=== PATIENT | female | born 1970 | race Caucasian/White ===

== ENCOUNTER 2019-04-24 11:05 | Inpatient (IN) ==
[2019-04-24] MEDS ORDERED: ALBUT/IPRATROP 3MG/0.5MG NEB 3 ML VIAL NEB STA ×2 (11:30→13:03)
[2019-04-24 11:45] LABS: Basophils # (auto) 0.03 K/uL (0-0.2); Basophils % (auto) 0.2 %; Eosinophils # (auto) 0.08 K/uL (0-0.5); Eosinophils % (auto) 0.7 %; Hematocrit (blood only) 49.3 % (37-47); Hemoglobin 16.2 g/dL (12.0-16.0); Immature Granulocytes # (auto) 0.04 K/uL (0.00-0.02); Immature Granulocytes % (auto) 0.3 %; Lymphocytes % (auto) 19.5 %; Mean Corpuscular Hgb Conc 32.9 g/dL (32-36); Mean Corpuscular Volume 100.2 fL (80-100); Mean Platelet Volume 10.3 fL (7.4-10.4); Monocytes # (auto) 0.76 K/uL (0.11-0.59); Monocytes % (auto) 6.2 %; Neutrophils # (auto) 8.98 K/uL (1.4-6.5); Neutrophils % (auto) 73.1 %; Platelet Count 228 K/uL (130-400); RDW Coefficient of Variation 14.4 % (11.5-14.5); RDW Standard Deviation 52.7 fL (36.4-46.3); Red Blood Count 4.92 M/uL (4.2-5.4); White Blood Count 12.29 K/uL (4.8-10.8)
[2019-04-24 12:01] LABS: Albumin Level 3.5 gm/dl (3.4-5.0); BUN Creatinine Ratio 14.7 (10-20); Bilirubin Direct 0.2 mg/dl (0-0.2); Calcium 8.6 mg/dl (8.5-10.1); Creatinine Clr Calc Pharmacy 115.5 ml/min; Est GFR (African American) 121.9; Est GFR (Non-African American) 105.2; INR 1.1 (0.9-1.1); Magnesium 1.8 mg/dl (1.8-2.4); Partial Thromboplastin Ratio 0.9; Partial Thromboplastin Time 24.6 Seconds (21.0-31.0); Potassium 3.4 mmol/L (3.5-5.1); Prothrombin Time 10.9 Seconds (9.0-12.0)
[2019-04-24 12:06] LABS: Bilirubin,Total 0.5 mg/dl (0.2-1); Total Protein 8.2 gm/dl (6.4-8.2)
--- NOTE | 2019-04-24 12:28 | CT Scan Report ---
CT ANGIOGRAPHY OF THE CHEST, PULMONARY EMBOLUS PROTOCOL CLINICAL HISTORY: Shortness of breath. Bilateral leg swelling. COMPARISON STUDY: Chest radiograph September 16, 2018. TECHNIQUE: Following IV administration of 98 mL of Optiray-320, helical axial images of the chest wer e obtained utilizing the pulmonary embolus protocol. Maximal intensity projections and sagittal and coronal reformats were viewed on an independent 3D workstation. IV contrast was administered without complication. Automated exposure control was utilized for the study. A dose lowering technique was utilized adhering to the principles of ALARA. CT DOSE: 801.01 mGy.cm FINDINGS: No pulmonary emboli are identified. There is no evidence for thoracic aortic dissection. T he size of the heart is normal. There is no pericardial effusion. No pneumothorax or pleural effusion is noted. There are no enlarged mediastinal or hilar lymph nodes. There are mildly enlarged bilatera l axillary lymph nodes. Index left axillary lymph node measures 2.6 x 1.5 cm. These nodes are elongat ed and contain fatty gelacio. Central airways are patent. Linear bilateral opacities favor atelectasis. Groundglass opacities also likely reflect atelectasis. Bony thorax and upper abdomen are unremarkable . IMPRESSION: 1. No pulmonary emboli identified. 2. Linear and groundglass opacities within the lungs which favor atelectasis. 3. Indeterminate bilateral axillary lymph nodes. Although mildly enlarged, these nodes have normal mo rphology and are probably benign. Electronically signed by: Santana Hsu M.D. 04/24/2019 12:26 PM
--- NOTE | 2019-04-24 12:33 | XRay Report ---
XR chest 1V portable CLINICAL HISTORY: Shortness of breath. COMPARISON STUDY: Chest radiograph September 08, [address] performed earlier today. FINDINGS: Lung volumes are normal. There is no pneumothorax or pleural effusion. Cardiac size is norm al. Mediastinal contours are normal. There is no evidence for pulmonary edema. Mild left basilar opac ity favors atelectasis when correlating with recent chest CT. IMPRESSION: Left basilar opacity which favors atelectasis when correlating with recent CT. Electronically signed by: Santana Hsu M.D. 04/24/2019 12:32 PM
[2019-04-24] MEDS ORDERED: methylPREDNISolone 125 MG/2 ML VIAL IV STA (13:03)
[2019-04-24 13:05] LABS: Base Excess VBG 6.8 mEq/L; Oxygen Saturation VBG 87.5 %; pH VBG 7.39 (7.36-7.41)
[2019-04-24] MEDS ORDERED: ACETAMINOPHEN 325 MG TAB PO PRN (14:38)
[2019-04-24] MEDS ORDERED: ONDANSETRON INJ 2 MG/ML 2 ML VIAL IV PRN (14:38)
--- NOTE | 2019-04-24 14:38 | History & Physical Report ---
Date of Service April 24, 2019 Assessment & Plan (1) SOB (shortness of breath): 48 yo with PMHx of significant tobacco and alcohol abuse presents with increased SOB and b/l LE edema x 2 weeks. No known hx of COPD or asthma Smokes 1 PPD for "many years" Hypoxic upon presentation to the ED at 85% RA, now at 95% on 2L NC Feels improved SOB after duoneb and solumedrol Chest CT and Xray: no acute abnormalities, no signs of PNA or PE Labs: WBC 12.29, VBG pCO2 57 mmHg, Potassium 3.4 mmol/L, Alk Phos 130 U/L, Troponin 0.029, BNP 472 - Likely COPD onset/exacerbation - Continue with Duonebs - Medrol 40 mg BID - Continue O2 supplementation PRN - Check echo, EKG r/o CHF - CBC/BMP AM labs - Smoking cessation encouraged (2) Tobacco abuse: Smokes 1 PPD for "many years" Discussed importance of cessation, pt agreeable Declines nicotine patch at this time Continue to monitor (3) Alcohol abuse: Admits to alcohol use 4-5 times weekly up to 6+ beers and hard liquor each day Family hx of alcoholism No current signs/symptoms of alcohol withdrawal, notes she has quit in the past up to 2 weeks with no signs of withdrawal -Alcohol withdrawal protocol - Thiamine - Check Folic Acid - Continue to monitor for withdrawal (4) Hypertension: Hx of HTN, used to be on lisinopril but has not been for many years Range today from 200/121 to 174/96 Continue to monitor VTE Prophylaxis: Lovenox 40mg once daily Pt follows with Dr. Segura for routine care. Patient seen in coordination with Dr. Adorno. Will transfer to Dr. Dawkins as attending tomorrow. See addendum for further details. History of Present Illness Chief Complaint: SOB Primary Care Provider: Femi Segura MD 48 yo female with PMHx of tobacco abuse, alcohol abuse, hypertension who presents to the hospital today with SOB and b/l LE edema over the last 2 weeks. She reports "when the weather started to get humid my breathing got really bad". She notes that what made her come in today was she was being told by family and coworkers that she "did not look good and should be seen by a doctor". She notes that she has had to prop herself up with pillows at night in order to sleep because she feels she cannot breath well when she is lying flat. Does note some dyspnea on exertion which is not new but denies chest pain on exertion. Notes swelling of both lower legs and ankles over the last two weeks, denies pain, redness, or unilateral swelling. Pt also notes some blurring of vision that is not new in the last 2 weeks but feels it has been worsening. She does have prescription glasses but does not wear them as they are outdated and she needs to make a new appointment with the opthalmologist. She has been smoking 1 PPD for "years" but has decided she needs to quit and does not want a nicotine patch. She also admits to drinking 4-5 times weekly up to 6 beers and "some liquor" at a time, as well. She identifies that she has a problem with drinking and has family hx of alcoholism and considers herself a "functioning alcoholic". She reports she has quit drinking for up to 2 weeks in the past and has never experienced withdrawal symptoms. Pt does not take any regular medications aside from a Depo injection every 3 months for control. She has never been diagnosed with COPD, asthma, or any other lung disease. She took lisinopril years ago for HTN but has "not had an issue with her BP in many years". She denies chest pain, headaches, dizziness, abdominal pain, recent travel, cough, nasal congestion, fevers, chills. Allergies Allergy/AdvReac Type Severity Reaction Status Date / Time Penicillins Allergy Hives Unverified 04/24/19 11:41 Home Medications Home Medications Medication Instructions Recorded Confirmed Type No Known Home Medications 04/24/19 04/24/19 History Past Med/Surg History Medical History No chronic problems Surgical History Hx of colonoscopy Family History Other COPD (chronic obstructive pulmonary disease) Diabetes Kidney disease Social History Preferred Language: [place] Communication Ability: Effective Beliefs That Will Affect Care: None Current Living Situation: Other Other Information That Helps Us Care for You: No Feels Safe at Home: No Smoking Status: Current every day smoker Tobacco Type: cigarettes ; Cigarettes Per Day: pack a day ; Second Hand Exposure: Yes ; Tobacco Cessation Education Requested by Patient: No Hx Alcohol Use: Yes Alcohol type: beer and hard liquor Alcohol Intake Frequency Comment: 5 times weekly Hx Substance Use: No Review of Systems Review of Systems: A total of 10 systems were reviewed and otherwise negative unless noted in the HPI or below: Physical Exam Physical Exam: GENERAL: alert, obese, no distress, well nourished and well developed, speaking in full sentences without difficulty sitting up in bed HEAD: Normocephalic, atraumatic EYES: PERRL, EOMI, Conjunctiva are pink and non-injected, sclera clear EARS: External ears normal, Canals clear, TM's clear with good cone of light NOSE: no purulent discharge, no sinus tenderness, no mucosal erythema or edema OROPHARYNX: no exudate, no erythema, lips, buccal mucosa, and tongue normal and mucous membranes are moist NECK: supple, no adenopathy HEART: regular rate & rhythm, no murmurs and no gallops, trace edema b/l LE, no erythema, warmth, or tenderness LUNGS: clear to auscultation bilaterally, no wheezing, rales or rhonchi ABDOMEN: abdomen soft, non-tender, normal bowel sounds, no masses or organomegaly, no rebound or guarding, no CVA tenderness, no bladder distention identified and no bruits SKIN: skin color, texture, turgor are normal, no rashes or significant lesions NEURO: alert & oriented x 3 with fluent speech, no focal motor/sensory deficits Results & Data Vital Signs (Past 12 Hours) Vital Signs Temp Pulse Pulse Resp BP Pulse Ox 04/24/19 13:12 97 H 18 04/24/19 13:00 105 H 23 04/24/19 12:30 100 H 26 H 04/24/19 12:16 109 H 28 H 04/24/19 11:48 95 H 20 04/24/19 11:41 85 L 04/24/19 11:30 113 H 12 04/24/19 11:26 117 H 25 H 04/24/19 11:24 113 H 16 200/121 H 89 L 04/24/19 11:07 36.8 C 111 H 20 191/122 H 90 Laboratory Results Short CBC 04/24/19 Range/Units 11:35 WBC 12.29 H (4.8-10.8) K/uL Hgb 16.2 H (12.0-16.0) g/dL Hct 49.3 H (37-47) % Plt Count 228 (130-400) K/uL BMP 04/24/19 11:35 Sodium 139 Potassium 3.4 L Chloride 99 Carbon Dioxide 35 H BUN 10 Creatinine 0.66 Glucose 83 Calcium 8.6 Cardiac Enzymes 04/24/19 Range/Units 11:35 Troponin I 0.029 (0-0.045) ng/ml Liver Function 04/24/19 Range/Units 11:35 Total Bilirubin 0.5 (0.2-1) mg/dl Direct Bilirubin 0.2 (0-0.2) mg/dl AST 23 (15-37) U/L ALT 37 (12-78) U/L Alkaline Phosphatase 130 H (45-117) U/L Albumin 3.5 (3.4-5.0) gm/dl Diagnostic Findings Chest CT: IMPRESSION: 1. No pulmonary emboli identified. 2. Linear and groundglass opacities within the lungs which favor atelectasis. 3. Indeterminate bilateral axillary lymph nodes. Although mildly enlarged, these nodes have normal morphology and are probably benign. Chest XRay: IMPRESSION: Left basilar opacity which favors atelectasis when correlating with recent CT. Code Status & VTE Plan Code Status FULL CODE Supervising Physician Co-Signing Physician Notes Patient is a 48-year-old female with history of hypertension, GERD, alcohol and tobacco use disorder presents with history of worsening shortness of breath, bilateral lower extremity edema, orthopnea since 2 weeks duration. Patient currently is not on any hypertension medications. She was found to be hypoxic at 85% on room air while in ED. Presents with hypertension urgency with elevated systolic and diastolic blood pressures. She admits to drinking alcohol about 4 to 5 times per week. Please review HPI for complete details of presentation. On exam patient is obese, no apparent distress, normocephalic atraumatic, lungs are clear to auscultation, S1-S2, no murmur, abdomen soft nontender, grossly no focal neurological deficits, bilateral 1+ lower extremity edema. Hypertensive urgency Hypoxia Hypokalemia Bilateral lower extremity edema Hypoxia, Orthopnea, dyspnea: R/O Acute CHF Prolonged QTC Could have Acute COPD exacerbation Agree with duo nebs, Solu-Medrol, oxygen supplementation for now Check ECHO, A1C, TSH We will start on low-dose Lasix and consider increasing it if echo consistent with CHF Counseled to quit smoking, alcohol use Started on thiamine, folic acid, ativan PRN for alcohol withdrawal Start on lisinopril 20 mg daily for blood pressure control Labetalol as needed Replace potassium supplement Consider cardiology evaluation Refused nicotine patch Avoid QTC prolonging meds as able Repeat EKG in AM I personally reviewed the record. Patient is interviewed and examined at bedside. Patient's care is coordinated with Carson Jimenez PA-C. Please refer to the documentation above for details of patient's presentation and for discussion of other issues.
[2019-04-24] MEDS: ALBUT/IPRATROP 3MG/0.5MG NEB 3 ML VIAL NEB SCH ×3 (14:51→23:09)
[2019-04-24] MEDS ORDERED: POTASSIUM CHLORIDE 20 MEQ TABCR PO SCH (15:00)
[2019-04-24] MEDS ORDERED: POTASSIUM CHLORIDE 20 MEQ TABCR PO ONE (15:21)
[2019-04-24] MEDS ORDERED: PERFLUTREN LIPID MICROSPHERE (DEFINITY) IV ONE (15:35)
[2019-04-24] MEDS ORDERED: LISINOPRIL 20 MG TAB PO SCH (15:46)
[2019-04-24] MEDS ORDERED: ENOXAPARIN INJ 40 MG/0.4 ML SYR SQ SCH (15:46)
--- NOTE | 2019-04-24 17:13 | Emergency Department Note ---
Entered by Molly Allen acting as a scribe for History of Present Illness General Chief complaint: Shortness of Breath/Dyspnea Stated complaint: FEET SWELLING Time Seen by Provider: 04/24/19 11:18 Source: patient History of Present Illness Onset (ago): week(s) (last few weeks ) Location: chest Radiation: other Quality: + other (shortness of breath) Relieved By: + none Exacerbated By: + none Associated symptoms: + denies other symptoms (denies diarrhea) and + chest pain (radiates to left shoulder); no cough and no nausea/vomiting The patient is a 48 year old female with a history of smoking who presents to the Emergency Room with complaints of shortness of breath that has been persistent over the past few weeks. She also reports mild chest pain that radiates to the left shoulder that started this morning. She states that nothing makes the pain better or worse. and has no allergies She reports getting Depo shots and states there is no chance of . The patient denies any nausea, vomiting, diarrhea, or cough. She also denies high blood pressure, high cholesterol, and diabetes. Home Medications Home Medications Medication Instructions Recorded Confirmed Type No Known Home Medications 04/24/19 04/24/19 History Allergies Allergy/AdvReac Type Severity Reaction Status Date / Time Penicillins Allergy Hives Unverified 04/24/19 11:41 Past Med/Surg History Medical History No chronic problems Surgical History Hx of colonoscopy Family History Other COPD (chronic obstructive pulmonary disease) Diabetes Kidney disease Social History Preferred Language: B[place] Communication Ability: Effective Beliefs That Will Affect Care: None Current Living Situation: Other Other Information That Helps Us Care for You: No Feels Safe at Home: No Smoking Status: Current every day smoker Tobacco Type: cigarettes ; Cigarettes Per Day: pack a day ; Second Hand Exposure: Yes ; Tobacco Cessation Education Requested by Patient: No Hx Alcohol Use: Yes Alcohol type: beer and hard liquor Alcohol Intake Frequency Comment: 5 times weekly Hx Substance Use: No Review of Systems See HPI for pertinent positives & negatives. and A total of 10 systems reviewed and were otherwise negative Physical Exam Vital Signs Vital Signs - 24 hr 04/24/19 11:07 04/24/19 11:24 04/24/19 11:26 Temperature 36.8 C Temperature Source Oral Sepsis Recent Fever Within 48 Hours No Sepsis New/Unexplained Change in Mental Status No Sepsis Action Taken by Nursing No Action Required Oxygen Flow Rate - Titration Pulse Oximetry Post Tiitration Pulse Rate 111 H 113 H 117 H Pulse Rate [Apical] Pulse Rate from SpO2 Sensor 114 H Pulse Rhythm Regular Pulse Strength Normal Respiratory Rate 20 16 25 H Respiratory Effort / Characteristics Non-Labored Spontaneous Respiratory Depth Normal Respiratory Pattern Regular Blood Pressure 191/122 H 200/121 H Blood Pressure Mean 145 147 Blood Pressure Position Sitting Pulse Oximetry 90 89 L Oxygen Delivery Method Room Air Oxygen Flow Rate 04/24/19 11:30 04/24/19 11:41 04/24/19 11:48 Temperature Temperature Source Sepsis Recent Fever Within 48 Hours Sepsis New/Unexplained Change in Mental Status Sepsis Action Taken by Nursing Oxygen Flow Rate - Titration 2 Pulse Oximetry Post Tiitration 93 Pulse Rate 113 H Pulse Rate [Apical] 95 H Pulse Rate from SpO2 Sensor 113 H Pulse Rhythm Pulse Strength Respiratory Rate 12 20 Respiratory Effort / Characteristics Spontaneous Respiratory Depth Respiratory Pattern Blood Pressure Blood Pressure Mean Blood Pressure Position Pulse Oximetry 95 85 L 95 Oxygen Delivery Method Room Air Nasal Cannula Oxygen Flow Rate 2 04/24/19 12:16 04/24/19 12:30 04/24/19 13:00 Temperature Temperature Source Sepsis Recent Fever Within 48 Hours Sepsis New/Unexplained Change in Mental Status Sepsis Action Taken by Nursing Oxygen Flow Rate - Titration Pulse Oximetry Post Tiitration Pulse Rate 109 H 100 H 105 H Pulse Rate [Apical] Pulse Rate from SpO2 Sensor Pulse Rhythm Pulse Strength Respiratory Rate 28 H 26 H 23 Respiratory Effort / Characteristics Respiratory Depth Respiratory Pattern Blood Pressure Blood Pressure Mean Blood Pressure Position Pulse Oximetry Oxygen Delivery Method Oxygen Flow Rate 04/24/19 13:12 04/24/19 13:30 04/24/19 13:34 Temperature Temperature Source Sepsis Recent Fever Within 48 Hours Sepsis New/Unexplained Change in Mental Status Sepsis Action Taken by Nursing Oxygen Flow Rate - Titration Pulse Oximetry Post Tiitration Pulse Rate 113 H 111 H Pulse Rate [Apical] 97 H Pulse Rate from SpO2 Sensor 110 H 111 H Pulse Rhythm Pulse Strength Respiratory Rate 18 21 26 H Respiratory Effort / Characteristics Respiratory Depth Respiratory Pattern Blood Pressure 174/96 H Blood Pressure Mean 122 Blood Pressure Position Pulse Oximetry 95 94 91 Oxygen Delivery Method Nasal Cannula Oxygen Flow Rate 2 GENERAL: The patient appears distressed. She is oriented to person, place, and time. She appears well-developed and well-nourished. HENT: Exam performed. Head: Normocephalic and atraumatic. Right Ear: External ear normal. No mastoid tenderness. Left Ear: External ear normal. No mastoid tenderness. Mouth/Throat: The oropharynx is clear and moist. No trismus in the jaw. No dental abscesses or uvula swelling. No oropharyngeal exudate or tonsillar abscesses. EYES: Conjunctivae and EOM are normal. Pupils are equal, round, and reactive to light. Right eye exhibits no discharge. Left eye exhibits no discharge. No scle ral icterus. NECK: Normal range of motion. Neck supple. No JVD present. No spinous process tenderness present. No carotid bruit present. No rigidity. No tracheal deviation and normal range of motion present. No Brudzinski's sign and no Kernig's sign noted. CV: Tachycardic, regular rhythm, normal heart sounds and intact distal pulses. There is no peripheral edema. Palpable radial pulses bue. PULM/CHEST: Scant expiratory wheezes. Respiratory distress. No stridor. She has no rales. Chest Wall: She exhibits no tenderness. ABD: Obese. The abdomen is soft. Bowel sounds are normal. She has no distension. No mass is present. There is no tenderness. There is no rebound, no guarding, no Simmons's sign and no tenderness at McBurney's point. Rovsig negative MUSC/SKEL: Normal range of motion. There is no peripheral edema, tenderness or deformity. LYMPH: No cervical adenopathy. NEURO: She is alert and oriented to person, place, and time. She has normal strength. No cranial nerve deficit or sensory deficit. Coordination and gait normal. GCS eye subscore is 4. GCS verbal subscore is 5. GCS motor subscore is 6. cerbellar tests wnl. SKIN: Skin is warm and dry. She is not diaphoretic. PSYCH: She has a normal mood and affect. Her behavior is normal. Judgment and thought content normal. Course 1127: Past medical records reviewed. The patient was evaluated in room C09. A complete history and physical exam was performed. The patient's hypoxic on room air, and was immediately placed on nasal cannula on 2 L which improved her pulse oximetry. The patient was placed on a employment specialist/program manager, and large bore IV access was obtained. 1305: Patient continues to need the supplemental oxygen via nasal cannula, vital signs are stable with the supplemental oxygen. Labs and imaging are within normal limits. The patient states that she feels better after the Duoneb treatment. She will be given Solumedrol and further Duoneb treatments. Hypoxia is likely due to COPD given the patient's history of smoking. The patient will be further evaluated for hypoxia and repeated Du[facility]. Administered Medications Albuterol (Duoneb) 3 ml NEB Q4R FELICIA Stop: 05/24/19 15:59 Last Admin: 04/24/19 14:51 Dose: 3 ml Documented by: [id number] Discontinued Medications Albuterol (Duoneb) 3 ml NEB NOW STA Stop: 04/24/19 11:31 Last Admin: 04/24/19 11:45 Dose: 3 ml Documented by: [id number] Albuterol (Duoneb) 3 ml NEB NOW STA Stop: 04/24/19 13:04 Last Admin: 04/24/19 13:11 Dose: 3 ml Documented by: [id number] Methylprednisolone (Solumedrol) 125 mg IV NOW STA Stop: 04/24/19 13:04 Last Admin: 04/24/19 13:15 Dose: 125 mg Documented by: [id number] Perflutren Lipid Microsphere (Definity) 2 ml IV ONCE ONE Stop: 04/24/19 15:36 Last Admin: 04/24/19 15:36 Dose: 2 ml Documented by: [id number] Medical Decision Making Medical Records Attestation: I reviewed the patient's medical records. Home Medications Current Medication List: was personally reviewed by me Laboratory Data Attestation: I reviewed the patient's lab results. Result diagrams: 04/24/19 11:35 04/24/19 11:35 Lab Results 04/24/19 04/24/19 04/24/19 Range/Units 11:35 11:35 11:35 WBC 12.29 H (4.8-10.8) K/uL RBC 4.92 (4.2-5.4) M/uL Hgb 16.2 H (12.0-16.0) g/dL Hct 49.3 H (37-47) % MCV 100.2 H (80-100) fL MCH 32.9 (25-34) pg MCHC 32.9 (32-36) g/dL RDW Std Deviation 52.7 H (36.4-46.3) fL RDW Coeff of Homer 14.4 (11.5-14.5) % Plt Count 228 (130-400) K/uL MPV 10.3 (7.4-10.4) fL Immature Gran % (Auto) 0.3 % Neut % (Auto) 73.1 % Lymph % (Auto) 19.5 % [place] % (Auto) 6.2 % Eos % (Auto) 0.7 % Baso % (Auto) 0.2 % Immature Gran # (Auto) 0.04 H (0.00-0.02) K/uL Neut # (Auto) 8.98 H (1.4-6.5) K/uL Lymph # (Auto) 2.40 (1.2-3.4) K/uL [place] # (Auto) 0.76 H (0.11-0.59) K/uL Eos # (Auto) 0.08 (0-0.5) K/uL Baso # (Auto) 0.03 (0-0.2) K/uL PT 10.9 (9.0-12.0) Seconds INR 1.1 (0.9-1.1) APTT 24.6 (21.0-31.0) Seconds PTT Ratio 0.9 VBG pH (7.36-7.41) VBG pCO2 (38-50) mmHg VBG pO2 mmHg VBG HCO3 mmol/L VBG O2 Saturation % VBG Base Excess mEq/L Barometric Pressure mm/Hg Sodium 139 (136-145) mmol/L Potassium 3.4 L (3.5-5.1) mmol/L Chloride 99 (98-107) mmol/L Carbon Dioxide 35 H (21-32) mmol/L Anion Gap 5.0 (3-11) BUN 10 (7-18) mg/dl Creatinine 0.66 (0.6-1.2) mg/dl Est Cr Clr Drug Dosing 115.5 ml/min Est GFR ( Amer) 121.9 Est GFR (Non-Af Amer) 105.2 BUN/Creatinine Ratio 14.7 (10-20) Glucose 83 (70-99) mg/dl Calcium 8.6 (8.5-10.1) mg/dl Magnesium 1.8 (1.8-2.4) mg/dl Total Bilirubin 0.5 (0.2-1) mg/dl Direct Bilirubin 0.2 (0-0.2) mg/dl AST 23 (15-37) U/L ALT 37 (12-78) U/L Alkaline Phosphatase 130 H (45-117) U/L Troponin I (0-0.045) ng/ml NT-Pro-B Natriuret Pep 472 H (0-450) pg/ml Total Protein 8.2 (6.4-8.2) gm/dl Albumin 3.5 (3.4-5.0) gm/dl Lipase 102 (73-393) U/L 04/24/19 04/24/19 Range/Units 11:35 12:49 WBC (4.8-10.8) K/uL RBC (4.2-5.4) M/uL Hgb (12.0-16.0) g/dL Hct (37-47) % MCV (80-100) fL MCH (25-34) pg MCHC (32-36) g/dL RDW Std Deviation (36.4-46.3) fL RDW Coeff of Hoemr (11.5-14.5) % Plt Count (130-400) K/uL MPV (7.4-10.4) fL Immature Gran % (Auto) % Neut % (Auto) % Lymph % (Auto) % [place] % (Auto) % Eos % (Auto) % Baso % (Auto) % Immature Gran # (Auto) (0.00-0.02) K/uL Neut # (Auto) (1.4-6.5) K/uL Lymph # (Auto) (1.2-3.4) K/uL [place] # (Auto) (0.11-0.59) K/uL Eos # (Auto) (0-0.5) K/uL Baso # (Auto) (0-0.2) K/uL PT (9.0-12.0) Seconds INR (0.9-1.1) APTT (21.0-31.0) Seconds PTT Ratio VBG pH 7.39 (7.36-7.41) VBG pCO2 57 H (38-50) mmHg VBG pO2 72 mmHg VBG HCO3 34 mmol/L VBG O2 Saturation 87.5 % VBG Base Excess 6.8 mEq/L Barometric Pressure 732.2 mm/Hg Sodium (136-145) mmol/L Potassium (3.5-5.1) mmol/L Chloride (98-107) mmol/L Carbon Dioxide (21-32) mmol/L Anion Gap (3-11) BUN (7-18) mg/dl Creatinine (0.6-1.2) mg/dl Est Cr Clr Drug Dosing ml/min Est GFR ( Amer) Est GFR (Non-Af Amer) BUN/Creatinine Ratio (10-20) Glucose (70-99) mg/dl Calcium (8.5-10.1) mg/dl Magnesium (1.8-2.4) mg/dl Total Bilirubin (0.2-1) mg/dl Direct Bilirubin (0-0.2) mg/dl AST (15-37) U/L ALT (12-78) U/L Alkaline Phosphatase (45-117) U/L Troponin I 0.029 (0-0.045) ng/ml NT-Pro-B Natriuret Pep (0-450) pg/ml Total Protein (6.4-8.2) gm/dl Albumin (3.4-5.0) gm/dl Lipase (73-393) U/L Imaging Data Radiologist's Impression: Radiology results as stated below per my review and the radiologist's interpretation: XR chest 1V portable CLINICAL HISTORY: Shortness of breath. COMPARISON STUDY: Chest radiograph September 08, [address] performed earlier today. FINDINGS: Lung volumes are normal. There is no pneumothorax or pleural effusion. Cardiac size is normal. Mediastinal contours are normal. There is no evidence for pulmonary edema. Mild left basilar opacity favors atelectasis when correlating with recent chest CT. IMPRESSION: Left basilar opacity which favors atelectasis when correlating with recent CT. Electronically signed by: Santana Hsu M.D. 04/24/2019 12:[address] ANGIOGRAPHY OF THE CHEST, PULMONARY EMBOLUS PROTOCOL CLINICAL HISTORY: Shortness of breath. Bilateral leg swelling. COMPARISON STUDY: Chest radiograph September 16, 2018. TECHNIQUE: Following IV administration of 98 mL of Optiray-320, helical axial images of the chest were obtained utilizing the pulmonary embolus protocol. Maximal intensity projections and sagittal and coronal reformats were viewed on an independent 3D workstation. IV contrast was administered without complication. Automated exposure control was utilized for the study. A dose lowering technique was utilized adhering to the principles of ALARA. CT DOSE: 801.01 mGy.cm FINDINGS: No pulmonary emboli are identified. There is no evidence for thoracic aortic dissection. The size of the heart is normal. There is no pericardial effusion. No pneumothorax or pleural effusion is noted. There are no enlarged mediastinal or hilar lymph nodes. There are mildly enlarged bilateral axillary lymph nodes. Index left axillary lymph node measures 2.6 x 1.5 cm. These nodes are elongated and contain fatty gelacio. Central airways are patent. Linear bilateral opacities favor atelectasis. Groundglass opacities also likely reflect atelectasis. Bony thorax and upper abdomen are unremarkable. IMPRESSION: 1. No pulmonary emboli identified. 2. Linear and groundglass opacities within the lungs which favor atelectasis. 3. Indeterminate bilateral axillary lymph nodes. Although mildly enlarged, these nodes have normal morphology and are probably benign. Electronically signed by: Santana Hsu M.D. 04/24/2019 12:26 PM ECG Data Attestation: I personally reviewed and interpreted this ECG as follows: Indication: SOB/dyspnea Rate (beats per minute): 101 Rhythm: sinus tachycardia Findings: + other (NC, QRS, and QTC intervals are within normal limits.); no ST depression and no ST elevation Blood Pressure Blood Pressure Findings: Elevated blood pressure Blood Pressure Disposition: further management by hospitalist ARNOLD Narrative 1127: Past medical records reviewed. The patient was evaluated in room C09. A complete history and physical exam was performed. The patient's hypoxic on room air, and was immediately placed on nasal cannula on 2 L which improved her pulse oximetry. The patient was placed on a employment specialist/program manager, and large bore IV access was obtained. 1305: Patient continues to need the supplemental oxygen via nasal cannula, vital signs are stable with the supplemental oxygen. Labs and imaging are within normal limits. The patient states that she feels better after the Duoneb treatment. She will be given Solumedrol and further Duoneb treatments. Hypoxia is likely due to COPD given the patient's history of smoking. The patient will be further evaluated for hypoxia and repeated Duoneb treatment by Dr. Tila Gibbs hospitalist. Impression & Plan Hypoxia Critical Care Time Critical Care Time: Yes Total Critical Care Time: 40 I have personally spent 40 minutes of critical care time in the direct management of this patient. This includes bedside care, interpretation of diagnostic studies, and testing, discussion with consultants, patient, and family members, and other required patient management activities. This 40 minutes is in excess of all separately billable procedures. Discharge Plan Visit Data *Final* Discharge Date/Time: 04/24/19 14:00 Chief Complaint: Shortness of Breath/Dyspnea Stated Complaint: FEET SWELLING ED Provider: Woodrow Razo Discharge Problem: Hypoxia Patient Disposition: Still a Patient Discharge Instructions Interventions: ED Discharge Assessment Last Done: 04/24/19 14:00 The scribe's documentation has been prepared under my direction and personally reviewed by me in its entirety. I confirm that the note above accurately reflects all work, treatment, procedures, and medical decision making performed by me.
[2019-04-24] MEDS: ENOXAPARIN INJ 40 MG/0.4 ML SYR SQ SCH (17:16)
[2019-04-24] MEDS: LISINOPRIL 20 MG TAB PO SCH (17:17)
[2019-04-24] MEDS: THIAMINE HCL 100 MG TAB PO SCH (17:18)
[2019-04-24] MEDS ORDERED: methylPREDNISolone acetate 40 MG/ML VIAL IM SCH (21:00)
[2019-04-24] MEDS: methylPREDNISolone 40 MG in SYRINGE 0 ML IV SCH (21:12)
[2019-04-24] MEDS: FUROSEMIDE 20 MG TAB PO SCH (21:20)
[2019-04-24] MEDS ORDERED: LORazepam 0.5 MG TAB PO STA (22:05)
[2019-04-24] MEDS ORDERED: MAGNESIUM SULFATE / D5W 1 GM/100 ML BAG IV ONE (22:30)
[2019-04-25] MEDS: ALBUT/IPRATROP 3MG/0.5MG NEB 3 ML VIAL NEB SCH ×4 (04:09→15:04)
[2019-04-25 06:45] LABS: Hematocrit (blood only) 49.4 % (37-47); Hemoglobin 15.8 g/dL (12.0-16.0); Mean Corpuscular Volume 98.8 fL (80-100); Mean Platelet Volume 11.2 fL (7.4-10.4); Platelet Count 226 K/uL (130-400); RDW Coefficient of Variation 14.3 % (11.5-14.5); RDW Standard Deviation 51.1 fL (36.4-46.3); White Blood Count 14.06 K/uL (4.8-10.8)
[2019-04-25 07:12] LABS: BUN Creatinine Ratio 9.7 (10-20); Calcium 8.9 mg/dl (8.5-10.1); Creatinine Clr Calc Pharmacy 106.3 ml/min; Est GFR (African American) 117.6; Est GFR (Non-African American) 101.4; Magnesium 2.2 mg/dl (1.8-2.4); Potassium 3.8 mmol/L (3.5-5.1)
[2019-04-25] MEDS: methylPREDNISolone 40 MG in SYRINGE 0 ML IV SCH ×2 (07:44→21:09)
[2019-04-25] MEDS: THIAMINE HCL 100 MG TAB PO SCH (07:45)
[2019-04-25] MEDS: LISINOPRIL 20 MG TAB PO SCH (07:45)
[2019-04-25] MEDS: FUROSEMIDE 20 MG TAB PO SCH (07:46)
[2019-04-25] MEDS: FOLIC ACID 1 MG TAB PO SCH (07:46)
[2019-04-25 08:33] LABS: Estimated Average Glucose 134 mg/dl; Hemoglobin A1C 6.3 % (4.5-5.6)
[2019-04-25] MEDS: ENOXAPARIN INJ 40 MG/0.4 ML SYR SQ SCH (15:31)
--- NOTE | 2019-04-25 16:39 | Hospitalist Progress Note ---
Date of Service April 25, 2019 Assessment & Plan (1) SOB (shortness of breath): Likely secondary to COPD exacerbation, newly diagnosed diastolic dysfunction, diastolic CHF 48 yo with PMHx of significant tobacco and alcohol abuse presents with increased SOB and b/l LE edema x 2 weeks. No known hx of COPD or asthma Smokes 1 PPD for "many years" Hypoxic upon presentation to the ED at 85% RA, now at 95% on 2L NC Feels improved SOB after duoneb and solumedrol Chest CT and Xray: no acute abnormalities, no signs of PNA or PE Labs: WBC 12.29, VBG pCO2 57 mmHg, Potassium 3.4 mmol/L, Alk Phos 130 U/L, Troponin 0.029, BNP 472 --Being weaned off of oxygen by nasal cannula today Clinically improving Continue Solu-Medrol 40 mg every 12, nebs every 6 hours, add doxycycline 100 mg twice daily for possible sinusitis/acute bronchitis Continue Lasix 20 mg p.o. daily, monitor I's and O's Monitor in telemetry Will need to follow-up as an outpatient with cardiology (2) Hypertension: Hx of HTN, used to be on lisinopril but has not been for many years Diastolic dysfunction likely secondary to uncontrolled hypertension Lisinopril 20 mg p.o. be started Blood pressure improving Continue to monitor Smoking She reports stopping smoking one day prior to admission Counseling performed Alcohol abuse Per H&P No signs of alcohol withdrawal Continue to monitor VTE Prophylaxis: Lovenox 40mg once daily Disposition Pending Anticipate discharge home medically stable Also Dr. Segura for PCP Case discussed in detail at length with patient All questions answered She is understanding, comfortable, agreeable with plan of care (3) Tobacco abuse: Smokes 1 PPD for "many years" Discussed importance of cessation, pt agreeable Declines nicotine patch at this time Continue to monitor (4) Alcohol abuse: Admits to alcohol use 4-5 times weekly up to 6+ beers and hard liquor each day Family hx of alcoholism No current signs/symptoms of alcohol withdrawal, notes she has quit in the past up to 2 weeks with no signs of withdrawal -Alcohol withdrawal protocol - Thiamine - Check Folic Acid - Continue to monitor for withdrawal Subjective Follow-up for hypoxia, COPD exacerbation, newly diagnosed diastolic CHF next Seen sitting up in bed, comfortable, not in distress States that she feels 60% better compared to yesterday Able to expectorate thick brownish sputum, coughing less Dyspnea improving, weaned off to 1 L O2 via nasal cannula Denies fevers or chills, chest pain, palpitations, dizziness Reports leg swelling also improved Review of Systems Review of Systems: All systems reviewed & are unremarkable except as noted in HPI & below Physical Exam Physical Exam: General- oriented x 3, not in distress, speaks in sentences with no effort or accessory muscle use Head- atraumatic Eyes- PERRL, EOMI, anicteric ENT- oropharynx clear Neck- supple, no JVD, no adenopathy, no thyromegaly; carotids +2/2, no bruits appreciated Lungs-positive mild rales bilateral bases, no wheezing, good air entry bilaterally Heart- normal rate, regular rhythm; no murmur, no gallop, no rub appreciated Abdomen- normal bowel sounds, nondistended, soft, nontender, no masses or hepatosplenomegaly Extremities-mild lower leg edema, no calf tenderness; peripheral pulses intact Neuro- alert, oriented x 3; CN 2-12 grossly intact; motor 5/5 bilaterally;sensation 100% on all extremities; no other gross focal neurologic deficits Skin- warm & dry Results & Data Vital Signs (Past 12 Hours) Vital Signs Temp Pulse Pulse Pulse Resp BP Pulse Ox 04/25/19 15:09 36.6 C 102 H 19 141/88 H 97 04/25/19 15:05 96 H 16 98 04/25/19 14:49 117 H 04/25/19 11:42 36.8 C 113 H 18 151/87 H 96 04/25/19 11:13 108 H 16 93 04/25/19 09:50 94 04/25/19 09:45 85 L 04/25/19 07:11 117 H 04/25/19 07:08 112 H 20 88 L 04/25/19 07:00 36.7 C 111 H 18 118/74 98 Laboratory Results Laboratory Results - last 24 hr 04/25/19 04/25/19 04/25/19 06:13 06:13 06:13 WBC 14.06 H RBC 5.00 Hgb 15.8 Hct 49.4 H MCV 98.8 MCH 31.6 MCHC 32.0 RDW Std Deviation 51.1 H RDW Coeff of Homer 14.3 Plt Count 226 MPV 11.2 H Sodium 138 Potassium 3.8 Chloride 99 Carbon Dioxide 35 H Anion Gap 4.0 BUN 7 Creatinine 0.71 Est Cr Clr Drug Dosing 106.3 Est GFR ( Amer) 117.6 Est GFR (Non-Af Amer) 101.4 BUN/Creatinine Ratio 9.7 L Glucose 211 H Estimat Average Glucose 134 Hemoglobin A1c 6.3 H Calcium 8.9 Magnesium 2.2 TSH 0.703
[2019-04-25] MEDS: DOXYCYCLINE HYCLATE 100 MG CAP PO SCH (17:17)
[2019-04-25] MEDS: IPRATROPIUM BROMIDE NEB SOLN 0.02% 2.5 ML VIAL INH SCH (19:37)
[2019-04-25] MEDS: LEVALBUTEROL 1.25MG/0.5ML NEB INH SCH (19:37)
[2019-04-25] MEDS ORDERED: XOPENEX/ATROVENT 1.25mg/0.5MG NEB COMBO NEB SCH (20:00)
[2019-04-25] MEDS: LORazepam 1 MG/2 ML VIAL IV PRN (21:09)
[2019-04-26] MEDS: LEVALBUTEROL 1.25MG/0.5ML NEB INH SCH ×4 (01:50→19:04)
[2019-04-26] MEDS: IPRATROPIUM BROMIDE NEB SOLN 0.02% 2.5 ML VIAL INH SCH ×4 (01:50→19:04)
[2019-04-26] MEDS: DOXYCYCLINE HYCLATE 100 MG CAP PO SCH ×2 (05:02→18:26)
[2019-04-26] MEDS: methylPREDNISolone 40 MG in SYRINGE 0 ML IV SCH (08:24)
[2019-04-26] MEDS: LISINOPRIL 20 MG TAB PO SCH (08:24)
[2019-04-26] MEDS: THIAMINE HCL 100 MG TAB PO SCH (08:24)
[2019-04-26] MEDS: FUROSEMIDE 20 MG TAB PO SCH (08:25)
[2019-04-26] MEDS: FOLIC ACID 1 MG TAB PO SCH (08:25)
--- NOTE | 2019-04-26 18:45 | Hospitalist Progress Note ---
Date of Service April 26, 2019 Assessment & Plan (1) SOB (shortness of breath): Acute hypoxemic resp failure multifactoral COPD exacerbation, CHF exacerbation ( new diagnosed diastolic dysfunction, diastolic CHF 48 yo with PMHx of significant tobacco and alcohol abuse presents with increased SOB and b/l LE edema x 2 weeks. No known hx of COPD or asthma Smokes 1 PPD for "many years" Hypoxic upon presentation to the ED at 85% RA, now at 95% on 2L NC Feels improved SOB after duoneb and solumedrol respiratory status gradually improving no aduible wheeze today changed to PO prednisine 40 mg daily will tx for [address] and Xray: no acute abnormalities, no signs of PNA or PE ACUTE DECOMPENSATED CHF WITH DIASTOLIC DYSFUNCTION : vol status improved after diuresis Continue Lasix 20 mg p.o. daily, monitor I's and O's Will need to follow-up as an outpatient with cardiology (2) Hypertension: Hx of HTN, used to be on lisinopril but has not been for many years Diastolic dysfunction likely secondary to uncontrolled hypertension Lisinopril 20 mg p.o. be started added Lasix 20 mg dailly Blood pressure improving Continue to monitor Smoking She reports stopping smoking one day prior to admission Counseling performed Alcohol abuse Per H&P No signs of alcohol withdrawal Continue to monitor VTE Prophylaxis: Lovenox 40mg once daily Disposition Pending Anticipate discharge home medically stable Also Dr. Segura for PCP Case discussed in detail at length with patient All questions answered She is understanding, comfortable, agreeable with plan of care (3) Tobacco abuse: Smokes 1 PPD for "many years" Discussed importance of cessation, pt agreeable Declines nicotine patch at this time (4) Alcohol abuse: Admits to alcohol use 4-5 times weekly up to 6+ beers and hard liquor each day Family hx of alcoholism No current signs/symptoms of alcohol withdrawal, notes she has quit in the past up to 2 weeks with no signs of withdrawal CODE STATUS : FULL CODE DISPOSITION : expected to be discharged home when medically stable pt will need formal spirometry /PFT 4-6 weeks after discharge for formal Dx of COPD Subjective pt reports of feeling better still fells chest tightness /BACH started to have cough today with whitish sputum afebrile no audible wheeze requiring 2 L 02 ( spo2 noted to 88% in RA ) -was not on home 02 Review of Systems Review of Systems: All systems reviewed & are unremarkable except as noted in HPI & below Physical Exam Constitutional: WD/WN, vitals as above no acute distress Eyes: PERRL, conjunctivae normal, anicteric sclerae ENMT: external ear and nose normal, oropharynx normal Neck: trachea midline, no thyromegaly Respiratory: no respiratory distress and no cough Auscultation: + diminished lung sounds; no crackles, no rales, no rhonchi and no wheezes Cardiovascular: RRR, no murmur, no edema Gastrointestinal (Abdomen): normal bowel sounds, soft, nontender, no hepatosplenomegaly Musculoskeletal: no cyanosis or clubbing, extremities motor strength 5/5 Skin: no rashes, warm and dry Neurologic: PERRL, EOMI, accommodation nl, no face palsy, no dysarthria Psychiatric: A+Ox3, euthymic affect Results & Data Vital Signs (Past 12 Hours) Vital Signs Temp Pulse Pulse Pulse Resp BP BP 04/26/19 16:37 113 H 04/26/19 15:13 37.0 C 94 H 18 147/79 H 04/26/19 13:51 87 18 04/26/19 12:18 36.7 C 111 H 20 137/88 04/26/19 07:11 104 H 04/26/19 07:10 112 H 20 04/26/19 06:54 37 C 110 H 20 122/77 Pulse Ox 04/26/19 16:37 04/26/19 15:13 92 04/26/19 13:51 90 04/26/19 12:18 92 04/26/19 07:11 04/26/19 07:10 95 04/26/19 06:54 95
[2019-04-26] MEDS: LABETALOL HCL IV 5 MG/ML 20ML IV PRN (19:12)
[2019-04-26] MEDS: ENOXAPARIN INJ 40 MG/0.4 ML SYR SQ SCH (23:19)
[2019-04-27] MEDS: IPRATROPIUM BROMIDE NEB SOLN 0.02% 2.5 ML VIAL INH SCH ×2 (01:58→07:13)
[2019-04-27] MEDS: LEVALBUTEROL 1.25MG/0.5ML NEB INH SCH ×2 (01:58→07:13)
[2019-04-27] MEDS: LABETALOL HCL IV 5 MG/ML 20ML IV PRN (02:39)
[2019-04-27] MEDS: LORazepam 1 MG/2 ML VIAL IV PRN (03:09)
[2019-04-27] MEDS: DOXYCYCLINE HYCLATE 100 MG CAP PO SCH ×2 (05:57→17:49)
[2019-04-27] MEDS: FOLIC ACID 1 MG TAB PO SCH (08:13)
[2019-04-27] MEDS: FUROSEMIDE 20 MG TAB PO SCH (08:13)
[2019-04-27] MEDS: LISINOPRIL 20 MG TAB PO SCH (08:13)
[2019-04-27] MEDS: predniSONE 20 MG TAB PO SCH (08:13)
[2019-04-27] MEDS: METOPROLOL TARTRATE 25 MG TAB PO SCH ×2 (08:13→21:18)
[2019-04-27] MEDS: THIAMINE HCL 100 MG TAB PO SCH (08:13)
[2019-04-27] MEDS ORDERED: METOPROLOL TARTRATE 25 MG TAB PO SCH (09:00)
[2019-04-27] MEDS ORDERED: IPRATROPIUM BROMIDE NEB SOLN 0.02% 2.5 ML VIAL INH PRN (12:29)
[2019-04-27] MEDS ORDERED: LEVALBUTEROL 1.25MG/0.5ML NEB INH PRN (12:29)
[2019-04-27] MEDS ORDERED: LORazepam 0.5 MG TAB PO PRN ×2 (12:30)
[2019-04-27] MEDS ORDERED: MEDROXYPROGESTERONE ACETATE 150 MG/ML VIAL IM ONE (13:00)
--- NOTE | 2019-04-27 16:52 | Hospitalist Progress Note ---
Date of Service April 27, 2019 Assessment & Plan (1) SOB (shortness of breath): Resolved, respiratory status improved/normalized, in room air, no shortness of breath no dyspnea on exertion no cough Presented with acute hypoxemic resp failure -was found to be hypoxic 85% in room air, required supplemental oxygen On presentation with hypoxia is multifactorial : COPD exacerbation(history of long-term tobacco abuse, (approximate 30 -pack-year)-has been smoking since she was a teenager), CHF exacerbation ( new diagnosed diastolic dysfunction, diastolic CHF) Patient never had formal diagnosis of COPD or asthma Smokes 1 PPD for "many years" Hypoxic upon presentation to the ED at 85% RA, now at 95% on 2L NC Feels improved SOB after duoneb and solumedrol respiratory status gradually improved No wheeze auscultated Wednesday, patient is in room air, speaking in sentences, no dyspnea on exertion changed to PO prednisine 40 mg daily will tx for [address] and Xray: no acute abnormalities, no signs of PNA or PE ACUTE DECOMPENSATED CHF WITH DIASTOLIC DYSFUNCTION : 48 yo with PMHx of significant tobacco and alcohol abuse presents with increased SOB and b/l LE edema x 2 weeks. vol status improved after diuresis Continue Lasix 20 mg p.o. daily, Given instruction for low-salt diet, will be given CHF discharge instruction- with signs and symptoms of decompensated heart failure, monitoring weight and fluid intake at home Will need to follow-up as an outpatient with cardiology- (2) Hypertension: Presented with hypertensive urgency Hx of HTN, used to be on lisinopril but has not been for many years Diastolic dysfunction likely secondary to uncontrolled hypertension Lisinopril 20 mg p.o. be started added Lasix 20 mg dailly Blood pressure remains stable Will need close follow-up with family physician, hospital follow-up scheduled for next week Patient is counseled for low-salt diet (3) Tobacco abuse: Smokes 1 PPD for "many years" Discussed importance of cessation, pt agreeable Declines nicotine patch at this time She reports stopping smoking one day prior to admission-because of the shortness of breath She is determined to quit smoking now She is counseled to seek help, utilizing nicotine patch, with or without Chantix, close follow-up with family physician (4) Alcohol abuse: Admits to alcohol use 4-5 times weekly up to 6+ beers and hard liquor each day Family hx of alcoholism No current signs/symptoms of alcohol withdrawal, notes she has quit in the past up to 2 weeks with no signs of withdrawal CODE STATUS : FULL CODE DISPOSITION : expected to be discharged home tomorrow pt will need formal spirometry /PFT 4-6 weeks after discharge for formal Dx of COPD Subjective Feels much better today, no wheeze, cough is improved, no hypoxia, patient remains in room air Complains of feeling very anxious, had an episode of hypertensive urgency last night,-upset that she was not given Ativan, As IV Ativan was ordered for alcohol withdrawal protocol,-patient does not have any sign of symptom of withdrawal IV Ativan discontinued, order to p.o. Ativan as needed for anxiety, and at bedtime as needed for sleep Patient is worried about missing her 3 months dose of IV [id number] she takes for severe cramps/bleeding associated with a fibroid uterus Patient was scheduled for [employer] clinic follow-up today, which is canceled because of her hospital admission Patient is ordered dose of scheduled Depo-Provera Will watch overnight to assess for better blood pressure control Plan to discharge home tomorrow She is counseled over and over again to getting tobacco cessation, and risk associated with alcohol abuse Review of Systems Review of Systems: All systems reviewed & are unremarkable except as noted in HPI & below Physical Exam Constitutional: WD/WN, vitals as above no acute distress Eyes: PERRL, conjunctivae normal, anicteric sclerae ENMT: external ear and nose normal, oropharynx normal Neck: trachea midline, no thyromegaly Respiratory: normal respiratory effort, lungs clear to auscultation no respiratory distress and no cough Cardiovascular: RRR, no murmur, no edema Gastrointestinal (Abdomen): normal bowel sounds, soft, nontender, no hepatosplenomegaly Musculoskeletal: no cyanosis or clubbing, extremities motor strength 5/5 Skin: no rashes, warm and dry Neurologic: PERRL, EOMI, accommodation nl, no face palsy, no dysarthria Psychiatric: A+Ox3, euthymic affect Results & Data Vital Signs (Past 12 Hours) Vital Signs Temp Pulse Resp BP Pulse Ox 04/27/19 15:43 37.0 C 100 H 20 149/86 H 93 04/27/19 07:14 104 H 18 92 04/27/19 07:02 36.9 C 92 H 18 124/82 94
[2019-04-28] MEDS: DOXYCYCLINE HYCLATE 100 MG CAP PO SCH (05:30)
[2019-04-28] MEDS: LISINOPRIL 20 MG TAB PO SCH (07:55)
[2019-04-28] MEDS: FOLIC ACID 1 MG TAB PO SCH (07:56)
[2019-04-28] MEDS: METOPROLOL TARTRATE 25 MG TAB PO SCH (07:56)
[2019-04-28] MEDS: predniSONE 20 MG TAB PO SCH (07:56)
[2019-04-28] MEDS: THIAMINE HCL 100 MG TAB PO SCH (07:56)
[2019-04-28] MEDS: FUROSEMIDE 20 MG TAB PO SCH (07:56)
--- NOTE | 2019-04-28 19:26 | Discharge Summary ---
Date of Service April 28, 2019 Admission HPI Per Admitting Provider 48 yo female with PMHx of tobacco abuse, alcohol abuse, hypertension who presents to the hospital today with SOB and b/l LE edema over the last 2 weeks. She reports "when the weather started to get humid my breathing got really bad". She notes that what made her come in today was she was being told by family and coworkers that she "did not look good and should be seen by a doctor". She notes that she has had to prop herself up with pillows at night in order to sleep because she feels she cannot breath well when she is lying flat. Does note some dyspnea on exertion which is not new but denies chest pain on exertion. Notes swelling of both lower legs and ankles over the last two weeks, denies pain, redness, or unilateral swelling. Pt also notes some blurring of vision that is not new in the last 2 weeks but feels it has been worsening. She does have prescription glasses but does not wear them as they are outdated and she needs to make a new appointment with the opthalmologist. She has been smoking 1 PPD for "years" but has decided she needs to quit and does not want a nicotine patch. She also admits to drinking 4-5 times weekly up to 6 beers and "some liquor" at a time, as well. She identifies that she has a problem with drinking and has family hx of alcoholism and considers herself a "functioning alcoholic". She reports she has quit drinking for up to 2 weeks in the past and has never experienced withdrawal symptoms. Pt does not take any regular medications aside from a Depo injection every 3 months for control. She has never been diagnosed with COPD, asthma, or any other lung disease. She took lisinopril years ago for HTN but has "not had an issue with her BP in many years". She denies chest pain, headaches, dizziness, abdominal pain, recent travel, cough, nasal congestion, fevers, chills. Principal Diagnosis COPD EXACERBATION/ACUTE HEART FAILURE WITH DIASTOLIC DYSFUNCTION/CHRONIC TOBACCO ABUSE/ALCOHOL ABUSE Discharge Exam GENERAL: No sign of distress, HEENT: Sclera nonicteric, pink-purple bilateral equal reactive to light extraocular muscle intact Normal oral mucosa, neck: No JVD, no thyromegaly, trachea midline Lungs: Improved auscultation more irrigation done prior, no wheeze or rales, Cardiovascular: Regular S1 and S2, no murmur or gallop, no JVD, no lower extrem ity edema Abdomen: Soft, nontender, bowel sounds active, no hepatosplenomegaly Extremities: No rash or deformity, normal joint, Neuro: No focal neurological deficit, no dysarthria, no facial droop Psych: Alert awake oriented x3: Euthymic Skin: No rash LYMPH NODES: No cervical lymphadenopathy Discharge Data Allergies Allergy/AdvReac Type Severity Reaction Status Date / Time Penicillins Allergy Hives Unverified 04/24/19 11:41 Consultations 04/24/19 13:10 ED Decision to Admit Stat Ordered Studies 04/24/19 11:30 CT angio chest PE protocol Stat Hospital Course (1) SOB (shortness of breath): Resolved, respiratory status improved/normalized, in room air, no shortness of breath no dyspnea on exertion no cough Presented with acute hypoxemic resp failure -was found to be hypoxic 85% in room air, required supplemental oxygen On presentation with hypoxia is multifactorial : COPD exacerbation(history of long-term tobacco abuse, (approximate 30 -pack-year)-has been smoking since she was a teenager), CHF exacerbation ( new diagnosed diastolic dysfunction, diastolic CHF) Patient never had formal diagnosis of COPD or asthma Smokes 1 PPD for "many years" Hypoxic upon presentation to the ED at 85% RA, now at 95% on 2L NC Feels improved SOB after duoneb and solumedrol respiratory status improved to baseline, no shortness of breath no dyspnea on exertion no wheeze No wheeze auscultated Wednesday, patient is in room air, speaking in sentences, no dyspnea on exertion changed to PO prednisine 40 mg daily Patient will be discharged on Medrol Dosepak Prescription given for as needed rescue albuterol inhaler Strongly suggested smoking cessation Will need pulmonary function test/spirometry in 4 to [address] and Xray: no acute abnormalities, no signs of PNA or PE ACUTE DECOMPENSATED CHF WITH DIASTOLIC DYSFUNCTION : 48 yo with PMHx of significant tobacco and alcohol abuse presents with increased SOB and b/l LE edema x 2 weeks. vol status improved after diuresis Patient will be discharged with Lasix 20 mg p.o. daily, Given instruction for low-salt diet, will be given CHF discharge instruction- with signs and symptoms of decompensated heart failure, monitoring weight and fluid intake at home Will need to follow-up as an outpatient with cardiology- (2) Hypertension: Presented with hypertensive urgency Hx of HTN, used to be on lisinopril but has not been for many years Diastolic dysfunction likely secondary to uncontrolled hypertension New antihypertensive medications: Added beta-ledy metoprolol 12.5 mg twice daily added Lasix 20 mg dailly Patient is asked to continue lisinopril 20 mg p.o. -counseling provided for medication compliance Blood pressure remains stable Will need close follow-up with family physician, hospital follow-up scheduled for next week Patient is counseled for low-salt diet (3) Tobacco abuse: Smokes 1 PPD for "many years" Discussed importance of cessation, pt agreeable Declines nicotine patch at this time She reports stopping smoking one day prior to admission-because of the shortness of breath She is determined to quit smoking now She is counseled to seek help, utilizing nicotine patch, with or without Chantix, close follow-up with family physician (4) Alcohol abuse: Admits to alcohol use 4-5 times weekly up to 6+ beers and hard liquor each day Family hx of alcoholism No current signs/symptoms of alcohol withdrawal, notes she has quit in the past up to 2 weeks with no signs of withdrawal CODE STATUS : FULL CODE DISPOSITION : Stable to be discharged home today pt will need formal spirometry /PFT 4-6 weeks after discharge for formal Dx of COPD Total Time Total Time Spent Total Time Spent (In Minutes): Approximately 45 minutes Total Time Includes: Examination of the Patient, Discharge Planning and Medication Reconciliation Discharge Plan Discharge Items Patient Disposition: Home - Self-Care Reason For Visit: SOB Discharge Diagnosis: COPD EXACERBATION/ACUTE HEART FAILURE WITH DIASTOLIC DYSFUNCTION/CHRONIC TOBACCO ABUSE/ALCOHOL ABUSE Discharge Goals: Decrease discomfort, Diagnostic testing and Therapeutic interv ention Activity: Resume your previous activity Non-emergency contact: Primary Care Provider Call non-emergency contact if: you have any medication questions Follow-up/Referrals: Femi Segura MD [Primary Care Provider] - 05/03/19 9:45 am Diet: Heart Healthy Addtl Provider Instructions: IT IS VERY IMPORTANT FOR YOU TO QUIT SMOKING TOBACCO, WILL BEGIN TO FROM DEVELOPING WORSENING OF LUNG DISEASE/HEART DISEASE/HEART ATTACK/STROKE/KIDNEY DAMAGE YOU WILL NEED FORMAL LUNG FUNCTION TEST/SPIROMETRY IN 4 TO 6 WEEKS NEED REFERRAL FOR CARDIOLOGY FOLLOW UP FOR NEW DIAGNOSED DIASTOLIC HEART FAILURE NEED TO QUIT/CUT DOWN DRINKING ALCOHOL: HIGH RISK FOR PERMANENT LIVER DAMAGE/LIVER FAILURE, HEART DISEASE/STROKE/KIDNEY FAILURE You are diagnosed with heart failure: Which is stable now after Lasix/water pill Please continue to take medications as directed Please notify your family physician, with any evidence of increased leg swelling, shortness of breath, unable to lie flat due to shortness of breath- sign of volume overload, fluid accumulation Avoid adding salt-which will help better control of your blood pressure, also help not to progression to volume overload causing heart failure Will benefit with referral/follow-up with cardiology for further management of diastolic heart failure NEW MEDICATIONS: 1. Furosemide/Lasix 20 mg 1 tab daily-(water pill)-FOR HEART FAILURE -It is common for you to urinate more than usual when taking Lasix tablet You can take it early part of the day-to prevent you from waking up multiple times at night to urinate 2. Lisinopril 20 mg 1 tablet daily-FOR HIGH BLOOD PRESSURE 3. Metoprolol tartrate 12.5 mg 1 tablet twice daily-FOR HIGH BLOOD PRESSURE 4. Folic acid 1 mg by mouth daily-multivitamin supplement 5. Thiamine/vitamin B1 100 mg 1 tablet dailymultivitamin supplement 6. Medrol Dosepak-take as directed-steroid taper for COPD exacerbation 7. Albuterol inhaler-take 2 puffs every 4 hours as needed for shortness of breath/wheeze-for COPD Call your Primary Care doctor if any of the following symptoms or problems start or get worse: * Shortness of breath or difficulty breathing * Wake up at night short of breath * Chest pain * Cough * Swelling of your hands, feet, or legs * More fatigued or tired with your normal activity * Palpitations - sudden fast heart beats WEIGHT * Weigh yourself every morning after using the bathroom. * Use the same scale. * Wear the same amount of clothing. * Write your weight down on a chart. * Call your Primary Care doctor if you gain more than 2-3 pounds in 1-2 days. MEDICATIONS * Use this discharge instruction sheet for medication instructions. * Take your medications at the time your doctor ordered. * Do not skip a dose of your medicines. * If you miss a dose of medicine, take it as soon as possible, but DO NOT DOUBLE A DOSE. * Read your medicine information when you get home. * Know all of the side effects of your medicine. If in doubt, ask your pharmacist * Call your Primary Care doctor's office if you have any side effects. * Be sure all of your doctors know what medicine and herbs you take (including cold, flu, and herbal medicine). Take the following with you to your follow-up doctor appointments: * Weight Chart * Medication List * List of questions Do not drink excessive alcohol, beer or wine. Prescriptions: New lisinopril 20 mg Tablet 20 mg PO QAM 30 Days Qty: 30 RF: 0 thiamine HCl (vitamin B1) [Vitamin B-1] 100 mg Tablet 100 mg PO QAM 30 Days Qty: 30 RF: 0 folic acid 1 mg Tablet 1 mg PO QAM 30 Days Qty: 30 RF: 0 furosemide 20 mg Tablet 20 mg PO QAM 30 Days Qty: 30 RF: 0 metoprolol tartrate 25 mg Tablet 12.5 mg PO BID 30 Days Qty: 30 RF: 0 methylprednisolone [Medrol (Bijan)] 4 mg tablets,dose pack 4 mg PO UD Qty: 21 RF: 0 albuterol sulfate 90 mcg/actuation HFA aerosol inhaler 2 puffs INH Q6H PRN (Reason: shortness of breath or wheezing) Qty: 8 RF: 3 Stand-Alone Forms: My [facility], Work/School Release (Inpt) Yobany/Other Patient Handouts: Prediabetes, Tips Using Less Salt, Choices Low Salt, Diet Low Salt Dc, Diabetes Meal Planning Discharge Orders: Discharge Order (Routine); Ordered 04/28/19 Ordered By: Cris Weldon Admission Data Admit Date/Time: 04/24/19 13:43 Attending Provider: Cris Weldon Admit Provider: Jp Adorno Primary Care Provider: Femi Segura Other Providers: Paul Zuniga ; Jp Adorno Service: Telemetry Medical Other Interventions: Discharge Summary Assessment (RN) Last Done: 04/28/19 14:03 DC Date/Time DO NOT enter until pt leaves facility: 04/28/19 14:50
== END 2019-04-28 14:50 | disposition home or self-care (01) | DRG 190 ==
LOC: ED 11:05 → SUATTDRO 13:43 → 4W 13:43 → 2N 21:05

== ENCOUNTER 2021-07-02 10:35 | Inpatient (IN) ==
[2021-07-02 11:13] LABS: Basophils # (auto) 0.02 K/uL (0-0.2); Basophils % (auto) 0.2 %; Eosinophils # (auto) 0.08 K/uL (0-0.5); Eosinophils % (auto) 0.7 %; Hematocrit (blood only) 47.8 % (37-47); Hemoglobin 14.6 g/dL (12.0-16.0); Immature Granulocytes # (auto) 0.04 K/uL (0.00-0.02); Immature Granulocytes % (auto) 0.3 %; Lymphocytes # (auto) 1.72 K/uL (1.2-3.4); Mean Corpuscular Hemoglobin 29.7 pg (25-34); Mean Corpuscular Hgb Conc 30.5 g/dL (32-36); Mean Corpuscular Volume 97.4 fL (80-100); Mean Platelet Volume 10.6 fL (7.4-10.4); Monocytes # (auto) 0.64 K/uL (0.11-0.59); Monocytes % (auto) 5.2 %; Neutrophils # (auto) 9.79 K/uL (1.4-6.5); Neutrophils % (auto) 79.6 %; Nucleated RBC # (auto) 0.04 K/uL (0-0); Nucleated RBC % (auto) 0.4 %; Platelet Count 305 K/uL (130-400); RDW Coefficient of Variation 16.6 % (11.5-14.5); RDW Standard Deviation 58.4 fL (36.4-46.3); Red Blood Count 4.91 M/uL (4.2-5.4); White Blood Count 12.29 K/uL (4.8-10.8)
[2021-07-02 11:22] LABS: INR 1.1 (0.9-1.1); Partial Thromboplastin Ratio 0.9; Partial Thromboplastin Time 24.7 Seconds (21.0-31.0); Prothrombin Time 10.8 Seconds (9.0-12.0)
--- NOTE | 2021-07-02 11:22 | Emergency Department Note ---
Impression & Plan Hypoxia, Bilateral leg edema, SOB (shortness of breath), CHF (congestive heart failure) ED Provider Note NAME: CAMILA VÁSQUEZ AGE: 50 SEX: F : 1970 ARRIVES VIA: Walk-In INFORMANT: Patient ED PROVIDER(S): Kings Padilla DO CHIEF COMPLAINT: Shortness of breath and leg swelling HPI: Patient is a 50-year-old female who presents to the ER for shortness of keisha ath and leg swelling. Symptoms started around June 08. The pain progressively getting worse. She has increased her dose of Lasix. Does have a history of heart failure ad notes that this feels similar. Denies any headache or change in vision. No chest pain but does admit to shortness of breath. She admits to belly fullness. Pitting edema is worse in the left leg than the right and this is typical as well. Denies any dysuria urgency or frequency. No other exacerbating or remitting factors. ROS: See above HPI for pertinent positives & negatives. A total of 10 systems reviewed and were otherwise negative. PAST MEDICAL HISTORY:See Below PAST SURGICAL HISTORY:See Below FAMILY HISTORY:See Below SOCIAL HISTORY:See Below HOME MEDICATIONS:See Below ALLERGIES:See Below VITALS:See Below PHYSICAL EXAMINATION: GENERAL: Sitting up in bed, alert, well appearing, well nourished, no distress, non-toxic EYE EXAM: normal conjunctiva. OROPHARYNX: no exudate, no erythema, lips, buccal mucosa, and tongue normal and mucous membranes are moist NECK: supple, no nuchal rigidity, no adenopathy, non-tender LUNGS: Clear to auscultation. Normal chest wall mechanics HEART: no murmurs, S1 normal and S2 normal ABDOMEN: abdomen soft, non-tender, normo-active bowel sounds, no masses, no rebound or guarding. BACK: Back is symmetrical on inspection and there is no deformity, no midline tenderness, no CVA tenderness. SKIN: no rashes and no bruising UPPER EXTREMITIES: upper extremities are grossly normal. LOWER EXTREMITIES: Pitting edema in the left lower extremity tracking up to the upper thigh abdomen. Left calf slightly larger than right NEURO EXAM: Normal sensorium, cranial nerves II-XII grossly intact, normal speech, no gross weakness of arms, no gross weakness of legs. MEDICAL DECISION MAKING: Patient is a 50-year-old female who presents ER for shortness of breath. IV was established blood work was obtained. Labs show leukocytosis of 12,000. No significant anemia. INR was unremarkable. BMP along with LFTs bilirubin was unremarkable. Covid was negative. Chest x-ray with cephalization suggestive of CHF. Exam is also clinically suggestive of CHF. Venous Doppler of the left lower extremity which was larger than the right was negative for any DVT. Patient was updated at bedside. She given IV Lasix. She remained on nasal cannula. She was admitted to the hospitalist for further work-up. Triage Nursing notes reviewed. Limited review of prior medical records performed Vital Signs: reviewed and remarkable for HTN Differential diagnosis: Differential diagnoses includes but is not limited to gastritis, peptic ulcer disease, GERD, gallbladder disease, pancreatitis, small bowel obstruction, acute coronary syndrome, pericarditis, ischemic bowel, irritable bowel disease, irritable bowel syndrome, appendicitis, diverticulitis, malignancy, hernia, urinary tract infection, torsion, /ectopic (if female), perforation, trauma, infectious. ER treatment provided: See below Diagnostics interpreted by me: ECG: Sinus rhythm rate of 110 Right axis No PVCs QTC 433 Cardiac Monitoring: An order was placed for continuous cardiac monitoring. The monitor shows a rate of 95 with sinus rhythm. Laboratory studies: As stated above and show below. Imaging studies: Portable AP upright 1 view of the chest shows cephalization bilaterally Consultation(s): Discussed the hospitalist for further evaluation Procedures: none Critical Care: I have personally spent 31 minutes of critical care time in the direct management of this patient. This includes bedside care, interpretation of diagnostic studies, and testing, discussion with consultants, patient, and family members, and other required patient management activities. This 31 minutes is in excess of all separately billable procedures. Past Med/Surg History Medical History Alcohol use Chronic diastolic heart failure COPD (chronic obstructive pulmonary disease) GERD (gastroesophageal reflux disease) Hypertension Prediabetes Tobacco use Surgical History Hx of colonoscopy Family History (Updated 04/24/19 @ 14:08 by Carson Tamayo PA-C) Other COPD (chronic obstructive pulmonary disease) Diabetes Kidney disease Social History (Updated 07/02/21 @ 13:16 by Hillary Farmer PA-C) Smoking Status: Current every day smoker Tobacco Type: Cigarettes Cigarettes Per Day: pack a day, now down to 1/2 ppd; Second Hand Exposure: Yes; Hx Alcohol Use: Yes Alcohol type: beer Alcohol Intake Frequency Comment: cutting back to 2-3 beers, 2 times a week Hx Substance Use: No Preferred Language: Telugu Communication Ability: Effective Beliefs That Will Affect Care: None Current Living Situation: Other Feels Safe at Home: Yes Assistive Devices: None Allergies Allergies Allergy/AdvReac Type Severity Reaction Status Date / Time Penicillins Allergy Hives Unverified 07/02/21 12:18 Home Meds Home Medications Medication Instructions Recorded Confirmed fluticasone propionate 220 2 puff INHALATION BID 07/02/21 07/02/21 mcg/actuation HFA aerosol inhaler (Flovent HFA) folic acid 1 mg tablet 1 mg PO QAM 07/02/21 07/02/21 furosemide 20 mg tablet 20 mg PO QAM 07/02/21 07/02/21 lisinopril 10 mg tablet 10 mg PO QAM 07/02/21 07/02/21 loratadine 10 mg tablet 10 mg PO DAILY 07/02/21 07/02/21 medroxyprogesterone 150 mg/mL 150 mg IM Q90D 07/02/21 07/02/21 intramuscular suspension metoprolol succinate 25 mg 25 mg PO BID 07/02/21 07/02/21 tablet,extended release 24 hr multivitamin 1 tab PO DAILY 07/02/21 07/02/21 omeprazole 20 mg capsule,delayed 20 mg PO QAM 07/02/21 07/02/21 release sertraline 50 mg tablet 50 mg PO QAM 07/02/21 07/02/21 thiamine HCl (vitamin B1) 50 mg 50 mg PO DAILY 07/02/21 07/02/21 tablet Previous Rx's Medication Instructions Recorded albuterol sulfate 90 mcg/actuation 2 puffs INH Q6H PRN #8 gm 04/27/19 aerosol inhaler Results & Data (ED) Vital Signs Vital Signs - 24 hr 07/02/21 10:40 07/02/21 10:56 07/02/21 10:57 Temperature 37.3 C Temperature Source Oral Pulse Rate 108 H Pulse Rate [Apical] Pulse Rhythm [Apical] Pulse Strength [Apical] Respiratory Rate 20 Respiratory Effort / Characteristics Respiratory Pattern Blood Pressure 134/89 Blood Pressure [Left Arm] Blood Pressure Mean 104 Blood Pressure Mean [Left Arm] Blood Pressure Position [Left Arm] Pulse Oximetry 87 L 81 L 89 L Oxygen Delivery Method Room Air Nasal Cannula Oxygen Flow Rate 2 Sepsis Recent Fever Within 48 Hours No Sepsis New/Unexplained Change in Mental Status No Sepsis Action Taken by Nursing No Action Required Oxygen Flow Rate - Titration 2 4 Pulse Oximetry Post Tiitration 89 L 93 07/02/21 11:01 07/02/21 11:02 07/02/21 12:01 Temperature Temperature Source Pulse Rate Pulse Rate [Apical] 83 102 H Pulse Rhythm [Apical] Pulse Strength [Apical] Respiratory Rate 18 20 Respiratory Effort / Characteristics Respiratory Pattern Blood Pressure Blood Pressure [Left Arm] 143/81 H 177/92 H Blood Pressure Mean Blood Pressure Mean [Left Arm] 101 120 Blood Pressure Position [Left Arm] Pulse Oximetry 93 96 Oxygen Delivery Method Nasal Cannula Nasal Cannula Room Air Oxygen Flow Rate 4 Sepsis Recent Fever Within 48 Hours Sepsis New/Unexplained Change in Mental Status Sepsis Action Taken by Nursing Oxygen Flow Rate - Titration Pulse Oximetry Post Tiitration 07/02/21 12:49 Temperature Temperature Source Pulse Rate Pulse Rate [Apical] 93 H Pulse Rhythm [Apical] Regular Pulse Strength [Apical] Normal Respiratory Rate 22 Respiratory Effort / Characteristics Spontaneous Respiratory Pattern Regular Blood Pressure Blood Pressure [Left Arm] 117/68 Blood Pressure Mean Blood Pressure Mean [Left Arm] 84 Blood Pressure Position [Left Arm] Sitting Pulse Oximetry 95 Oxygen Delivery Method Nasal Cannula Oxygen Flow Rate 3.5 Sepsis Recent Fever Within 48 Hours Sepsis New/Unexplained Change in Mental Status Sepsis Action Taken by Nursing Oxygen Flow Rate - Titration Pulse Oximetry Post Tiitration Laboratory Data Result diagrams: 07/02/21 Unknown 07/02/21 Unknown Lab Results 07/02/21 07/02/21 07/02/21 Range/Units 10:56 10:56 Unknown WBC 12.29 H (4.8-10.8) K/uL RBC 4.91 (4.2-5.4) M/uL Hgb 14.6 (12.0-16.0) g/dL Hct 47.8 H (37-47) % MCV 97.4 (80-100) fL MCH 29.7 (25-34) pg MCHC 30.5 L (32-36) g/dL RDW Std Deviation 58.4 H (36.4-46.3) fL RDW Coeff of Homer 16.6 H (11.5-14.5) % Plt Count 305 (130-400) K/uL MPV 10.6 H (7.4-10.4) fL Immature Gran % (Auto) 0.3 % Neut % (Auto) 79.6 % Lymph % (Auto) 14.0 % Chaves % (Auto) 5.2 % Eos % (Auto) 0.7 % Baso % (Auto) 0.2 % Neut # (Auto) 9.79 H (1.4-6.5) K/uL Lymph # (Auto) 1.72 (1.2-3.4) K/uL Chaves # (Auto) 0.64 H (0.11-0.59) K/uL Eos # (Auto) 0.08 (0-0.5) K/uL Baso # (Auto) 0.02 (0-0.2) K/uL Immature Gran # (Auto) 0.04 H (0.00-0.02) K/uL Absolute Nucleated RBC 0.04 H (0-0) K/uL Nucleated RBC % (auto) 0.4 % PT (9.0-12.0) Seconds INR (0.9-1.1) APTT (21.0-31.0) Seconds PTT Ratio Sodium (136-145) mmol/L Potassium (3.5-5.1) mmol/L Chloride (98-107) mmol/L Carbon Dioxide (21-32) mmol/L Anion Gap (3-11) BUN (7-18) mg/dl Creatinine (0.6-1.2) mg/dl Est Cr Clr Drug Dosing ml/min Est GFR ( Amer) ml/min Est GFR (Non-Af Amer) ml/min BUN/Creatinine Ratio (10-20) Glucose (70-99) mg/dl Calcium (8.5-10.1) mg/dl Magnesium (1.8-2.4) mg/dl Total Bilirubin (0.2-1) mg/dl AST (15-37) U/L ALT (12-78) U/L Alkaline Phosphatase (45-117) U/L Troponin I (0-0.045) ng/ml NT-Pro-B Natriuret Pep (0-450) pg/ml Total Protein (6.4-8.2) gm/dl Albumin (3.4-5.0) gm/dl Globulin (2.5-4.0) gm/dl Albumin/Globulin Ratio (0.9-2) COVID-19 Eval Order Covid19 at [facility] SARS-CoV-2 (PCR) NEGATIVE (Negative) 07/02/21 07/02/21 Range/Units Unknown Unknown WBC (4.8-10.8) K/uL RBC (4.2-5.4) M/uL Hgb (12.0-16.0) g/dL Hct (37-47) % MCV (80-100) fL MCH (25-34) pg MCHC (32-36) g/dL RDW Std Deviation (36.4-46.3) fL RDW Coeff of Homer (11.5-14.5) % Plt Count (130-400) K/uL MPV (7.4-10.4) fL Immature Gran % (Auto) % Neut % (Auto) % Lymph % (Auto) % Chaves % (Auto) % Eos % (Auto) % Baso % (Auto) % Neut # (Auto) (1.4-6.5) K/uL Lymph # (Auto) (1.2-3.4) K/uL Chaves # (Auto) (0.11-0.59) K/uL Eos # (Auto) (0-0.5) K/uL Baso # (Auto) (0-0.2) K/uL Immature Gran # (Auto) (0.00-0.02) K/uL Absolute Nucleated RBC (0-0) K/uL Nucleated RBC % (auto) % PT 10.8 (9.0-12.0) Seconds INR 1.1 (0.9-1.1) APTT 24.7 (21.0-31.0) Seconds PTT Ratio 0.9 Sodium 138 (136-145) mmol/L Potassium 4.2 (3.5-5.1) mmol/L Chloride 101 (98-107) mmol/L Carbon Dioxide 33 H (21-32) mmol/L Anion Gap 4.0 (3-11) BUN 17 (7-18) mg/dl Creatinine 1.04 (0.6-1.2) mg/dl Est Cr Clr Drug Dosing 76.8 ml/min Est GFR ( Amer) 73.1 ml/min Est GFR (Non-Af Amer) 63.0 ml/min BUN/Creatinine Ratio 16.7 (10-20) Glucose 141 H (70-99) mg/dl Calcium 8.8 (8.5-10.1) mg/dl Magnesium 1.9 (1.8-2.4) mg/dl Total Bilirubin 0.5 (0.2-1) mg/dl AST 25 (15-37) U/L ALT 33 (12-78) U/L Alkaline Phosphatase 111 (45-117) U/L Troponin I < 0.015 (0-0.045) ng/ml NT-Pro-B Natriuret Pep 1964 H (0-450) pg/ml Total Protein 7.7 (6.4-8.2) gm/dl Albumin 3.2 L (3.4-5.0) gm/dl Globulin 4.5 H (2.5-4.0) gm/dl Albumin/Globulin Ratio 0.7 L (0.9-2) COVID-19 Eval Order SARS-CoV-2 (PCR) (Negative) Administered Medications Discontinued Medications Furosemide (Furosemide 40 Mg/4 Ml Vial) 40 mg IV NOW STA Stop: 07/02/21 11:45 Last Admin: 07/02/21 12:05 Dose: 40 mg Documented by: [id number] Imaging Data Radiologist's Impression: Chest X-Ray 07/02/21 10:48 XR chest 1V portable HISTORY: 50 years-old Female SOB acute shortness of breath COMPARISON: Chest radiograph and CTA chest 04/24/2019 TECHNIQUE: Portable AP view of the chest FINDINGS: Moderate enlargement of the cardiac silhouette. Pulmonary vascular congestion with interstitial coarsening. No pneumothorax, pleural effusion or lobar airspace consolidation. Mild linear left lung base and lateral left midlung atelectasis/scarring redemonstrated. Degenerative changes of the shoulders and spine. IMPRESSION: 1. Cardiomegaly with coarsening of the interstitium suspicious for pulmonary edema versus interstitial pneumonitis. 2. Chronic linear scarring/atelectasis of the left midlung and left lung base. ACT 112: Negative or not required by law. The above report was generated using voice recognition software. It may contain grammatical, syntax or spelling errors. Electronically signed by: Cheikh Galloway M.D. 07/02/2021 11:26 AM Venous Doppler Study 07/02/21 11:43 LEFT LOWER EXTREMITY VENOUS DOPPLER CLINICAL HISTORY: Left leg pain and swelling. COMPARISON STUDY: No previous studies for comparison. TECHNIQUE: Sonography of the deep venous system of the left lower extremity was performed. Compression and augmentation were evaluated. FINDINGS: The left common femoral, superficial femoral and popliteal veins were compressible. Augmentation was normal. Flow was shown within the deep calf vessels. Note is made of a 3.7 x 1.6 x 1.1 cm complex fluid collection within the left popliteal fossa. This contains no color flow. There is left lower extremity edema. IMPRESSION: 1. No evidence of deep venous thrombus within the left lower extremity. 2. 3.7 x 1.6 x 1.1 cm complex fluid collection within the left popliteal fossa. This favors a complex popliteal cyst. A follow-up ultrasound in 3 months is recommended to exclude the much less likely possibility of a cystic mass. ACT 112: Negative or not required by law. Electronically signed by: Santana Hsu M.D. 07/02/2021 12:29 PM Discharge Plan Visit Data Chief Complaint: Leg Weakness, Bilateral Stated Complaint: SWELLING IN BOTH LEGS (MOSTLY IN LEFT)-SENT BY DOC ED Provider: Kings Padilla Discharge Problem: Hypoxia, Bilateral leg edema, SOB (shortness of breath), CHF (congestive heart failure) Forms Stand Alone Forms: [facility] Prescriptions Prescriptions: No Action albuterol sulfate 90 mcg/actuation HFA aerosol inhaler 2 puffs INH Q6H PRN (Reason: shortness of breath or wheezing) Qty: 8 RF: 3 lisinopril 10 mg tablet 10 mg PO QAM RF: 0 omeprazole 20 mg capsule,delayed release(DR/EC) 20 mg PO QAM RF: 0 folic acid 1 mg tablet 1 mg PO QAM RF: 0 Flovent HFA 220 mcg/actuation HFA aerosol inhaler 2 puff INHALATION BID RF: 0 furosemide 20 mg tablet 20 mg PO QAM RF: 0 metoprolol succinate 25 mg tablet extended release 24 hr 25 mg PO BID RF: 0 sertraline 50 mg tablet 50 mg PO QAM RF: 0 medroxyprogesterone 150 mg/mL suspension 150 mg IM Q90D RF: 0 multivitamin Tablet 1 tab PO DAILY RF: 0 loratadine 10 mg Tablet 10 mg PO DAILY RF: 0 thiamine HCl (vitamin B1) 50 mg Tablet 50 mg PO DAILY RF: 0 Referrals Referrals: Walter Cabrera MD [Primary Care Provider] - Discharge Problem: CHF (congestive heart failure) Qualifiers: Heart failure type: unspecified Heart failure chronicity: unspecified Qualified Code(s): I50.9 - Heart failure, unspecified
--- NOTE | 2021-07-02 11:27 | XRay Report ---
XR chest 1V portable HISTORY: 50 years-old Female SOB acute shortness of breath COMPARISON: Chest radiograph and CTA chest 04/24/2019 TECHNIQUE: Portable AP view of the chest FINDINGS: Moderate enlargement of the cardiac silhouette. Pulmonary vascular congestion with interstitial coars ening. No pneumothorax, pleural effusion or lobar airspace consolidation. Mild linear left lung base and lateral left midlung atelectasis/scarring redemonstrated. Degenerative changes of the shoulders a nd spine. IMPRESSION: 1. Cardiomegaly with coarsening of the interstitium suspicious for pulmonary edema versus interstitia l pneumonitis. 2. Chronic linear scarring/atelectasis of the left midlung and left lung base. ACT 112: Negative or not required by law. The above report was generated using voice recognition software. It may contain grammatical, syntax o r spelling errors. Electronically signed by: Cheikh Galloway M.D. 07/02/2021 11:26 AM
[2021-07-02 11:28] LABS: Alanine Aminotransferase 33 U/L (12-78); Albumin Level 3.2 gm/dl (3.4-5.0); Aspartate Aminotransferase 25 U/L (15-37); BUN Creatinine Ratio 16.7 (10-20); Blood Urea Nitrogen 17 mg/dl (7-18); Calcium 8.8 mg/dl (8.5-10.1); Carbon Dioxide 33 mmol/L (21-32); Chloride 101 mmol/L (98-107); Creatinine Clr Calc Pharmacy 76.8 ml/min; Est GFR (African American) 73.1 ml/min; Glucose 141 mg/dl (70-99); Magnesium 1.9 mg/dl (1.8-2.4); Potassium 4.2 mmol/L (3.5-5.1); Sodium 138 mmol/L (136-145)
[2021-07-02 11:34] LABS: Albumin Globulin Ratio 0.7 (0.9-2); Alkaline Phosphatase 111 U/L (45-117); Bilirubin,Total 0.5 mg/dl (0.2-1); Globulin 4.5 gm/dl (2.5-4.0); NT Pro B Type Natriuretic Pept 1964 pg/ml (0-450); Total Protein 7.7 gm/dl (6.4-8.2); Troponin I < 0.015 ng/ml (0-0.045)
[2021-07-02] MEDS ORDERED: FUROSEMIDE 40 MG/4 ML VIAL IV STA (11:44)
--- NOTE | 2021-07-02 12:22 | History & Physical Report ---
Date of Service July 02, 2021 Assessment & Plan (1) Acute on chronic heart failure with preserved ejection fraction: Plan: Patient is a 50-year-old female with PMH chronic diastolic heart failure, HTN, prediabetes, GERD, tobacco use, obesity presented to ER for worsening bilateral lower extremity edema x 3 weeks and shortness of breath. On Lasix 20 mg p.o. daily in past 3 days is taking twice daily. In ER pt afebrile, P: 108, R: 20, BP 134/89, 87% on room air up to 95% on 3.5L. Negative troponin, BNP: 1963, negative COVID-19 PCR CXR: Cardiomegaly with coarsening of the interstitium suspicious for pulmonary edema versus interstitial pneumonitis. Chronic linear scarring/atelectasis of the left midlung and left lung base. In ER given Lasix 40mg IV. She has urinated 700ml so far and continues to urinate Monitor I's and O's, daily weight, low-sodium diet Lasix 40 mg IV daily Resting echo; previous echo from 2019 with EF: 60%, grade 2 diastolic dysfunction, no significant valvular pathology Trend troponin Cardiology consult CBC, BMP, magnesium labs in a.m. (2) Bilateral leg edema: Plan: Bilateral leg edema, left greater than right. Secondary to volume overload Venous Doppler LLE: 1. No evidence of deep venous thrombus within the left lower extremity. 2. 3.7 x 1.6 x 1.1 cm complex fluid collection within the left popliteal fossa. This favors a complex popliteal cyst. A follow-up ultrasound in 3 months is recommended to exclude the much less likely possibility of a cystic mass. Patient will need outpatient follow-up and ultrasound in 3 months to reassess left popliteal fluid collection (3) Sinus tachycardia: Plan: History sinus tachycardia noted outpatient cardiology. Patient had 3 day Zio that showed primarily sinus rhythm/sinus tachycardia with an average heart rate of 111 beats per minute and no concerning arrhythmias. Her metoprolol metoprolol succinate was increased from 25 mg daily to 25 mg twice daily. Patient was encouraged to cut back on caffeine and tobacco Initially tachycardic upon ER presentation at 108, current HR in 90s Monitor on telemetry Continue metoprolol succinate 25 mg twice daily (4) Prediabetes: Plan: A1c: 6.1 on 07/2020 Diabetic diet A1c in a.m. (5) Hypertension: Plan: Stable Continue lisinopril, metoprolol succinate (6) COPD (chronic obstructive pulmonary disease): Plan: Likely underlying COPD Chronic nonproductive cough, denies increased cough or sputum production. Does not appear to have COPD exacerbation at this time Continue albuterol as needed, Flovent daily (7) Tobacco use: Plan: Patient was smoking 1 pack/day now reports to smoking less than half pack per day Denies nicotine patch at this time Smoking cessation encouraged (8) GERD (gastroesophageal reflux disease): Plan: Continue PPI (9) Alcohol use: Plan: Patient states has cut back her alcohol use and now drinks 2-3 beers twice a week. She reports she has not had anything to drink for the past 2 weeks. Monitor Continue multivitamin, thiamine, folic acid DVT Prophylaxis -Lovenox SQ Full Code as per discussion with pt Follows with Dr Cabrera for routine care Pt was seen and care coordinated with Dr Carson. See addendum History of Present Illness Chief Complaint: Edema, SOB Primary Care Provider: Walter Cabrera MD Patient is a 50-year-old female with PMH chronic diastolic heart failure, HTN, prediabetes, GERD, tobacco use, obesity presented to ER for bilateral lower extremity edema and shortness of breath. Patient states noticed BLE edema for the past 3 weeks and has had progressive worsening with edema up to thighs and lower abdomen. States left leg is slightly larger than the right leg. She has had 14 pound weight gain. Recently has become shortness of breath with exertion. Patient also reports past month of daytime sleepiness. She has been sitting up on couch to sleep. Patient usually uses 20 mg of Lasix daily however past 3 days been taking twice daily. She does not feel she has been urinating much more. She did not weigh herself the last several day. Patient was recently seen in cardiology clinic for palpitations and left-sided chest soreness and had 3 day Zio that showed primarily sinus rhythm/sinus tachycardia with an average heart rate of 111 beats per minute and no concerning arrhythmias. Her metoprolol metoprolol was increased to 25 mg twice daily and she was instructed to reduce caffeine and tobacco use. Patient denies any further chest soreness or chest pain. She reports chronic nonproductive cough and denies any increased cough. Denies fever/chills, diaphoresis, N/V/D/C, HODGES, dizziness, syncope, vision changes, neck pain, sore throat, choking, otalgia, rhinorrhea, abdominal pain, paresthesias, weakness, extremity weakness, extremity erythema, rashes, urinary symptoms. In ER pt afebrile, P: 108, R: 20, BP 134/89, 87% on room air up to 95% on 3.5L. Negative troponin, BNP: 1963, negative COVID-19 PCR, CXR: Cardiomegaly with coarsening of the interstitium suspicious for pulmonary edema versus interstitial pneumonitis. Chronic linear scarring/atelectasis of the left midlung and left lung base. In ER given Lasix 40mg IV. She has urinated 700ml so far. Allergies Allergy/AdvReac Type Severity Reaction Status Date / Time Penicillins Allergy Hives Unverified 07/02/21 12:18 Home Medications Medication Instructions Recorded Confirmed Type albuterol sulfate 90 mcg/actuation 2 puffs INH Q6H PRN #8 gm 04/27/19 07/02/21 Rx aerosol inhaler fluticasone propionate 220 2 puff INHALATION BID 07/02/21 07/02/21 History mcg/actuation HFA aerosol inhaler (Flovent HFA) folic acid 1 mg tablet 1 mg PO QAM 07/02/21 07/02/21 History furosemide 20 mg tablet 20 mg PO QAM 07/02/21 07/02/21 History lisinopril 10 mg tablet 10 mg PO QAM 07/02/21 07/02/21 History loratadine 10 mg tablet 10 mg PO DAILY 07/02/21 07/02/21 History medroxyprogesterone 150 mg/mL 150 mg IM Q90D 07/02/21 07/02/21 History intramuscular suspension metoprolol succinate 25 mg 25 mg PO BID 07/02/21 07/02/21 History tablet,extended release 24 hr multivitamin 1 tab PO DAILY 07/02/21 07/02/21 History omeprazole 20 mg capsule,delayed 20 mg PO QAM 07/02/21 07/02/21 History release sertraline 50 mg tablet 50 mg PO QAM 07/02/21 07/02/21 History thiamine HCl (vitamin B1) 50 mg 50 mg PO DAILY 07/02/21 07/02/21 History tablet Past Med/Surg History Medical History Alcohol use Chronic diastolic heart failure COPD (chronic obstructive pulmonary disease) GERD (gastroesophageal reflux disease) Hypertension Prediabetes Tobacco use Surgical History Hx of colonoscopy Family History (Updated 04/24/19 @ 14:08 by Carson Tamayo PA-C) Other COPD (chronic obstructive pulmonary disease) Diabetes Kidney disease Social History (Updated 07/02/21 @ 13:16 by Hillary Farmer PA-C) Smoking Status: Current every day smoker Tobacco Type: Cigarettes Cigarettes Per Day: pack a day, now down to 1/2 ppd; Second Hand Exposure: Yes; Hx Alcohol Use: Yes Alcohol type: beer Alcohol Intake Frequency Comment: cutting back to 2-3 beers, 2 times a week Hx Substance Use: No Preferred Language: Icelandic Communication Ability: Effective Beliefs That Will Affect Care: None Current Living Situation: Other Feels Safe at Home: Yes Assistive Devices: None Review of Systems Review of Systems: All systems reviewed & are unremarkable except as noted in HPI & below Physical Exam Physical Exam: General: no distress, obese Head: normocephalic, atraumatic Eyes: PERRL, EOM's intact, conjunctiva non-injected, anicteric ENT: normal inspection external ears, nose, mucous membranes moist Neck: supple, trachea midline Lungs: On 3.5L oxygen via NC with sat 95%, able to speak in sentences, +rales at bilateral bases CV: RRR, rate 96, no murmur, 2+ pretibial edema extending to lower abdomen Abd: normal BS, soft, non-tender Ext: no cyanosis, no erythema, no calf tenderness, ROM intact Neuro: A&O x 3, no focal deficits noted, normal affect Skin: warm, dry Results & Data Results & Data ([facility]) Vital Signs (Past 12 Hours) Vital Signs Temp Pulse Pulse Resp BP BP Pulse Ox 07/02/21 12:01 102 H 20 177/92 H 96 07/02/21 11:02 83 18 143/81 H 93 07/02/21 10:57 89 L 07/02/21 10:56 81 L 07/02/21 10:40 37.3 C 108 H 20 134/89 87 L Laboratory Results Short CBC 07/02/21 Range/Units Unknown WBC 12.29 H (4.8-10.8) K/uL Hgb 14.6 (12.0-16.0) g/dL Hct 47.8 H (37-47) % Plt Count 305 (130-400) K/uL BMP 07/02/21 Unknown Sodium 138 Potassium 4.2 Chloride 101 Carbon Dioxide 33 H BUN 17 Creatinine 1.04 Glucose 141 H Calcium 8.8 Cardiac Enzymes 07/02/21 Range/Units Unknown Troponin I < 0.015 (0-0.045) ng/ml Liver Function 07/02/21 Range/Units Unknown Total Bilirubin 0.5 (0.2-1) mg/dl AST 25 (15-37) U/L ALT 33 (12-78) U/L Alkaline Phosphatase 111 (45-117) U/L Albumin 3.2 L (3.4-5.0) gm/dl Diagnostic Findings Chest X-Ray 07/02/21 10:48 XR chest 1V portable HISTORY: 50 years-old Female SOB acute shortness of breath COMPARISON: Chest radiograph and CTA chest 04/24/2019 TECHNIQUE: Portable AP view of the chest FINDINGS: Moderate enlargement of the cardiac silhouette. Pulmonary vascular congestion with interstitial coarsening. No pneumothorax, pleural effusion or lobar airspace consolidation. Mild linear left lung base and lateral left midlung atelectasis/scarring redemonstrated. Degenerative changes of the shoulders and spine. IMPRESSION: 1. Cardiomegaly with coarsening of the interstitium suspicious for pulmonary edema versus interstitial pneumonitis. 2. Chronic linear scarring/atelectasis of the left midlung and left lung base. ACT 112: Negative or not required by law. The above report was generated using voice recognition software. It may contain grammatical, syntax or spelling errors. Electronically signed by: Cheikh Galloway M.D. 07/02/2021 11:26 AM Venous Doppler Study 07/02/21 11:43 LEFT LOWER EXTREMITY VENOUS DOPPLER CLINICAL HISTORY: Left leg pain and swelling. COMPARISON STUDY: No previous studies for comparison. TECHNIQUE: Sonography of the deep venous system of the left lower extremity was performed. Compression and augmentation were evaluated. FINDINGS: The left common femoral, superficial femoral and popliteal veins were compressible. Augmentation was normal. Flow was shown within the deep calf vessels. Note is made of a 3.7 x 1.6 x 1.1 cm complex fluid collection within the left popliteal fossa. This contains no color flow. There is left lower extremity edema. IMPRESSION: 1. No evidence of deep venous thrombus within the left lower extremity. 2. 3.7 x 1.6 x 1.1 cm complex fluid collection within the left popliteal fossa. This favors a complex popliteal cyst. A follow-up ultrasound in 3 months is recommended to exclude the much less likely possibility of a cystic mass. ACT 112: Negative or not required by law. Electronically signed by: Santana Hsu M.D. 07/02/2021 12:29 PM ECG Rate (beats per minute): 110 Rhythm: sinus tachycardia Supervising Physician Co-Signing Physician Notes I have seen and examined the patient and have discussed the case with the provider above. I agree with the assessment and plan as stated above. The patient is a 50-year-old female with a history of chronic diastolic heart failure. She recently went on vacation and during that vacation was when she noted fluid swelling. Likely with some dietary indiscretions. She also continues to consume alcohol and smoke despite counseling against this. She reports compliance with her oral diuretic. Reports some fluctuation in fluid status. She is not aware of her current dry weight, also reporting excessive daytime fatigue and poor sleep quality overnight. She fell asleep at least twic e during this interview. We discussed consideration for an outpatient sleep study. She will discuss this with her PCP. She is already responded well over a liter and output in response to the 40 mg of Lasix IV given in the ER. Physical exam reveals an obese lady who is well-appearing and in no acute distress. She is oxygenating 93% on 4 L/min nasal cannula and typically is not on home oxygen supplementation. She is not working to breathe but her lungs have diffuse crackles throughout all lung childress. Cardiac exam reveals S1/S2 with no murmurs gallops or rubs. Abdomen is soft nontender nondistended but protuberant. She has 2-3+ pitting edema bilaterally to the knees in her lower extremities. Otherwise has no gross neurologic deficit and is ambulating independently. Agree with plan to continue with daily weights, daily diuretic therapy, strict I's and O's, and salt restriction. Clinical picture is not consistent with ACS, however, trending troponin in the short-term. EKG is nonischemic. Cardiology consultation. DO Alli
--- NOTE | 2021-07-02 12:30 | Ultrasound Report ---
LEFT LOWER EXTREMITY VENOUS DOPPLER CLINICAL HISTORY: Left leg pain and swelling. COMPARISON STUDY: No previous studies for comparison. TECHNIQUE: Sonography of the deep venous system of the left lower extremity was performed. Compressi on and augmentation were evaluated. FINDINGS: The left common femoral, superficial femoral and popliteal veins were compressible. Augmen tation was normal. Flow was shown within the deep calf vessels. Note is made of a 3.7 x 1.6 x 1.1 cm complex fluid collection within the left popliteal fossa. This contains no color flow. There is left lower extremity edema. IMPRESSION: 1. No evidence of deep venous thrombus within the left lower extremity. 2. 3.7 x 1.6 x 1.1 cm complex fluid collection within the left popliteal fossa. This favors a complex popliteal cyst. A follow-up ultrasound in 3 months is recommended to exclude the much less likely po ssibility of a cystic mass. ACT 112: Negative or not required by law. Electronically signed by: Santana Hsu M.D. 07/02/2021 12:29 PM
--- NOTE | 2021-07-02 12:42 | Electrocardiogram Report ---
Test Reason : Blood Pressure : / mmHG Vent. Rate : 110 BPM Atrial Rate : 110 BPM P-R Int : 150 ms QRS Dur : 078 ms QT Int : 320 ms P-R-T Axes : 069 102 017 degrees QTc Int : 433 ms Sinus tachycardia Rightward axis Borderline ECG When compared with ECG of 25-APR-2019 06:48, No significant change was found Confirmed by Kamron Davidson ([id number]) on 07/02/2021 12:42:35 PM Referred By: Confirmed By:Kamron Davidson
--- NOTE | 2021-07-02 16:27 | Cardiology Consultation ---
Date of Consultation July 02, 2021 Assessment & Plan (1) Acute on chronic heart failure with preserved ejection fraction: (2) Bilateral leg edema: (3) COPD (chronic obstructive pulmonary disease): Patient is a 50-year-old female with a history of morbid obesity, chronic diastolic heart failure right greater than left chronic sinus tachycardia presents with recent increase in weight and lower extremity edema symptoms of dyspnea orthopnea and tachycardia. Examination reveals bilateral lower extremity edema increased abdominal girth and bloating. Echocardiogram demonstrates preserved systolic function hypokinetic right ventricle Recommendations: Findings suggest pickwickian/sleep apnea contribution to patient's current complaints. Patient already responding to IV diuretics would continue. Patient needs formal evaluation obstructive sleep apnea possible nocturnal oximetry while in hospital. Would have low threshold for CTA of the chest if not prompt response to current therapies Patient needs Covid vaccination History of Present Illness Reason for Consultation: Edema, diastolic/right heart failure Requesting Physician: Dr. Carson Attending Physician: Dr. Carson History of Present Illness Patient is a 50-year-old female ongoing issues include per outpatient record 1. Hypertensive heart disease with chronic diastolic CHF, NYHA class 3 2. Sinus tachycardia 3. COPD 4. Ongoing Tobacco use Patient presented to the outpatient clinic today 14 pound weight gain with increasing lower extremity edema abdominal bloating and tightness.She has not responded to outpatient oral diuretic titration Patient notes recent travel on vacation driving. Has had difficulty of lower extremity edema left greater than right since that time. No overt fevers chills or productive cough. No bleeding difficulties. No tachypalpitations syncope near syncope. Heart rates always trending high. She does note multiple difficulties with sleep and daytime somnolence Has not had Covid vaccination Allergies Allergy/AdvReac Type Severity Reaction Status Date / Time Penicillins Allergy Hives Unverified 07/02/21 12:18 Home Medications Medication Instructions Recorded Confirmed Type albuterol sulfate 90 mcg/actuation 2 puffs INH Q6H PRN #8 gm 04/27/19 07/02/21 Rx aerosol inhaler fluticasone propionate 220 2 puff INHALATION BID 07/02/21 07/02/21 History mcg/actuation HFA aerosol inhaler (Flovent HFA) folic acid 1 mg tablet 1 mg PO QAM 07/02/21 07/02/21 History furosemide 20 mg tablet 20 mg PO QAM 07/02/21 07/02/21 History lisinopril 10 mg tablet 10 mg PO QAM 07/02/21 07/02/21 History loratadine 10 mg tablet 10 mg PO DAILY 07/02/21 07/02/21 History medroxyprogesterone 150 mg/mL 150 mg IM Q90D 07/02/21 07/02/21 History intramuscular suspension metoprolol succinate 25 mg 25 mg PO BID 07/02/21 07/02/21 History tablet,extended release 24 hr multivitamin 1 tab PO DAILY 07/02/21 07/02/21 History omeprazole 20 mg capsule,delayed 20 mg PO QAM 07/02/21 07/02/21 History release sertraline 50 mg tablet 50 mg PO QAM 07/02/21 07/02/21 History thiamine HCl (vitamin B1) 50 mg 50 mg PO DAILY 07/02/21 07/02/21 History tablet Patient History Medical History Alcohol use Chronic diastolic heart failure COPD (chronic obstructive pulmonary disease) GERD (gastroesophageal reflux disease) Hypertension Prediabetes Tobacco use Surgical History Hx of colonoscopy Family History (Updated 04/24/19 @ 14:08 by Carson Tamayo PA-C) Other COPD (chronic obstructive pulmonary disease) Diabetes Kidney disease Social History (Updated 07/02/21 @ 13:16 by Hillary Farmer PA-C) Smoking Status: Current every day smoker Tobacco Type: Cigarettes Cigarettes Per Day: pack a day, now down to 1/2 ppd; Second Hand Exposure: Yes; Do You Dip or Chew Tobacco: No; Tobacco Cessation Education Requested by Patient: No Hx Alcohol Use: Yes Alcohol type: beer, wine and hard liquor Alcohol Intake Frequency Comment: cutting back to 2-3 beers, 2 times a week Hx Substance Use: No Preferred Language: Arabic Communication Ability: Effective Apple Turner Required: No Beliefs That Will Affect Care: None Current Living Situation: Family Current Living Situation Comment: Lives with sister Other Information That Helps Us Care for You: No Feels Safe at Home: Yes Assistive Devices: Oxygen - Continuous Review of Systems Review of Systems: All systems reviewed & are unremarkable except as noted in HPI & below Physical Exam Constitutional: + morbidly obese; no acute distress Eyes: PERRL, conjunctivae normal, anicteric sclerae ENMT: external ear and nose normal, oropharynx normal Neck: trachea midline, no thyromegaly Respiratory: normal respiratory effort, lungs clear to auscultation Cardiovascular: Rate/Rhythm: regular rate and regular rhythm Heart Sounds: normal S1 and normal S2; no murmur Extremities: + edema (Bilateral lower extremity edema left substantially greater than right) Gastrointestinal (Abdomen): normal bowel sounds, soft, nontender, no hepatosplenomegaly Inspection/Auscultation: + abdomen distended Musculoskeletal: no cyanosis or clubbing, extremities motor strength 5/5 Results & Data ([facility]) Vital Signs (Past 12 Hours) Vital Signs Temp Pulse Pulse Resp BP BP Pulse Ox 07/02/21 14:41 104 H 20 136/77 94 07/02/21 12:49 93 H 22 117/68 95 07/02/21 12:01 102 H 20 177/92 H 96 07/02/21 11:02 83 18 143/81 H 93 07/02/21 10:57 89 L 07/02/21 10:56 81 L 07/02/21 10:40 37.3 C 108 H 20 134/89 87 L Diagnostic Findings Zio patch event monitor 05/21/2021 CONCLUSIONS: Final Interpretation : Patient had a min HR of 59 bpm, max HR of 200 bpm, and avg HR of 111 bpm. Predominant underlying rhythm was Sinus Rhythm. 1 run of Supraventricular Tachycardia occurred lasting 4 beats with a max rate of 200 bpm (avg 195 bpm). Isolated SVEs were rare (<1.0%), SVE Couplets were rare (<1.0%), and no SVE Triplets were present. Isolated VEs were rare (<1.0%), VE Couplets were rare (<1.0%), and no VE Triplets were present. ECG Additional Comments: EKG 07/02/2021: Sinus tachycardia [address] segment abnormalities
[2021-07-02] MEDS ORDERED: ALBUTEROL 0.083% NEBU SOLN 3 ML VIAL NEB PRN (17:04)
[2021-07-02] MEDS ORDERED: POLYETHYLENE (MIRALAX) 17 GM PACK PO PRN (17:04)
[2021-07-02] MEDS ORDERED: ONDANSETRON INJ 2 MG/ML 2 ML VIAL IV PRN (17:04)
[2021-07-02] MEDS ORDERED: FLUARIX QUADRIVALENT 0.5 ML SYR IM ONE (17:28)
[2021-07-02] MEDS: ENOXAPARIN INJ 40 MG/0.4 ML SYR SQ SCH (19:32)
[2021-07-02] MEDS: METOPROLOL SUCC 25MG EXT REL TAB PO SCH (21:35)
[2021-07-02] MEDS: FLUTICASONE FUROATE 200MCG 14 PUFFS/INHALER INH SCH (21:36)
[2021-07-03 06:41] LABS: Hematocrit (blood only) 47.3 % (37-47); Hemoglobin 13.9 g/dL (12.0-16.0); Mean Corpuscular Hgb Conc 29.4 g/dL (32-36); Mean Corpuscular Volume 98.7 fL (80-100); Mean Platelet Volume 11.1 fL (7.4-10.4); Platelet Count 313 K/uL (130-400); RDW Standard Deviation 61.2 fL (36.4-46.3); Red Blood Count 4.79 M/uL (4.2-5.4); White Blood Count 12.51 K/uL (4.8-10.8)
[2021-07-03 07:30] LABS: Estimated Average Glucose 143 mg/dl; Hemoglobin A1C 6.6 % (4.5-5.6)
[2021-07-03] MEDS: METOPROLOL SUCC 25MG EXT REL TAB PO SCH ×2 (08:35→20:40)
[2021-07-03] MEDS: THIAMINE HCL 50 MG TABLET PO SCH (08:35)
[2021-07-03] MEDS: FUROSEMIDE 40 MG in SYRINGE 0 ML IV SCH (08:35)
[2021-07-03] MEDS: PANTOprazole 40 MG TAB PO SCH (08:35)
[2021-07-03] MEDS: LORATADINE 10 MG TAB PO SCH (08:35)
[2021-07-03] MEDS: SERTRALINE HCL 50 MG TABLET PO SCH (08:35)
[2021-07-03] MEDS: lisinopril 10 MG TAB PO SCH (08:35)
[2021-07-03] MEDS: FOLIC ACID 1 MG TAB PO SCH (08:35)
[2021-07-03] MEDS: MULTIVITAMIN TAB PO SCH (08:35)
[2021-07-03] MEDS ORDERED: POTASSIUM CHLORIDE CRTAB 20 MEQ TABCR PO SCH (09:00)
[2021-07-03] MEDS ORDERED: FUROSEMIDE 40 MG/4 ML VIAL IV SCH (09:00)
--- NOTE | 2021-07-03 09:56 | Cardiology Progress Note ---
Date of Service July 03, 2021 Assessment & Plan (1) Acute on chronic heart failure with preserved ejection fraction: (2) Sinus tachycardia: (3) Hypertension: (4) Tobacco use: Plan: Acute decompensated right heart failure, pickwickian physiology. Improving. Stil l hypervolemic/decompensated. Continue IV furosemide. Add spironolactone. Discontinue supplemental potassium. Metabolic panel requested. Suspected underlying sleep apnea/hypoxemia. Recommend evaluation. Chronic obstructive pulmonary disease, with continued tobacco abuse. Tobacco cessation advised. Tachycardia, sinus tachycardia, chronic. No concerning findings on telemetry. Continue metoprolol. Consider further titration of metoprolol if heart rates remain elevated after achieving euvolemia. Consider CT of the chest (PE protocol). Hypertension. See above. Admission and Anticipated Discharge Date Admission Date: July 02, 2021 Supervising Physician Co-Signing Physician Notes Patient was seen and examined with full assessment as well outlined above. Patient manifesting diuresis with predominant issues being right heart rate in t he left heart failure. Fluid balance -1400 cc. Given persistent hypoxia and leg size discrepancy patient referred today for CTA of the chest. No evidence of pulmonary embolus with pulmonary artery dilatation consistent with chronic right heart/pulmonary pressure elevation Subjective Patient seen and examined. Chart, medications, and telemetry reviewed. Feels some better. Breathing has improved. Left greater than right lower extremity swelling has improved. Left leg pain has improved. + Orthopnea. + Abdominal bloating. No chest pain. No palpitations. No PND. No near syncope or syncope. No fevers or chills. I/O's: -1480 mL's overall Telemetry: sinus/sinus tachycardia. Heart rate is currently 100 bpm, ranging from 90 to 120 bpm. July 02, 2021 TTE Interpretation Summary ([facility], Dr. Crockett): Normal size LV. Moderate concentric LVH. Normal LV wall motion. Ejection fraction 60 to 65%. Mild to moderately dilated RV. Mildly reduced RV systolic function. Trace tricuspid regurgitation. Elevated right ventricular systolic pressure (30 to 40 mmHg). Review of Systems Review of Systems: Complete review of systems is otherwise as stated above, negative, or noncontributory. Physical Exam Physical Exam: General: A&Ox3. NAD. HENT: Normocephalic. Atraumatic. Eyes: PER. Conjunctiva pink, sclera clear. Neck: No overt JVD. Heart: Distant heart sounds. RRR, 90 bpm. No murmur. Lungs: Clear to auscultation. Abdomen: +BS. Extremities: 1-2+ edema. No clubbing. No cyanosis Limited neurological examination is without focal deficits. Pulses: posterior tibial=1/4. Results & Data ([facility]) Vital Signs (Past 12 Hours) Vital Signs Temp Pulse Pulse Resp BP Pulse Ox 07/03/21 07:48 37.2 C 107 H 20 153/84 H 91 07/03/21 07:11 107 H 07/03/21 02:52 36.7 C 88 20 113/76 93 07/02/21 23:00 105 H 07/02/21 22:48 89 07/02/21 22:34 36.8 C 97 H 20 116/77 91 Laboratory Results Laboratory Results - last 24 hr 07/02/21 07/02/21 07/02/21 10:56 10:56 17:45 WBC RBC Hgb Hct MCV MCH MCHC RDW Std Deviation RDW Coeff of Homer Plt Count MPV Immature Gran % (Auto) Neut % (Auto) Lymph % (Auto) [place] % (Auto) Eos % (Auto) Baso % (Auto) Neut # (Auto) Lymph # (Auto) [place] # (Auto) Eos # (Auto) Baso # (Auto) Immature Gran # (Auto) Absolute Nucleated RBC Nucleated RBC % (auto) PT INR APTT PTT Ratio Sodium Potassium Chloride Carbon Dioxide Anion Gap BUN Creatinine Est Cr Clr Drug Dosing Est GFR ( Amer) Est GFR (Non-Af Amer) BUN/Creatinine Ratio Glucose Estimat Average Glucose Hemoglobin A1c Calcium Magnesium Total Bilirubin AST ALT Alkaline Phosphatase Troponin I < 0.015 NT-Pro-B Natriuret Pep Total Protein Albumin Globulin Albumin/Globulin Ratio COVID-19 Eval Order Covid19 at [facility] SARS-CoV-2 (PCR) NEGATIVE 07/02/21 07/02/21 07/02/21 Unknown Unknown Unknown WBC 12.29 H RBC 4.91 Hgb 14.6 Hct 47.8 H MCV 97.4 MCH 29.7 MCHC 30.5 L RDW Std Deviation 58.4 H RDW Coeff of Homer 16.6 H Plt Count 305 MPV 10.6 H Immature Gran % (Auto) 0.3 Neut % (Auto) 79.6 Lymph % (Auto) 14.0 [place] % (Auto) 5.2 Eos % (Auto) 0.7 Baso % (Auto) 0.2 Neut # (Auto) 9.79 H Lymph # (Auto) 1.72 [place] # (Auto) 0.64 H Eos # (Auto) 0.08 Baso # (Auto) 0.02 Immature Gran # (Auto) 0.04 H Absolute Nucleated RBC 0.04 H Nucleated RBC % (auto) 0.4 PT 10.8 INR 1.1 APTT 24.7 PTT Ratio 0.9 Sodium 138 Potassium 4.2 Chloride 101 Carbon Dioxide 33 H Anion Gap 4.0 BUN 17 Creatinine 1.04 Est Cr Clr Drug Dosing 76.8 Est GFR ( Amer) 73.1 Est GFR (Non-Af Amer) 63.0 BUN/Creatinine Ratio 16.7 Glucose 141 H Estimat Average Glucose Hemoglobin A1c Calcium 8.8 Magnesium 1.9 Total Bilirubin 0.5 AST 25 ALT 33 Alkaline Phosphatase 111 Troponin I < 0.015 NT-Pro-B Natriuret Pep 1964 H Total Protein 7.7 Albumin 3.2 L Globulin 4.5 H Albumin/Globulin Ratio 0.7 L COVID-19 Eval Order SARS-CoV-2 (PCR) 07/03/21 07/03/21 07/03/21 00:24 06:14 06:14 WBC 12.51 H RBC 4.79 Hgb 13.9 Hct 47.3 H MCV 98.7 MCH 29.0 MCHC 29.4 L RDW Std Deviation 61.2 H RDW Coeff of Homer 17.0 H Plt Count 313 MPV 11.1 H Immature Gran % (Auto) Neut % (Auto) Lymph % (Auto) [place] % (Auto) Eos % (Auto) Baso % (Auto) Neut # (Auto) Lymph # (Auto) [place] # (Auto) Eos # (Auto) Baso # (Auto) Immature Gran # (Auto) Absolute Nucleated RBC Nucleated RBC % (auto) PT INR APTT PTT Ratio Sodium Potassium Chloride Carbon Dioxide Anion Gap BUN Creatinine Est Cr Clr Drug Dosing Est GFR ( Amer) Est GFR (Non-Af Amer) BUN/Creatinine Ratio Glucose Estimat Average Glucose 143 Hemoglobin A1c 6.6 H Calcium Magnesium Total Bilirubin AST ALT Alkaline Phosphatase Troponin I < 0.015 NT-Pro-B Natriuret Pep Total Protein Albumin Globulin Albumin/Globulin Ratio COVID-19 Eval Order SARS-CoV-2 (PCR) 07/03/21 06:14 WBC RBC Hgb Hct MCV MCH MCHC RDW Std Deviation RDW Coeff of Homer Plt Count MPV Immature Gran % (Auto) Neut % (Auto) Lymph % (Auto) [place] % (Auto) Eos % (Auto) Baso % (Auto) Neut # (Auto) Lymph # (Auto) [place] # (Auto) Eos # (Auto) Baso # (Auto) Immature Gran # (Auto) Absolute Nucleated RBC Nucleated RBC % (auto) PT INR APTT PTT Ratio Sodium Potassium Chloride Carbon Dioxide Anion Gap BUN Creatinine Est Cr Clr Drug Dosing Est GFR ( Amer) Est GFR (Non-Af Amer) BUN/Creatinine Ratio Glucose Estimat Average Glucose Hemoglobin A1c Calcium Magnesium 2.1 Total Bilirubin AST ALT Alkaline Phosphatase Troponin I NT-Pro-B Natriuret Pep Total Protein Albumin Globulin Albumin/Globulin Ratio COVID-19 Eval Order SARS-CoV-2 (PCR)
[2021-07-03 10:47] LABS: BUN Creatinine Ratio 17.1 (10-20); Calcium 8.8 mg/dl (8.5-10.1); Creatinine Clr Calc Pharmacy 68.3 ml/min; Est GFR (African American) 67.5 ml/min; Est GFR (Non-African American) 58.3 ml/min; Potassium 4.1 mmol/L (3.5-5.1)
[2021-07-03] MEDS: SPIRONOLACTONE 25 MG TAB PO SCH (10:54)
[2021-07-03] MEDS ORDERED: OPTIRAY 320 125ml IV ONE (11:08)
--- NOTE | 2021-07-03 11:49 | CT Scan Report ---
CT ANGIOGRAM OF THE CHEST CLINICAL HISTORY: Dyspnea. Lower extremity edema. COMPARISON STUDY: Chest x-ray dated 07/02/2021. Chest CT dated 04/24/2019. TECHNIQUE: Following the IV administration of 120 cc of Optiray 320, CT angiogram of the chest was pe rformed from the upper abdomen to the thoracic inlet utilizing the pulmonary embolus protocol. Images are reviewed in the axial, sagittal, and coronal planes. 3-D MIPS images are created and assessed. I V contrast was administered without complication. A dose lowering technique was utilized adhering to the principles of ALARA. The examination is compromised by motion artifact. CT DOSE: 549.76 mGycm FINDINGS: Thyroid: Imaged portions of the thyroid gland are normal in size and attenuation. Thoracic aorta: The thoracic aorta is normal in caliber and demonstrates standard 3-vessel arch anato my. No dissection is seen. Pulmonary vasculature: The pulmonary trunk is dilated measuring 3.3 cm in diameter. This suggests pul monary artery hypertension. There are no filling defects identified in main, lobar, or segmental pulm onary branches to suggest pulmonary embolus. Evaluation of the peripheral branches is degraded by mot ion artifact. Heart: The heart is enlarged noting trace pericardial effusion. Lungs and pleural spaces: Evaluation of the lung parenchyma is degraded by motion artifact. There is no airspace consolidation typical for pneumonia or pleural effusion. Foci of scarring/atelectasis are seen throughout both lungs. The trachea and central airways are clear. Mediastinum: There is no mediastinal lymphadenopathy. Jane: Clear. Axillae: Shotty axillary lymph nodes are similar to previous. Upper abdomen: There is a small hiatal hernia. Partially visualized upper abdominal viscera is otherw ise within normal limits. Skeletal structures: No lytic or blastic bony lesions are seen. IMPRESSION: 1. There is no evidence of pulmonary embolus in the main, lobar, or segmental pulmonary arteries. Era luation of the peripheral branches is degraded by motion artifact. 2. Cardiomegaly with evidence of pulmonary artery hypertension. 3. No airspace consolidation typical for pneumonia or pleural effusion is identified. ACT 112: Negative or not required by law. Electronically signed by: Ubaldo Enriquez M.D. 07/03/2021 11:47 AM
[2021-07-03] MEDS: ENOXAPARIN INJ 40 MG/0.4 ML SYR SQ SCH (17:18)
--- NOTE | 2021-07-03 18:12 | Hospitalist Progress Note ---
Date of Service July 03, 2021 Assessment & Plan (1) Acute on chronic heart failure with preserved ejection fraction: Plan: Diuresing well on Lasix with net 1.4L out overnight. Cont daily standing weights each morning and strict I/Os. Cont salt restricted diet. Support with supplemental oxygen while still overloaded. Improved. Cont Lasix daily. Spironolactone started and potassium stopped per cardiology. Otherwise cont current medical therapy. (2) Bilateral leg edema: Plan: Bilateral leg edema, left greater than right. Secondary to volume overload and improving with diuretic therapy. TEDs if she can tolerate this. Venous Doppler on left revealed no DVT wtih complext popliteal cyst. Followup ultrasound in 3 months is recommended to exclude the much less likely possibility of a cystic mass. (3) Sinus tachycardia: Plan: resolved, Continue metoprolol succinate 25 mg twice daily (4) Prediabetes: Plan: A1c: 6.6 this admission. Cont diabetic diet. Need to followup with PCP to discuss treatment options including lifestyle modifications such as weight loss. (5) Hypertension: Plan: chronic, at goal. Continue lisinopril, metoprolol succinate (6) COPD (chronic obstructive pulmonary disease): Plan: chronic, not in exacerbation. Continue albuterol as needed, Flovent daily per home regimen. (7) Tobacco use: Plan: Smoking cessation encouraged-Contemplative phase (8) Depression: Plan: const sertraline per home regimen. (9) DVT prophylaxis: Plan: Lovenox Full Dispo-pending cardiology clearance after medical treatment of heart failure. Antonella Carson [facility] and Anticipated Discharge Date Admission Date: July 02, 2021 Subjective 50 yo F admitted with acute CHF exacerbation she reports feeling well today she is having a good response to diuretic CT scan today to rule out PE which was negative Patient feels the swelling is going down Denies chest pain Denies SOB-per nurse she was 60% on room air Patient has a tendency to walk to the bathroom and take off her oxygen Continuous pulse ox ordered. Review of Systems Review of Systems: At least ten systems were reviewed and negative except as indicated in HPI above. Physical Exam Physical Exam: CONSTITUTIONAL: obese, vitals as above, generally well- appearing EYES: normal conjunctivae, no scleral icterus ENT: external ear and nose normal, MMM NECK: trachea midline RESPIRATORY: crackles present in bilateral lung bases, normal respiratory effort CARDIOVASCULAR: regular rate and rhythm, S1 and 2 heard without murmurs, gallops or rubs, no JVD, no peripheral edema GASTROINTESTINAL: soft, nontender, ND, no guarding MUSCULOSKELETAL: strength 5/5 throughout, head is normocephalic and atraumatic, ambulates independently SKIN: warm and dry NEUROLOGIC: CN 2-12 grossly intact, normal cognition, normal speech, no tremor. No gross focal deficits. PSYCHIATRIC: alert cooperative and oriented to person, place and time. Results & Data Results & Data ([facility]) Vital Signs (Past 12 Hours) Vital Signs Temp Pulse Pulse Resp BP Pulse Ox Pulse Ox 07/03/21 17:34 92 07/03/21 15:03 36.7 C 90 18 120/78 92 07/03/21 14:59 85 07/03/21 14:22 91 07/03/21 11:40 36.8 C 100 H 18 121/79 91 07/03/21 07:48 37.2 C 107 H 20 153/84 H 91 07/03/21 07:11 107 H Laboratory Results Short CBC 07/03/21 Range/Units 06:14 WBC 12.51 H (4.8-10.8) K/uL Hgb 13.9 (12.0-16.0) g/dL Hct 47.3 H (37-47) % Plt Count 313 (130-400) K/uL BMP 07/03/21 10:07 Sodium 137 Potassium 4.1 Chloride 98 Carbon Dioxide 40 H BUN 19 H Creatinine 1.11 Glucose 85 Calcium 8.8 Cardiac Enzymes 07/02/21 07/03/21 Range/Units 17:45 00:24 Troponin I < 0.015 < 0.015 (0-0.045) ng/ml Diagnostic Findings Chest CTA 07/03/21 10:33 CT ANGIOGRAM OF THE CHEST CLINICAL HISTORY: Dyspnea. Lower extremity edema. COMPARISON STUDY: Chest x-ray dated 07/02/2021. Chest CT dated 04/24/2019. TECHNIQUE: Following the IV administration of 120 cc of Optiray 320, CT angiogram of the chest was performed from the upper abdomen to the thoracic inlet utilizing the pulmonary embolus protocol. Images are reviewed in the axial, sagittal, and coronal planes. 3-D MIPS images are created and assessed. IV contrast was administered without complication. A dose lowering technique was utilized adhering to the principles of ALARA. The examination is compromised by motion artifact. CT DOSE: 549.76 mGycm FINDINGS: Thyroid: Imaged portions of the thyroid gland are normal in size and attenuation. Thoracic aorta: The thoracic aorta is normal in caliber and demonstrates standard 3-vessel arch anatomy. No dissection is seen. Pulmonary vasculature: The pulmonary trunk is dilated measuring 3.3 cm in diameter. This suggests pulmonary artery hypertension. There are no filling defects identified in main, lobar, or segmental pulmonary branches to suggest pulmonary embolus. Evaluation of the peripheral branches is degraded by motion artifact. Heart: The heart is enlarged noting trace pericardial effusion. Lungs and pleural spaces: Evaluation of the lung parenchyma is degraded by motion artifact. There is no airspace consolidation typical for pneumonia or pl eural effusion. Foci of scarring/atelectasis are seen throughout both lungs. The trachea and central airways are clear. Mediastinum: There is no mediastinal lymphadenopathy. Jane: Clear. Axillae: Shotty axillary lymph nodes are similar to previous. Upper abdomen: There is a small hiatal hernia. Partially visualized upper abdominal viscera is otherwise within normal limits. Skeletal structures: No lytic or blastic bony lesions are seen. IMPRESSION: 1. There is no evidence of pulmonary embolus in the main, lobar, or segmental pulmonary arteries. Evaluation of the peripheral branches is degraded by motion artifact. 2. Cardiomegaly with evidence of pulmonary artery hypertension. 3. No airspace consolidation typical for pneumonia or pleural effusion is identified. ACT 112: Negative or not required by law. Electronically signed by: Ubaldo Enriquez M.D. 07/03/2021 11:47 AM Medications Administered Current Inpatient Medications Acetaminophen (Acetaminophen 325 Mg Tab) 650 mg PO Q4H PRN PRN Reason: Pain or Fever Stop: 08/01/21 17:03 Albuterol (Albuterol 0.083% Nebu Soln 3 Ml Vial) 2.5 mg NEB Q6R PRN PRN Reason: Shortness Of Breath Or Wheezing Stop: 08/01/21 17:03 Enoxaparin Sodium (Enoxaparin Inj 40 Mg/0.4 Ml Syr) 40 mg SQ Q24H FELICIA Stop: 08/01/21 17:59 Last Admin: 07/03/21 17:18 Dose: 40 mg Documented by: Fluticasone Furoate (Fluticasone Furoate 200mcg 14 Puffs/Inhaler) 1 puffs INH DAILY@2100 [facility] Stop: 08/01/21 20:59 Last Admin: 07/02/21 21:36 Dose: 1 puffs Documented by: Folic Acid (Folic Acid 1 Mg Tab) 1 mg PO QAM [facility] Stop: 08/02/21 08:59 Last Admin: 07/03/21 08:35 Dose: 1 mg Documented by: Furosemide 40 mg/ Syringe 4 mls @ 4 mls/min IV DAILY FELICIA Stop: 08/02/21 08:59 Last Admin: 07/03/21 08:35 Dose: 4 mls/min Documented by: Lisinopril (Lisinopril 10 Mg Tab) 10 mg PO QAM [facility] Stop: 08/02/21 08:59 Last Admin: 07/03/21 08:35 Dose: 10 mg Documented by: Loratadine (Loratadine 10 Mg Tab) 10 mg PO DAILY [facility] Stop: 08/02/21 08:59 Last Admin: 07/03/21 08:35 Dose: 10 mg Documented by: Metoprolol Succinate (Metoprolol Succ 25mg Ext Rel Tab) 25 mg PO BID [facility] Stop: 08/01/21 20:59 Last Admin: 07/03/21 08:35 Dose: 25 mg Documented by: Multivitamins (Multivitamin Tab) 1 tab PO DAILY [facility] Stop: 08/02/21 08:59 Last Admin: 07/03/21 08:35 Dose: 1 tab Documented by: Ondansetron HCl (Ondansetron Inj 2 Mg/Ml 2 Ml Vial) 4 mg IV Q6H PRN PRN Reason: Nausea Stop: 08/01/21 17:03 Pantoprazole Sodium (Pantoprazole 40 Mg Tab) 40 mg PO QAM [facility] Stop: 08/02/21 08:59 Last Admin: 07/03/21 08:35 Dose: 40 mg Documented by: Polyethylene Glycol (Polyethylene (Miralax) 17 Gm Pack) 17 gm PO DAILY PRN PRN Reason: Constipation Stop: 08/01/21 17:03 Sertraline HCl (Sertraline Hcl 50 Mg Tablet) 50 mg PO QAM [facility] Stop: 08/02/21 08:59 Last Admin: 07/03/21 08:35 Dose: 50 mg Documented by: Spironolactone (Spironolactone 25 Mg Tab) 25 mg PO QAM [facility] Stop: 08/02/21 10:14 Last Admin: 07/03/21 10:54 Dose: 25 mg Documented by: Thiamine HCl (Thiamine Hcl 50 Mg Tablet) 50 mg PO DAILY [facility] Stop: 08/02/21 08:59 Last Admin: 07/03/21 08:35 Dose: 50 mg Documented by:
[2021-07-03] MEDS: FLUTICASONE FUROATE 200MCG 14 PUFFS/INHALER INH SCH (22:41)
[2021-07-04 07:05] LABS: BUN Creatinine Ratio 21.9 (10-20); Calcium 8.7 mg/dl (8.5-10.1); Creatinine Clr Calc Pharmacy 76.7 ml/min; Est GFR (African American) 73.9 ml/min; Est GFR (Non-African American) 63.8 ml/min; Potassium 4.4 mmol/L (3.5-5.1)
[2021-07-04] MEDS: ACETAMINOPHEN 325 MG TAB PO PRN (07:47)
[2021-07-04] MEDS: METOPROLOL SUCC 25MG EXT REL TAB PO SCH ×2 (07:49→20:01)
[2021-07-04] MEDS: SERTRALINE HCL 50 MG TABLET PO SCH (07:49)
[2021-07-04] MEDS: MULTIVITAMIN TAB PO SCH (07:49)
[2021-07-04] MEDS: LORATADINE 10 MG TAB PO SCH (07:49)
[2021-07-04] MEDS: SPIRONOLACTONE 25 MG TAB PO SCH (07:49)
[2021-07-04] MEDS: FUROSEMIDE 40 MG in SYRINGE 0 ML IV SCH ×2 (07:49→17:35)
[2021-07-04] MEDS: FOLIC ACID 1 MG TAB PO SCH (07:50)
[2021-07-04] MEDS: THIAMINE HCL 50 MG TABLET PO SCH (07:50)
[2021-07-04] MEDS: PANTOprazole 40 MG TAB PO SCH (07:50)
[2021-07-04] MEDS: lisinopril 10 MG TAB PO SCH (07:50)
--- NOTE | 2021-07-04 08:45 | Cardiology Progress Note ---
Date of Service July 04, 2021 Assessment & Plan (1) Acute on chronic right heart failure: (2) Pulmonary hypertension: Plan: Acute decompensated right heart failure with Pickwickian physiology. Improving but still hypervolemic/decompensated. Kidney function stable. 1. Increase IV furosemide to 40 mg twice daily. 2. Continue spironolactone. 3. Continue to follow and trend BMP-replace electrolytes as appropriate. 4. Suspected underlying obstructive sleep apnea/hypoxemia-nocturnal pulse ox study ordered. (3) Sinus tachycardia: Plan: Sinus tachycardia, chronic. Average heart rate on telemetry ranging between 80s to 90s overnight into this morning. For now continue current dose of metoprolol. Heart rates remain tachycardic after patient achieving euvolemia can consider up titration of metoprolol at that time. (4) Hypertension: Plan: Well-controlled. No changes at this time. Continue all medications as ordered. (5) Tobacco use: Plan: COPD with continued tobacco abuse. Currently on 2 L nasal cannula, SPO2 94%. Encouraged tobacco cessation. Admission and Anticipated Discharge Date Admission Date: July 02, 2021 Supervising Physician Co-Signing Physician Notes Patient was seen and examined, assessment and plan as outlined above. Patient with predominantly right heart failure with preserved LV systolic function. Evidence of pulmonary hypertension on echocardiogram consistent with history of pickwickian disease and probable underlying sleep apnea. Nocturnal oximetry ordered, continue IV diuretics, We will reduce lisinopril to 5 mg/day to allow further diuresis. Continue oral metoprolol Subjective 50 year old female with acute decomensated right sided heart failure, Pickickian physiology. Upon presentation to the room patient was alert and oriented sitting up in bed having a new IV placed. Notes that she is feeling somewhat better however her legs and abdomen remain swollen. Left leg more swollen than right. Continues to complain of orthopnea and abdominal bloating. Denies any exertional chest pain. Shortness of breath at baseline. No palpitations, dizziness, syncopal episodes. No PND. No fever or chills. CTA of the chest showed no evidence of PE, cardiomegaly with evidence of pulmonary artery hypertension, no pneumonia or pleural effusions noted. Telemetry overnight showed sinus rhythm in the 80s to 90s, last evening heart rate as elevated as 120. Intake/output: -1.6 L with 1 unmeasured void, weight today by standing scale was 108.6 kg Recent labs reviewed this morning- Scr 1.03 this am, Potassium 4.4 Review of Systems Review of Systems: All systems reviewed & are unremarkable except as noted in HPI & below Physical Exam Physical Exam: General: No acute distress. A+Ox3. HEENT: Normocephalic. Atraumatic. Conjunctiva and sclera clear. NECK: No carotid bruits. No JVD. Carotid upstrokes are brisk. Heart: Regular rhythm, tachycardic rate S1 and S2 noted without murmur, rubs, gallops. Lungs: Diminished lung sounds bilaterally, fine crackles in bilateral bases Abdomen: Bloated abdomen/taut, orange peel appearance of lower abdominal skin Extremities: +2 bilateral lower extremity pitting edema up to the knee, left leg slightly worse than right. Pulses: radial=2/4, posterior tibial=2/4, dorsalis pedis = 2/4. NEURO: No focal deficits. PSYCH: Normal. Results & Data ([facility]) Vital Signs (Past 12 Hours) Vital Signs Temp Pulse Pulse Resp BP Pulse Ox 07/04/21 03:48 36.9 C 89 20 110/71 94 07/03/21 23:02 88 18 94 07/03/21 22:39 37.2 C 91 H 20 104/71 92 07/03/21 22:18 94 H Laboratory Results 07/04/21 07/03/21 Range/Units 06:03 10:07 Sodium 136 137 (136-145) mmol/L Potassium 4.4 4.1 (3.5-5.1) mmol/L Chloride 96 L 98 (98-107) mmol/L Carbon Dioxide 39 H 40 H (21-32) mmol/L Anion Gap 1.0 L -1.0 L (3-11) BUN 23 H 19 H (7-18) mg/dl Creatinine 1.03 1.11 (0.6-1.2) mg/dl Est Cr Clr Drug Dosing 76.7 68.3 ml/min Est GFR ( Amer) 73.9 67.5 ml/min Est GFR (Non-Af Amer) 63.8 58.3 ml/min BUN/Creatinine Ratio 21.9 H 17.1 (10-20) Glucose 95 85 (70-99) mg/dl Calcium 8.7 8.8 (8.5-10.1) mg/dl Magnesium 2.0 (1.8-2.4) mg/dl Diagnostic Findings Echo 07/02/2021 Left ventricle normal in size with moderate LVH LVEF 60 to 65% Right ventricle is mild to moderately dilated with mildly reduced right ventricular systolic function Trace tricuspid regurgitation Right ventricular systolic pressure elevated at 30-40 mmhg
[2021-07-04] MEDS: ENOXAPARIN INJ 40 MG/0.4 ML SYR SQ SCH (17:35)
--- NOTE | 2021-07-04 19:05 | Hospitalist Progress Note ---
Date of Service July 04, 2021 Assessment & Plan (1) Acute on chronic heart failure with preserved ejection fraction: Plan: Net fluid out overnight was 130cc. Increase lasix to BID dosing. Cont daily standing weights each morning and strict I/Os. Cont salt restricted diet. Support with supplemental oxygen while still overloaded. Improved. Cont Lasix daily. Spironolactone started and potassium stopped per cardiology. Otherwise cont current medical therapy. (2) Bilateral leg edema: Plan: Bilateral leg edema, left greater than right. Secondary to volume overload and improving with diuretic therapy. TEDs if she can tolerate this. Venous Doppler on left revealed no DVT wtih complext popliteal cyst. Followup ultrasound in 3 months is recommended to exclude the much less likely po ssibility of a cystic mass. (3) Sinus tachycardia: Plan: resolved, Continue metoprolol succinate 25 mg twice daily (4) Prediabetes: Plan: A1c: 6.6 this admission. Cont diabetic diet. Need to followup with PCP to discuss treatment options including lifestyle modifications such as weight loss. (5) Hypertension: Plan: chronic, at goal. Continue lisinopril, metoprolol succinate (6) COPD (chronic obstructive pulmonary disease): Plan: chronic, not in exacerbation. Continue albuterol as needed, Flovent daily per home regimen. (7) Tobacco use: Plan: Smoking cessation encouraged-Contemplative phase (8) Depression: Plan: const sertraline per home regimen. (9) DVT prophylaxis: Plan: Lovenox Full Dispo-pending cardiology clearance after medical treatment of heart failure. Antonella Carson DO [facility] Hospitalist Admission and Anticipated Discharge Date Admission Date: July 02, 2021 Subjective 50 yo F admitted with acute CHF exacerbation she reports feeling well today she continues to have a good response to diuretic CT scan today to rule out PE which was negative Denies chest pain Denies SOB Review of Systems Review of Systems: At least ten systems were reviewed and negative except as indicated in HPI above. Physical Exam Physical Exam: CONSTITUTIONAL: obese, vitals as above, generally well- appearing EYES: normal conjunctivae, no scleral icterus ENT: external ear and nose normal, MMM NECK: trachea midline RESPIRATORY: crackles present in right lung bases, normal respiratory effort CARDIOVASCULAR: regular rate and rhythm, S1 and 2 heard without murmurs, gallops or rubs, no JVD, no peripheral edema GASTROINTESTINAL: soft, nontender, ND, no guarding MUSCULOSKELETAL: strength 5/5 throughout, head is normocephalic and atraumatic, ambulates independently SKIN: warm and dry NEUROLOGIC: CN 2-12 grossly intact, normal cognition, normal speech, no tremor. No gross focal deficits. PSYCHIATRIC: alert cooperative and oriented to person, place and time. Results & Data Results & Data ([facility]) Vital Signs (Past 12 Hours) Vital Signs Temp Pulse Pulse Pulse Resp BP BP 07/04/21 16:09 87 07/04/21 15:21 36.9 C 83 20 100/66 07/04/21 11:14 36.8 C 82 20 90/60 L 07/04/21 08:00 37.0 C 94 H 20 112/70 Pulse Ox 07/04/21 16:09 07/04/21 15:21 92 07/04/21 11:14 93 07/04/21 08:00 94 Laboratory Results BMP 07/04/21 06:03 Sodium 136 Potassium 4.4 Chloride 96 L Carbon Dioxide 39 H BUN 23 H Creatinine 1.03 Glucose 95 Calcium 8.7 Medications Administered Current Inpatient Medications Acetaminophen (Acetaminophen 325 Mg Tab) 650 mg PO Q4H PRN PRN Reason: Pain or Fever Stop: 08/01/21 17:03 Last Admin: 07/04/21 07:47 Dose: 650 mg Documented by: Albuterol (Albuterol 0.083% Nebu Soln 3 Ml Vial) 2.5 mg NEB Q6R PRN PRN Reason: Shortness Of Breath Or Wheezing Stop: 08/01/21 17:03 Last Admin: 07/03/21 23:00 Dose: 2.5 mg Documented by: Enoxaparin Sodium (Enoxaparin Inj 40 Mg/0.4 Ml Syr) 40 mg SQ Q24H [facility] Stop: 08/01/21 17:59 Last Admin: 07/04/21 17:35 Dose: Not Given Documented by: Fluticasone Furoate (Fluticasone Furoate 200mcg 14 Puffs/Inhaler) 1 puffs INH DAILY@2100 [facility] Stop: 08/01/21 20:59 Last Admin: 07/03/21 22:41 Dose: 1 puffs Documented by: Folic Acid (Folic Acid 1 Mg Tab) 1 mg PO QAM [facility] Stop: 08/02/21 08:59 Last Admin: 07/04/21 07:50 Dose: 1 mg Documented by: Furosemide 40 mg/ Syringe 4 mls @ 4 mls/min IV BID17 [facility] Stop: 08/03/21 16:59 Last Admin: 07/04/21 17:35 Dose: 4 mls/min Documented by: Lisinopril (Lisinopril 5 Mg Tab) 5 mg PO QAM [facility] Stop: 08/04/21 08:59 Loratadine (Loratadine 10 Mg Tab) 10 mg PO DAILY [facility] Stop: 08/02/21 08:59 Last Admin: 07/04/21 07:49 Dose: 10 mg Documented by: Metoprolol Succinate (Metoprolol Succ 25mg Ext Rel Tab) 25 mg PO BID [facility] Stop: 08/01/21 20:59 Last Admin: 07/04/21 07:49 Dose: 25 mg Documented by: Multivitamins (Multivitamin Tab) 1 tab PO DAILY [facility] Stop: 08/02/21 08:59 Last Admin: 07/04/21 07:49 Dose: 1 tab Documented by: Ondansetron HCl (Ondansetron Inj 2 Mg/Ml 2 Ml Vial) 4 mg IV Q6H PRN PRN Reason: Nausea Stop: 08/01/21 17:03 Pantoprazole Sodium (Pantoprazole 40 Mg Tab) 40 mg PO QAM [facility] Stop: 08/02/21 08:59 Last Admin: 07/04/21 07:50 Dose: 40 mg Documented by: Polyethylene Glycol (Polyethylene (Miralax) 17 Gm Pack) 17 gm PO DAILY PRN PRN Reason: Constipation Stop: 08/01/21 17:03 Sertraline HCl (Sertraline Hcl 50 Mg Tablet) 50 mg PO QAM [facility] Stop: 08/02/21 08:59 Last Admin: 07/04/21 07:49 Dose: 50 mg Documented by: Spironolactone (Spironolactone 25 Mg Tab) 25 mg PO QAM [facility] Stop: 08/02/21 10:14 Last Admin: 07/04/21 07:49 Dose: 25 mg Documented by: Thiamine HCl (Thiamine Hcl 50 Mg Tablet) 50 mg PO DAILY [facility] Stop: 08/02/21 08:59 Last Admin: 07/04/21 07:50 Dose: 50 mg Documented by:
[2021-07-04] MEDS: FLUTICASONE FUROATE 200MCG 14 PUFFS/INHALER INH SCH (20:01)
[2021-07-05 06:58] LABS: Hematocrit (blood only) 46.7 % (37-47); Hemoglobin 13.7 g/dL (12.0-16.0); Mean Corpuscular Hemoglobin 28.7 pg (25-34); Mean Corpuscular Hgb Conc 29.3 g/dL (32-36); Mean Corpuscular Volume 97.9 fL (80-100); Mean Platelet Volume 10.7 fL (7.4-10.4); Platelet Count 284 K/uL (130-400); RDW Coefficient of Variation 16.9 % (11.5-14.5); RDW Standard Deviation 60.3 fL (36.4-46.3); Red Blood Count 4.77 M/uL (4.2-5.4)
[2021-07-05 07:35] LABS: Calcium 8.9 mg/dl (8.5-10.1); Creatinine Clr Calc Pharmacy 75.5 ml/min; Est GFR (African American) 73.9 ml/min; Est GFR (Non-African American) 63.8 ml/min; Potassium 4.4 mmol/L (3.5-5.1)
[2021-07-05] MEDS: FUROSEMIDE 40 MG in SYRINGE 0 ML IV SCH ×2 (08:52→16:56)
[2021-07-05] MEDS: SPIRONOLACTONE 25 MG TAB PO SCH (08:52)
[2021-07-05] MEDS: SERTRALINE HCL 50 MG TABLET PO SCH (08:52)
[2021-07-05] MEDS: MULTIVITAMIN TAB PO SCH (08:53)
[2021-07-05] MEDS: LORATADINE 10 MG TAB PO SCH (08:53)
[2021-07-05] MEDS: PANTOprazole 40 MG TAB PO SCH (08:53)
[2021-07-05] MEDS: THIAMINE HCL 50 MG TABLET PO SCH (08:53)
[2021-07-05] MEDS: lisinopril 5 MG TAB PO SCH (08:53)
[2021-07-05] MEDS: FOLIC ACID 1 MG TAB PO SCH (08:53)
[2021-07-05] MEDS: METOPROLOL SUCC 25MG EXT REL TAB PO SCH ×2 (08:53→20:06)
[2021-07-05] MEDS: ACETAMINOPHEN 325 MG TAB PO PRN (09:00)
--- NOTE | 2021-07-05 09:33 | Hospitalist Progress Note ---
Date of Service July 05, 2021 Assessment & Plan (1) Acute on chronic right heart failure: Plan: She is responding to increased BID diuretics somewhat but is drinking too much. Fluid restriction put into place. Consider metolazone but defer this to cardiology. Cont strict I/Os, low salt diet. Continues to require oxygen supplementation. (2) Pulmonary hypertension: (3) Sinus tachycardia: Plan: resolved, Continue metoprolol succinate 25 mg twice daily (4) Hypertension: Plan: chronic, at goal. Continue lisinopril, metoprolol succinate (5) Tobacco use: Plan: Smoking cessation encouraged-Contemplative phase (6) Obstructive sleep apnea: (7) Depression: Plan: cont sertraline per home regimen. (8) COPD (chronic obstructive pulmonary disease): Plan: chronic, not in exacerbation. Continue albuterol as needed, Flovent daily per home regimen. (9) DVT prophylaxis: Plan: Lovenox Full Dispo-pending cardiology clearance after medical treatment of heart failure. Antonella Carson DO [facility] Hospitalist Admission and Anticipated Discharge Date Admission Date: July 02, 2021 Subjective 50 yo F admitted with acute CHF exacerbation she reports feeling well today she continues to have a good response to diuretic except her fluid intake is high-->placed her on a fluid restriction this am. Denies chest pain Denies SOB Review of Systems Review of Systems: At least ten systems were reviewed and negative except as indicated in HPI above. Physical Exam Physical Exam: CONSTITUTIONAL: obese, vitals as above, generally well-appearing EYES: normal conjunctivae, no scleral icterus ENT: external ear and nose normal, MMM NECK: trachea midline RESPIRATORY: crackles present in right lung bases, normal respiratory effort CARDIOVASCULAR: regular rate and rhythm, S1 and 2 heard without murmurs, gallops or rubs, no JVD, no peripheral edema GASTROINTESTINAL: soft, nontender, ND, no guarding MUSCULOSKELETAL: strength 5/5 throughout, head is normocephalic and atraumatic, ambulates independently SKIN: warm and dry NEUROLOGIC: CN 2-12 grossly intact, normal cognition, normal speech, no tremor. No gross focal deficits. PSYCHIATRIC: alert cooperative and oriented to person, place and time. Results & Data Results & Data ([facility]) Vital Signs (Past 12 Hours) Vital Signs Temp Pulse Pulse Pulse Pulse Pulse Pulse 07/05/21 08:59 37.1 C 96 H 07/05/21 05:15 07/05/21 04:16 36.8 C 100 H 07/05/21 03:47 07/05/21 01:08 07/04/21 23:55 36.9 C 99 H 07/04/21 22:20 111 H 07/04/21 21:35 92 H 89 85 Pulse Resp BP BP Pulse Ox Pulse Ox Pulse Ox 07/05/21 08:59 18 113/74 95 07/05/21 05:15 94 H 07/05/21 04:16 20 110/73 95 07/05/21 03:47 102 H 07/05/21 01:08 89 07/04/21 23:55 20 122/75 92 07/04/21 22:20 07/04/21 21:35 91 H 86 L 86 L Pulse Ox Pulse Ox 07/05/21 08:59 07/05/21 05:15 95 07/05/21 04:16 07/05/21 03:47 91 07/05/21 01:08 91 07/04/21 23:55 07/04/21 22:20 07/04/21 21:35 92 83 L Laboratory Results Short CBC 07/05/21 Range/Units 06:22 WBC 11.80 H (4.8-10.8) K/uL Hgb 13.7 (12.0-16.0) g/dL Hct 46.7 (37-47) % Plt Count 284 (130-400) K/uL BMP 07/05/21 06:22 Sodium 137 Potassium 4.4 Chloride 93 L Carbon Dioxide 39 H BUN 22 H Creatinine 1.03 Glucose 122 H Calcium 8.9 Medications Administered Current Inpatient Medications Acetaminophen (Acetaminophen 325 Mg Tab) 650 mg PO Q4H PRN PRN Reason: Pain or Fever Stop: 08/01/21 17:03 Last Admin: 07/05/21 09:00 Dose: 650 mg Documented by: Albuterol (Albuterol 0.083% Nebu Soln 3 Ml Vial) 2.5 mg NEB Q6R PRN PRN Reason: Shortness Of Breath Or Wheezing Stop: 08/01/21 17:03 Last Admin: 07/03/21 23:00 Dose: 2.5 mg Documented by: Enoxaparin Sodium (Enoxaparin Inj 40 Mg/0.4 Ml Syr) 40 mg SQ Q24H [facility] Stop: 08/01/21 17:59 Last Admin: 07/04/21 17:35 Dose: Not Given Documented by: Fluticasone Furoate (Fluticasone Furoate 200mcg 14 Puffs/Inhaler) 1 puffs INH DAILY@2100 [facility] Stop: 08/01/21 20:59 Last Admin: 07/04/21 20:01 Dose: 1 puffs Documented by: Folic Acid (Folic Acid 1 Mg Tab) 1 mg PO QAM [facility] Stop: 08/02/21 08:59 Last Admin: 07/05/21 08:53 Dose: 1 mg Documented by: Furosemide 40 mg/ Syringe 4 mls @ 4 mls/min IV BID17 [facility] Stop: 08/03/21 16:59 Last Admin: 07/05/21 08:52 Dose: 4 mls/min Documented by: Lisinopril (Lisinopril 5 Mg Tab) 5 mg PO QAM [facility] Stop: 08/04/21 08:59 Last Admin: 07/05/21 08:53 Dose: 5 mg Documented by: Loratadine (Loratadine 10 Mg Tab) 10 mg PO DAILY [facility] Stop: 08/02/21 08:59 Last Admin: 07/05/21 08:53 Dose: 10 mg Documented by: Metoprolol Succinate (Metoprolol Succ 25mg Ext Rel Tab) 25 mg PO BID [facility] Stop: 08/01/21 20:59 Last Admin: 07/05/21 08:53 Dose: 25 mg Documented by: Multivitamins (Multivitamin Tab) 1 tab PO DAILY [facility] Stop: 08/02/21 08:59 Last Admin: 07/05/21 08:53 Dose: 1 tab Documented by: Ondansetron HCl (Ondansetron Inj 2 Mg/Ml 2 Ml Vial) 4 mg IV Q6H PRN PRN Reason: Nausea Stop: 08/01/21 17:03 Pantoprazole Sodium (Pantoprazole 40 Mg Tab) 40 mg PO QAM [facility] Stop: 08/02/21 08:59 Last Admin: 07/05/21 08:53 Dose: 40 mg Documented by: Polyethylene Glycol (Polyethylene (Miralax) 17 Gm Pack) 17 gm PO DAILY PRN PRN Reason: Constipation Stop: 08/01/21 17:03 Sertraline HCl (Sertraline Hcl 50 Mg Tablet) [facility] [place]: 08/02/21 08:59 Last Admin: 07/05/21 08:52 Dose: 50 mg Documented by: Spironolactone (Spironolactone 25 Mg Tab) 25 mg PO QAM [facility] Stop: 08/02/21 10:14 Last Admin: 07/05/21 08:52 Dose: 25 mg Documented by: Thiamine HCl (Thiamine Hcl 50 Mg Tablet) 50 mg PO DAILY [facility] Stop: 08/02/21 08:59 Last Admin: 07/05/21 08:53 Dose: 50 mg Documented by:
--- NOTE | 2021-07-05 11:08 | Cardiology Progress Note ---
Date of Service July 05, 2021 Assessment & Plan (1) Acute on chronic right heart failure: (2) Pulmonary hypertension: Plan: Acute decompensated right heart failure with Pickwickian physiology. Improving but still hypervolemic/decompensated. Kidney function stable. 1. Increase IV furosemide to 40 mg twice daily. 2. Continue spironolactone. 3. Continue to follow and trend BMP-replace electrolytes as appropriate. 4. Suspected underlying obstructive sleep apnea/hypoxemia-nocturnal pulse ox study ordered. (3) Sinus tachycardia: Plan: Sinus tachycardia, chronic. Average heart rate on telemetry ranging between 80s to 90s overnight into this morning. For now continue current dose of metoprolol. Heart rates remain tachycardic after patient achieving euvolemia can consider up titration of metoprolol at that time. (4) Hypertension: Plan: Well-controlled. No changes at this time. Continue all medications as ordered. (5) Tobacco use: Plan: COPD with continued tobacco abuse. Currently on 2 L nasal cannula, SPO2 94%. Encouraged tobacco cessation. Plan: The patient has some rales throughout her lung childress and I think she needs additional diuresis through today. She had a pulse oximeter through the night for evaluation of sleep apnea and that is still pending. Otherwise she is doing well and improving Admission and Anticipated Discharge Date Admission Date: July 02, 2021 Subjective Patient with no new complaints today. She is feeling better. She had a pulse oximeter through the night with report pending. Review of Systems Review of Systems: Review of Systems: See HPI for pertinent positives. All other 10 point review of systems are negative. Physical Exam Physical Exam: General: no acute distress and stated age Head: normocephalic, no masses, lesions, tenderness or abnormalities Eyes: conjunctiva are pink and non-injected, sclera clear Neck: supple, no adenopathy, no bruits, normal jugular venous pulse, no hepatojugular reflux Chest: normal shape and normal respiratory effort Lungs: clear to auscultation and percussion Cardiac Exam: - regular rate & rhythm, no murmurs gallops or rubs - normal S1, normal S2 Pulses: 2(+) throughout Abdomen: abdomen soft, non-tender, no abnormal masses and no hepatosplenomegaly Musculoskeletal: no gait disturbance, no joint inflammation, no deforming arthritis Extremities: no edema and no cyanosis Neuro: grossly normal exam Results & Data ([facility]) Vital Signs (Past 12 Hours) Vital Signs Temp Pulse Pulse Pulse Pulse Resp BP 07/05/21 08:59 37.1 C 96 H 18 07/05/21 08:00 96 H 07/05/21 05:15 94 H 07/05/21 04:16 36.8 C 100 H 20 07/05/21 03:47 102 H 07/05/21 01:08 89 07/04/21 23:55 36.9 C 99 H 20 122/75 BP Pulse Ox Pulse Ox 07/05/21 08:59 113/74 95 07/05/21 08:00 07/05/21 05:15 95 07/05/21 04:16 110/73 95 07/05/21 03:47 91 07/05/21 01:08 91 07/04/21 23:55 92 Laboratory Results Laboratory Results - last 24 hr 07/05/21 07/05/21 06:22 06:22 WBC 11.80 H RBC 4.77 Hgb 13.7 Hct 46.7 MCV 97.9 MCH 28.7 MCHC 29.3 L RDW Std Deviation 60.3 H RDW Coeff of [place] 16.9 H Plt Count 284 MPV 10.7 H Sodium 137 Potassium 4.4 Chloride 93 L Carbon Dioxide 39 H Anion Gap 5.0 BUN 22 H Creatinine 1.03 Est Cr Clr Drug Dosing 75.5 Est GFR ( Amer) 73.9 Est GFR (Non-Af Amer) 63.8 BUN/Creatinine Ratio 21.0 H Glucose 122 H Calcium 8.9 Magnesium 2.0 Medications Administered Current Inpatient Medications Acetaminophen (Acetaminophen 325 Mg Tab) 650 mg PO Q4H PRN PRN Reason: Pain or Fever Stop: 08/01/21 17:03 Last Admin: 07/05/21 09:00 Dose: 650 mg Documented by: Albuterol (Albuterol 0.083% Nebu Soln 3 Ml Vial) 2.5 mg NEB Q6R PRN PRN Reason: Shortness Of Breath Or Wheezing Stop: 08/01/21 17:03 Last Admin: 07/03/21 23:00 Dose: 2.5 mg Documented by: Enoxaparin Sodium (Enoxaparin Inj 40 Mg/0.4 Ml Syr) 40 mg SQ Q24H [facility] Stop: 08/01/21 17:59 Last Admin: 07/04/21 17:35 Dose: Not Given Documented by: Fluticasone Furoate (Fluticasone Furoate 200mcg 14 Puffs/Inhaler) 1 puffs INH DAILY@2100 [facility] Stop: 08/01/21 20:59 Last Admin: 07/04/21 20:01 Dose: 1 puffs Documented by: Folic Acid (Folic Acid 1 Mg Tab) 1 mg PO QAM [facility] Stop: 08/02/21 08:59 Last Admin: 07/05/21 08:53 Dose: 1 mg Documented by: Furosemide 40 mg/ Syringe 4 mls @ 4 mls/min IV BID17 [facility] Stop: 08/03/21 16:59 Last Admin: 07/05/21 08:52 Dose: 4 mls/min Documented by: Lisinopril (Lisinopril 5 Mg Tab) 5 mg PO QAM [facility] Stop: 08/04/21 08:59 Last Admin: 07/05/21 08:53 Dose: 5 mg Documented by: Loratadine (Loratadine 10 Mg Tab) 10 mg PO DAILY [facility] Stop: 08/02/21 08:59 Last Admin: 07/05/21 08:53 Dose: 10 mg Documented by: Metoprolol Succinate (Metoprolol Succ 25mg Ext Rel Tab) 25 mg PO BID [facility] Stop: 08/01/21 20:59 Last Admin: 07/05/21 08:53 Dose: 25 mg Documented by: Multivitamins (Multivitamin Tab) 1 tab PO DAILY [facility] Stop: 08/02/21 08:59 Last Admin: 07/05/21 08:53 Dose: 1 tab Documented by: Ondansetron HCl (Ondansetron Inj 2 Mg/Ml 2 Ml Vial) 4 mg IV Q6H PRN PRN Reason: Nausea Stop: 08/01/21 17:03 Pantoprazole Sodium (Pantoprazole 40 Mg Tab) 40 mg PO QAM [facility] Stop: 08/02/21 08:59 Last Admin: 07/05/21 08:53 Dose: 40 mg Documented by: Polyethylene Glycol (Polyethylene (Miralax) 17 Gm Pack) 17 gm PO DAILY PRN PRN Reason: Constipation Stop: 08/01/21 17:03 Sertraline HCl (Sertraline Hcl 50 Mg Tablet) 50 mg PO QAM [facility] Stop: 08/02/21 08:59 Last Admin: 07/05/21 08:52 Dose: 50 mg Documented by: Spironolactone (Spironolactone 25 Mg Tab) [facility] [place] Stop: 08/02/21 10:14 Last Admin: 07/05/21 08:52 Dose: 25 mg Documented by: Thiamine HCl (Thiamine Hcl 50 Mg Tablet) 50 mg PO DAILY [facility] Stop: 08/02/21 08:59 Last Admin: 07/05/21 08:53 Dose: 50 mg Documented by:
[2021-07-05] MEDS: ENOXAPARIN INJ 40 MG/0.4 ML SYR SQ SCH (16:56)
[2021-07-05] MEDS: FLUTICASONE FUROATE 200MCG 14 PUFFS/INHALER INH SCH (20:06)
[2021-07-06] MEDS: FUROSEMIDE 40 MG in SYRINGE 0 ML IV SCH (07:47)
[2021-07-06] MEDS: LORATADINE 10 MG TAB PO SCH (07:48)
[2021-07-06] MEDS: MULTIVITAMIN TAB PO SCH (07:48)
[2021-07-06] MEDS: SPIRONOLACTONE 25 MG TAB PO SCH (07:48)
[2021-07-06] MEDS: THIAMINE HCL 50 MG TABLET PO SCH (07:48)
[2021-07-06] MEDS: SERTRALINE HCL 50 MG TABLET PO SCH (07:48)
[2021-07-06] MEDS: METOPROLOL SUCC 25MG EXT REL TAB PO SCH ×2 (07:48→21:08)
[2021-07-06] MEDS: PANTOprazole 40 MG TAB PO SCH (07:49)
[2021-07-06] MEDS: lisinopril 5 MG TAB PO SCH (07:49)
[2021-07-06] MEDS: FOLIC ACID 1 MG TAB PO SCH (07:49)
[2021-07-06] MEDS: ACETAMINOPHEN 325 MG TAB PO PRN (07:59)
[2021-07-06 08:09] LABS: BUN Creatinine Ratio 23.7 (10-20); Calcium 9.6 mg/dl (8.5-10.1); Est GFR (African American) 72.2 ml/min; Est GFR (Non-African American) 62.3 ml/min; Potassium 4.6 mmol/L (3.5-5.1)
--- NOTE | 2021-07-06 09:24 | Hospitalist Progress Note ---
Date of Service July 06, 2021 Assessment & Plan (1) Acute on chronic right heart failure: Plan: Fluid restriction put into place. Continues on Lasix BID with 1.5L out overnight. Lungs more clear today but still requiring approximately 4LPM of oxygen supplementation. Cont strict I/Os, low salt diet. Continues to require oxygen supplementation. ?contraction alkalosis present from diuretic use combined with underlying likely obesity hypoventilation (no sleep study performed in the past). May need to back down of diuretics. BMP in am. Sleep study recommended as outpatient. (2) Pulmonary hypertension: (3) Sinus tachycardia: Plan: resolved, Continue metoprolol succinate 25 mg twice daily (4) Hypertension: Plan: chronic, at goal. Continue lisinopril, metoprolol succinate (5) Tobacco use: Plan: Smoking cessation encouraged-Contemplative phase (6) Depression: Plan: cont sertraline per home regimen. (7) COPD (chronic obstructive pulmonary disease): Plan: chronic, not in exacerbation. Continue albuterol as needed, Flovent daily per home regimen. (8) DVT prophylaxis: Plan: Lovenox Full Dispo-pending cardiology clearance after medical treatment of heart failure. Antonella Carson DO [facility] Hospitalist Admission and Anticipated Discharge Date Admission Date: July 02, 2021 Subjective 50 yo F admitted with acute CHF exacerbation she reports feeling well today still requiring oxygen, doesn't feel significantly better, however, her oxygen was off her face because she took it off to eat nurse the other day reports that she also takes it off when walking to and from the bathroom, not sure if this continues. Denies chest pain Denies SOB Review of Systems Review of Systems: At least ten systems were reviewed and negative except as indicated in HPI above. Physical Exam Physical Exam: CONSTITUTIONAL: obese, vitals as above, generally well- appearing EYES: normal conjunctivae, no scleral icterus ENT: external ear and nose normal, MMM NECK: trachea midline RESPIRATORY: lungs are now more clear throughout with resolved crackles from yesterday, normal respiratory effort CARDIOVASCULAR: regular rate and rhythm, S1 and 2 heard without murmurs, gallops or rubs, no JVD, no peripheral edema GASTROINTESTINAL: soft, nontender, ND, no guarding MUSCULOSKELETAL: strength 5/5 throughout, head is normocephalic and atraumatic, ambulates independently SKIN: warm and dry NEUROLOGIC: CN 2-12 grossly intact, normal cognition, normal speech, no tremor. No gross focal deficits. PSYCHIATRIC: alert cooperative and oriented to person, place and time. Results & Data Results & Data ([facility]) Vital Signs (Past 12 Hours) Vital Signs Temp Pulse Pulse Pulse Resp BP BP 07/06/21 07:33 36.8 C 98 H 20 108/70 07/06/21 02:59 36.7 C 89 20 106/70 07/06/21 00:06 36.9 C 102 H 20 124/77 07/05/21 22:20 104 H Pulse Ox 07/06/21 07:33 91 07/06/21 02:59 92 07/06/21 00:06 90 07/05/21 22:20 Laboratory Results BMP 07/06/21 06:38 Sodium 136 Potassium 4.6 Chloride 92 L Carbon Dioxide 43 H* BUN 25 H Creatinine 1.05 Glucose 106 H Calcium 9.6 Medications Administered Current Inpatient Medications Acetaminophen (Acetaminophen 325 Mg Tab) 650 mg PO Q4H PRN PRN Reason: Pain or Fever Stop: 08/01/21 17:03 Last Admin: 07/06/21 07:59 Dose: 650 mg Documented by: Albuterol (Albuterol 0.083% Nebu Soln 3 Ml Vial) 2.5 mg NEB Q6R PRN PRN Reason: Shortness Of Breath Or Wheezing Stop: 08/01/21 17:03 Last Admin: 07/03/21 23:00 Dose: 2.5 mg Documented by: Enoxaparin Sodium (Enoxaparin Inj 40 Mg/0.4 Ml Syr) 40 mg SQ Q24H [facility] Stop: 08/01/21 17:59 Last Admin: 07/05/21 16:56 Dose: Not Given Documented by: Fluticasone Furoate (Fluticasone Furoate 200mcg 14 Puffs/Inhaler) 1 puffs INH DAILY@2100 [facility] Stop: 08/01/21 20:59 Last Admin: 07/05/21 20:06 Dose: 1 puffs Documented by: Folic Acid (Folic Acid 1 Mg Tab) 1 mg PO QAM [facility] Stop: 08/02/21 08:59 Last Admin: 07/06/21 07:49 Dose: 1 mg Documented by: Furosemide 40 mg/ Syringe 4 mls @ 4 mls/min IV BID17 [facility] Stop: 08/03/21 16:59 Last Admin: 07/06/21 07:47 Dose: 4 mls/min Documented by: Lisinopril (Lisinopril 5 Mg Tab) 5 mg PO QAM [facility] Stop: 08/04/21 08:59 Last Admin: 07/06/21 07:49 Dose: 5 mg Documented by: Loratadine (Loratadine 10 Mg Tab) 10 mg PO DAILY [facility] Stop: 08/02/21 08:59 Last Admin: 07/06/21 07:48 Dose: 10 mg Documented by: Metoprolol Succinate (Metoprolol Succ 25mg Ext Rel Tab) 25 mg PO BID [facility] Stop: 08/01/21 20:59 Last Admin: 07/06/21 07:48 Dose: 25 mg Documented by: Multivitamins (Multivitamin Tab) 1 tab PO DAILY [facility] Stop: 08/02/21 08:59 Last Admin: 07/06/21 07:48 Dose: 1 tab Documented by: Ondansetron HCl (Ondansetron Inj 2 Mg/Ml 2 Ml Vial) 4 mg IV Q6H PRN PRN Reason: Nausea Stop: 08/01/21 17:03 Pantoprazole Sodium (Pantoprazole 40 Mg Tab) 40 mg PO QAM [facility] Stop: 08/02/21 08:59 Last Admin: 07/06/21 07:49 Dose: 40 mg Documented by: Polyethylene Glycol (Polyethylene (Miralax) 17 Gm Pack) 17 gm PO DAILY PRN PRN Reason: Constipation Stop: 08/01/21 17:03 Sertraline HCl (Sertraline Hcl 50 Mg Tablet) 50 mg PO QAM [facility] Stop: 08/02/21 08:59 Last Admin: 07/06/21 07:48 Dose: 50 mg Documented by: Spironolactone (Spironolactone 25 Mg Tab) 25 mg PO QAM [facility] Stop: 08/02/21 10:14 Last Admin: 07/06/21 07:48 Dose: 25 mg Documented by: Thiamine HCl (Thiamine Hcl 50 Mg Tablet) 50 mg PO DAILY [facility] Stop: 08/02/21 08:59 Last Admin: 07/06/21 07:48 Dose: 50 mg Documented by:
--- NOTE | 2021-07-06 11:35 | Cardiology Progress Note ---
Date of Service July 06, 2021 Assessment & Plan (1) Acute on chronic right heart failure: (2) Pulmonary hypertension: (3) Sinus tachycardia: (4) Hypertension: Plan: Well-controlled. No changes at this time. Continue all medications as ordered. (5) Tobacco use: Plan: COPD with continued tobacco abuse. Currently on 2 L nasal cannula, SPO2 94%. Encouraged tobacco cessation. Plan: Patient still has some fine crackles in her lungs but I think she is euvolemic and has had a good diuresis since being in the hospital. I am going to switch her over to oral Lasix. Otherwise she is clinically stable. Admission and Anticipated Discharge Date Admission Date: July 02, 2021 Subjective The patient had an uneventful night. Resting comfortably this morning. Review of Systems Review of Systems: Review of Systems: See HPI for pertinent positives. All other 10 point review of systems are negative. Physical Exam Physical Exam: General: no acute distress and stated age Head: normocephalic, no masses, lesions, tenderness or abnormalities Eyes: conjunctiva are pink and non-injected, sclera clear Neck: supple, no adenopathy, no bruits, normal jugular venous pulse, no hepatojugular reflux Chest: normal shape and normal respiratory effort Lungs: Minimal coarse rales bilaterally. Cardiac Exam: - regular rate & rhythm, no murmurs gallops or rubs - normal S1, normal S2 Pulses: 2(+) throughout Abdomen: abdomen soft, non-tender, no abnormal masses and no hepatosplenomegaly Musculoskeletal: no gait disturbance, no joint inflammation, no deforming arthritis Extremities: no edema and no cyanosis Neuro: grossly normal exam Results & Data ([facility]) Vital Signs (Past 12 Hours) Vital Signs Temp Pulse Pulse Pulse Resp BP BP 07/06/21 08:00 106 H 07/06/21 07:33 36.8 C 98 H 20 108/70 07/06/21 02:59 36.7 C 89 20 106/70 07/06/21 00:06 36.9 C 102 H 20 124/77 Pulse Ox 07/06/21 08:00 07/06/21 07:33 91 07/06/21 02:59 92 07/06/21 00:06 90 Laboratory Results Laboratory Results - last 24 hr 07/06/21 06:38 Sodium 136 Potassium 4.6 Chloride 92 L Carbon Dioxide 43 H* Anion Gap 1.0 L BUN 25 H Creatinine 1.05 Est Cr Clr Drug Dosing 73.0 Est GFR ( Amer) 72.2 Est GFR (Non-Af Amer) 62.3 BUN/Creatinine Ratio 23.7 H Glucose 106 H Calcium 9.6 Medications Administered Current Inpatient Medications Acetaminophen (Acetaminophen 325 Mg Tab) 650 mg PO Q4H PRN PRN Reason: Pain or Fever Stop: 08/01/21 17:03 Last Admin: 07/06/21 07:59 Dose: 650 mg Documented by: Albuterol (Albuterol 0.083% Nebu Soln 3 Ml Vial) 2.5 mg NEB Q6R PRN PRN Reason: Shortness Of Breath Or Wheezing Stop: 08/01/21 17:03 Last Admin: 07/03/21 23:00 Dose: 2.5 mg Documented by: Enoxaparin Sodium (Enoxaparin Inj 40 Mg/0.4 Ml Syr) 40 mg SQ Q24H [facility] Stop: 08/01/21 17:59 Last Admin: 07/05/21 16:56 Dose: Not Given Documented by: Fluticasone Furoate (Fluticasone Furoate 200mcg 14 Puffs/Inhaler) 1 puffs INH DAILY@2100 [facility] Stop: 08/01/21 20:59 Last Admin: 07/05/21 20:06 Dose: 1 puffs Documented by: Folic Acid (Folic Acid 1 Mg Tab) 1 mg PO QAM [facility] Stop: 08/02/21 08:59 Last Admin: 07/06/21 07:49 Dose: 1 mg Documented by: Furosemide 40 mg/ Syringe 4 mls @ 4 mls/min IV [id number] [facility] Stop: 08/03/21 16:59 Last Admin: 07/06/21 07:47 Dose: 4 mls/min Documented by: Lisinopril (Lisinopril 5 Mg Tab) 5 mg PO QAM [facility] Stop: 08/04/21 08:59 Last Admin: 07/06/21 07:49 Dose: 5 mg Documented by: Loratadine (Loratadine 10 Mg Tab) 10 mg PO DAILY [facility] Stop: 08/02/21 08:59 Last Admin: 07/06/21 07:48 Dose: 10 mg Documented by: Metoprolol Succinate (Metoprolol Succ 25mg Ext Rel Tab) 25 mg PO BID [facility] Stop: 08/01/21 20:59 Last Admin: 07/06/21 07:48 Dose: 25 mg Documented by: Multivitamins (Multivitamin Tab) 1 tab PO DAILY [facility] Stop: 08/02/21 08:59 Last Admin: 07/06/21 07:48 Dose: 1 tab Documented by: Ondansetron HCl (Ondansetron Inj 2 Mg/Ml 2 Ml Vial) 4 mg IV Q6H PRN PRN Reason: Nausea Stop: 08/01/21 17:03 Pantoprazole Sodium (Pantoprazole 40 Mg Tab) 40 mg PO QAM [facility] Stop: 08/02/21 08:59 Last Admin: 07/06/21 07:49 Dose: 40 mg Documented by: Polyethylene Glycol (Polyethylene (Miralax) 17 Gm Pack) 17 gm PO DAILY PRN PRN Reason: Constipation Stop: 08/01/21 17:03 Sertraline HCl (Sertraline Hcl 50 Mg Tablet) 50 mg PO QAM [facility] Stop: 08/02/21 08:59 Last Admin: 07/06/21 07:48 Dose: 50 mg Documented by: Spironolactone (Spironolactone 25 Mg Tab) 25 mg PO QAM [facility] Stop: 08/02/21 10:14 Last Admin: 07/06/21 07:48 Dose: 25 mg Documented by: Thiamine HCl (Thiamine Hcl 50 Mg Tablet) 50 mg PO DAILY [facility] Stop: 08/02/21 08:59 Last Admin: 07/06/21 07:48 Dose: 50 mg Documented by:
[2021-07-06] MEDS: FUROSEMIDE 40 MG TAB PO SCH (16:12)
[2021-07-06] MEDS: ENOXAPARIN INJ 40 MG/0.4 ML SYR SQ SCH (16:12)
[2021-07-06] MEDS: FLUTICASONE FUROATE 200MCG 14 PUFFS/INHALER INH SCH (21:08)
[2021-07-07] MEDS: lisinopril 5 MG TAB PO SCH (08:18)
[2021-07-07] MEDS: SERTRALINE HCL 50 MG TABLET PO SCH (08:18)
[2021-07-07] MEDS: THIAMINE HCL 50 MG TABLET PO SCH (08:18)
[2021-07-07] MEDS: SPIRONOLACTONE 25 MG TAB PO SCH (08:18)
[2021-07-07] MEDS: MULTIVITAMIN TAB PO SCH (08:18)
[2021-07-07] MEDS: PANTOprazole 40 MG TAB PO SCH (08:19)
[2021-07-07] MEDS: METOPROLOL SUCC 25MG EXT REL TAB PO SCH ×2 (08:19→21:13)
[2021-07-07] MEDS: FOLIC ACID 1 MG TAB PO SCH (08:19)
[2021-07-07] MEDS: LORATADINE 10 MG TAB PO SCH (08:19)
[2021-07-07] MEDS: FUROSEMIDE 40 MG TAB PO SCH (08:22)
[2021-07-07 09:14] LABS: Hematocrit (blood only) 51.8 % (37-47); Hemoglobin 15.3 g/dL (12.0-16.0); Mean Corpuscular Hemoglobin 28.7 pg (25-34); Mean Corpuscular Hgb Conc 29.5 g/dL (32-36); Mean Platelet Volume 10.6 fL (7.4-10.4); Platelet Count 304 K/uL (130-400); RDW Coefficient of Variation 16.9 % (11.5-14.5); RDW Standard Deviation 59.7 fL (36.4-46.3); Red Blood Count 5.34 M/uL (4.2-5.4); White Blood Count 11.55 K/uL (4.8-10.8)
[2021-07-07 09:51] LABS: Calcium 9.6 mg/dl (8.5-10.1); Creatinine Clr Calc Pharmacy 61.2 ml/min; Est GFR (African American) 58.5 ml/min; Est GFR (Non-African American) 50.5 ml/min; Potassium 4.3 mmol/L (3.5-5.1)
--- NOTE | 2021-07-07 13:08 | Cardiology Progress Note ---
Date of Service July 07, 2021 Assessment & Plan (1) Acute on chronic right heart failure: (2) Pulmonary hypertension: (3) Sinus tachycardia: (4) Hypertension: Plan: Well-controlled. No changes at this time. Continue all medications as ordered. (5) Tobacco use: Plan: COPD with continued tobacco abuse. Currently on 2 L nasal cannula, SPO2 94%. Encouraged tobacco cessation. Plan: Agree the patient is euvolemic today. She will still need a daily diuretic so I restarted Lasix 40 mg daily. Unfortunately she remains hypoxic, ultimately she may have to be discharged home with oxygen. Admission and Anticipated Discharge Date Admission Date: July 02, 2021 Subjective The patient had an uneventful night. Resting comfortably this morning. Review of Systems Review of Systems: Review of Systems: See HPI for pertinent positives. All other 10 point review of systems are negative. Physical Exam Physical Exam: General: no acute distress and stated age Head: normocephalic, no masses, lesions, tenderness or abnormalities Eyes: conjunctiva are pink and non-injected, sclera clear Neck: supple, no adenopathy, no bruits, normal jugular venous pulse, no hepatojugular reflux Chest: normal shape and normal respiratory effort Lungs: Minimal coarse rales bilaterally. Cardiac Exam: - regular rate & rhythm, no murmurs gallops or rubs - normal S1, normal S2 Pulses: 2(+) throughout Abdomen: abdomen soft, non-tender, no abnormal masses and no hepatosplenomegaly Musculoskeletal: no gait disturbance, no joint inflammation, no deforming arthritis Extremities: no edema and no cyanosis Neuro: grossly normal exam Results & Data ([facility]) Vital Signs (Past 12 Hours) Vital Signs Temp Pulse Pulse Resp BP BP Pulse Ox 07/07/21 11:04 36.9 C 108 H 18 132/75 90 07/07/21 07:36 37.0 C 96 H 18 115/74 90 07/07/21 07:00 103 H 07/07/21 03:37 36.9 C 98 H 16 108/70 90 Laboratory Results Laboratory Results - last 24 hr 07/07/21 07/07/21 08:59 08:59 WBC 11.55 H RBC 5.34 Hgb 15.3 Hct 51.8 H MCV 97.0 MCH 28.7 MCHC 29.5 L RDW Std Deviation 59.7 H RDW Coeff of [place] 16.9 H Plt Count 304 MPV 10.6 H Sodium 136 Potassium 4.3 Chloride 92 L Carbon Dioxide 42 H* Anion Gap 2.0 L BUN 30 H Creatinine 1.25 H Est Cr Clr Drug Dosing 61.2 Est GFR ( Amer) 58.5 Est GFR (Non-Af Amer) 50.5 BUN/Creatinine Ratio 24.0 H Glucose 184 H Calcium 9.6 Magnesium 2.0 NT-Pro-B Natriuret Pep 237 Medications Administered Current Inpatient Medications Acetaminophen (Acetaminophen 325 Mg Tab) 650 mg PO Q4H PRN PRN Reason: Pain or Fever Stop: 08/01/21 17:03 Last Admin: 07/06/21 07:59 Dose: 650 mg Documented by: Albuterol (Albuterol 0.083% Nebu Soln 3 Ml Vial) 2.5 mg NEB Q6R PRN PRN Reason: Shortness Of Breath Or Wheezing Stop: 08/01/21 17:03 Last Admin: 07/03/21 23:00 Dose: 2.5 mg Documented by: Enoxaparin Sodium (Enoxaparin Inj 40 Mg/0.4 Ml Syr) 40 mg SQ Q24H [facility] Stop: 08/01/21 17:59 Last Admin: 07/06/21 16:12 Dose: Not Given Documented by: Fluticasone Furoate (Fluticasone Furoate 200mcg 14 Puffs/Inhaler) 1 puffs INH DAILY@2100 [facility] Stop: 08/01/21 20:59 Last Admin: 07/06/21 21:08 Dose: 1 puffs Documented by: Folic Acid (Folic Acid 1 Mg Tab) 1 mg PO QAM [facility] Stop: 08/02/21 08:59 Last Admin: 07/07/21 08:19 Dose: 1 mg Documented by: Furosemide (Furosemide 40 Mg Tab) 40 mg PO DAILY [facility] Stop: 08/07/21 08:59 Lisinopril (Lisinopril 5 Mg Tab) 5 mg PO QAM [facility] Stop: 08/04/21 08:59 Last Admin: 07/07/21 08:18 Dose: 5 mg Documented by: Loratadine (Loratadine 10 Mg Tab) 10 mg PO DAILY [facility] Stop: 08/02/21 08:59 Last Admin: 07/07/21 08:19 Dose: 10 mg Documented by: Metoprolol Succinate (Metoprolol Succ 25mg Ext Rel Tab) 25 mg PO BID [facility] Stop: 08/01/21 20:59 Last Admin: 07/07/21 08:19 Dose: 25 mg Documented by: Multivitamins (Multivitamin Tab) 1 tab PO DAILY [facility] Stop: 08/02/21 08:59 Last Admin: 07/07/21 08:18 Dose: 1 tab Documented by: Ondansetron HCl (Ondansetron Inj 2 Mg/Ml 2 Ml Vial) 4 mg IV Q6H PRN PRN Reason: Nausea Stop: 08/01/21 17:03 Pantoprazole Sodium (Pantoprazole 40 Mg Tab) 40 mg PO QAM [facility] Stop: 08/02/21 08:59 Last Admin: 07/07/21 08:19 Dose: 40 mg Documented by: Polyethylene Glycol (Polyethylene (Miralax) 17 Gm Pack) 17 gm PO DAILY PRN PRN Reason: Constipation Stop: 08/01/21 17:03 Sertraline HCl (Sertraline Hcl 50 Mg Tablet) 50 mg PO QAM [facility] Stop: 08/02/21 08:59 Last Admin: 07/07/21 08:18 Dose: 50 mg Documented by: Spironolactone (Spironolactone 25 Mg Tab) 25 mg PO QAM [facility] Stop: 08/02/21 10:14 Last Admin: 07/07/21 08:18 Dose: 25 mg Documented by: Thiamine HCl (Thiamine Hcl 50 Mg Tablet) 50 mg PO DAILY [facility] Stop: 08/02/21 08:59 Last Admin: 07/07/21 08:18 Dose: 50 mg Documented by:
--- NOTE | 2021-07-07 13:36 | Hospitalist Progress Note ---
Date of Service July 07, 2021 Assessment & Plan (1) Acute on chronic right heart failure: Plan: Fluid restriction put into place. Continues on Lasix BID with 1.5L out overnight. Still requiring oxygen supplementation. Likely a component of pulmonary hypertension here frmo undiagnosed LARS, for example. Either way, she will likely require oxygen on discharge with a close pulmonary follow-up as outpatient to continue the workup. We are also limited on diuretics at this time with her alkalosis and worsening creatinine. Cont strict I/Os, low salt diet. Plan for BMP and two step in am with likely dc to home at that time. Discussed this plan with seed corn production manager. (2) Pulmonary hypertension: Plan: possible secondary to untreated LARS. Patient has risk factors including obesity and symptoms including daytime fatigue. Outpatient sleep study is recommended. (3) Sinus tachycardia: Plan: resolved, Continue metoprolol succinate 25 mg twice daily (4) Hypertension: Plan: chronic, at goal. Continue lisinopril, metoprolol succinate (5) Tobacco use: Plan: Smoking cessation encouraged-Contemplative phase (6) Depression: Plan: cont sertraline per home regimen. (7) COPD (chronic obstructive pulmonary disease): Plan: chronic, not in exacerbation. Continue albuterol as needed, Flovent daily per home regimen. (8) DVT prophylaxis: Plan: Lovenox Full Dispo-will plan to send her home in am after two step and oxygen set up to her home. Antonella Carson DO [facility] Hospitalist Admission and Anticipated Discharge Date Admission Date: July 02, 2021 Subjective 50 yo F admitted with acute CHF exacerbation she reports feeling well today still requiring oxygen, Denies chest pain Denies SOB Tearful as she is worried about her job and would like to take a shower. Discussed with seed corn production manager her exit plan from the hospital. Returned later to explain this to her. Review of Systems Review of Systems: At least ten systems were reviewed and negative except as indicated in HPI above. Physical Exam Physical Exam: CONSTITUTIONAL: obese, vitals as above, generally well- appearing EYES: normal conjunctivae, no scleral icterus ENT: external ear and nose normal, MMM NECK: trachea midline RESPIRATORY: mild crackles at the bases bilaterally, normal respiratory effort CARDIOVASCULAR: regular rate and rhythm, S1 and 2 heard without murmurs, gallops or rubs, no JVD, no peripheral edema GASTROINTESTINAL: soft, nontender, ND, no guarding MUSCULOSKELETAL: strength 5/5 throughout, head is normocephalic and atraumatic, ambulates independently SKIN: warm and dry NEUROLOGIC: CN 2-12 grossly intact, normal cognition, normal speech, no tremor. No gross focal deficits. PSYCHIATRIC: alert cooperative and oriented to person, place and time. Results & Data Results & Data ([facility]) Vital Signs (Past 12 Hours) Vital Signs Temp Pulse Pulse Resp BP BP Pulse Ox 07/07/21 11:04 36.9 C 108 H 18 132/75 90 07/07/21 07:36 37.0 C 96 H 18 115/74 90 07/07/21 07:00 103 H 07/07/21 03:37 36.9 C 98 H 16 108/70 90 Laboratory Results Short CBC 07/07/21 Range/Units 08:59 WBC 11.55 H (4.8-10.8) K/uL Hgb 15.3 (12.0-16.0) g/dL Hct 51.8 H (37-47) % Plt Count 304 (130-400) K/uL [facility] 07/07/21 08:59 Sodium 136 Potassium 4.3 Chloride 92 L Carbon Dioxide 42 H* BUN 30 H Creatinine 1.25 H Glucose 184 H Calcium 9.6 Medications Administered Current Inpatient Medications Acetaminophen (Acetaminophen 325 Mg Tab) 650 mg PO Q4H PRN PRN Reason: Pain or Fever Stop: 08/01/21 17:03 Last Admin: 07/06/21 07:59 Dose: 650 mg Documented by: Albuterol (Albuterol 0.083% Nebu Soln 3 Ml Vial) 2.5 mg NEB Q6R PRN PRN Reason: Shortness Of Breath Or Wheezing Stop: 08/01/21 17:03 Last Admin: 07/03/21 23:00 Dose: 2.5 mg Documented by: Enoxaparin Sodium (Enoxaparin Inj 40 Mg/0.4 Ml Syr) 40 mg SQ Q24H [facility] Stop: 08/01/21 17:59 Last Admin: 07/06/21 16:12 Dose: Not Given Documented by: Fluticasone Furoate (Fluticasone Furoate 200mcg 14 Puffs/Inhaler) 1 puffs INH DAILY@2100 [facility] Stop: 08/01/21 20:59 Last Admin: 07/06/21 21:08 Dose: 1 puffs Documented by: Folic Acid (Folic Acid 1 Mg Tab) 1 mg PO QAM [facility] Stop: 08/02/21 08:59 Last Admin: 07/07/21 08:19 Dose: 1 mg Documented by: Furosemide (Furosemide 40 Mg Tab) 40 mg PO DAILY [facility] Stop: 08/07/21 08:59 Lisinopril (Lisinopril 5 Mg Tab) 5 mg PO QAM [facility] Stop: 08/04/21 08:59 Last Admin: 07/07/21 08:18 Dose: 5 mg Documented by: Loratadine (Loratadine 10 Mg Tab) 10 mg PO DAILY [facility] Stop: 08/02/21 08:59 Last Admin: 07/07/21 08:19 Dose: 10 mg Documented by: Metoprolol Succinate (Metoprolol Succ 25mg Ext Rel Tab) 25 mg PO BID [facility] Stop: 08/01/21 20:59 Last Admin: 07/07/21 08:19 Dose: 25 mg Documented by: Multivitamins (Multivitamin Tab) 1 tab PO DAILY [facility] Stop: 08/02/21 08:59 Last Admin: 07/07/21 08:18 Dose: 1 tab Documented by: Ondansetron HCl (Ondansetron Inj 2 Mg/Ml 2 Ml Vial) 4 mg IV Q6H PRN PRN Reason: Nausea Stop: 08/01/21 17:03 Pantoprazole Sodium (Pantoprazole 40 Mg Tab) 40 mg PO QAM [facility] Stop: 08/02/21 08:59 Last Admin: 07/07/21 08:19 Dose: 40 mg Documented by: Polyethylene Glycol (Polyethylene (Miralax) 17 Gm Pack) 17 gm PO DAILY PRN PRN Reason: Constipation Stop: 08/01/21 17:03 Sertraline HCl (Sertraline Hcl 50 Mg Tablet) 50 mg PO QAM [facility] Stop: 08/02/21 08:59 Last Admin: 07/07/21 08:18 Dose: 50 mg Documented by: Spironolactone (Spironolactone 25 Mg Tab) 25 mg PO QAM [facility] Stop: 08/02/21 10:14 Last Admin: 07/07/21 08:18 Dose: 25 mg Documented by: Thiamine HCl (Thiamine Hcl 50 Mg Tablet) 50 mg PO DAILY [facility] Stop: 08/02/21 08:59 Last Admin: 07/07/21 08:18 Dose: 50 mg Documented by:
[2021-07-07] MEDS: ENOXAPARIN INJ 40 MG/0.4 ML SYR SQ SCH ×2 (18:25→18:28)
[2021-07-07] MEDS: FLUTICASONE FUROATE 200MCG 14 PUFFS/INHALER INH SCH (21:13)
[2021-07-08 07:47] LABS: BUN Creatinine Ratio 28.9 (10-20); Calcium 9.6 mg/dl (8.5-10.1); Creatinine Clr Calc Pharmacy 65.1 ml/min; Est GFR (African American) 62.7 ml/min; Est GFR (Non-African American) 54.1 ml/min; Potassium 4.8 mmol/L (3.5-5.1)
[2021-07-08] MEDS ORDERED: FUROSEMIDE 40 MG TAB PO SCH (09:00)
[2021-07-08] MEDS: SERTRALINE HCL 50 MG TABLET PO SCH (09:23)
[2021-07-08] MEDS: lisinopril 5 MG TAB PO SCH (09:23)
[2021-07-08] MEDS: THIAMINE HCL 50 MG TABLET PO SCH (09:23)
[2021-07-08] MEDS: PANTOprazole 40 MG TAB PO SCH (09:23)
[2021-07-08] MEDS: METOPROLOL SUCC 25MG EXT REL TAB PO SCH (09:23)
[2021-07-08] MEDS: FOLIC ACID 1 MG TAB PO SCH (09:23)
[2021-07-08] MEDS: MULTIVITAMIN TAB PO SCH (09:23)
[2021-07-08] MEDS: SPIRONOLACTONE 25 MG TAB PO SCH (09:23)
[2021-07-08] MEDS: LORATADINE 10 MG TAB PO SCH (09:23)
--- NOTE | 2021-07-08 10:53 | Cardiology Progress Note ---
Date of Service July 08, 2021 Assessment & Plan (1) Acute on chronic right heart failure: (2) Pulmonary hypertension: (3) Sinus tachycardia: (4) Hypertension: (5) Tobacco use: Plan: Improved volume status with aggressive diuresis. Discharge on higher dose furosemide 40 mg daily, spironolactone 25 mg. We had a long discussion regarding fluid restriction of about 50-60 ounces on discharge. We discussed CHF tools such as daily weight and monitoring sodium intake as well. She will need supplemental O2 for now. Hopefully this is temporary. She was encouraged to remain tobacco abuse. Given her mildly elevated resting HR's and episode of non sustained atrial tach during sleep, will titrate metoprolol succinate to 50 mg in AM and 25 mg in PM. Continue all other cardiac meds. She will need sleep med evaluation and screen/treat for probable LARS on discharge as well. Stable for discharge today from cardiac perspective. Case discussed with Dr. Browning. Admission and Anticipated Discharge Date Admission Date: July 02, 2021 Supervising Physician Co-Signing Physician Notes Patient seen and examined with Ana Hilton PA-C. Agree with findings and assessment as above. Diuresed well. Outpatient diuretics as above. Home O2 now needed. Need for dietary restrictions reviewed. Subjective Patient resting in bed comfortably. Anxious for discharge. Frustrated she will need oxygen upon discharge. No chest pain. SOB improved. No orthopnea, PND or edema. Review of Systems Review of Systems: Review of Systems: See HPI for pertinent positives. All other 10 point review of systems are negative. Physical Exam Constitutional: + morbidly obese; no acute distress Eyes: PERRL, conjunctivae normal, anicteric sclerae ENMT: external ear and nose normal, oropharynx normal Neck: trachea midline, no thyromegaly + thick neck Respiratory: normal respiratory effort, lungs clear to auscultation Cardiovascular: Rate/Rhythm: regular rate and regular rhythm Heart Sounds: normal S1 and normal S2; no murmur Extremities: no edema (Bilateral lower extremity edema left substantially greater than right) Gastrointestinal (Abdomen): normal bowel sounds, soft, nontender, no hepatosplenomegaly Inspection/Auscultation: abdomen not distended Musculoskeletal: no cyanosis or clubbing, extremities motor strength 5/5 Neurologic: PERRL, EOMI, accommodation nl, no face palsy, no dysarthria Psychiatric: A+Ox3, euthymic affect Results & Data ([facility]) Vital Signs (Past 12 Hours) Vital Signs Temp Pulse Resp BP Pulse Ox 07/08/21 07:36 36.3 C L 107 H 20 115/69 90 07/08/21 02:43 36.7 C 91 H 20 116/62 91 07/07/21 23:13 36.8 C 93 H 20 112/65 91 Laboratory Results 07/08/21 07/07/21 Range/Units 06:47 08:59 Sodium 137 (136-145) mmol/L Potassium 4.8 (3.5-5.1) mmol/L Chloride 94 L (98-107) mmol/L Carbon Dioxide 39 H (21-32) mmol/L Anion Gap 2.0 L (3-11) BUN 34 H (7-18) mg/dl Creatinine 1.18 (0.6-1.2) mg/dl Est Cr Clr Drug Dosing 65.1 ml/min Est GFR ( Amer) 62.7 ml/min Est GFR (Non-Af Amer) 54.1 ml/min BUN/Creatinine Ratio 28.9 H 24.0 H (10-20) Glucose 113 H (70-99) mg/dl Calcium 9.6 (8.5-10.1) mg/dl Diagnostic Findings Telemetry reviewed - Sinus, sinus tachycardia around 100-110 bpm, 10 beat run of probable SVT around 2:00 AM Medications Administered Current Inpatient Medications Acetaminophen (Acetaminophen 325 Mg Tab) 650 mg PO Q4H PRN PRN Reason: Pain or Fever Stop: 08/01/21 17:03 Last Admin: 07/06/21 07:59 Dose: 650 mg Documented by: Albuterol (Albuterol 0.083% Nebu Soln 3 Ml Vial) 2.5 mg NEB Q6R PRN PRN Reason: Shortness Of Breath Or Wheezing Stop: 08/01/21 17:03 Last Admin: 07/03/21 23:00 Dose: 2.5 mg Documented by: Enoxaparin Sodium (Enoxaparin Inj 40 Mg/0.4 Ml Syr) 40 mg SQ Q24H [facility] Stop: 08/01/21 17:59 Last Admin: 07/07/21 18:28 Dose: Not Given Documented by: Fluticasone Furoate (Fluticasone Furoate 200mcg 14 Puffs/Inhaler) 1 puffs INH DAILY@2100 [facility] Stop: 08/01/21 20:59 Last Admin: 07/07/21 21:13 Dose: 1 puffs Documented by: Folic Acid (Folic Acid 1 Mg Tab) 1 mg PO QAM [facility] Stop: 08/02/21 08:59 Last Admin: 07/08/21 09:23 Dose: 1 mg Documented by: Furosemide (Furosemide 40 Mg Tab) 40 mg PO DAILY [facility] Stop: 08/07/21 08:59 Last Admin: 07/08/21 09:23 Dose: 40 mg Documented by: Lisinopril (Lisinopril 5 Mg Tab) 5 mg PO QAM [facility] Stop: 08/04/21 08:59 Last Admin: 07/08/21 09:23 Dose: 5 mg Documented by: Loratadine (Loratadine 10 Mg Tab) 10 mg PO DAILY [facility] Stop: 08/02/21 08:59 Last Admin: 07/08/21 09:23 Dose: 10 mg Documented by: Metoprolol Succinate (Metoprolol Succ 25mg Ext Rel Tab) 25 mg PO BID [facility] Stop: 08/01/21 20:59 Last Admin: 07/08/21 09:23 Dose: 25 mg Documented by: Multivitamins (Multivitamin Tab) 1 tab PO DAILY [facility] Stop: 08/02/21 08:59 Last Admin: 07/08/21 09:23 Dose: 1 tab Documented by: Ondansetron HCl (Ondansetron Inj 2 Mg/Ml 2 Ml Vial) 4 mg IV Q6H PRN PRN Reason: Nausea Stop: 08/01/21 17:03 Pantoprazole Sodium (Pantoprazole 40 Mg Tab) 40 mg PO QAM [facility] Stop: 08/02/21 08:59 Last Admin: 07/08/21 09:23 Dose: 40 mg Documented by: Polyethylene Glycol (Polyethylene (Miralax) 17 Gm Pack) 17 gm PO DAILY PRN PRN Reason: Constipation Stop: 08/01/21 17:03 Sertraline HCl (Sertraline Hcl 50 Mg Tablet) 50 mg PO QAM [facility] Stop: 08/02/21 08:59 Last Admin: 07/08/21 09:23 Dose: 50 mg Documented by: Spironolactone (Spironolactone 25 Mg Tab) 25 mg PO QAM [facility] Stop: 08/02/21 10:14 Last Admin: 07/08/21 09:23 Dose: 25 mg Documented by: Thiamine HCl (Thiamine Hcl 50 Mg Tablet) 50 mg PO DAILY [facility] Stop: 08/02/21 08:59 Last Admin: 07/08/21 09:23 Dose: 50 mg Documented by:
--- NOTE | 2021-07-08 11:01 | Communication Note ---
Date of Service: July 08, 2021 Per nurse report from overnight, patient was found off oxygen while sleeping to be 70% overnight. She was placed back on 2LPM with a retunr of her oxygen saturation to goal levels. For this reason, will prescribe her 2LPM oxygen supplementation continuously, which is slightly different from what the two step revealed she needed. DO Alli
[2021-07-08] MEDS ORDERED: METOPROLOL SUCC 25MG EXT REL TAB PO ONE (11:15)
--- NOTE | 2021-07-08 13:54 | Discharge Summary ---
Date of Service July 08, 2021 Admission HPI Per Admitting Provider Patient is a 50-year-old female with PMH chronic diastolic heart failure, HTN, prediabetes, GERD, tobacco use, obesity presented to ER for bilateral lower extremity edema and shortness of breath. Patient states noticed BLE edema for the past 3 weeks and has had progressive worsening with edema up to thighs and lower abdomen. States left leg is slightly larger than the right leg. She has had 14 pound weight gain. Recently has become shortness of breath with exertion. Patient also reports past month of daytime sleepiness. She has been sitting up on couch to sleep. Patient usually uses 20 mg of Lasix daily however past 3 days been taking twice daily. She does not feel she has been urinating much more. She did not weigh herself the last several day. Patient was recently seen in cardiology clinic for palpitations and left-sided chest soreness and had 3 day Zio that showed primarily sinus rhythm/sinus tachycardia with an average heart rate of 111 beats per minute and no concerning arrhythmias. Her metoprolol metoprolol was increased to 25 mg twice daily and she was instructed to reduce caffeine and tobacco use. Patient denies any further chest soreness or chest pain. She reports chronic nonproductive cough and denies any increased cough. Denies fever/chills, diaphoresis, N/V/D/C, HODGES, dizziness, syncope, vision changes, neck pain, sore throat, choking, otalgia, rhinorrhea, abdominal pain, paresthesias, weakness, extremity weakness, extremity erythema, rashes, urinary symptoms. In ER pt afebrile, P: 108, R: 20, BP 134/89, 87% on room air up to 95% on 3.5L. Negative troponin, BNP: 1964, negative COVID-19 PCR, CXR: Cardiomegaly with coarsening of the interstitium suspicious for pulmonary edema versus interstitial pneumonitis. Chronic linear scarring/atelectasis of the left midlung and left lung base. In ER given Lasix 40mg IV. She has urinated 700ml so far. Admission Exam Per Admitting Provider General: no distress, obese Head: normocephalic, atraumatic Eyes: PERRL, EOM's intact, conjunctiva non-injected, anicteric ENT: normal inspection external ears, nose, mucous membranes moist Neck: supple, trachea midline Lungs: On 3.5L oxygen via NC with sat 95%, able to speak in sentences, +rales at bilateral bases CV: RRR, rate 96, no murmur, 2+ pretibial edema extending to lower abdomen Abd: normal BS, soft, non-tender Ext: no cyanosis, no erythema, no calf tenderness, ROM intact Neuro: A&O x 3, no focal deficits noted, normal affect Skin: warm, dry Principal Diagnosis Acute on chronic heart failure pulmonary hypertension hypoxia tobacco use Discharge Exam CONSTITUTIONAL: obese, vitals as above, generally well-appearing EYES: normal conjunctivae, no scleral icterus ENT: external ear and nose normal, MMM NECK: trachea midline RESPIRATORY: lungs are now more clear throughout with resolved crackles from yesterday, normal respiratory effort CARDIOVASCULAR: regular rate and rhythm, S1 and 2 heard without murmurs, gallops or rubs, no JVD, no peripheral edema GASTROINTESTINAL: soft, nontender, ND, no guarding MUSCULOSKELETAL: strength 5/5 throughout, head is normocephalic and atraumatic, ambulates independently SKIN: warm and dry NEUROLOGIC: CN 2-12 grossly intact, normal cognition, normal speech, no tremor. No gross focal deficits. PSYCHIATRIC: alert cooperative and oriented to person, place and time. Discharge Data Allergies Allergy/AdvReac Type Severity Reaction Status Date / Time Penicillins Allergy Hives Unverified 07/02/21 12:18 Consultations 07/02/21 11:44 ED Decision to Admit Stat 07/02/21 17:04 Consult Cardiology Routine Ordered Studies Laboratory Results WBC 11.55 K/uL (4.8-10.8) H 07/07/21 08:59 RBC 5.34 M/uL (4.2-5.4) 07/07/21 08:59 Hgb 15.3 g/dL (12.0-16.0) 07/07/21 08:59 Hct 51.8 % (37-47) H 07/07/21 08:59 MCV 97.0 fL (80-100) 07/07/21 08:59 MCH 28.7 pg (25-34) 07/07/21 08:59 MCHC 29.5 g/dL (32-36) L 07/07/21 08:59 RDW Std Deviation 59.7 fL (36.4-46.3) H 07/07/21 08:59 RDW Coeff of Homer 16.9 % (11.5-14.5) H 07/07/21 08:59 Plt Count 304 K/uL (130-400) 07/07/21 08:59 MPV 10.6 fL (7.4-10.4) H 07/07/21 08:59 Immature Gran % (Auto) 0.3 % 07/02/21 Unknown Neut % (Auto) 79.6 % 07/02/21 Unknown Lymph % (Auto) 14.0 % 07/02/21 Unknown Evans % (Auto) 5.2 % 07/02/21 Unknown Eos % (Auto) 0.7 % 07/02/21 Unknown Baso % (Auto) 0.2 % 07/02/21 Unknown Neut # (Auto) 9.79 K/uL (1.4-6.5) H 07/02/21 Unknown Lymph # (Auto) 1.72 K/uL (1.2-3.4) 07/02/21 Unknown Evans # (Auto) 0.64 K/uL (0.11-0.59) H 07/02/21 Unknown Eos # (Auto) 0.08 K/uL (0-0.5) 07/02/21 Unknown Baso # (Auto) 0.02 K/uL (0-0.2) 07/02/21 Unknown Immature Gran # (Auto) 0.04 K/uL (0.00-0.02) H 07/02/21 Unknown Absolute Nucleated RBC 0.04 K/uL (0-0) H 07/02/21 Unknown Nucleated RBC % (auto) 0.4 % 07/02/21 Unknown PT 10.8 Seconds (9.0-12.0) 07/02/21 Unknown INR 1.1 (0.9-1.1) 07/02/21 Unknown APTT 24.7 Seconds (21.0-31.0) 07/02/21 Unknown PTT Ratio 0.9 07/02/21 Unknown Sodium 137 mmol/L (136-145) 07/08/21 06:47 Potassium 4.8 mmol/L (3.5-5.1) 07/08/21 06:47 Chloride 94 mmol/L (98-107) L 07/08/21 06:47 Carbon Dioxide 39 mmol/L (21-32) H 07/08/21 06:47 Anion Gap 2.0 (3-11) L 07/08/21 06:47 BUN 34 mg/dl (7-18) H 07/08/21 06:47 Creatinine 1.18 mg/dl (0.6-1.2) 07/08/21 06:47 Est Cr Clr Drug Dosing 65.1 ml/min 07/08/21 06:47 Est GFR ( Amer) 62.7 ml/min 07/08/21 06:47 Est GFR (Non-Af Amer) 54.1 ml/min 07/08/21 06:47 BUN/Creatinine Ratio 28.9 (10-20) H 07/08/21 06:47 Glucose 113 mg/dl (70-99) H 07/08/21 06:47 Estimat Average Glucose 143 mg/dl 07/03/21 06:14 Hemoglobin A1c 6.6 % (4.5-5.6) H 07/03/21 06:14 Calcium 9.6 mg/dl (8.5-10.1) 07/08/21 06:47 Magnesium 2.0 mg/dl (1.8-2.4) 07/07/21 08:59 Total Bilirubin 0.5 mg/dl (0.2-1) 07/02/21 Unknown AST 25 U/L (15-37) 07/02/21 Unknown ALT 33 U/L (12-78) 07/02/21 Unknown Alkaline Phosphatase 111 U/L (45-117) 07/02/21 Unknown Troponin I < 0.015 ng/ml (0-0.045) 07/03/21 00:24 NT-Pro-B Natriuret Pep 237 pg/ml (0-450) 07/07/21 08:59 Total Protein 7.7 gm/dl (6.4-8.2) 07/02/21 Unknown Albumin 3.2 gm/dl (3.4-5.0) L 07/02/21 Unknown Globulin 4.5 gm/dl (2.5-4.0) H 07/02/21 Unknown Albumin/Globulin Ratio 0.7 (0.9-2) L 07/02/21 Unknown COVID-19 Eval Order Covid19 at [facility] 07/02/21 10:56 SARS-CoV-2 (PCR) NEGATIVE (Negative) 07/02/21 10:56 Impressions Chest X-Ray 07/02/21 10:48 XR chest 1V portable HISTORY: 50 years-old Female SOB acute shortness of breath COMPARISON: Chest radiograph and CTA chest 04/24/2019 TECHNIQUE: Portable AP view of the chest FINDINGS: Moderate enlargement of the cardiac silhouette. Pulmonary vascular congestion with interstitial coarsening. No pneumothorax, pleural effusion or lobar airspace consolidation. Mild linear left lung base and lateral left midlung atelectasis/scarring redemonstrated. Degenerative changes of the shoulders and spine. IMPRESSION: 1. Cardiomegaly with coarsening of the interstitium suspicious for pulmonary edema versus interstitial pneumonitis. 2. Chronic linear scarring/atelectasis of the left midlung and left lung base. ACT 112: Negative or not required by law. The above report was generated using voice recognition software. It may contain grammatical, syntax or spelling errors. Electronically signed by: Cheikh Galloway M.D. 07/02/2021 11:26 AM Venous Doppler Study 07/02/21 11:43 LEFT LOWER EXTREMITY VENOUS DOPPLER CLINICAL HISTORY: Left leg pain and swelling. COMPARISON STUDY: No previous studies for comparison. TECHNIQUE: Sonography of the deep venous system of the left lower extremity was performed. Compression and augmentation were evaluated. FINDINGS: The left common femoral, superficial femoral and popliteal veins were compressible. Augmentation was normal. Flow was shown within the deep calf ve ssels. Note is made of a 3.7 x 1.6 x 1.1 cm complex fluid collection within the left popliteal fossa. This contains no color flow. There is left lower extremity edema. IMPRESSION: 1. No evidence of deep venous thrombus within the left lower extremity. 2. 3.7 x 1.6 x 1.1 cm complex fluid collection within the left popliteal fossa. This favors a complex popliteal cyst. A follow-up ultrasound in 3 months is recommended to exclude the much less likely possibility of a cystic mass. ACT 112: Negative or not required by law. Electronically signed by: Santana Hsu M.D. 07/02/2021 12:29 PM Chest CTA 07/03/21 10:33 CT ANGIOGRAM OF THE CHEST CLINICAL HISTORY: Dyspnea. Lower extremity edema. COMPARISON STUDY: Chest x-ray dated 07/02/2021. Chest CT dated 04/24/2019. TECHNIQUE: Following the IV administration of 120 cc of Optiray 320, CT angiogram of the chest was performed from the upper abdomen to the thoracic inlet utilizing the pulmonary embolus protocol. Images are reviewed in the axial, sagittal, and coronal planes. 3-D MIPS images are created and assessed. IV contrast was administered without complication. A dose lowering technique was utilized adhering to the principles of ALARA. The examination is compromised by motion artifact. CT DOSE: 549.76 mGycm FINDINGS: Thyroid: Imaged portions of the thyroid gland are normal in size and attenuation. Thoracic aorta: The thoracic aorta is normal in caliber and demonstrates standard 3-vessel arch anatomy. No dissection is seen. Pulmonary vasculature: The pulmonary trunk is dilated measuring 3.3 cm in diameter. This suggests pulmonary artery hypertension. There are no filling defects identified in main, lobar, or segmental pulmonary branches to suggest pulmonary embolus. Evaluation of the peripheral branches is degraded by motion artifact. Heart: The heart is enlarged noting trace pericardial effusion. Lungs and pleural spaces: Evaluation of the lung parenchyma is degraded by motion artifact. There is no airspace consolidation typical for pneumonia or pleural effusion. Foci of scarring/atelectasis are seen throughout both lungs. The trachea and central airways are clear. Mediastinum: There is no mediastinal lymphadenopathy. Jane: Clear. Axillae: Shotty axillary lymph nodes are similar to previous. Upper abdomen: There is a small hiatal hernia. Partially visualized upper abdominal viscera is otherwise within normal limits. Skeletal structures: No lytic or blastic bony lesions are seen. IMPRESSION: 1. There is no evidence of pulmonary embolus in the main, lobar, or segmental pulmonary arteries. Evaluation of the peripheral branches is degraded by motion artifact. 2. Cardiomegaly with evidence of pulmonary artery hypertension. 3. No airspace consolidation typical for pneumonia or pleural effusion is identified. ACT 112: Negative or not required by law. Electronically signed by: Ubaldo Enriquez M.D. 07/03/2021 11:47 AM Hospital Course (1) Acute on chronic right heart failure: Fluid restriction put into place. Continued on intravenous diuresis with significant output. Cardiology consulted this admission and managing. Still requiring oxygen supplementation. Likely a component of pulmonary hypertension here from undiagnosed LARS, for example. Either way, she will likely require oxygen on discharge with a close pulmonary follow-up as outpatient to continue the workup. She developed a slight alkalosis with worsening creatinine, which caused intravenous lasix to be held. This was improved prior to discharge. She was discharged to home in stable condition with a small amount of supplemental oxygen needed. Continued workup with a sleep study strongly recommended. Referral to pulmonology also recommended. Medications adjusted to comply with guideline-directed mefical therapy. Follow-up with cardiology as outpatient recommended. (2) Pulmonary hypertension: possible secondary to untreated LARS. Patient has risk factors including obesity and symptoms including daytime fatigue. Outpatient sleep study is recommended. (3) Sinus tachycardia: resolved, Continue metoprolol succinate 25 mg twice daily (4) Hypertension: chronic, at goal. Continue lisinopril, metoprolol succinate (5) Tobacco use: Smoking cessation encouraged-Contemplative phase (6) Depression: cont sertraline per home regimen. (7) COPD (chronic obstructive pulmonary disease): chronic, not in exacerbation. Continue albuterol as needed, Flovent daily per home regimen. Total Time Total Time Spent Total Time Spent (In Minutes): 60 Discharge Plan Discharge Items Patient Disposition: Home - Self-Care Reason For Visit: CHF Discharge Diagnosis: Acute on chronic heart failure pulmonary hypertension hypoxia tobacco use Condition on Discharge: Good Activity: Resume your previous activity Non-emergency contact: Primary Care Provider Call non-emergency contact if: you have any medication questions and your symptoms worsen Follow-up/Referrals: Walter Ramos MD [Primary Care Provider] - (Date & Time 07/15/2021 11:00 AM Provider Walter Ramos MD [facility] PLEASE NOTE THAT THE 07/[address] RAMOS WAS RESCHEDULED TO 07/15. THANK YOU ) Diet: Low Sodium (2gm) Addtl Attending Provider Instructions: Please take all medications as instructed on discharge list below. Please follow-up with your primary care physician at the date and time listed above. This appointment will be important to ensure you are feeling better after being discharged from the hospital, recheck your oxygen saturation, set you up for a sleep study and place a referral to pulmonology. You will also need some blood work to monitor your kidney function and electrolytes after multiple medication changes. You are being sent home on oxygen which will need to be continued until you can follow-up with a lung specialist (pulmonology). Please work with your primary care physician to set up a sleep study-please schedule this as soon as possible. Please follow-up with cardiology in the next couple of weeks as recommended. It was a pleasure taking care of you! Please call if you have any questions or problems. You can reach a [facility] hospitalist on duty at [facility] 24 hours a day by calling [phone]. Take care of yourself. Antonella Carson, [facility] Hospitalist Pending Studies at Discharge: No Stand-Alone Forms: My [facility], Work/School Release Medications and DC Order Prescriptions: New lisinopril [Zestril] 5 mg Tablet 5 mg PO QAM Qty: 30 RF: 0 spironolactone 25 mg Tablet 25 mg PO QAM Qty: 30 RF: 0 metoprolol succinate 50 mg Tablet Extended Release 24 Hr 50 mg PO QAM Qty: 30 RF: 0 furosemide 40 mg Tablet 40 mg PO DAILY Qty: 30 RF: 0 (DME) Oxygen Home Liters Per Minute See Rx Instructions .Route Qty: 1 RF: 0 Continued albuterol sulfate 90 mcg/actuation HFA aerosol inhaler 2 puffs INH Q6H PRN (Reason: shortness of breath or wheezing) Qty: 8 RF: 3 omeprazole 20 mg capsule,delayed release(DR/EC) 20 mg PO QAM RF: 0 folic acid 1 mg tablet 1 mg PO QAM RF: 0 Flovent HFA 220 mcg/actuation HFA aerosol inhaler 2 puff INHALATION BID RF: 0 sertraline 50 mg tablet 50 mg PO QAM RF: 0 medroxyprogesterone 150 mg/mL suspension 150 mg IM Q90D RF: 0 multivitamin Tablet 1 tab PO DAILY RF: 0 loratadine 10 mg Tablet 10 mg PO DAILY RF: 0 thiamine HCl (vitamin B1) 50 mg Tablet 50 mg PO DAILY RF: 0 Changed metoprolol succinate 25 mg tablet extended release 24 hr 25 mg PO HS Qty: 30 RF: 0 Discontinued lisinopril 10 mg tablet 10 mg PO QAM RF: 0 furosemide 20 mg tablet 20 mg PO QAM RF: 0 Discharge Orders: Discharge Order (Routine); Ordered 10/19/21 Ordered By: Antonella Haywood/Other Patient Handouts: High Blood Sugar (Hyperglycemia), Hypoglycemia (Low Blood Sugar), Exercise: Why Fitness Matters, Diabetes: Meal Planning, Type 2 Diabetes Admission Data Admit Date/Time: 07/02/21 12:32 Attending Provider: Antonella Carson Admit Provider: Antonella Carson Primary Care Provider: Walter Ramos Other Providers: Arley Crockett Other Interventions: Discharge Summary Assessment (RN) Last Done: 07/08/21 14:03
[2021-07-08] MEDS ORDERED: METOPROLOL SUCC 25MG EXT REL TAB PO SCH (21:00)
[2021-07-09] MEDS ORDERED: METOPROLOL SUCC 50MG EXT REL TAB PO SCH (09:00)
== END 2021-07-08 14:57 | disposition home or self-care (01) | DRG 291 ==
LOC: ED 10:35 → 2N 12:32
DX: F17.210 Nicotine dependence, cigarettes, uncomplicated; I50.33 Acute on chronic diastolic (congestive) heart failure; Z68.41 Body mass index [BMI] 40.0-44.9, adult; Z88.0 Allergy status to penicillin; J44.9 Chronic obstructive pulmonary disease, unspecified; E66.2 Morbid (severe) obesity with alveolar hypoventilation; R73.03 Prediabetes; R60.0 Localized edema; K21.9 Gastro-esophageal reflux disease without esophagitis; Z99.81 Dependence on supplemental oxygen; R00.0 Tachycardia, unspecified; F32.A Depression, unspecified; I11.0 Hypertensive heart disease with heart failure

== ENCOUNTER 2023-12-06 14:05 | Inpatient (IN) ==
--- NOTE | 2023-12-06 14:43 | Emergency Department Note ---
Impression & Plan Shortness of breath, Hypoxia, Tobacco dependence ED Provider Note NAME: CAMILA VÁSQUEZ AGE: 53 SEX: Female INFORMANT: Patient ED PROVIDER(S): Rubén Du MD CHIEF COMPLAINT: Shortness of breath PLAN: Disposition: Admitted Outpatient prescription management: none Referral: None MEDICAL DECISION MAKING: Patient presented from the primary office with complaints of cough and hypoxia noted. She underwent a workup. Her O2 saturations were improved into the low 90s with nasal cannula oxygen. DuoNeb and Solu-Medrol was ordered. Laboratory testing, ECG, and chest x-ray also ordered. Chest x-ray was unremarkable for acute pathology. Bio fire testing was negative. Patient did receive a second DuoNeb and was requiring supplemental oxygen. BNP and troponins were unremarkable. Patient underwent CT imaging of the chest and no evidence of pulmonary embolus was present. Discussed the findings with the patient. I suspect there is a component of COPD given her significant smoking history and current use. Given the fact that she is requiring supplemental oxygen further management in the hospital will be necessary. Consultation was made with the [facility] Hospitalist service. Patient was evaluated in the ER and admitted for further management. Care/management discussed with: grocery manager Level of care consideration(s): After review of the information above and other included data, I feel the patient requires escalation of care to admission Triage Nursing notes: reviewed and agree them. Vital Signs: reviewed and remarkable for hypoxia Additional History obtained from: none Chronic Medical/Social Conditions affecting care: COPD CHF Prior/ Outside/ External records reviewed: None Differential Diagnosis: Reactive airway disease, pneumonia, pneumothorax, COPD, CHF, infections, cardiac ischemia, pulmonary embolism, musculoskeletal, gastrointestinal, as well as other pathologies. Diagnostics, independently interpreted by me: ECG: Twelve-lead ECG rhythm normal sinus rhythm at [address] elevation or depression. No PACs or PVCs. Cardiac Monitoring: Cardiac monitoring ordered by me: The patient was placed on continuous cardiac monitoring and observed. It revealed a normal sinus rhythm at 80 beats per minute without ectopy or evidence of dysrhythmia. Medical decision rules: none Imaging studies: Chest x-ray. Findings: A chest x-ray was performed and revealed no pneumothorax, effusion, infiltrate, pulmonary edema, free air under the diaphragm, or wide mediastinum. Impression: No acute disease. HPI: 53 year old Female arrives for evaluation of shortness of breath and hypoxia. Patient was at her primary doctor appointment today. She noted a mild cough. Her O2 saturations were in the high 70s. She does have a history of CHF as well as COPD. She is a current smoker. Patient states she does not feel ill. She denies any recent weight gain or leg swelling. No travel. Her housemate does have a cough. Patient was directed to the ER for further evaluation. Pt denies LOC, headache, fevers, chills, diaphoresis, visual changes, neck pain, chest pain, nausea, vomiting, abdominal pain, back pain, melena, hematochezia, urinary symptoms, numbness, weakness, lymphadenopathy, rash, or other complaints. PAST MEDICAL HISTORY: See Below, COPD, CHF PAST SURGICAL HISTORY: See Below, SOCIAL HISTORY: See Below, smoker HOME MEDICATIONS: See Below ALLERGIES: See Below VITALS: See Below PHYSICAL EXAMINATION: GENERAL: Awake, alert, well-appearing, in no distress HENT: Normocephalic, atraumatic. Oropharynx unremarkable. EYES: Normal conjunctiva. Sclera non-icteric. NECK: Inspection normal. Non-tender. Supple. No nuchal rigidity. FROM. No masses. RESPIRATORY: Clear to auscultation. No wheezes. No rales. Normal respiratory effort. CARDIAC: Normal rate. Normal rhythm. No murmurs. No rubs. Extremities warm and well perfused. Pulses equal. No JVD. GI: Soft, non-distended. No tenderness to palpation. No rebound or guarding. No masses. RECTAL: Deferred. MUSCULOSKELETAL: Atraumatic. Chest examination reveals no tenderness. The back is symmetrical on inspection without obvious abnormality. There is no CVA tenderness to palpation. No joint edema. LOWER EXTREMITIES: Calves are equal size bilaterally and non-tender. No edema. No discoloration. NEURO: Normal sensorium. No sensory or motor deficits noted. SKIN: No rash or jaundice noted. PROCEDURES: none CRITICAL CARE: none OBSERVATION NOTE: none Past Med/Surg History Medical History Acute on chronic heart failure with preserved ejection fraction Acute on chronic right heart failure Alcohol use Bilateral leg edema CHF (congestive heart failure) Chronic diastolic heart failure COPD (chronic obstructive pulmonary disease) Depression DVT prophylaxis GERD (gastroesophageal reflux disease) Hypertension Hypoxia Obstructive sleep apnea Prediabetes Pulmonary hypertension Sinus tachycardia SOB (shortness of breath) Tobacco use Surgical History Hx of colonoscopy Family History Other COPD (chronic obstructive pulmonary disease) Diabetes Kidney disease Social History Smoking Status: Current every day smoker Tobacco Type: Cigarettes Cigarettes Per Day: 10; Second Hand Exposure: Yes; Do You Dip or Chew Tobacco: No; Tobacco Cessation Education Requested by Patient: No Hx Alcohol Use: Yes Alcohol type: beer and hard liquor Alcohol Intake Frequency Comment: cutting back to 2-3 beers, 2 times a week Hx Substance Use: No Preferred Language: Faroese Communication Ability: Effective 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 Beliefs That Will Affect Care: None Current Living Situation: Other Current Living Situation Comment: House mate Other Information That Helps Us Care for You: No Feels Safe at Home: Yes Safety Concerns: Feels Safe At This Time Assistive Devices: None Allergies Allergies Allergy/AdvReac Type Severity Reaction Status Date / Time Penicillins Allergy Hives Unverified 12/06/23 16:33 Home Meds Home Medications Medication Instructions Recorded Confirmed albuterol sulfate 90 mcg/actuation 2 puff inhalation Q4 PRN Shortness 12/06/23 12/06/23 aerosol inhaler (ProAir HFA) Of Breath Or Wheezing allopurinol 100 mg tablet 300 mg PO DAILY 12/06/23 12/06/23 fluticasone propionate 220 2 puff inhalation BID 12/06/23 12/06/23 mcg/actuation HFA aerosol inhaler folic acid 1 mg tablet 1 mg PO QAM 12/06/23 12/06/23 furosemide 40 mg tablet 40 mg PO DAILY 12/06/23 12/06/23 lisinopril 5 mg tablet 5 mg PO DAILY 12/06/23 12/06/23 metoprolol succinate 25 mg 25 mg PO QPM 12/06/23 12/06/23 tablet,extended release 24 hr metoprolol succinate 50 mg 50 mg PO QAM 12/06/23 12/06/23 tablet,extended release 24 hr omeprazole 20 mg capsule,delayed 20 mg PO QAM 12/06/23 12/06/23 release rosuvastatin 5 mg tablet 5 mg PO DAILY 12/06/23 12/06/23 sertraline 50 mg tablet 50 mg PO DAILY 12/06/23 12/06/23 spironolactone 25 mg tablet 12.5 mg PO DAILY 12/06/23 12/06/23 Results & Data (ED) Vital Signs Vital Signs - 24 hr 12/06/23 14:07 12/06/23 14:46 12/06/23 14:56 Temperature 36.2 C L 36.8 C Temperature Source Temporal Artery Scan Oral Pulse Rate 105 H 85 Pulse Rate [Right Finger] 83 Pulse Rate from SpO2 Sensor 88 Pulse Rhythm Pulse Rhythm [Right Finger] Regular Pulse Strength [Right Finger] Normal Respiratory Rate 22 19 22 Respiratory Effort / Characteristics Non-Labored Spontaneous Spontaneous Short of Breath SOB on Exertion Respiratory Depth Normal Normal Respiratory Pattern Regular Regular Blood Pressure 137/75 Blood Pressure [Right Arm] 110/73 Blood Pressure Mean 95 Blood Pressure Mean [Right Arm] 85 Blood Pressure Position [Right Arm] Semi-fowlers Pulse Oximetry 87 L 94 93 Oxygen Delivery Method Room Air Nasal Cannula Oxygen Flow Rate 3 Sepsis Recent Fever Within 48 Hours No Sepsis New/Unexplained Change in Mental Status N/A Sepsis Action Taken by Nursing No Action Required Oxygen Flow Rate - Titration Pulse Oximetry Post Tiitration 12/06/23 14:56 12/06/23 15:00 12/06/23 15:00 Temperature Temperature Source Pulse Rate 83 73 Pulse Rate [Right Finger] Pulse Rate from SpO2 Sensor 77 Pulse Rhythm Regular Pulse Rhythm [Right Finger] Pulse Strength [Right Finger] Respiratory Rate 22 16 Respiratory Effort / Characteristics Respiratory Depth Respiratory Pattern Blood Pressure 97/54 L Blood Pressure [Right Arm] Blood Pressure Mean 65 Blood Pressure Mean [Right Arm] Blood Pressure Position [Right Arm] Pulse Oximetry 93 93 Oxygen Delivery Method Nasal Cannula Nasal Cannula Oxygen Flow Rate 3 4 Sepsis Recent Fever Within 48 Hours Sepsis New/Unexplained Change in Mental Status Sepsis Action Taken by Nursing Oxygen Flow Rate - Titration Pulse Oximetry Post Tiitration 12/06/23 15:24 12/06/23 15:30 12/06/23 15:47 Temperature Temperature Source Pulse Rate 84 Pulse Rate [Right Finger] Pulse Rate from SpO2 Sensor 85 Pulse Rhythm Pulse Rhythm [Right Finger] Pulse Strength [Right Finger] Respiratory Rate 26 H Respiratory Effort / Characteristics Respiratory Depth Respiratory Pattern Blood Pressure 102/60 Blood Pressure [Right Arm] Blood Pressure Mean 78 Blood Pressure Mean [Right Arm] Blood Pressure Position [Right Arm] Pulse Oximetry 88 L 91 Oxygen Delivery Method Room Air Oxygen Flow Rate 3 Sepsis Recent Fever Within 48 Hours Sepsis New/Unexplained Change in Mental Status Sepsis Action Taken by Nursing Oxygen Flow Rate - Titration 4 Pulse Oximetry Post Tiitration 93 12/06/23 15:47 12/06/23 16:00 12/06/23 16:01 Temperature Temperature Source Pulse Rate 74 69 75 Pulse Rate [Right Finger] Pulse Rate from SpO2 Sensor 75 70 78 Pulse Rhythm Pulse Rhythm [Right Finger] Pulse Strength [Right Finger] Respiratory Rate 17 17 16 Respiratory Effort / Characteristics Respiratory Depth Respiratory Pattern Blood Pressure Blood Pressure [Right Arm] Blood Pressure Mean Blood Pressure Mean [Right Arm] Blood Pressure Position [Right Arm] Pulse Oximetry 93 97 98 Oxygen Delivery Method Oxygen Flow Rate Sepsis Recent Fever Within 48 Hours Sepsis New/Unexplained Change in Mental Status Sepsis Action Taken by Nursing Oxygen Flow Rate - Titration Pulse Oximetry Post Tiitration 12/06/23 16:04 12/06/23 16:04 12/06/23 16:30 Temperature Temperature Source Pulse Rate 69 Pulse Rate [Right Finger] Pulse Rate from SpO2 Sensor 69 Pulse Rhythm Pulse Rhythm [Right Finger] Pulse Strength [Right Finger] Respiratory Rate 17 Respiratory Effort / Characteristics Respiratory Depth Respiratory Pattern Blood Pressure 118/61 109/63 Blood Pressure [Right Arm] Blood Pressure Mean 78 72 Blood Pressure Mean [Right Arm] Blood Pressure Position [Right Arm] Pulse Oximetry 99 Oxygen Delivery Method Oxygen Flow Rate Sepsis Recent Fever Within 48 Hours Sepsis New/Unexplained Change in Mental Status Sepsis Action Taken by Nursing Oxygen Flow Rate - Titration Pulse Oximetry Post Tiitration 12/06/23 16:30 12/06/23 16:55 12/06/23 17:30 Temperature Temperature Source Pulse Rate 77 93 H Pulse Rate [Right Finger] Pulse Rate from SpO2 Sensor 78 Pulse Rhythm Pulse Rhythm [Right Finger] Pulse Strength [Right Finger] Respiratory Rate 20 Respiratory Effort / Characteristics Respiratory Depth Respiratory Pattern Blood Pressure 119/67 Blood Pressure [Right Arm] Blood Pressure Mean 79 Blood Pressure Mean [Right Arm] Blood Pressure Position [Right Arm] Pulse Oximetry 96 Oxygen Delivery Method Oxymask Oxygen Flow Rate 5 Sepsis Recent Fever Within 48 Hours Sepsis New/Unexplained Change in Mental Status Sepsis Action Taken by Nursing Oxygen Flow Rate - Titration Pulse Oximetry Post Tiitration 12/06/23 17:30 12/06/23 18:00 12/06/23 18:00 Temperature Temperature Source Pulse Rate 90 99 H Pulse Rate [Right Finger] Pulse Rate from SpO2 Sensor 92 H 99 H Pulse Rhythm Pulse Rhythm [Right Finger] Pulse Strength [Right Finger] Respiratory Rate 18 28 H Respiratory Effort / Characteristics Respiratory Depth Respiratory Pattern Blood Pressure 114/65 Blood Pressure [Right Arm] Blood Pressure Mean 84 Blood Pressure Mean [Right Arm] Blood Pressure Position [Right Arm] Pulse Oximetry 95 85 L Oxygen Delivery Method Oxygen Flow Rate Sepsis Recent Fever Within 48 Hours Sepsis New/Unexplained Change in Mental Status Sepsis Action Taken by Nursing Oxygen Flow Rate - Titration Pulse Oximetry Post Tiitration 12/06/23 18:19 12/06/23 18:30 12/06/23 18:30 Temperature Temperature Source Pulse Rate 81 73 Pulse Rate [Right Finger] Pulse Rate from SpO2 Sensor 72 Pulse Rhythm Pulse Rhythm [Right Finger] Pulse Strength [Right Finger] Respiratory Rate 24 Respiratory Effort / Characteristics Respiratory Depth Respiratory Pattern Blood Pressure 95/53 L Blood Pressure [Right Arm] Blood Pressure Mean 62 Blood Pressure Mean [Right Arm] Blood Pressure Position [Right Arm] Pulse Oximetry 96 Oxygen Delivery Method Oxygen Flow Rate Sepsis Recent Fever Within 48 Hours Sepsis New/Unexplained Change in Mental Status Sepsis Action Taken by Nursing Oxygen Flow Rate - Titration Pulse Oximetry Post Tiitration Laboratory Data 12/06/23 14:28 12/06/23 14:28 Lab Results 12/06/23 12/06/23 Range/Units 14:28 17:12 WBC 13.03 H (4.8-10.8) K/ul RBC 6.03 H (4.20-5.40) M/uL Hgb 13.0 (12.0-16.0) g/dl Hct 46.9 (37.0-47.0) % MCV 77.8 L (80.0-100.0) fL MCH 21.6 L (25.0-34.0) pg MCHC 27.7 L (32.0-36.0) g/dL RDW Std Deviation 55.5 H (36.4-46.3) fL RDW Coeff of [place] 21.2 H (11.5-14.5) % Plt Count 267 (130-400) K/uL MPV 10.1 (9.4-12.4) fL Immature Gran % (Auto) 0.4 % Neut % (Auto) 81.2 % Lymph % (Auto) 12.0 % Saunders % (Auto) 5.4 % Eos % (Auto) 0.5 % Baso % (Auto) 0.5 % Neut # (Auto) 10.58 H (1.40-6.50) K/uL Lymph # (Auto) 1.57 (1.20-3.40) K/uL Saunders # (Auto) 0.71 H (0.11-0.59) K/uL Eos # (Auto) 0.06 (0.00-0.50) K/uL Baso # (Auto) 0.06 (0.00-0.20) K/uL Immature Gran # (Auto) 0.05 (0.01-0.20) K/uL Polychromasia 1+ Hypochromasia Present Anisocytosis Present Stomatocytes 2+ Sodium 137 (136-145) mmol/L Potassium 4.0 (3.5-5.1) mmol/L Chloride 96 L (98-107) mmol/L Carbon Dioxide 33 H (21-32) mmol/L Anion Gap 8 (3-11) BUN 21 (6-23) mg/dl Creatinine 0.92 (0.6-1.2) mg/dl Est Cr Clr Drug Dosing 81.6 ml/min Est GFR ( Amer) 83.0 ml/min Est GFR (Non-Af Amer) 71.6 ml/min BUN/Creatinine Ratio 22.8 H (10-20) Glucose 145 H (70-99(Fasting)) mg/dl Calcium 9.4 (8.6-10.3) mg/dl Total Bilirubin 0.5 (0.2-1.0) mg/dl AST 14 (13-39) U/L ALT 10 (7-52) U/L Alkaline Phosphatase 126 H (34-104) U/L Troponin I High Sens 11.1 (0-14) pg/ml B-Natriuretic Peptide 40 (0-100) pg/ml Total Protein 7.5 (6.0-8.3) gm/dl Albumin 3.9 (3.4-5.0) gm/dl Globulin 3.6 (2.5-4.0) gm/dl Albumin/Globulin Ratio 1.1 (0.9-2) Urine Color Yellow Urine Appearance Clear (Clear) Urine pH 5.0 (4.5-7.5) Ur Specific [place] 1.007 (1.000-1.030) Urine Protein Negative (Negative) Urine Glucose (UA) Negative (Negative) Urine Ketones Negative (Negative) Urine Blood Negative (Negative) Urine Nitrite Negative (Negative) Urine Bilirubin Negative (Negative) Urine Urobilinogen Negative (Negative) Ur Leukocyte Esterase Negative (Negative) Administered Medications Azithromycin (Azithromycin 250 Mg Tab) 500 mg PO QAM FELICIA Stop: 12/08/23 09:01 Last Admin: 12/06/23 21:43 Dose: 500 mg Documented By: JAIME Enoxaparin Sodium (Enoxaparin Inj 40 Mg/0.4 Ml Syr) 40 mg SQ Q12H FELICIA Stop: 01/05/24 20:59 Last Admin: 12/06/23 21:43 Dose: 40 mg Documented By: JAIME Ceftriaxone Sodium 2,000 mg/ (Dextrose) 50 mls @ 100 mls/hr IV Q24H FELICIA Stop: 12/13/23 20:59 Last Infusion: 12/06/23 22:13 Dose: Infused Documented By: Admin: 12/06/23 21:43 Dose: 100 mls/hr Documented By: JAIME Ipratropium [place] (Ipratropium [place] Neb Soln 0.02% 0.5mg/2.5ml Vial) 0.5 mg INH DAILY FELICIA Stop: 01/05/24 20:29 Last Admin: 12/06/23 22:14 Dose: Not Given Documented By: JAMES Levalbuterol HCl (Levalbuterol Hcl 0.63 Mg/3 Ml Neb) 0.63 mg NEB DAILY FELICIA Stop: 01/05/24 20:29 Last Admin: 12/06/23 22:14 Dose: Not Given Documented By: JAMES Metoprolol Succinate (Metoprolol Succ 25mg Ext Rel Tab) 25 mg PO QPM FELICIA Stop: 01/05/24 20:59 Last Admin: 12/06/23 22:01 Dose: Not Given Documented By: JAIME Discontinued Medications Albuterol (Albut/Ipratrop 3mg/0.5mg Neb 3 Ml Vial) 3 ml NEB NOW STA; Protocol Stop: 12/06/23 14:38 Last Admin: 12/06/23 14:49 Dose: 3 ml Documented By: VALERIE Albuterol (Albut/Ipratrop 3mg/0.5mg Neb 3 Ml Vial) 3 ml NEB NOW STA; Protocol Stop: 12/06/23 15:28 Last Admin: 12/06/23 15:46 Dose: 3 ml Documented By: JAIME Furosemide (Furosemide Inj 20 Mg/2 Ml Vial) 20 mg IV ONE ONE Stop: 12/06/23 15:28 Last Admin: 12/06/23 15:46 Dose: 20 mg Documented By: JAIME Ioversol (Optiray 320 125ml) 116 ml IV ONCE ONE Stop: 12/06/23 17:00 Last Admin: 12/06/23 16:59 Dose: 116 ml Documented By: CHINO Methylprednisolone (Methylprednisolone 125 Mg/2 Ml Vial) 125 mg IV NOW STA Stop: 12/06/23 14:38 Last Admin: 12/06/23 14:46 Dose: 125 mg Documented By: VALERIE Imaging Data Radiologist's Impression: Chest X-Ray 12/06/23 14:19 XR chest 1V portable CLINICAL HISTORY: Dyspnea TECHNIQUE: Single frontal radiograph of the chest was obtained. Comparison: Comparison is made to chest radiograph 07/02/2021 FINDINGS: No lines and tubes are seen. Cardiomegaly is noted. Prominence and cephalization of the vasculature is seen. No evidence of pleural effusion or pneumothorax. IMPRESSION: Cardiomegaly and mild pulmonary edema. ACT 112: Negative or not required by law. Electronically signed by: Jose Alberto Garcia M.D. 12/06/2023 2:56 PM Chest CTA 12/06/23 16:34 CT angio chest PE protocol CLINICAL HISTORY: ?PE. hypoxia TECHNIQUE: Multidetector row helical CT of the chest was performed with angiographic protocol. Coronal and sagittal reformations were obtained. Coronal and sagittal MIPS were obtained from the axial data set and were submitted for review. Automated dose lowering techniques and/or adjustment according to patient size were utilized for this exam. CT DOSE: 911.67 mGy.cm Comparison: Comparison is made to CTA chest 07/03/2021 FINDINGS: Lungs and pleura: Atelectasis versus scarring is seen in the dependent portions of the lungs. Heart and pericardium: Heart size is normal. No pericardial effusion. Vessels: No evidence of pulmonary embolism. Pulmonary trunk measures 36 mm. Mediastinum and gelacio: Unremarkable. Chest wall and lower neck: Enlarged right axillary node measures 14 mm in short axis. 15 mm left axillary node is seen. Abdomen: Unremarkable. Bones: Degenerative changes in the thoracic spine. IMPRESSION: 1. No acute abnormality and in particular no evidence of pulmonary embolus. 2. Pulmonary hypertension. 3. Bilateral atelectatic changes. ACT 112: Negative or not required by law. Electronically signed by: Jose Alberto Garcia M.D. 12/06/2023 5:53 PM Discharge Plan Visit Data Chief Complaint: Referred by Doctor Stated Complaint: LOW OXYGEN, HISTORY OF HEART FAILURE, SOB ED Provider: Rubén Du Discharge Problem: Shortness of breath, Hypoxia, Tobacco dependence Discharge Instructions Interventions: ED Discharge Assessment Last Done: 12/06/23 19:45
[2023-12-06] MEDS: methylPREDNISolone 125 MG/2 ML VIAL IV STA (14:46)
[2023-12-06] MEDS: ALBUT/IPRATROP 3MG/0.5MG NEB 3 ML VIAL NEB STA ×2 (14:49→15:46)
--- NOTE | 2023-12-06 14:58 | XRay Report ---
XR chest 1V portable CLINICAL HISTORY: Dyspnea TECHNIQUE: Single frontal radiograph of the chest was obtained. Comparison: Comparison is made to chest radiograph 07/02/2021 FINDINGS: No lines and tubes are seen. Cardiomegaly is noted. Prominence and cephalization of the vasculature i s seen. No evidence of pleural effusion or pneumothorax. IMPRESSION: Cardiomegaly and mild pulmonary edema. ACT 112: Negative or not required by law. Electronically signed by: Jose Alberto Garcia M.D. 12/06/2023 2:56 PM
[2023-12-06 15:09] LABS: Albumin Level 3.9 gm/dl (3.4-5.0); Bilirubin,Total 0.5 mg/dl (0.2-1.0); Calcium 9.4 mg/dl (8.6-10.3)
[2023-12-06 15:15] LABS: Albumin Globulin Ratio 1.1 (0.9-2); BUN Creatinine Ratio 22.8 (10-20); Creatinine Clr Calc Pharmacy 81.6 ml/min; Est GFR (Non-African American) 71.6 ml/min; Globulin 3.6 gm/dl (2.5-4.0); Total Protein 7.5 gm/dl (6.0-8.3); Troponin I High Sensitivity 11.1 pg/ml (0-14)
[2023-12-06 15:18] LABS: Anisocytosis Present; Basophils # (auto) 0.06 K/uL (0.00-0.20); Basophils % (auto) 0.5 %; Eosinophils # (auto) 0.06 K/uL (0.00-0.50); Eosinophils % (auto) 0.5 %; Hematocrit (blood only) 46.9 % (37.0-47.0); Hypochromasia Present; Immature Granulocytes # (auto) 0.05 K/uL (0.01-0.20); Immature Granulocytes % (auto) 0.4 %; Lymphocytes # (auto) 1.57 K/uL (1.20-3.40); Mean Corpuscular Hemoglobin 21.6 pg (25.0-34.0); Mean Corpuscular Hgb Conc 27.7 g/dL (32.0-36.0); Mean Corpuscular Volume 77.8 fL (80.0-100.0); Mean Platelet Volume 10.1 fL (9.4-12.4); Monocytes # (auto) 0.71 K/uL (0.11-0.59); Monocytes % (auto) 5.4 %; Neutrophils # (auto) 10.58 K/uL (1.40-6.50); Neutrophils % (auto) 81.2 %; Platelet Count 267 K/uL (130-400); Polychromasia 1+; RDW Coefficient of Variation 21.2 % (11.5-14.5); RDW Standard Deviation 55.5 fL (36.4-46.3); Red Blood Count 6.03 M/uL (4.20-5.40); Stomatocytes 2+; White Blood Count 13.03 K/ul (4.8-10.8)
[2023-12-06] MEDS: FUROSEMIDE INJ 20 MG/2 ML VIAL IV ONE (15:46)
[2023-12-06] MEDS: OPTIRAY 320 125ml IV ONE (16:59)
--- NOTE | 2023-12-06 17:25 | Electrocardiogram Report ---
Test Reason : Blood Pressure : / mmHG Vent. Rate : 098 BPM Atrial Rate : 098 BPM P-R Int : 158 ms QRS Dur : 082 ms QT Int : 352 ms P-R-T Axes : 060 084 039 degrees QTc Int : 449 ms Normal sinus rhythm Low voltage QRS Abnormal ECG When compared with ECG of 02-JUL-2021 10:56, No significant change was found Confirmed by Reji Matthews ([id number]) on 12/06/2023 5:25:14 PM Referred By: Confirmed By:Bruce Matthews
[2023-12-06 17:28] LABS: Appearance Urine Clear (Clear); Bilirubin Urine Negative (Negative); Blood Urine Negative (Negative); Color Urine Yellow; Glucose Urine UA Negative (Negative); Ketones Urine Negative (Negative); Leukocyte Esterase Urine Negative (Negative); Nitrite Urine Negative (Negative); Protein Urine Negative (Negative); Specific Gravity Urine 1.007 (1.000-1.030); Urobilinogen Urine Negative (Negative)
[2023-12-06 17:32] LABS: Adenovirus PCR Not Detected (NotDetected); Bordetella parapertussis PCR Not Detected (NotDetected); Bordetella pertussis PCR Not Detected (NotDetected); Chlamydia pneumoniae PCR Not Detected (NotDetected); Coronavirus 229E PCR Not Detected (NotDetected); Coronavirus CoV-2 (COVID19)PCR Not Detected (NotDetected); Coronavirus HKU1 PCR Not Detected (NotDetected); Coronavirus NL63 PCR Not Detected (NotDetected); Coronavirus OC43PCR Not Detected (NotDetected); Human Metapneumovirus PCR Not Detected (NotDetected); Influenza A PCR Not Detected (NotDetected); Influenza B PCR Not Detected (NotDetected); Mycoplasma pneumoniae PCR Not Detected (NotDetected); Parainfluenza Virus 1 PCR Not Detected (NotDetected); Parainfluenza Virus 2 PCR Not Detected (NotDetected); Parainfluenza Virus 3 PCR Not Detected (NotDetected); Parainfluenza Virus 4 PCR Not Detected (NotDetected); Respiratory Syncytial VirusPCR Not Detected (NotDetected); Rhinovirus/Enterovirus PCR Not Detected (NotDetected)
--- NOTE | 2023-12-06 17:56 | CT Scan Report ---
CT angio chest PE protocol CLINICAL HISTORY: ?PE. hypoxia TECHNIQUE: Multidetector row helical CT of the chest was performed with angiographic protocol. Martinez l and sagittal reformations were obtained. Coronal and sagittal MIPS were obtained from the axial stoney a set and were submitted for review. Automated dose lowering techniques and/or adjustment according to patient size were utilized for this exam. CT DOSE: 911.67 mGy.cm Comparison: Comparison is made to CTA chest 07/03/2021 FINDINGS: Lungs and pleura: Atelectasis versus scarring is seen in the dependent portions of the lungs. Heart and pericardium: Heart size is normal. No pericardial effusion. Vessels: No evidence of pulmonary embolism. Pulmonary trunk measures 36 mm. Mediastinum and gelacio: Unremarkable. Chest wall and lower neck: Enlarged right axillary node measures 14 mm in short axis. 15 mm left axil daniel node is seen. Abdomen: Unremarkable. Bones: Degenerative changes in the thoracic spine. IMPRESSION: 1. No acute abnormality and in particular no evidence of pulmonary embolus. 2. Pulmonary hypertension. 3. Bilateral atelectatic changes. ACT 112: Negative or not required by law. Electronically signed by: Jose Alberto Garcia M.D. 12/06/2023 5:53 PM
[2023-12-06 18:54] LABS: HCO3 VBG 40 mmol/L; Oxygen Saturation VBG 88.2 %; PCO2 VBG 68 mmHg (38-50); PO2 VBG 55 mmHg; pH VBG 7.38 (7.36-7.41)
--- NOTE | 2023-12-06 20:05 | History & Physical Report ---
Date of Service December 06, 2023 Assessment & Plan (1) Acute respiratory failure with hypoxia and hypercapnia: (2) Acute on chronic diastolic (congestive) heart failure: (3) Pulmonary hypertension: Plan Patient is a 53-year-old female with PMHx significant for chronic diastolic heart failure, HTN, DMII, GERD, tobacco use, obesity, alcohol abuse presenting to the ED with hypoxia. Acute Hypoxic and hypercapnic resp failure Reportedly pt was at [facility] with noted oxygen saturations in the 70s Also noted in the ED VBG noting hypercarbia Respiratory panel negative Also in setting of CHF exacerbation IV Lasix 40mg daily cpap/bipap qhs Oxygen supplementation, wean as tolerated CHF Exacerbation BNP wnl Chest XRAY noting cardiomegaly, mild pulmonary edema Echo from 2020 noting EF 60-65%, mod LVH, dilation of RV and decreased RV systolic function, elevated R ventricular pressure Repeat echo pending Holding home po lasix 40mg, continue with IV Lasix 40mg daily Continue home spironolactone 12.5mg daily Milligan for accurate ins and outs Daily weights Cardiology consulted, appreciate recs Possible COPD Exacerbation Pt with chronic tobacco use Received IV Solumedrol 125mg in the ED, continue with IV Solumedrol 60mg daily Empiric IV Rocephin and azithromycin 500mg x3 doses Incruse + Arnuity for LABA/LAMA/ICS treatment Duonebs/levalbuterol w/ipratropium scheduled around the clock Pt no longer has insurance, follows with Dr Mayberry at [facility] Consider PFTs if able to obtain Pulmonology consulted, appreciate further recs Pulmonary HTN Noted on echo in 2020, repeat echo pending Chest CTA also noting pulmonary HTN Pulmonology consulted-appreciate further recs for this Enlarged Axillary lymph nodes Noted on chest CTA PCP follow up DMII Pt with noted hyperglycemia Hgba1c in 2020 of 6.6 Not on medications at home AM hgba1c pending- consider ISS based on level Gout Continue home allopurinol Hx of alcohol abuse AWSS Continue home folic acid HTN Continue home lisinopril Continue home metoprolol GERD Continue ppi HLD Continue home statin Mood Continue home zoloft Chronic Tobacco use Currently smoking, down to 10 cigs Declines nicotine patch at this time Ordered prn for future use or need Encourage cessation CODE STATUS: Full code Diet: HH/DMII, low sodium DVT prophylaxis: Lovenox SQ Dispo: PCU/tele History of Present Illness Chief Complaint: hypoxia Primary Care Provider: [facility] Patient is a 53-year-old female with PMHx significant for chronic diastolic heart failure, HTN, DMII, GERD, tobacco use, obesity, alcohol abuse presenting to the ED with hypoxia. States that she was at her doctor's office and was noted to be hypoxic to the 70s and was sent to the ED. States that she recently lost her job and does not have insurance anymore. Has been following with Dr Mayberry at [facility]. States that she was there to discuss her lung cancer screening chest CT when her hypoxia was noted. 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 Does not feel SOB. Denies a Hx of LARS. Does not use CPAP at home. States that after her last discharge about 3 years ago, she used oxygen at home for about a year. has been taking her medications at home. Denies recent acute cough, fevers, chills. Does state that roommate had pneumonia about a week ago. Still smokes, states that she has stopped in the past but never for more than 6 months. Currently down to 10 cigs at this time. Declining nicotine patch at this time stating that she is fine. Hx of alcohol use. Allergies Allergy/AdvReac Type Severity Reaction Status Date / Time Penicillins Allergy Hives Unverified 12/06/23 16:33 Home Medications Medication Instructions Recorded Confirmed Type albuterol sulfate 90 mcg/actuation 2 puff inhalation Q4 PRN Shortness 12/06/23 12/06/23 History aerosol inhaler (ProAir HFA) Of Breath Or Wheezing allopurinol 100 mg tablet 300 mg PO DAILY 12/06/23 12/06/23 History fluticasone propionate 220 2 puff inhalation BID 12/06/23 12/06/23 History mcg/actuation HFA aerosol inhaler folic acid 1 mg tablet 1 mg PO QAM 12/06/23 12/06/23 History furosemide 40 mg tablet 40 mg PO DAILY 12/06/23 12/06/23 History lisinopril 5 mg tablet 5 mg PO DAILY 12/06/23 12/06/23 History metoprolol succinate 25 mg 25 mg PO QPM 12/06/23 12/06/23 History tablet,extended release 24 hr metoprolol succinate 50 mg 50 mg PO QAM 12/06/23 12/06/23 History tablet,extended release 24 hr omeprazole 20 mg capsule,delayed 20 mg PO QAM 12/06/23 12/06/23 History release rosuvastatin 5 mg tablet 5 mg PO DAILY 12/06/23 12/06/23 History sertraline 50 mg tablet 50 mg PO DAILY 12/06/23 12/06/23 History spironolactone 25 mg tablet 12.5 mg PO DAILY 12/06/23 12/06/23 History Past Med/Surg History Medical History (Updated 12/06/23 @ 23:55 by Jen Rebolledo MD) Pulmonary hypertension Obstructive sleep apnea Acute on chronic right heart failure Depression DVT prophylaxis CHF (congestive heart failure) COPD (chronic obstructive pulmonary disease) Alcohol use Acute on chronic heart failure with preserved ejection fraction Chronic diastolic heart failure Sinus tachycardia GERD (gastroesophageal reflux disease) Prediabetes Bilateral leg edema Tobacco use Hypertension SOB (shortness of breath) Hypoxia Surgical History Hx of colonoscopy Family History Other COPD (chronic obstructive pulmonary disease) Diabetes Kidney disease Social History Smoking Status: Current every day smoker Tobacco Type: Cigarettes Cigarettes Per Day: 10; Second Hand Exposure: Yes; Do You Dip or Chew Tobacco: No; Tobacco Cessation Education Requested by Patient: No Hx Alcohol Use: Yes Alcohol type: beer and hard liquor Alcohol Intake Frequency Comment: cutting back to 2-3 beers, 2 times a week Hx Substance Use: No Preferred Language: Congolese Communication Ability: Effective Gamma Operator Required: No Beliefs That Will Affect Care: None Current Living Situation: Other Current Living Situation Comment: House mate Other Information That Helps Us Care for You: No Feels Safe at Home: Yes Safety Concerns: Feels Safe At This Time Assistive Devices: None Review of Systems Review of Systems: All systems reviewed & are unremarkable except as noted in HPI & below Physical Exam Physical Exam: General: Alert, oriented. No acute distress but oxymask on face Skin: No noted rashes or bruises Psych: Appropriate mood and affect Neuro: No gross deficits HEENT: NC/AT Chest: Nontender to palpation. CV: RRR Resp: Breath sounds decreased bilaterally Abdomen: Soft, nontender, nondistended. Extremities: No edema in lower extremities bilaterally. Results & Data Results & Data Vital Signs (Past 12 Hours) Vital Signs Temp Pulse Pulse Resp BP BP Pulse Ox 12/06/23 18:19 81 12/06/23 16:55 93 H 12/06/23 16:30 77 20 96 12/06/23 16:30 109/63 12/06/23 16:04 118/61 12/06/23 16:04 69 17 99 12/06/23 16:01 75 16 98 12/06/23 16:00 69 17 97 12/06/23 15:47 74 17 93 12/06/23 15:47 102/60 12/06/23 15:30 84 26 H 91 12/06/23 15:24 88 L 12/06/23 15:00 73 16 93 12/06/23 15:00 97/54 L 12/06/23 14:56 83 22 93 12/06/23 14:56 36.8 C 83 22 110/73 93 12/06/23 14:46 85 19 94 12/06/23 14:07 36.2 C L 105 H 22 137/75 87 L O2 Del Method O2 Flow Rate 12/06/23 18:19 12/06/23 16:55 12/06/23 16:30 Oxymask 5 12/06/23 16:30 12/06/23 16:04 12/06/23 16:04 12/06/23 16:01 12/06/23 16:00 12/06/23 15:47 12/06/23 15:47 12/06/23 15:30 12/06/23 15:24 Room Air 3 12/06/23 15:00 Nasal Cannula 4 12/06/23 15:00 12/06/23 14:56 Nasal Cannula 3 12/06/23 14:56 Nasal Cannula 3 12/06/23 14:46 12/06/23 14:07 Room Air Diagnostic Findings Chest X-Ray 12/06/23 14:19 XR chest 1V portable CLINICAL HISTORY: Dyspnea TECHNIQUE: Single frontal radiograph of the chest was obtained. Comparison: Comparison is made to chest radiograph 07/02/2021 FINDINGS: No lines and tubes are seen. Cardiomegaly is noted. Prominence and cephalization of the vasculature is seen. No evidence of pleural effusion or pneumothorax. IMPRESSION: Cardiomegaly and mild pulmonary edema. ACT 112: Negative or not required by law. Electronically signed by: Jose Alberto Garcia M.D. 12/06/2023 2:56 PM Chest CTA 12/06/23 16:34 CT angio chest PE protocol CLINICAL HISTORY: ?PE. hypoxia TECHNIQUE: Multidetector row helical CT of the chest was performed with angiographic protocol. Coronal and sagittal reformations were obtained. Coronal and sagittal MIPS were obtained from the axial data set and were submitted for review. Automated dose lowering techniques and/or adjustment according to patient size were utilized for this exam. CT DOSE: 911.67 mGy.cm Comparison: Comparison is made to CTA chest 07/03/2021 FINDINGS: Lungs and pleura: Atelectasis versus scarring is seen in the dependent portions of the lungs. Heart and pericardium: Heart size is normal. No pericardial effusion. Vessels: No evidence of pulmonary embolism. Pulmonary trunk measures 36 mm. Mediastinum and gelacio: Unremarkable. Chest wall and lower neck: Enlarged right axillary node measures 14 mm in short axis. 15 mm left axillary node is seen. Abdomen: Unremarkable. Bones: Degenerative changes in the thoracic spine. IMPRESSION: 1. No acute abnormality and in particular no evidence of pulmonary embolus. 2. Pulmonary hypertension. 3. Bilateral atelectatic changes. ACT 112: Negative or not required by law. Electronically signed by: Jose Alberto Garcia M.D. 12/06/2023 5:53 PM
[2023-12-06] MEDS ORDERED: ALBUTEROL HFA 8 GM INHALER INH PRN (20:22)
[2023-12-06] MEDS ORDERED: cefTRIAXone SODIUM 1,000 MG in DEXTROSE 5 % MINI-B 50 ML IV SCH (20:22)
[2023-12-06] MEDS ORDERED: ONDANSETRON INJ 2 MG/ML 2 ML VIAL IV PRN (20:26)
[2023-12-06] MEDS ORDERED: ALUMINUM/MAGNESIUM SUSP 30 ML UDC PO PRN (20:26)
[2023-12-06] MEDS ORDERED: POLYETHYLENE (MIRALAX) 17 GM PACK PO PRN (20:26)
[2023-12-06] MEDS ORDERED: ACETAMINOPHEN 500 MG TAB PO PRN (20:26)
[2023-12-06] MEDS ORDERED: NICOTINE 14 MG/24 HR PATCH TD PRN (20:39)
[2023-12-06] MEDS ORDERED: LORazepam 1 MG in SYRINGE 0.5 ML IV PRN (20:47)
[2023-12-06] MEDS ORDERED: Ativan IV Alcohol Withdrawal--Active Protocol IV PRN (20:47)
[2023-12-06] MEDS ORDERED: LORazepam 3 MG in SYRINGE 1.5 ML IV PRN (20:47)
[2023-12-06] MEDS ORDERED: LORazepam 2 MG in SYRINGE 1 ML IV PRN (20:47)
[2023-12-06] MEDS: cefTRIAXone SODIUM 2,000 MG in DEXTROSE 5 % MINI-B 50 ML IV SCH (21:43)
[2023-12-06] MEDS: AZITHROMYCIN 250 MG TAB PO SCH (21:43)
[2023-12-06] MEDS: ENOXAPARIN INJ 40 MG/0.4 ML SYR SQ SCH (21:43)
[2023-12-06] MEDS: METOPROLOL SUCC 25MG EXT REL TAB PO SCH (22:01)
--- OUTSIDE RECORDS SUMMARY | 2023-12-06 22:07 | External Medical Summary | Summary of Care ---
Author Name Unknown Organization [facility] Address [address] [place] [address] Phone [phone] Care Team Providers Care Pelletising Extruder Operator Name Role Phone Mel Ramos MD Primary Care Provider [phone] Reason for Visit * Reason Comments eRx-Medication Refill Encounter Details Date Type Department Care Team (Late st Contact Info) Description 08/22/2023 Refill Family Practice [facility] [address] [facility] [place] [address] Mel Ramos MD [address] [facility] [place] [id number] Allergies Active Allergy Reactions Criticality Noted Date Comments Penicillins Nausea/vomiting 06/29/2016 documented as of this encounter (statuses as of 08/23/2023) Medications Medication Sig Dispensed Refills Start Date End Date Status Multiple Vitamins-Minerals (WOMENS MULTIVITAMIN) TABS Take by mouth. 0 Active Thiamine HCl (VITAMIN B1) 50 MG TABS Take by mouth. 0 Active Loratadine 10 MG Oral Tablet Take 1 Tablet by mouth in the morning. 0 Active Albuterol Sulfate HFA 108 (90 Base) MCG/ACT Inhalation Aerosol Solution TAKE 2 PUFFS BY MOUTH EVERY 4 HOURS NEEDED FOR WHEEZE 18 g 3 08/20/2021 Active Metoprolol Succinate ER 25 MG Oral Tablet Extended Release 24 Hour (toPROL XL) Take 1 Tablet by mouth every evening. This is in addition to the 50 mg tablet in the morning 90 Tablet 5 08/20/2021 Active Flovent HFA 220 MCG/ACT Inhalation Aerosol (fluticasone) INHALE 2 PUFFS BY MOUTH TWICE A DAY 36 g 1 09/26/2021 Active Metoprolol Succinate ER 50 MG Oral Tablet Extended Release 24 Hour (toPROL XL)Indications:He art failure, diastolic, due to HTN (HCC) TAKE 1 TABLET BY MOUTH EVERY MORNING. THIS IS IN ADDITION TO THE 25 MG TABLET IN THE EVENING. 90 Tablet 3 08/10/2022 Active Nicotine 14 MG/24HR Transdermal Patch 24 Hour (Nicoderm CQ) Place 1 Patch over 24 hours topically on the skin in the morning. On upper body/outer arm, change once a day for two weeks.. 14 Patch 0 04/21/2023 Active predniSONE 10 MG Oral Tablet (Deltasone)Indica tions:Acute left ankle pain Take 5 tabs for 2 days, 4 tabs for 2 days, 3 tabs for 2 days, 2 tabs for 2 days 1 tab for 2 days 30 Tablet 0 04/26/2023 Active Folic Acid 1 MG Oral TabletIndications :Heart failure, diastolic, due to HTN (HCC) TAKE 1 TABLET BY MOUTH EVERY DAY IN THE MORNING 90 Tablet 3 05/17/2023 Active Lisinopril 5 MG Oral Tablet (Prinivil)Indicat ions:Heart failure, diastolic, due to HTN (HCC),HTN, goal below 130/80 TAKE 1 TABLET BY MOUTH EVERY DAY 90 Tablet 1 05/18/2023 Active Furosemide 40 MG Oral Tablet (Lasix) TAKE 1 TABLET BY MOUTH EVERY DAY 90 Tablet 1 05/18/2023 Active Spironolactone 25 MG Oral Tablet (Aldactone) TAKE 1 TABLET BY MOUTH EVERY DAY 90 Tablet 1 05/18/2023 Active predniSONE 20 MG Oral Tablet (Deltasone) Take 4 tabs daily for 2 days, 3 tabs daily for 2 days, 2 tabs daily for 2 days, 1 tab daily for 2 days 20 Tablet 0 06/16/2023 Active Omeprazole 20 MG Oral Capsule Delayed Release (PriLOSEC) TAKE 1 CAPSULE BY MOUTH EVERY DAY 1 HOUR BEFORE FIRST MEAL OF THE DAY 90 Capsule 3 08/05/2023 Active Rosuvastatin Calcium 10 MG Oral Tablet (Crestor)Indicati ons:Dyslipidemia, goal to be determined Take 1 Tablet by mouth in the morning. 30 Tablet 11 08/06/2023 Active Sertraline HCl 50 MG Oral Tablet (Zoloft) TAKE 1 TABLET BY MOUTH EVERY DAY 90 Tablet 1 08/23/2023 Active Sertraline HCl 50 MG Oral Tablet (Zoloft) TAKE 1 TABLET BY MOUTH EVERY DAY 90 Tablet 1 02/09/2023 3 Discontinued Hospital, Clinic, or Other Facility Administered Medication Ordered Dose Route Frequency Start Date End Date Status medroxyPROGESTERone (contracep) (DEPO-PROVERA) inj 150 mgIndications:Surveilla nce for Depo-Provera contraception 150 mg IM [id number] 07/06/2018 Active albuterol sulfate (PROVENTIL) (2.5 MG/3ML) 0.083% inhalation solution 2.5 mgIndications:COPD, severity to be determined (HCC) 2.5 mg NEBULIZER Q4H PRN 05/03/2019 Active albuterol sulfate (PROVENTIL) (2.5 MG/3ML) 0.083% inhalation solution 2.5 mgIndications:COPD, severity to be determined (HCC) 2.5 mg NEBULIZER Q4H PRN 05/09/2019 Active medroxyPROGESTERone (contracep) (DEPO-PROVERA) inj 150 mgIndications:Surveilla nce for Depo-Provera contraception 150 mg IM [id number] 07/13/2019 Active medroxyPROGESTERone acetate (DEPO-PROVERA) inj TANMAY 150 mgIndications:Surveilla nce for Depo-Provera contraception 150 mg IM [id number] 07/23/2020 Active Albuterol Sulfate (Proventil) (2.5 MG/3ML) 0.083% inhalation solution 2.5 mgIndications:Chronic obstructive pulmonary disease (COPD) (HCC) 2.5 mg NEBULIZER PRN 07/30/2023 07/29/2024 Acti ve Albuterol Sulfate (Proventil) (5 MG/ML) 0.5% *conc* inhalation solution 2.5 mgIndications:Chronic obstructive pulmonary disease (COPD) (HCC) 2.5 mg NEBULIZER PRN 07/30/2023 07/29/2024 Acti ve documented as of this encounter (statuses as of 08/23/2023) Active Problems Problem Noted Date Diagnosed Date Right foot pain 02/03/2023 Food insecurity 06/01/2022 Overview: Per [facility] Protocol Chronic right-sided heart failure 08/27/2021 Pulmonary hypertension 07/15/2021 Morbid obesity due to excess calories 07/15/2021 COPD, moderate 06/16/2021 Restrictive lung disease 06/16/2021 Overview: Seen on PFTs from 2018 Heart failure, diastolic, due to HTN 05/03/2019 Gastroesophageal reflux disease with esophagitis 08/06/2016 HTN, goal below 130/80 03/13/2011 documented as of this encounter (statuses as of 08/23/2023) Resolved Problems Problem Noted Date Diagnosed Date Resolved Date Sinus tachycardia 08/27/2021 01/12/2022 Supplemental oxygen dependent 07/15/2021 01/12/2022 Severe obesity with body mas s index (BMI) of 35.0 to 39.9 with serious comorbidity 06/16/2021 Prediabetes 09/02/2020 09/04/2021 Overview: Per Prediabetes protocol Body mass index (BMI) of 40. 0 to 44.9 in adult 07/29/2020 06/16/2021 Overview: Per Obesity protocol Acute non-recurrent pansinusitis 08/21/2018 08/21/2018 Tobacco use disorder 08/06/2016 022 Major depressive disorder 02/21/2009 Overview: ICD-10 update of inactive term Hidradenitis 12/14/2005 08/06/2016 CERVICAL DISC DEGEN 11/15/2004 08/06/20 16 MILD CERVICAL SPINAL STENOSIS 11/15/2004 08/06/2016 documented as of this encounter (statuses as of 08/23/2023) Immunizations Name Administration Dates Next Due Pneumococcal Conjugate Vacc, 13 Valent (Prevnar) 08/03/2019 Pneumococcal Polysaccharide PPV23 (Pneumovax) SEASONAL INFLUENZA, PF, 6 M & Above, IM , (FLULAVAL or FLUZONE) 06/03/2020,07/15/2019 TDAP (age 10 and older)(Boostrix) 05/03/2019 TDAP (age 11 and older)(Adacel) 02/21/2009 documented as of this encounter Social History Tobacco Use Types Packs/Day Years Used Date Smoking Tobacco: Some Days Cigarettes 0.8 30 Last attempted to quit: 07/02/2021 Smokeless Tobacco: Never Alcohol Use Standard Drinks/Week Comments Yes 0 (1 standard drink = 0.6 oz pur e alcohol) one a week PHQ-2 Answer Date Recorded PHQ-2 Score 1 07/10/2020 Hunger Vital Sign Answer Date Recorded Within the past 12 months, y ou worried that your food would run out before you got the money to buy more. Sometimes true Within the past 12 months, t he food you bought just didn't last and you didn't have money to get more. Sometimes true Sex and Gender Information Value Date Recorded Sex Assigned at Female 05/03/2019 9:58 AM EDT Gender Identity Female 05/03/2019 9:58 AM EDT Sexual Orientation Straight 05/19/2022 1: 28 PM EDT Job Start Date Occupation Industry Not on file Not on file Not on file documented as of this encounter Miscellaneous Notes * Telephone Encounter - Princess Roberts RPh - 08/23/2023 9:30 AM EST Signed Prescriptions: Disp Refills Sertraline HCl 50 MG Oral Tablet (Zoloft) 90 Tab*1 Sig: TAKE 1 TABLET BY MOUTH EVERY DAYAuthorizing Provider: MEL RAMOS User: PRINCESS ROBERTS TT documented in this encounter Plan of Treatment Upcoming Encounters Date Type Department Care Team (Late st Contact Info) Description 09/03/2023 11:00 AM EST PulmDiagnostic Pulmonary Function Lab, [facility] [address] [address] [place] [address] 09/03/2023 2:00 PM EST Office Visit Cardiology, [facility] [address] [address] Miranda Booth, REMEDIATION TECHNICIAN [address] [phone] 11/16/2023 9:45 AM EST Imaging Radiology [address] [address] Health Maintenance Due Date Last Done Comments Hepatitis B (1 of 3 - 3-dose series) 1970 COVID-19 Vaccine (#1) 05/22/1972 Albumin/Creatinine Ratio 11/19/1989 HPV/Co-Test 11/19/2001 Cologuard 11/19/2016 Colonoscopy 11/19/2016 Colorectal Cancer Screening 11/19/2016 Fecal Occult Blood Test 11/19/2016 Sigmoidoscopy 11/19/2016 Depression Screening 07/10/2021 07/10/2020 Zoster Vaccines (1 of 2) 11/19/2021 DISCUSS TOBACCO CESSATION (REFER TO SMARTSET #3291) 08/06/2022 08/06/2021 Influenza Vaccine (FLU shot) (#1) 2023 06/03/2020, 07/15/2019 Mammogram 11/10/2023 11/10/2022, 10/21, 07/23/2020, Additional history exists O2 ASSESSMENT COMPLETED IN PAST YEAR FOR COPD 04/26/2024 04/26/2023 GFR 08/02/2024 08/02/2023, 09/21, 08/06/2021, Additional history exists Cervical Cancer Screening 01/12/2025 Pap Smear 01/12/2025 01/12/2022, 06/20, 06/18/2015, Additional history exists Diabetes Screening 08/02/2026 08/02/2023, 1 10/02/2022, 10/14/2022, Additional history exists Lipid Panel 08/02/2028 08/02/2023, 09/21, 05/15/2021, Additional history exists DTaP,Tdap,and Td Vaccines (3 - Td or Tdap) 05/03/2029 05/03/2019, 02/21/2009 Pneumococcal Vaccine: Pediatrics (0 to 5 Years) and At-Risk Patients (6 to 64 Years) (3 - PPSV23 or PCV20) 11/19/2036 12/28/2019, 08/03/2019 LUNG CANCER SCREENING - USE SMARTSET [id number] Completed 07/03/2021 Alpha-1 Antitrypsin Completed 08/06/2021 GARDASIL-HPV IMMUNIZATION SERIES Aged Out No longer eligible based on patient's age to complete this topic MENINGOCOCCAL (MENACTRA/MENVEO) Aged Out No longer eligible based on patient's age to complete this topic documented as of this encounter Medical Devices Not on filedocumented as of this encounter Care Teams Pelletising Extruder Operator Relationship Specialty Start Date End Date Mel Ramos MD [address] [facility] [place] [address] PCP - General Family Medicine 04/25/21 documented as of this encounter
--- OUTSIDE RECORDS SUMMARY | 2023-12-06 22:07 | External Medical Summary | Summary of Care ---
Author Name Unknown Organization [facility] Address [address] [place] [address] Phone [phone] Care Team Providers Care Band Manager Name Role Phone Walter Cabrera MD Primary Care Provider [phone] Reason for Visit * Reason Onset Date Comments Medication Refill 08/09/2023 Encounter Details Date Type Department Care Team (Late st Contact Info) Description 08/06/2023 Refill Cardiology, [facility] [address] [facility] [place] [id number] Ana Hilton PA-C [address] [facility] [place] [address] Dyslipidemia, goal to be determined* Allergies Active Allergy Reactions Criticality Noted Date Comments Penicillins Nausea/vomiting 06/29/2016 documented as of this encounter (statuses as of 08/09/2023) Medications Medication Sig Dispensed Refills Start Date End Date Status Multiple Vitamins-Minerals (WOMENS MULTIVITAMIN) TABS Take by mouth. 0 Ac tive Thiamine HCl (VITAMIN B1) 50 MG TABS [...] Oral Tablet Extended Release 24 Hour (toPROL XL)Indications:Heart failure, diastolic, due to HTN (HCC) TAKE 1 TABLET BY MOUTH EVERY MORNING. THIS IS IN ADDITION TO THE 25 MG TABLET IN THE EVENING. 90 Tablet 3 08/10/2022 Active Sertraline HCl 50 MG Oral Tablet (Zoloft) TAKE 1 TABLET BY MOUTH EVERY DAY 90 Tablet 1 02/09/2023 Active Nicotine 14 MG/24HR Transdermal Patch 24 Hour (Nicoderm CQ) Place 1 Patch over 24 hours topically on the skin in the morning. On upper body/outer arm, change once a day for two weeks.. 14 Patch 0 04/21/2023 Active predniSONE 10 MG Oral Tablet (Deltasone)Indicatio ns:Acute left ankle pain Take 5 tabs for 2 days, 4 tabs for 2 days, 3 tabs for 2 days, 2 tabs for 2 days 1 tab for 2 days 30 Tablet 0 04/26/2023 Active Folic Acid 1 MG Oral TabletIndications:He art failure, diastolic, due to HTN (HCC) TAKE 1 TABLET BY MOUTH EVERY DAY IN THE MORNING 90 Tablet 3 05/17/2023 Active Lisinopril 5 MG Oral Tablet (Prinivil)Indication s:Heart failure, diastolic, due to HTN (HCC),HTN, goal [...] Active Rosuvastatin Calcium 10 MG Oral Tablet (Crestor)Indications :Dyslipidemia, goal to be determined Take 1 Tablet by mouth in the morning. 30 Tablet 11 08/06/2023 Active Hospital, Clinic, or Other Facility Administered Medication Ordered Dose Route Frequency Start Date End Date Status medroxyPROGESTERone (contracep) (DEPO-PROVERA) inj 150 mgIndications:Surveilla nce for Depo-Provera contraception 150 mg IM [id number] 07/06/2018 Active albuterol sulfate (PROVENTIL) (2.5 MG/3ML) 0.083% inhalation solution 2.5 mgIndications:COPD, severity to be determined (HCC) 2.5 mg NEBULIZER Q4H PRN 05/03/2019 Active albuterol sulfate (PROVENTIL) (2.5 MG/3ML) 0.083% inhalation solution 2.5 mgIndications:COPD, severity to be determined (HCC) 2.5 mg NEBULIZER Q4H PRN 05/09/2019 Active medroxyPROGESTERone (contracep) (DEPO-PROVERA) inj 150 mgIndications:Surveilla nce for Depo-Provera contraception 150 mg IM [id number] 07/13/2019 Active medroxyPROGESTERone acetate (DEPO-PROVERA) inj TANMAY 150 mgIndications:Surveilla nce for Depo-Provera contraception 150 mg IM [id number] 07/23/2020 Active Albuterol Sulfate (Proventil) (2.5 MG/3ML) 0.083% inhalation solution 2.5 mgIndications:Chronic obstructive pulmonary disease (COPD) (HCC) 2.5 mg NEBULIZER PRN 07/30/2023 07/29/2024 Acti ve Albuterol Sulfate (Proventil) (5 MG/ML) 0.5% *conc* inhalation solution 2.5 mgIndications:Chronic obstructive pulmonary disease (COPD) (HCC) 2.5 mg NEBULIZER PRN 07/30/2023 07/29/2024 Acti ve documented as of this encounter (statuses as of 08/09/2023) Active Problems Problem Noted Date Diagnosed Date Right foot pain 02/03/2023 Food insecurity 06/01/2022 Overview: Per [facility] Protocol Chronic right-sided heart failure 08/27/2021 Pulmonary hypertension 07/15/2021 Morbid obesity due to excess calories 07/15/2021 COPD, moderate 06/16/2021 Restrictive lung disease 06/16/2021 Overview: Seen on PFTs from 2019 Heart failure, diastolic, due to HTN 05/03/2019 Gastroesophageal reflux disease with esophagitis 08/06/2016 HTN, goal below 130/80 03/13/2011 documented as of this encounter (statuses as of 08/09/2023) Resolved Problems Problem Noted Date Diagnosed Date [...] as of this encounter (statuses as of 08/09/2023) Immunizations Name Administration Dates Next Due Pneumococcal [...] encounter Miscellaneous Notes * Telephone Encounter - Ana Alarcon OSA - 08/09/2023 12:13 PM EST Good Afternoon, Mona from [facility] called stating that the patient would like to get the prescription for Crestor 10mg though their office. Mona states that their provider will write the script and that they will just need a recommendation sent for the medication. Mona requested a call back to speak to a nurse instead of being transferred to the office to discuss further. Please contact her at [phone]. Thank you, LARS Bahena * Telephone Encounter - Miranda Larsen CRNP - 08/06/2023 12:40 PM EST Signed Prescriptions: Disp Refills Rosuvastatin Calcium 10 MG Oral Tablet (Cr*30 Tab*11 Sig: Take 1Tablet by mouth in the morning.Authorizing Provider: MIRANDA LARSEN * Telephone Encounter - Bambi Dior CMA - 08/06/2023 12:39 PM EST Pt aware of results and recommendations. Agreeable to starting statin. Please send to [facility]. Lab orders placed. * Telephone Encounter - Bambi Dior CMA - 08/06/2023 12:37 PM EST ----- Message from Ana Hilton PA-C sent at 08/05/2023 5:42 PM EST ----- Cholesterol reviewed. Total cholesterol and LDL has trended down but remains elevated and above goal. Recommend starting crestor 10 mg - 1 tablet daily Repeat lipids and ALT in 3 months. documented in this encounter Plan of Treatment Upcoming Encounters Date Type Department Care Team (Late st Contact Info) Description 08/18/2023 10:00 AM EST PulmDiagnostic Pulmonary Function Lab, [facility] [address] [facility] [place] [address] [place], [address] [facility] [place] [address] 09/03/2023 2:00 PM EST Office Visit Cardiology, [facility] [address] [facility] [place] [address] Miranda Booth CRNP [address] [place] [address] [place] [phone] 11/16/2023 9:45 AM EST Imaging Radiology [facility] [address] [address] Scheduled Orders Name Type Priority Associated Diagnoses Orde r Schedule LIPID PANEL WITH DIRECT LDL IF TG IS HIGH Lab Routine Dyslipidemia, goal to be determined Expected: 11/06/2023 (Approximate), Expires: 08/06/2024 ALT Lab Routine Dyslipidemia, goal to be determined Expected: 11/06/2023 (Approximate), Expires: 08/06/2024 Health Maintenance Due Date Last Done Comments [...] 08/03/2019 LUNG CANCER SCREENING - USE SMARTSET [id number] Completed 07/03/2021 Alpha-1 Antitrypsin Completed 08/06/2021 GARDASIL-HPV IMMUNIZATION SERIES Aged Out No longer eligible based on patient's age to complete this topic MENINGOCOCCAL (MENACTRA/MENVEO) Aged Out No longer eligible based on patient's age to complete this topic documented as of this encounter Medical Devices Not on filedocumented as of this encounter Visit Diagnoses Diagnosis Dyslipidemia, goal to be determined- Primary Other and unspecified hyperlipidemia documented in this encounter Care Teams Band Manager Relationship Specialty Start Date End Date Walter Cabrera MD [address] [place] [address] PCP - General Family Medicine 04/25/21 documented as of this encounter
--- OUTSIDE RECORDS SUMMARY | 2023-12-06 22:07 | External Medical Summary | Summary of Care ---
Author Name Unknown Organization [facility] Address [address] [place] [address] Phone [phone] Care Team Providers Care Android Developer Name Role Phone Walter Cabrera MD Primary Care Provider [phone] Reason for Visit * Reason Comments Pulmonary Function Test PFT with broncho dilator Encounter Details Date Type Department Care Team (Latest Contact Info) Description 09/03/2023 11:00 AM EST PulmDiagnostic Pulmonary Function Lab, [facility] [address] [place] [address] [place], [address] [place] [address] Chronic obstructive pulmonary disease (COPD) ([facility])* Allergies Active Allergy Reactions Criticality Noted Date Comments Penicillins Nausea/vomiting 06/29/2016 documented as of this encounter (statuses as of 09/03/2023) Medications Medication Sig Dispensed Refills Start Date [...] A DAY 36 g 1 09/26/2021 Active Nicotine 14 MG/24HR Transdermal Patch 24 [...] the morning. 30 Tablet 11 08/06/2023 Active Metoprolol Succinate ER 50 MG Oral Tablet Extended Release 24 Hour (toPROL XL)Indications:Heart failure, diastolic, due to HTN (HCC) TAKE 1 TABLET BY MOUTH EVERY MORNING. THIS IS IN ADDITION TO THE 25 MG TABLET IN THE EVENING. 90 Tablet 3 08/23/2023 Active Sertraline HCl 50 MG Oral Tablet (Zoloft) TAKE 1 TABLET BY MOUTH EVERY DAY 90 Tablet 1 08/23/2023 Active Hospital, Clinic, or Other Facility Administered Medication Ordered Dose Route Frequency Start Date End Date Status medroxyPROGESTERone (contracep) (DEPO-PROVERA) inj 150 mgIndications:Surveilla nce for Depo-Provera contraception 150 mg IM [id number] 07/06/2018 Active albuterol sulfate (PROVENTIL) (2.5 MG/3ML) 0.083% inhalation solution 2.5 mgIndications:COPD, severity to be determined (HCC) 2.5 mg NEBULIZER Q4H PRN 05/03/2019 Active albuterol sulfate (PROVENTIL) (2.5 MG/3ML) 0.083% inhalation solution 2.5 mgIndications:COPD, severity to be determined (HCC) 2.5 mg NEBULIZER Q4H PRN 05/09/2019 Active medroxyPROGESTERone (contracep) (DEPO-PROVERA) inj 150 mgIndications:Surveilla nce for Depo-Provera contraception 150 mg IM [id number] 07/13/2019 Active medroxyPROGESTERone acetate (DEPO-PROVERA) inj TANMAY 150 mgIndications:Surveilla nce for Depo-Provera contraception 150 mg IM [id number] 07/23/2020 Active Albuterol Sulfate (Proventil) (2.5 MG/3ML) 0.083% inhalation solution 2.5 mgIndications:Chronic obstructive pulmonary disease (COPD) (HCC) 2.5 mg NEBULIZER PRN 07/30/2023 07/29/2024 Acti ve Albuterol Sulfate (Proventil) (5 MG/ML) 0.5% *conc* inhalation solution 2.5 mgIndications:Chronic obstructive pulmonary disease (COPD) (HCC) 2.5 mg NEBULIZER PRN 07/30/2023 07/29/2024 Acti ve documented as of this encounter (statuses as of 09/03/2023) Active Problems Problem Noted Date Diagnosed Date Right foot pain 02/03/2023 Food insecurity 06/01/2022 Overview: Per [facility] Protocol Chronic right-sided heart failure 08/27/2021 Pulmonary hypertension 07/15/2021 Morbid obesity due to excess calories 07/15/2021 COPD, moderate 06/16/2021 Restrictive lung disease 06/16/2021 Overview: Seen on PFTs from 2019 Heart failure, diastolic, due to HTN 05/03/2019 Gastroesophageal reflux disease with esophagitis 08/06/2016 HTN, goal below 130/80 03/13/2011 documented as of this encounter (statuses as of 09/03/2023) Resolved Problems Problem Noted Date Diagnosed Date [...] as of this encounter (statuses as of 09/03/2023) Immunizations Name Administration Dates Next Due Pneumococcal Conjugate Vacc, 13 Valent (Prevnar) 08/03/2019 Pneumococcal Polysaccharide PPV23 (Pneumovax) Seasonal Influenza, PF, 6 M & above, IM , (FluLaval or Fluzone) 06/03/2020,07/15/2019 TDAP (age 10 and older)(Boostrix) 05/03/2019 TDAP (age 11 and older)(Adacel) 02/21/2009 documented as of this encounter Social History Tobacco Use Types Packs/Day Years Used Date Smoking Tobacco: Every Day Cigarettes 1 30 Smokeless Tobacco: Never Alcohol Use Standard Drinks/Week [...] on file documented as of this encounter Last Filed Vital Signs Vital Sign Reading Time Taken Comments Blood Pressure - - Pulse - - Temperature - - Respiratory Rate - - Oxygen Saturation - - Inhaled Oxygen Concentration - - Weight 108.6 kg (239 lb 6.7 oz) 023 11:10 AM EST Height 157.5 cm (5' 2.01") 09/03/2023 1 1:10 AM EST Body Mass Index 43.78 09/03/2023 11:10 AM EST documented in this encounter Nursing Notes * Nya Santos, CARPENTRY SUPERVISOR - 09/03/2023 11:14 AM EST Dee Dee Squires was identified by name, Date of : (1970), and . Vitals were obtained for testing. Body mass index is 43.78 kg/m. Pt has a 1 ppd for 30 years smoking history and still currently smokes. 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 Spirometry, DLCO, RAW, and TGV performed. A slow volume nebulizer treatment of 0.5ml of albuterol in 3 ml of NSS was given. The proper method of use, as wellas anticipated side effects, of this svn are discussed and demonstrated to the patient. Patient demonstrates adequate delivery. Administrations This Visit Albuterol Sulfate (Proventil) (2.5 MG/3ML) 0.083% inhalation solution 2.5 mg Admin Date 09/03/2023 Action Given Dose 2.5 mg Route Nebulizer Documented By Nya Santos RRT documented in this encounter Plan of Treatment Upcoming Encounters Date Type Department Care Team (Late st Contact Info) Description 09/03/2023 2:00 PM EST Office Visit Cardiology, [facility] 132 [facility] [place] [address] Miranda Booth CRNP [address] [place] [address] [place] [phone] 11/16/2023 9:45 AM EST Imaging Radiology [address] [facility] [place] [address] Pending Results Name Type Priority Associated Diagnoses Date /Time SPIROMETRY B/A BRONCHODILATOR Procedures Routine Chronic obstructive pulmonary disease (COPD) ([facility]) 09/03/2023 11:01 AM EST LUNG VOLUMES (PLETHYSMOGRAPHY) Procedures Routine Chronic obstructive pulmonary disease (COPD) ([facility]) 09/03/2023 11:01 AM EST DIFFUSION CAPACITY (DLCO) Procedures Routine Chronic obstructive pulmonary disease (COPD) ([facility]) 09/03/2023 11:01 AM EST Health Maintenance Due Date Last Done Comments [...] 08/03/2019 LUNG CANCER SCREENING - USE SMARTSET [id number] Completed 07/03/2021 Alpha-1 Antitrypsin Completed 08/06/2021 GARDASIL-HPV IMMUNIZATION SERIES Aged Out No longer eligible based on patient's age to complete this topic MENINGOCOCCAL (MENACTRA/MENVEO) Aged Out No longer eligible based on patient's age to complete this topic documented as of this encounter Medical Devices Not on filedocumented as of this encounter Procedures Procedure Name Priority Date/Time Associated Diagnosis Comments DIFFUSION CAPACITY (DLCO) Routine 2022 11:01 AM EST Chronic obstructive pulmonary disease (COPD) (HCC) LUNG VOLUMES (PLETHYSMOGRAPHY) Routine 09/03/2023 11:01 AM EST Chronic obstructive pulmonary disease (COPD) (HCC) SPIROMETRY B/A BRONCHODILATOR Routine 09/03/2023 11:01 AM EST Chronic obstructive pulmonary disease (COPD) (HCC) documented in this encounter Visit Diagnoses Diagnosis Chronic obstructive pulmonary disease (COPD) (HCC)- Primary Chronic airway obstruction, not elsewhere classified documented in this encounter Administered Medications Active Administered Medications - up to 3 most recent administrations Medication Order MAR Action Action Date Dose Rate Site Albuterol Sulfate (Proventil) (2.5 MG/3ML) 0.083% inhalation solution 2.5 mg 2.5 mg, Nebulizer, PRN Other, Starting on Wed07/30/23 at 0751, Until 07/29/24 at 0750, For 365 days, Only one type of albuterol product should be administered (Nebulizer or Inhaler). Please select and document on the appropriate albuterol product order. Given 09/03/2023 11:13 AM EST 2.5 mg documented in this encounter Care Teams Android Developer Relationship Specialty Start Date End Date Walter Cabrera MD [address] [place] [address] PCP - General Family Medicine 04/25/21 documented as of this encounter
--- OUTSIDE RECORDS SUMMARY | 2023-12-06 22:07 | External Medical Summary | Summary of Care ---
Author Name Unknown Organization [facility] Address [address] [place] [address] Phone [phone] Care Team Providers Care Yard Brakeman Name Role Phone Walter Cabrera MD Primary Care Provider [phone] Encounter Details Date Type Department Care Team (Late st Contact Info) Description 09/06/2023 Orders Only Outcomes Research Department [address] [place] [address] Donna Mayers CHRA [employer] Research Other*[id number] Allergies Active Allergy Reactions Criticality Noted Date Comments Penicillins Nausea/vomiting 06/29/2016 documented as of this encounter (statuses as of 09/06/2023) Medications Medication Sig Dispensed Refills Start Date [...] nce for Depo-Provera contraception 150 mg IM [id number] 07/06/2018 Active albuterol sulfate (PROVENTIL) (2.5 MG/3ML) 0.083% inhalation solution 2.5 mgIndications:COPD, severity to be determined (HCC) 2.5 mg NEBULIZER Q4H PRN 05/03/2019 Active albuterol sulfate (PROVENTIL) (2.5 MG/3ML) 0.083% inhalation solution 2.5 mgIndications:COPD, severity to be determined (HCC) 2.5 mg NEBULIZER Q4H PRN 05/09/2019 Active medroxyPROGESTERone (contracep) (DEPO-PROVERA) inj 150 mgIndications:Surveilla nce for Depo-Provera contraception 150 mg IM [id number] 07/13/2019 Active medroxyPROGESTERone acetate (DEPO-PROVERA) inj TANMAY 150 mgIndications:Surveilla nce for Depo-Provera contraception 150 mg IM [id number] 07/23/2020 Active Albuterol Sulfate (Proventil) (2.5 MG/3ML) 0.083% inhalation solution 2.5 mgIndications:Chronic obstructive pulmonary disease (COPD) (HCC) 2.5 mg NEBULIZER PRN 07/30/2023 07/29/2024 Acti ve Albuterol Sulfate (Proventil) (5 MG/ML) 0.5% *conc* inhalation solution 2.5 mgIndications:Chronic obstructive pulmonary disease (COPD) (HCC) 2.5 mg NEBULIZER PRN 07/30/2023 07/29/2024 Acti ve documented as of this encounter (statuses as of 09/06/2023) Active Problems Problem Noted Date Diagnosed Date Chronic right-sided heart failure 08/27/2021 Pulmonary hypertension 07/15/2021 Morbid obesity 07/15/2021 COPD, moderate 06/16/2021 Restrictive lung disease 06/16/2021 Overview: Seen on PFTs from 2018 Heart failure, diastolic, due to HTN 05/03/2019 Gastroesophageal reflux disease with esophagitis 08/06/2016 HTN, goal below 130/80 03/13/2011 documented as of this encounter (statuses as of 09/06/2023) Resolved Problems Problem Noted Date Diagnosed Date Resolved Date Gastroesophageal reflux dise ase without esophagitis 09/03/2023 09/03/2023 Right foot pain 02/03/2023 09/03/2023 Food insecurity 06/01/2022 09/03/2023 Overview: Per [facility] Protocol Sinus tachycardia 08/27/2021 01/12/2022 Supplemental oxygen dependent [...] as of this encounter (statuses as of 09/06/2023) Immunizations Name Administration Dates Next Due Pneumococcal [...] on file documented as of this encounter Plan of Treatment Upcoming Encounters Date Type Department Care Team (Late st Contact Info) Description 11/16/2023 9:45 AM EST Imaging Radiology [facility] [address] [facility] [place] [address] 02/18/2024 3:00 PM EDT Office Visit Cardiology, [address] [place] [address] Miranda Booth CRNP [address] [facility] [place] [phone] Scheduled Orders Name Type Priority Associated Diagnoses Orde r Schedule MYCODE SUBSEQUENT ADULT Lab Routine [employer] Research Other*[id number] Every 6 Months for 2 Occurrences starting 09/06/2023 until 09/25/2024 Health Maintenance Due Date Last Done Comments [...] 08/03/2019 LUNG CANCER SCREENING - USE SMARTSET [id number] Completed 07/03/2021 Alpha-1 Antitrypsin Completed 08/06/2021 GARDASIL-HPV IMMUNIZATION SERIES Aged Out No longer eligible based on patient's age to complete this topic MENINGOCOCCAL (MENACTRA/MENVEO) Aged Out No longer eligible based on patient's age to complete this topic documented as of this encounter Medical Devices Not on filedocumented as of this encounter Visit Diagnoses Diagnosis [employer] Research Other*[id number] documented in this encounter Care Teams Yard Brakeman Relationship Specialty Start Date End Date Walter Cabrera MD [address] [place] [address] PCP - General Family Medicine 04/25/21 documented as of this encounter
--- OUTSIDE RECORDS SUMMARY | 2023-12-06 22:07 | External Medical Summary | Summary of Care ---
Author Name Unknown Organization [facility] Address [address] [place] [address] Phone [phone] Care Team Providers Care Vp Strategy Name Role Phone Walter Cabrera MD Primary Care Provider [phone] Reason for Visit * Reason Comments Outpatient Testing Encounter Details Date Type Department Care Team (Late st Contact Info) Description 09/10/2023 10:00 AM EST Laboratory Laboratory, [facility] [address] [place] [address] [facility] [address] [place] [address] Heart failure, diastolic, due to HTN ([facility]); Dyslipidemia, goal to be determined; Sinus tachycardia; Chronic obstructive pulmonary disease, unspecified COPD type (HCC); Tobacco use Allergies Active Allergy Reactions Criticality Noted Date Comments Penicillins Nausea/vomiting 06/29/2016 documented as of this encounter (statuses as of 09/10/2023) Medications Medication Sig Dispensed Refills Start Date [...] nce for Depo-Provera contraception 150 mg IM [id number] 07/06/2018 Active albuterol sulfate (PROVENTIL) (2.5 MG/3ML) 0.083% inhalation solution 2.5 mgIndications:COPD, severity to be determined (HCC) 2.5 mg NEBULIZER Q4H PRN 05/03/2019 Active albuterol sulfate (PROVENTIL) (2.5 MG/3ML) 0.083% inhalation solution 2.5 mgIndications:COPD, severity to be determined (HCC) 2.5 mg NEBULIZER Q4H PRN 05/09/2019 Active medroxyPROGESTERone (contracep) (DEPO-PROVERA) inj 150 mgIndications:Surveilla nce for Depo-Provera contraception 150 mg IM [id number] 07/13/2019 Active medroxyPROGESTERone acetate (DEPO-PROVERA) inj TANMAY 150 mgIndications:Surveilla nce for Depo-Provera contraception 150 mg IM [id number] 07/23/2020 Active Albuterol Sulfate (Proventil) (2.5 MG/3ML) 0.083% inhalation solution 2.5 mgIndications:Chronic obstructive pulmonary disease (COPD) (HCC) 2.5 mg NEBULIZER PRN 07/30/2023 07/29/2024 Acti ve Albuterol Sulfate (Proventil) (5 MG/ML) 0.5% *conc* inhalation solution 2.5 mgIndications:Chronic obstructive pulmonary disease (COPD) (HCC) 2.5 mg NEBULIZER PRN 07/30/2023 07/29/2024 Acti ve documented as of this encounter (statuses as of 09/10/2023) Active Problems Problem Noted Date Diagnosed Date Chronic right-sided heart failure 08/27/2021 Pulmonary hypertension 07/15/2021 Morbid obesity 07/15/2021 COPD, moderate 06/16/2021 Restrictive lung disease 06/16/2021 Overview: Seen on PFTs from 2019 Heart failure, diastolic, due to HTN 05/03/2019 Gastroesophageal reflux disease with esophagitis 08/06/2016 HTN, goal below 130/80 03/13/2011 documented as of this encounter (statuses as of 09/10/2023) Resolved Problems Problem Noted Date Diagnosed Date [...] as of this encounter (statuses as of 09/10/2023) Immunizations Name Administration Dates Next Due Pneumococcal [...] Care Team (Late st Contact Info) Description 10/08/2023 10:30 AM EST Imaging Radiology [address] [place] [address] 11/16/2023 9:45 AM EST Imaging Radiology [address] [place] [address] 02/18/2024 3:00 PM EDT Office Visit Cardiology, [address] [place] [address] Miranda Booth CRNP [address] [place] [address] [place] [phone] Pending Results Name Type Priority Associated Diagnoses Date /Time BASIC METABOLIC PANEL Lab Routine Heart failure, diastolic, due to HTN (HCC) Dyslipidemia, goal to be determined Sinus tachycardia Chronic obstructive pulmonary disease, unspecified COPD type (HCC) Tobacco use 09/10/2023 10:05 AM EST Health Maintenance Due Date Last Done Comments Hepatitis B (1 of 3 - 3-dose series) 1970 COVID-19 Vaccine (#1) 05/22/1972 Albumin/Creatinine Ratio 11/19/1989 HPV/Co-Test 11/19/2001 Cologuard 11/19/2016 Colonoscopy 11/19/2016 Colorectal Cancer Screening 11/19/2016 Fecal Occult Blood Test 11/19/2016 Sigmoidoscopy 11/19/2016 Depression Screening 07/10/2021 07/10/2020 Zoster Vaccines (1 of 2) 11/19/2021 DISCUSS TOBACCO CESSATION (REFER TO SMARTSET #2318) 08/06/2022 08/06/2021 Influenza Vaccine (FLU shot) (#1) [...] 08/03/2019 LUNG CANCER SCREENING - USE SMARTSET 56418 Completed 07/03/2021 Alpha-1 Antitrypsin Completed 08/06/2021 GARDASIL-HPV IMMUNIZATION SERIES Aged Out No longer eligible based on patient's age to complete this topic MENINGOCOCCAL (MENACTRA/MENVEO) Aged Out No longer eligible based on patient's age to complete this topic documented as of this encounter Medical Devices Not on filedocumented as of this encounter Visit Diagnoses Diagnosis Heart failure, diastolic, due to HTN (HCC) Unspecified hypertensive heart disease with heart failure Dyslipidemia, goal to be determined Other and unspecified hyperlipidemia Sinus tachycardia Other specified cardiac dysrhythmias Chronic obstructive pulmonary disease, unspecified COPD type (HCC) Tobacco use Tobacco use disorder documented in this encounter Care Teams Vp Strategy Relationship Specialty Start Date End Date Walter Cabrera MD [address] [facility] [place] [address] PCP - General Family Medicine 04/25/21 documented as of this encounter
--- OUTSIDE RECORDS SUMMARY | 2023-12-06 22:07 | External Medical Summary ---
Author Name Unknown Address Unknown Organization [id number]:LABORATORY [facility] - [address] [facility] [place] [address] Laboratory Report Ordering Provider Test Date Status BYRON PRIEST 11/23/2023 08:46:00 Final Observation Date Value Abnormality Reference (Units ) Status Triglyceride 11/23/2023 08:46:00 121 <=174 ( mg/dL) Final Triglyceride Reference Range s (mg/dL):
<150 Acceptable
150-174 Borderline high
175-499 High
>=500 Very high Cholesterol 11/23/2023 08:46:00 167 <200 (mg /dL) Final Total Cholesterol Reference Ranges (mg/dL):
<200 Desirable
200-239 Borderline high
>=240 High HDL 11/23/2023 08:46:00 55 >49 (mg/dL ) Final HDL Cholesterol Reference Ra nges (mg/dL):
>=60 High (Desirable)
<50 Low (Undesirable) For Females
<40 Low (Undesirable) For Males NON-HDL CHOLESTEROL 11/23/2023 08:46:00 112 <=159 (mg/dL) Final Non-HDL Cholesterol Referenc e Range (mg/dL):
<100 Target level for high risk ASCVD patient
<130 Optimal for general population
130-159 Near optimal for general population
160-189 Borderline High
190-219 High
>=220 Very High LDL, (calculated) 11/23/2023 08:46:00 88 <= 129 (mg/dL) Final LDL Cholesterol Reference Ra nges (mg/dL):
<70 Target level for high risk ASCVD patient
<100 Optimal for general population
100-129 Near optimal for general population
130-159 Borderline high
160-189 High
>=190 Very high Performing Location LABORATORY [facility] - [address] [place] [address]
--- OUTSIDE RECORDS SUMMARY | 2023-12-06 22:07 | External Medical Summary | Summary of Care ---
Author Name Unknown Organization [facility] Address [address] [place] [address] Phone [phone] Care Team Providers Care Garment Alteration Examiner Name Role Phone Walter Cabrera MD Primary Care Provider [phone] Encounter Details Date Type Department Care Team (Late st Contact Info) Description 08/06/2023 Refill Cardiology, [facility] [address] [facility] [place] [id number] Ana Hilton PA-C [address] [place] [address] Dyslipidemia, goal to be determined* Allergies Active Allergy Reactions Criticality Noted Date Comments Penicillins Nausea/vomiting 06/29/2016 documented as of this encounter (statuses as of 08/06/2023) Medications Medication Sig Dispensed Refills Start Date [...] nce for Depo-Provera contraception 150 mg IM [id number] 07/06/2018 Active albuterol sulfate (PROVENTIL) (2.5 MG/3ML) 0.083% inhalation solution 2.5 mgIndications:COPD, severity to be determined (HCC) 2.5 mg NEBULIZER Q4H PRN 05/03/2019 Active albuterol sulfate (PROVENTIL) (2.5 MG/3ML) 0.083% inhalation solution 2.5 mgIndications:COPD, severity to be determined (HCC) 2.5 mg NEBULIZER Q4H PRN 05/09/2019 Active medroxyPROGESTERone (contracep) (DEPO-PROVERA) inj 150 mgIndications:Surveilla nce for Depo-Provera contraception 150 mg IM [id number] 07/13/2019 Active medroxyPROGESTERone acetate (DEPO-PROVERA) inj TANMAY 150 mgIndications:Surveilla nce for Depo-Provera contraception 150 mg IM [id number] 07/23/2020 Active Albuterol Sulfate (Proventil) (2.5 MG/3ML) 0.083% inhalation solution 2.5 mgIndications:Chronic obstructive pulmonary disease (COPD) (HCC) 2.5 mg NEBULIZER PRN 07/30/2023 07/29/2024 Acti ve Albuterol Sulfate (Proventil) (5 MG/ML) 0.5% *conc* inhalation solution 2.5 mgIndications:Chronic obstructive pulmonary disease (COPD) (HCC) 2.5 mg NEBULIZER PRN 07/30/2023 07/29/2024 Acti ve documented as of this encounter (statuses as of 08/06/2023) Active Problems Problem Noted Date Diagnosed Date Right foot pain 02/03/2023 Food insecurity 06/01/2022 Overview: Per Audience Pharmacy Protocol Chronic right-sided heart failure 08/27/2021 Pulmonary hypertension 07/15/2021 Morbid obesity due to excess calories 07/15/2021 COPD, moderate 06/16/2021 Restrictive lung disease 06/16/2021 Overview: Seen on PFTs from 2019 Heart failure, diastolic, due to HTN 05/03/2019 Gastroesophageal reflux disease with esophagitis 08/06/2016 HTN, goal below 130/80 03/13/2011 documented as of this encounter (statuses as of 08/06/2023) Resolved Problems Problem Noted Date Diagnosed Date [...] as of this encounter (statuses as of 08/06/2023) Immunizations Name Administration Dates Next Due Pneumococcal [...] encounter Miscellaneous Notes * Telephone Encounter - Miranda Larsen CRNP - 08/06/2023 12:40 PM EST Signed Prescriptions: Disp Refills Rosuvastatin Calcium 10 MG Oral Tablet (Cr*30 Tab*11 Sig: Take 1Tablet by mouth in the morning.Authorizing Provider: MIRANDA LARSEN * Telephone Encounter - Bambi Dior CMA - 08/06/2023 12:39 PM EST Pt aware of results and recommendations. Agreeable to starting statin. Please send to [facility]. Lab orders placed. * Telephone Encounter [...] 10:00 AM EST PulmDiagnostic Pulmonary Function Lab, [facility] [address] [facility] [place] [address] [place], [address] [facility] [place] [address] 09/03/2023 2:00 PM EST Office Visit Cardiology, [facility] [address] [facility] [place] [address] Miranda Booth CRNP [address] [facility] [place] [phone] 11/16/2023 9:45 AM EST Imaging Radiology [facility] [address] [facility] [place] [address] Scheduled Orders Name Type Priority Associated Diagnoses [...] 08/03/2019 LUNG CANCER SCREENING - USE SMARTSET 40742 Completed 07/03/2021 Alpha-1 Antitrypsin Completed 08/06/2021 GARDASIL-HPV [...] hyperlipidemia documented in this encounter Care Teams Garment Alteration Examiner Relationship Specialty Start Date End Date Walter Cabrera MD [address] [place] [address] PCP - General Family Medicine 04/25/21 documented as of this encounter
--- OUTSIDE RECORDS SUMMARY | 2023-12-06 22:07 | External Medical Summary ---
Author Name Unknown Address Unknown Organization [id number][facility] [address] [place] [address] Laboratory Report Ordering Provider Test Date Status BENNY JENNINGS 09/10/2023 10:05:06 Final Observation Date Value Abnormality Reference (Units ) Status BUN 09/10/2023 10:05:06 30 Above high normal 6-20 (mg/dL) Final Creatinine 09/10/2023 10:05:06 1.1 Above high normal 0.5-1.0 (mg/dL) Final Glomerular filtration rate/1.73 sq M.predicted [Volume Rate/Area] in Serum, Plasma or Blood by Creatinine-based formula (CKD-EPI) 09/10/2023 10:05:06 60 >=60 (mL/min) Final eGFR is calculated based on the CKD-EPI 2020 equation SODIUM 09/10/2023 10:05:06 139 135-146 (m mol/L) Final Potassium 09/10/2023 10:05:06 4.5 3.5-5.1 (m mol/L) Final Cl 09/10/2023 10:05:06 96 Below low normal 98- 107 (mmol/L) Final CO2 09/10/2023 10:05:06 34 Above high normal 22 -32 (mmol/L) Final Anion gap 09/10/2023 10:05:06 9 7-15 (mmol /L) Final Glucose 09/10/2023 10:05:06 113 70-120 (mg /dL) Final Calcium 09/10/2023 10:05:06 9.7 8.4-10.2 ( mg/dL) Final Performing Location [facility] - [address] [place] [address]
--- OUTSIDE RECORDS SUMMARY | 2023-12-06 22:07 | External Medical Summary ---
Author Name Unknown Address Unknown Organization [id number]:[facility] - [address] [place] [address] Laboratory Report Ordering Provider Test Date Status BYRON PRIEST 11/23/2023 08:46:00 Final Observation Date Value Abnormality Reference (Units ) Status BUN 11/23/2023 08:46:00 23 Above high normal 6-20 (mg/dL) Final Creatinine 11/23/2023 08:46:00 1.1 Above high normal 0.5-1.0 (mg/dL) Final Glomerular filtration rate/1.73 sq M.predicted [Volume Rate/Area] in Serum, Plasma or Blood by Creatinine-based formula (CKD-EPI) 11/23/2023 08:46:00 60 >=60 (mL/min) Final eGFR is calculated based on the CKD-EPI 2020 equation SODIUM 11/23/2023 08:46:00 141 135-146 (m mol/L) Final Potassium 11/23/2023 08:46:00 4.3 3.5-5.1 (m mol/L) Final Cl 11/23/2023 08:46:00 96 Below low normal 98- 107 (mmol/L) Final CO2 11/23/2023 08:46:00 34 Above high normal 22 -32 (mmol/L) Final Anion gap 11/23/2023 08:46:00 11 7-15 (mmol /L) Final Glucose 11/23/2023 08:46:00 133 Above high normal 70 -120 (mg/dL) Final Calcium 11/23/2023 08:46:00 9.5 8.4-10.2 ( mg/dL) Final Albumin 11/23/2023 08:46:00 4.1 3.8-5.0 (g /dL) Final Phosphate 11/23/2023 08:46:00 3.8 2.5-4.8 (m g/dL) Final Performing Location [facility] - [address] [place] [address]
--- OUTSIDE RECORDS SUMMARY | 2023-12-06 22:07 | External Medical Summary ---
Author Name Unknown Address Unknown Organization [id number]:[facility]ORY [facility] - [address] [place] [address] Laboratory Report Ordering Provider Test Date Status BYRON PRIEST 08/24/2023 09:30:00 Final Observation Date Value Abnormality Reference (Units ) Status Uric Acid 08/24/2023 09:30:00 11.1 Above high normal 2. 4-5.7 (mg/dL) Final Performing Location [facility] - [address] [place] [address]
--- OUTSIDE RECORDS SUMMARY | 2023-12-06 22:07 | External Medical Summary | Summary of Care ---
Author Name Unknown Organization [facility] Address [address] [place] [address] Phone [phone] Care Team Providers Care Manager Configuration Name Role Phone Walter Cabrera MD Primary Care Provider [phone] Reason for Visit * Reason Onset Date Comments Test Results 11/17/2023 Encounter Details Date Type Department Care Team (Late st Contact Info) Description 11/17/2023 Telephone Thoracic Surg [facility] [address] [place] [address] Osiris Salmon, REGINA Test Results Allergies Active Allergy Reactions Criticality Noted Date Comments Penicillins Nausea/vomiting 06/29/2016 documented as of this encounter (statuses as of 11/17/2023) Medications Medication Sig Dispensed Refills Start Date [...] nce for Depo-Provera contraception 150 mg IM [id number] 07/06/2018 Active albuterol sulfate (PROVENTIL) (2.5 MG/3ML) 0.083% inhalation solution 2.5 mgIndications:COPD, severity to be determined (HCC) 2.5 mg NEBULIZER Q4H PRN 05/03/2019 Active albuterol sulfate (PROVENTIL) (2.5 MG/3ML) 0.083% inhalation solution 2.5 mgIndications:COPD, severity to be determined (HCC) 2.5 mg NEBULIZER Q4H PRN 05/09/2019 Active medroxyPROGESTERone (contracep) (DEPO-PROVERA) inj 150 mgIndications:Surveilla nce for Depo-Provera contraception 150 mg IM [id number] 07/13/2019 Active medroxyPROGESTERone acetate (DEPO-PROVERA) inj TANMAY 150 mgIndications:Surveilla nce for Depo-Provera contraception 150 mg IM [id number] 07/23/2020 Active Albuterol Sulfate (Proventil) (2.5 MG/3ML) 0.083% inhalation solution 2.5 mgIndications:Chronic obstructive pulmonary disease (COPD) (HCC) 2.5 mg NEBULIZER PRN 07/30/2023 07/29/2024 Acti ve Albuterol Sulfate (Proventil) (5 MG/ML) 0.5% *conc* inhalation solution 2.5 mgIndications:Chronic obstructive pulmonary disease (COPD) (HCC) 2.5 mg NEBULIZER PRN 07/30/2023 07/29/2024 Acti ve documented as of this encounter (statuses as of 11/17/2023) Active Problems Problem Noted Date Diagnosed Date Chronic right-sided heart failure 08/27/2021 Pulmonary hypertension 07/15/2021 Morbid obesity 07/15/2021 COPD, moderate 06/16/2021 Restrictive lung disease 06/16/2021 Overview: Seen on PFTs from 2018 Heart failure, diastolic, due to HTN 05/03/2019 Gastroesophageal reflux disease with esophagitis 08/06/2016 HTN, goal below 130/80 03/13/2011 documented as of this encounter (statuses as of 11/17/2023) Resolved Problems Problem Noted Date Diagnosed Date [...] as of this encounter (statuses as of 11/17/2023) Immunizations Name Administration Dates Next Due Pneumococcal [...] encounter Miscellaneous Notes * Telephone Encounter - Osiris Salmon RN - 11/17/2023 8:51 AM EST Lung Cancer Screening Program ([facility]) Results Call Summary 11/17/2023 Shamar Monaco MD - Your patient had an abnormal incidental finding on Low Dose CT Scan (LDCT). Please review the LDCT scan Results recently sent to your office and follow through with evaluation of the incidental finding as clinically indicated. Osiris Salmon RN Lung Cancer Screening Unitizer [id number] ([id number]) Patient: Dee Dee Squires : 1970 CT CHEST LOW DOSE SCAN LUNG CANCER SCREEN INITIAL 11/16/2023 Narrative EXAM: CT CHEST LOW DOSE SCAN LUNG CANCER SCREEN INITIAL - 11/16/2023 9:53 am HISTORY: Lung Cancer Screening TECHNIQUE: Noncontrast low-dose CT (LDCT) chest per standard departmental protocol COMPARISON: None FINDINGS: Lung Screening Specific (LungRADS): Few 2-3 mm pulmonary nodules. Calcified granuloma in the left lower lobe. Potentially Significant Incidentals (LungRADS Category S): Main pulmonary artery is enlarged measuring 4.1 cm, which may be seen the setting of pulmonary hypertension. Mildly enlarged right axillary lymph nod measuring 1.6 cm in short axis (series 4, image 22). Pulmonary incidentals: Emphysematous changes. Scarring/atelectasis in the left lower lobe, lingula, and right middle lobe. Other Incidentals: Trace pericardial effusion. Impression IMPRESSION: 1. LungRADS Category 2: Negative, benign appearance or behavior. 2. LungRADS Category S: Positive. Main pulmonary artery is enlarged measuring 4.1 cm, which may be seen the setting of pulmonary hypertension. Mildly enlarged right axillary lymph no measuring 1.6 cm in short axis. Consider follow-up ultrasound in 3 months to evaluate for resolution. 3. Incidental findings as above. RECOMMENDATIONS: 1. Next exam to be arranged by the Lung Cancer Screening Program. 2. Management of the significant incidental finding is deferred to the primary care provider. documented in this encounter Plan of Treatment Upcoming Encounters Date Type Department Care Team (Late st Contact Info) Description 02/18/2024 3:00 PM EDT Office Visit Cardiology, [facility] [address] [place] [address] Miranda Booth CRNP [address] [place] [phone] Health Maintenance Due Date Last Done Comments Albumin/Creatinine Ratio 11/19/1989 Hepatitis B (1 of 3 - 19+ 3-dose series) 11/19/1990 HPV/Co-Test 11/19/2001 Cologuard 11/19/2016 Colonoscopy 11/19/2016 Colorectal Cancer Screening 11/19/2016 Fecal Occult Blood Test 11/19/2016 Sigmoidoscopy 11/19/2016 Depression Screening 07/10/2021 07/10/2020 Zoster Vaccines (1 of 2) 11/19/2021 DISCUSS TOBACCO CESSATION (REFER TO SMARTSET #3291) 08/06/2022 08/06/2021 COVID-19 Vaccine ( season) 2023 Influenza Vaccine (FLU shot) (#1) 2023 06/03/2020, 07/15/2019 Mammogram 11/10/2023 11/10/2022, 10/21, 07/23/2020, Additional history exists O2 ASSESSMENT COMPLETED IN PAST YEAR FOR COPD 04/26/2024 04/26/2023 GFR 09/10/2024 09/10/2023, 07/21, 10/14/2022, Additional history exists Cervical Cancer Screening 01/12/2025 Pap Smear 01/12/2025 01/12/2022, 06/20, 06/18/2015, Additional history exists Diabetes Screening 09/10/2026 09/10/2023, 1 10/02/2022, 08/02/2023, Additional history exists Lipid Panel 08/02/2028 08/02/2023, 09/21, 05/15/2021, Additional history exists DTaP,Tdap,and Td Vaccines (3 - Td or Tdap) 05/03/2029 05/03/2019, 02/21/2009 Pneumococcal Vaccine: Pediatrics (0 to 5 Years) and At-Risk Patients (6 to 64 Years) (3 of 3 - PPSV23 or PCV20) 11/19/2036 12/28/2019, 08/03/2019 Alpha-1 Antitrypsin Completed 08/06/2021 LUNG CANCER SCREENING - USE SMARTSET [id number] Completed 11/16/2023, 07/03/2021 GARDASIL-HPV IMMUNIZATION SERIES Aged Out No longer eligible based on patient's age to complete this topic MENINGOCOCCAL (MENACTRA/MENVEO) Aged Out No longer eligible based on patient's age to complete this topic documented as of this encounter Medical Devices Not on filedocumented as of this encounter Care Teams Manager Configuration Relationship Specialty Start Date End Date Walter Cabrera MD [address] [facility] [place] [address] PCP - General Family Medicine 04/25/21 documented as of this encounter
--- OUTSIDE RECORDS SUMMARY | 2023-12-06 22:07 | External Medical Summary | Summary of Care ---
Author Name Unknown Organization [facility] Address [address] [place] [address] Phone [phone] Care Team Providers Care Fund Development Manager Name Role Phone Walter Cabrera MD Primary Care Provider [phone] Reason for Referral * (Within 10 days (routine)) - Pending Review Specialty Diagnoses / Procedures Referred By Contac t Referred To Contact Radiology Diagnoses Tobacco abuse Procedures LUNG CANCER SCREENING PROGRAM REFERRAL Shamar Monaco MD [address] [facility] [address] [place] [address] Referral ID Status Reason Start Date Expiration Date V isits Requested Visits Authorized [id number] Pending Review 10/08/[phone] Encounter Details Date Type Department Care Team (Late st Contact Info) Description 09/07/2023 Orders Only Access [place], [address] *DO NOT REMOVE THIS DEPARTMENT* [place] [id number] Requisition, External Radiology [address] [place] [address] Tobacco abuse* Allergies Active Allergy Reactions Criticality Noted Date Comments Penicillins Nausea/vomiting 06/29/2016 documented as of this encounter (statuses as of 09/07/2023) Medications Medication Sig Dispensed Refills Start Date [...] nce for Depo-Provera contraception 150 mg IM [id number] 07/06/2018 Active albuterol sulfate (PROVENTIL) (2.5 MG/3ML) 0.083% inhalation solution 2.5 mgIndications:COPD, severity to be determined (HCC) 2.5 mg NEBULIZER Q4H PRN 05/03/2019 Active albuterol sulfate (PROVENTIL) (2.5 MG/3ML) 0.083% inhalation solution 2.5 mgIndications:COPD, severity to be determined (HCC) 2.5 mg NEBULIZER Q4H PRN 05/09/2019 Active medroxyPROGESTERone (contracep) (DEPO-PROVERA) inj 150 mgIndications:Surveilla nce for Depo-Provera contraception 150 mg IM [id number] 07/13/2019 Active medroxyPROGESTERone acetate (DEPO-PROVERA) inj TANMAY 150 mgIndications:Surveilla nce for Depo-Provera contraception 150 mg IM [id number] 07/23/2020 Active Albuterol Sulfate (Proventil) (2.5 MG/3ML) 0.083% inhalation solution 2.5 mgIndications:Chronic obstructive pulmonary disease (COPD) (HCC) 2.5 mg NEBULIZER PRN 07/30/2023 07/29/2024 Acti ve Albuterol Sulfate (Proventil) (5 MG/ML) 0.5% *conc* inhalation solution 2.5 mgIndications:Chronic obstructive pulmonary disease (COPD) (HCC) 2.5 mg NEBULIZER PRN 07/30/2023 07/29/2024 Acti ve documented as of this encounter (statuses as of 09/07/2023) Active Problems Problem Noted Date Diagnosed Date Chronic right-sided heart failure 08/27/2021 Pulmonary hypertension 07/15/2021 Morbid obesity 07/15/2021 COPD, moderate 06/16/2021 Restrictive lung disease 06/16/2021 Overview: Seen on PFTs from 2018 Heart failure, diastolic, due to HTN 05/03/2019 Gastroesophageal reflux disease with esophagitis 08/06/2016 HTN, goal below 130/80 03/13/2011 documented as of this encounter (statuses as of 09/07/2023) Resolved Problems Problem Noted Date Diagnosed Date [...] as of this encounter (statuses as of 09/07/2023) Immunizations Name Administration Dates Next Due Pneumococcal [...] Description 11/16/2023 9:45 AM EST Imaging Radiology [facility]st [facility] [address] [facility] [place] [address] 02/18/2024 3:00 PM EDT Office Visit Cardiology, [address] [place] [address] Miranda Booth CRNP [address] [place] [id number] Scheduled Orders Name Type Priority Associated Diagnoses Orde r Schedule LUNG CANCER SCREENING PROGRAM REFERRAL Medical Imaging Routine Tobacco abuse Expected: 10/08/2023, Expires: 09/07/2025 Health Maintenance Due Date Last Done Comments Hepatitis B (1 of 3 - 3-dose series) 1970 COVID-19 Vaccine (#1) 05/22/1972 Albumin/Creatinine Ratio 11/19/1989 HPV/Co-Test 11/19/2001 Cologuard 11/19/2016 Colonoscopy 11/19/2016 Colorectal Cancer Screening 11/19/2016 Fecal Occult Blood Test 11/19/2016 Sigmoidoscopy 11/19/2016 Depression Screening 07/10/2021 07/10/2020 Zoster Vaccines (1 of 2) 11/19/2021 DISCUSS TOBACCO CESSATION (REFER TO SMARTSET #5336) 08/06/2022 08/06/2021 Influenza Vaccine (FLU shot) (#1) [...] 08/03/2019 LUNG CANCER SCREENING - USE SMARTSET 02019 Completed 07/03/2021 Alpha-1 Antitrypsin Completed 08/06/2021 GARDASIL-HPV IMMUNIZATION SERIES Aged Out No longer eligible based on patient's age to complete this topic MENINGOCOCCAL (MENACTRA/MENVEO) Aged Out No longer eligible based on patient's age to complete this topic documented as of this encounter Medical Devices Not on filedocumented as of this encounter Visit Diagnoses Diagnosis Tobacco abuse- Primary Tobacco use disorder documented in this encounter Care Teams Fund Development Manager Relationship Specialty Start Date End Date Walter Cabrera MD [address] [facility] [place] [address] PCP - General Family Medicine 04/25/21 documented as of this encounter
--- OUTSIDE RECORDS SUMMARY | 2023-12-06 22:07 | External Medical Summary | Summary of Care ---
Author Name Unknown Organization [facility] Address [address] [place] [address] Phone [phone] Care Team Providers Care Nail Making Machine Tender Name Role Phone Walter Cabrera MD Primary Care Provider [phone] Reason for Visit * Reason Comments Follow Up Encounter Details Date Type Department Care Team (Late st Contact Info) Description 09/03/2023 2:00 PM EST Office Visit Cardiology, [facility] [address] [facility] [place] [address] Miranda Booth CRNP [address] [place] [address] Heart failure, diastolic, due to HTN (HCC)*; Dyslipidemia, goal to be determined; Sinus tachycardia; [...] nce for Depo-Provera contraception 150 mg IM [id number] 07/06/2018 Active albuterol sulfate (PROVENTIL) (2.5 MG/3ML) 0.083% inhalation solution 2.5 mgIndications:COPD, severity to be determined (HCC) 2.5 mg NEBULIZER Q4H PRN 05/03/2019 Active albuterol sulfate (PROVENTIL) (2.5 MG/3ML) 0.083% inhalation solution 2.5 mgIndications:COPD, severity to be determined (HCC) 2.5 mg NEBULIZER Q4H PRN 05/09/2019 Active medroxyPROGESTERone (contracep) (DEPO-PROVERA) inj 150 mgIndications:Surveilla nce for Depo-Provera contraception 150 mg IM [id number] 07/13/2019 Active medroxyPROGESTERone acetate (DEPO-PROVERA) inj TANMAY 150 mgIndications:Surveilla nce for Depo-Provera contraception 150 mg IM [id number] 07/23/2020 Active Albuterol Sulfate (Proventil) (2.5 MG/3ML) [...] Day Cigarettes 1 30 Smokeless Tobacco: Never Tobacco Cessation:Ready to Q uit: Not Asked; Counseling Given: Not Answered Alcohol Use Standard Drinks/Week Comments Yes 0 [...] Sign Reading Time Taken Comments Blood Pressure 102/68 09/03/2023 1:48 PM EST Pulse 90 09/03/2023 1:48 PM EST Temperature - - Respiratory Rate 18 09/03/2023 1:48 PM EST Oxygen Saturation - - Inhaled Oxygen Concentration - - Weight 108.8 kg (239 lb 14.4 oz) 09/03/2023 1:48 PM EST Height - - Body Mass Index 43.87 09/03/2023 11:10 AM EST documented in this encounter Patient Instructions * Patient Instructions* Miranda Booth CRNP - 09/03/2023 2:17 PM EST Recommend repeat labs in September to recheck potassium levels Follow Low K diet documented in this encounter Progress Notes * Miranda Booth CRNP - 09/03/2023 1:09 PM EST Subjective Dee Dee Squires is a 52 year old female. Chief Complaint Patient presents with Follow Up Cardiac Problems: HTN Diastolic CHF Hx RV Dilation (pulm dx) improved 2020 COPD Tobacco Use HPI: 52 year old female presents for routine cardiology follow up. Last seen in the clinic approx 1 yearago. Feeling well since their last visit with no acute concerns today. Lost her job since her last visit and has been receiving medical care at [facility] who have assisted with coordinating her follow up today. Was not feeling well having SOB and respiratory issues since her last clinic visit, she underwent PFTs for additional evaluation and is following with Dr. Mayberry at [facility]. Denies chest pain,, palpitations, dizziness, syncope, edema, orthopnea and PND. No change in activity tolerance. Reports compliance with medications without any untoward side effects, or difficulty with affordability. PMH: Patient Active Problem List Diagnosis Code HTN, goal below 130/80 I10 Gastroesophageal reflux disease with esophagitis K21.00 Heart failure, diastolic, due to HTN ([facility]) I11.0, I50.30 COPD, moderate ([facility]) J44.9 Restrictive lung disease J98.4 Pulmonary hypertension ([facility]) I27.20 Morbid obesity ([facility]) E66.01 Chronic right-sided heart failure ([facility]) I50.812 Current Outpatient Medications Medication Sig Dispense Refill Multiple Vitamins-Minerals (WOMENS MULTIVITAMIN) TABS Take by mouth. Thiamine HCl (VITAMIN B1) 50 MG TABS Take by mouth. Loratadine 10 MG Oral Tablet Take 1 Tablet by mouth in the morning. Albuterol Sulfate HFA 108 (90 Base) MCG/ACT Inhalation Aerosol Solution TAKE 2 PUFFS BY MOUTH EVERY4 HOURS NEEDED FOR WHEEZE 18 g 3 Metoprolol Succinate ER 25 MG Oral Tablet Extended Release 24 Hour (toPROL XL) Take 1 Tablet by mouth every evening. This is in addition to the 50 mg tablet in the morning 90 Tablet 5 Flovent HFA 220 MCG/ACT Inhalation Aerosol (fluticasone) INHALE 2 PUFFS BY MOUTH TWICE A DAY 36 g 1 Nicotine 14 MG/24HR Transdermal Patch 24 Hour (Nicoderm CQ) Place 1 Patch over 24 hours topically on the skin in the morning. On upper body/outer arm, change once a day for two weeks.. 14 Patch 0 predniSONE 10 MG Oral Tablet (Deltasone) Take 5 tabs for 2 days, 4 tabs for 2 days, 3 tabs for 2 days, 2 tabs for 2 days 1 tab for 2 days 30 Tablet 0 Folic Acid 1 MG Oral Tablet TAKE 1 TABLET BY MOUTH EVERY DAY IN THE MORNING 90 Tablet 3 Lisinopril 5 MG Oral Tablet (Prinivil) TAKE 1 TABLET BY MOUTH EVERY DAY 90 Tablet 1 Furosemide 40 MG Oral Tablet (Lasix) TAKE 1 TABLET BY MOUTH EVERY DAY 90 Tablet 1 Spironolactone 25 MG Oral Tablet (Aldactone) TAKE 1 TABLET BY MOUTH EVERY DAY 90 Tablet 1 predniSONE 20 MG Oral Tablet (Deltasone) Take 4 tabs daily for 2 days, 3 tabs daily for 2 days, 2 tabs daily for 2 days, 1 tab daily for 2 days 20 Tablet 0 Omeprazole 20 MG Oral Capsule Delayed Release (PriLOSEC) TAKE 1 CAPSULE BY MOUTH EVERY DAY 1 HOUR BEFORE FIRST MEAL OF THE DAY 90 Capsule 3 Rosuvastatin Calcium 10 MG Oral Tablet (Crestor) Take 1 Tablet by mouth in the morning. 30 Tablet 11 Metoprolol Succinate ER 50 MG Oral Tablet Extended Release 24 Hour (toPROL XL) TAKE 1 TABLET BY MOUTH EVERY MORNING. THIS IS IN ADDITION TO THE 25 MG TABLET IN THE EVENING. 90 Tablet 3 Sertraline HCl 50 MG Oral Tablet (Zoloft) TAKE 1 TABLET BY MOUTH EVERY DAY 90 Tablet 1 Current Facility-Administered Medications Medication Dose Route Frequency Provider Last Rate Last Admin medroxyPROGESTERone (contracep) (DEPO-PROVERA) inj 150 mg 150 mg Intramuscular Q90 Days Parvin Edgar CRNP 150 mg at 03/21/20 0945 albuterol sulfate (PROVENTIL) (2.5 MG/3ML) 0.083% inhalation solution 2.5 mg 2.5 mg Nebulizer Q4H PRN Femi Segura MD albuterol sulfate (PROVENTIL) (2.5 MG/3ML) 0.083% inhalation solution 2.5 mg 2.5 mg Nebulizer Q4H PRN Femi Segura MD 2.5 mg at 06/20/19 1011 medroxyPROGESTERone (contracep) (DEPO-PROVERA) inj 150 mg 150 mg Intramuscular Q12 Weeks Parvin Edgar CRNP 150 mg at 05/15/21 0934 medroxyPROGESTERone acetate (DEPO-PROVERA) inj TANMAY 150 mg 150 mg Intramuscular Q90 Days Parvin Edgar Sabino [employer] 150 mg at 02/20/21 0944 Albuterol Sulfate (Proventil) (2.5 MG/3ML) 0.083% inhalation solution 2.5 mg 2.5 mg Nebulizer Walter Turner MD 2.5 mg at 09/03/23 1113 Albuterol Sulfate (Proventil) (5 MG/ML) 0.5% *conc* inhalation solution 2.5 mg 2.5 mg Nebulizer Walter Holland MD Past Medical History: Diagnosis Date COPD, moderate (HCC) 06/16/2021 disc Disc protrusion at the L5-S1 level Gastroesophageal reflux disease without esophagitis 09/03/2023 HTN, goal below 130/80 03/13/2011 Morbid obesity due to excess calories (HCC) 07/15/2021 Pulmonary hypertension (HCC) 07/15/2021 Severe obesity with body mass index (BMI) of 35.0 to 39.9 with serious comorbidity (HCC) 06/16/2021 Supplemental oxygen dependent 07/15/2021 Past Surgical History: Procedure Laterality Date COLONOSCOPY, DIAGNOSTIC (RECTUM) 1998 Colonoscopy Diagnostic (Rectum) CRYOCAUTERY OF CERVIX DILATION AND CURETTAGE (D&C) D&C Review of patient's allergies indicates: Allergen Reactions Penicillins Nausea/vomiting Family History Problem Relation Age of Onset Hypertension Grandmother (Maternal) Breast Cancer None Colon cancer None Cancer None no BORING INSPECTOR cancer Family Status Relation Status MGMA (Not Specified) NONE (Not Specified) Social History Socioeconomic History Marital status: Single Spouse name: Not on file Number of children: Not on file Years of education: Not on file Highest education level: Not on file Occupational History Occupation: [employer] Tobacco Use Smoking status: Every Day Packs/day: 1.00 Years: 30.00 Additional pack years: 0.00 Total pack years: 30.00 Types: Cigarettes Smokeless tobacco: Never Vaping Use Vaping Use: Never used Substance and Sexual Activity Alcohol use: Yes Comment: one a week Drug use: No Sexual activity: Not Currently Partners: Male Other Topics Concern Service Not Asked Blood Transfusions Not Asked Caffeine Concern Not Asked Occupational Exposure Not Asked Hobby Hazards Not Asked Sleep Concern Not Asked Stress Concern Not Asked Weight Concern Not Asked Special Diet Not Asked Back Care Not Asked Exercise No Bike Helmet Not Asked Seat Belt Not Asked Self-Exams Yes Comment: breast Social History Narrative No mold 1 cat Social Determinants of Health Financial Resource Strain: Not on file Food Insecurity: Food Insecurity Present (05/19/2022) Hunger Vital Sign Worried About Running Out of Food in the Last Year: Sometimes true Ran Out of Food in the Last Year: Sometimes true Transportation Needs: Not on file Physical Activity: Not on file Stress: Not on file Social Connections: Not on file Intimate Partner Violence: Not on file Housing Stability: Not on file Review of Systems Constitutional: Negative for activity change, fatigue and unexpected weight change. Eyes: Negative for visual disturbance. Respiratory: Positive for shortness of breath. Negative for wheezing. Cardiovascular: Negative for chest pain, palpitations and leg swelling. Gastrointestinal: Negative for blood in stool, constipation, diarrhea, nausea and vomiting. Genitourinary: Negative for hematuria. Musculoskeletal: Negative for arthralgias and gait problem. Skin: Negative for wound. Neurological: Negative for dizziness and syncope. Objective BP 102/68 | Pulse 90 | Resp 18 | Wt 108.8 kg (239 lb 14.4 oz) | BMI 43.87 kg/m | BSA 2.18 m Physical Exam Vitals and nursing note reviewed. Constitutional: General: She is awake. She is not in acute distress. Appearance: Normal appearance. She is well-developed. She is not ill-appearing. HENT: Head: Normocephalic and atraumatic. Eyes: General: No scleral icterus. Extraocular Movements: Extraocular movements intact. Conjunctiva/sclera: Conjunctivae normal. Pupils: Pupils are equal, round, and reactive to light. Neck: Thyroid: No thyromegaly. Vascular: No carotid bruit or JVD. Cardiovascular: Rate and Rhythm: Normal rate and regular rhythm. Pulses: Normal pulses. Carotid pulses are 2+ on the right side and 2+ on the left side. Radial pulses are 2+ on the right side and 2+ on the left side. Posterior tibial pulses are 2+ on the right side and 2+ on the left side. Heart sounds: Normal heart sounds, S1 normal and S2 normal. No murmur heard. Pulmonary: Effort: Pulmonary effort is normal. No respiratory distress. Breath sounds: Normal breath sounds. No wheezing, rhonchi or rales. Abdominal: General: Bowel sounds are normal. There is no distension. Palpations: Abdomen is soft. There is no mass. Tenderness: There is no abdominal tenderness. Musculoskeletal: General: No swelling. Cervical back: Neck supple. Right lower leg: No edema. Left lower leg: No edema. Skin: General: Skin is warm and dry. Capillary Refill: Capillary refill takes less than 2 seconds. Findings: No rash or wound. Neurological: General: No focal deficit present. Mental Status: She is alert and oriented to person, place, and time. Psychiatric: Attention and Perception: Attention and perception normal. Behavior: Behavior is cooperative. Judgment: Judgment normal. Results Labs & Imaging Reviewed Below: ECG 10/08/22 NSR,PVCs 78 bpm QTc 414 ms 05/21/21 ST 108 bpm QTc 455 ms 05/20/20 NSR/SA 86 bpm QTc 423 ms Echocardiograms 08/27/21 LV ejection fraction 62% RV cavity size is normal with normal systolic function Normal-sized atria No significant valvular disease No wall motion abnormalities 07/02/21 at [facility] Left ventricle Is normal in size There is moderate concentric LVH The left ventricular wall motion is normal Ejection fraction 60-65% The right ventricle is [id number] dilated with mildly reduced systolic function o 05/21/21 CONCLUSIONS: Final Interpretation : Patient had a min HR of 59 bpm, max HR of 200 bpm, and avg HR of 111 bpm. Predominant underlying rhythm was Sinus Rhythm. 1 run of Supraventricular Tachycardia occurred lasting 4 beats with a max rate of 200 bpm (avg 195 bpm). Isolated SVEs were rare (<1.0%), SVE Couplets were rare (<1.0%), and no SVE Triplets were present. Isolated VEs were rare (<1.0%), VE Couplets were rare (<1.0%), and no VE Triplets were present. Agree with findings listed above. No symptoms reported. Labs Latest Reference Range & Units 10/14/22 10:19 08/02/23 09:40 BNP, NT-Pro <300 pg/mL 231 Triglycerides <=174 mg/dL 182 (H) 152 Cholesterol <200 mg/dL 241 (H) 210 (H) Non-HDL Cholesterol <=159 mg/dL 180 (H) 149 HDL Cholesterol >49 mg/dL 61 61 LDL Cholesterol <=129 mg/dL 144 (H) 119 Sodium 135 - 146 mmol/L 140 132 (L) Potassium 3.5 - 5.1 mmol/L 4.7 5.3 (H) Chloride 98 - 107 mmol/L 95 (L) 88 (L) CO2 22 - 32 mmol/L 34 (H) 33 (H) BUN 6 - 20 mg/dL 25 (H) 26 (H) Creatinine 0.5 - 1.0 mg/dL 1.0 1.1 (H) Estimated Glomerular Filtration Rate >=60 mL/min 67 60 Anion Gap 7 - 15 mmol/L 11 11 Glucose 70 - 120 mg/dL 127 (H) 102 Calcium 8.4 - 10.2 mg/dL 9.4 9.6 Magnesium 1.5 - 2.6 mg/dL 1.9 Protein 6.0 - 8.3 g/dL 7.1 Estimated Average Glucose <126 mg/dL 140 (H) Hemoglobin A1C 4.0 - 5.6 % 6.5 (H) Estradiol pg/mL 16.0 FSH mIU/mL 7.4 TSH 0.27 - 4.20 uIU/mL 1.14 TSH WITH FREE T4 IF INDICATED Rpt CBC Rpt ! Rpt ! CBC WITH WBC DIFFERENTIAL Rpt ! WBC 4.00 - 10.80 K/uL 10.84 (H) 11.76 (H) HGB 12.0 - 15.3 g/dL 16.9 (H) 13.7 HCT 36.0 - 45.2 % 55.2 (H) 45.6 (H) MCV 81.5 - 97.5 fL 99.6 90.5 PLT 140 - 400 K/uL 237 247 Absolute Neutrophils 1.80 - 7.70 K/uL 9.32 (H) Absolute Lymphocytes 1.00 - 4.80 K/ul 1.68 Absolute Monocytes 0.00 - 1.10 K/uL 0.70 Absolute Eosinophils 0.00 - 0.70 K/uL 0.03 Absolute Basophils 0.00 - 0.20 K/uL 0.03 Vitamin B12 232 - 1,245 pg/mL 313 Albumin 3.8 - 5.0 g/dL 4.1 AST 10 - 35 U/L 18 ALT 10 - 35 U/L 18 Alkaline Phosphatase 35 - 130 U/L 127 Bilirubin, Total <=1.2 mg/dL 0.4 Impression HTN Diastolic CHF Hx RV Dilation (thought to be related to pulm dx) improved 2020 COPD Tobacco Use ongoing Plan: -HR and BP well controlled -she is euvolemic on exam -stable from a cardiac standpoint -CHF education reinforced -K was slightly elevated on most recent lab work, encouraged to follow a low K diet with repeat labs in 1 month -if still elevated will consider decreasing/discontinuing spironolactone -continue metoprolol, rosuvastatin, furosemide, lisinopril, spironolactone -she is pursuing tobacco cessation assistance at [facility] and has an appt there this coming Wednesday -Educated patient on caution with change in positions to minimize symptomatic orthostatic hypotension -Discussed importance of diet & exercise with the patient. -Discussed with patient subtle changes in how they are feeling or completing daily activities to contact us sooner; don't wait days or weeks. DISPOSITION: Follow up 6 months or if symptoms worsen/fail to improve. All questions were answered to the patients satisfaction. Patient advised to report to ED with any and all emergencies. The patient agrees to the above plan and will call with additional questions or concerns. [facility], [address] [address] This chart was completed in part utilizing [employer] Speech Voice Recognition Software. Grammatical errors, random word insertions, pronoun errors, and incomplete sentences are an occasional consequence of this system due to software limitations, ambient noise, and hardware issues. Any formal questions or concerns about the content, text, or information contained within the body of this dictation should be directly addressed to the provider for clarification. documented in this encounter Nursing Notes * Rhona Garcia LPN - 09/03/2023 1:48 PM EST Examination Room: 12 Name: Dee Dee Squires Date of : (1970) Reason for Visit: follow up Interim Hospitalization(s): Denies Problems/Concerns: Denies Chest Pain/SOB: Denies My [facility] is a way you can talk to your provider online through e-mail. Would you like to sign up? I can activate it for you? ALREADY ACTIVE Patient was instructed to not get up on the exam table until directed and assisted by their provider; patient is to remain seated in the chair/ wheelchair/ exam table for fall prevention and safety reasons. Patient is aware to have assistance to step down off exam table with personnel. Patient voiced full comprehension of instructions. documented in this encounter Plan of Treatment Upcoming Encounters Date Type Department Care Team (Late st Contact Info) Description 11/16/2023 9:45 AM EST Imaging Radiology [facility] 1st [facility] [address] [facility] [place] [address] 02/18/2024 3:00 PM EDT Office Visit Cardiology, [address] [place] [address] Miranda Booth CRNP [address] [place] [address] [place] [phone] Scheduled Orders Name Type Priority Associated Diagnoses Orde r Schedule BASIC METABOLIC PANEL Lab Routine Heart failure, diastolic, due to HTN (HCC) Dyslipidemia, goal to be determined Sinus tachycardia Chronic obstructive pulmonary disease, unspecified COPD type (HCC) Tobacco use Expected: 09/03/2023, Expires: 09/03/2024 Health Maintenance Due Date Last Done Comments Hepatitis B (1 of 3 - 3-dose series) 1970 COVID-19 Vaccine (#1) 05/22/1972 Albumin/Creatinine Ratio 11/19/1989 HPV/Co-Test 11/19/2001 Cologuard 11/19/2016 Colonoscopy 11/19/2016 Colorectal Cancer Screening 11/19/2016 Fecal Occult Blood Test 11/19/2016 Sigmoidoscopy 11/19/2016 Depression Screening 07/10/2021 07/10/2020 Zoster Vaccines (1 of 2) 11/19/2021 DISCUSS TOBACCO CESSATION (REFER TO SMARTSET #6541) 08/06/2022 08/06/2021 Influenza Vaccine (FLU shot) (#1) [...] 08/03/2019 LUNG CANCER SCREENING - USE SMARTSET 97391 Completed 07/03/2021 Alpha-1 Antitrypsin Completed 08/06/2021 GARDASIL-HPV IMMUNIZATION SERIES Aged Out No longer eligible based on patient's age to complete this topic MENINGOCOCCAL (MENACTRA/MENVEO) Aged Out No longer eligible based on patient's age to complete this topic documented as of this encounter Medical Devices Not on filedocumented as of this encounter Visit Diagnoses Diagnosis Heart failure, diastolic, due to HTN (HCC)- Primary Unspecified hypertensive heart disease with heart failure Dyslipidemia, goal to be determined Other and unspecified hyperlipidemia Sinus tachycardia Other specified cardiac dysrhythmias Chronic obstructive pulmonary disease, unspecified COPD type (HCC) Tobacco use Tobacco use disorder documented in this encounter Care Teams Nail Making Machine Tender Relationship Specialty Start Date End Date Walter Cabrera MD [address] [place] [address] PCP - General Family Medicine 04/25/21 documented as of this encounter"
--- OUTSIDE RECORDS SUMMARY | 2023-12-06 22:07 | External Medical Summary | Summary of Care ---
Author Name Unknown Organization [facility] Address [address] [place] [address] Phone [phone] Care Team Providers Care Storage Manager Name Role Phone Walter Cabrera MD Primary Care Provider [phone] [phone] Reason for Visit * Reason Comments eRx-Medication Refill Encounter Details Date Type Department Care Team (Late st Contact Info) Description 08/22/2023 Refill Cardiology, [facility] [address] [facility] [place] [address] Kenia Figueredo PA-C [address] [facility] [place] [address] Heart failure, diastolic, due to HTN (HCC) Allergies Active Allergy Reactions Criticality Noted Date [...] EVERY DAY 90 Tablet 1 08/23/2023 Active Metoprolol Succinate ER 50 MG Oral Tablet Extended Release 24 Hour (toPROL XL)Indications:He art failure, diastolic, due to HTN (HCC) TAKE 1 TABLET BY MOUTH EVERY MORNING. THIS IS IN ADDITION TO THE 25 MG TABLET IN THE EVENING. 90 Tablet 3 08/10/2022 3 Discontinued Hospital, Clinic, or Other Facility Administered Medication Ordered Dose Route Frequency Start Date End Date Status medroxyPROGESTERone (contracep) (DEPO-PROVERA) inj 150 mgIndications:Surveilla nce for Depo-Provera contraception 150 mg IM [id number] 07/06/2018 Active albuterol sulfate (PROVENTIL) (2.5 MG/3ML) 0.083% inhalation solution 2.5 mgIndications:COPD, severity to be determined (HCC) 2.5 mg NEBULIZER Q4H PRN 05/03/2019 Active albuterol sulfate (PROVENTIL) (2.5 MG/3ML) 0.083% inhalation solution 2.5 mgIndications:COPD, severity to be determined (HCC) 2.5 mg NEBULIZER Q4H PRN 05/09/2019 Active medroxyPROGESTERone (contracep) (DEPO-PROVERA) inj 150 mgIndications:Surveilla nce for Depo-Provera contraception 150 mg IM [id number] 07/13/2019 Active medroxyPROGESTERone acetate (DEPO-PROVERA) inj TANMAY 150 mgIndications:Surveilla nce for Depo-Provera contraception 150 mg IM [id number] 07/23/2020 Active Albuterol Sulfate (Proventil) (2.5 MG/3ML) [...] encounter Miscellaneous Notes * Telephone Encounter - Kenia Figueredo PA-C - 08/23/2023 3:54 PM EST Signed Prescriptions: Disp Refills Metoprolol Succinate ER 50 MG Oral Tablet *90 Tab*3 Sig: TAKE 1 TABLET BY MOUTH EVERY MORNING. THIS IS IN ADDITION TO THE 25 MG TABLET IN THE EVENING. Authorizing Provider: KENIA FIGUEREDO * Telephone Encounter - Malou John LPN - 08/23/2023 3:42 PM ESTPending Prescriptions: Disp Refills Metoprolol Succinate ER 50 MG Oral Tablet *90 Tab*3 Sig: TAKE 1 TABLET BY MOUTH EVERY MORNING. THIS IS IN ADDITION TO THE 25 MG TABLET IN THE EVENING. * Telephone Encounter - Malou John LPN - 08/23/2023 3:41 PM EST Did you pend patient's preferred pharmacy and medication before forwarding?yes Pharmacy: [id number] Pending Prescriptions: Disp Refills Metoprolol Succinate ER 50 MG Oral Tablet*90 Tab*3 Sig: TAKE 1 TABLET BY MOUTH EVERY MORNING. THIS IS IN ADDITION TO THE 25 MG TABLET IN THE EVENING. Last Visit: 10/08/2022 (in office), Visit date not found (telemedicine) Next Visit: 09/03/2023 If no future appointments scheduled, and last appointment is greater than a year ago, please schedule patient for a follow-up appointment Last date the medication was ordered: 07/2022 Is this request for a controlled substance? NO Urine Drug Screen:No results found for this or any previous visit. Patient Phone Numbers Labs: Lab Results Component Value Date/Time CREAT 1.1 (H) 08/02/2023 09:40 AM CREAT 1.0 08/02/2020 09:41 AM POTASSIUM 5.3 (H) 08/02/2023 09:40 AM POTASSIUM 4.1 08/02/2020 09:41 AM TSH 1.14 08/02/2023 09:40 AM TSH 2.07 07/06/2014 03:04 PM LDLCALC 119 08/02/2023 09:40 AM LDLCALC 104 11/02/2019 08:53 AM LDLDIRECT NOT APPLICABLE 11/02/2019 08:53 AM ALT 18 08/02/2023 09:40 AM ALT 19 11/02/2019 08:53 AM HGBA1C 6.5 (H) 08/02/2023 09:40 AM HGBA1C 6.1 (H) 08/02/2020 09:41 AM documented in this encounter Plan of Treatment Upcoming Encounters Date Type Department Care Team (Late st Contact Info) Description 09/03/2023 11:00 AM EST PulmDiagnostic Pulmonary Function Lab, [facility] 132 [facility] [place] [address] [place], [address] 132 [facility] [place] [address] 09/03/2023 2:00 PM EST Office Visit Cardiology, [facility] 132 [facility] [place] [address] Miranda Booth CRNP [address] [facility] [place] [phone] 11/16/2023 9:45 AM EST Imaging Radiology [facility] [address] [place] [address] Health Maintenance Due Date Last Done Comments [...] 08/03/2019 LUNG CANCER SCREENING - USE SMARTSET 99750 Completed 07/03/2021 Alpha-1 Antitrypsin Completed 08/06/2021 GARDASIL-HPV [...] Unspecified hypertensive heart disease with heart failure documented in this encounter Care Teams Storage Manager Relationship Specialty Start Date End Date Walter Cabrera MD [address] [address] PCP - General Family Medicine 04/25/21 documented as of this encounter
--- OUTSIDE RECORDS SUMMARY | 2023-12-06 22:08 | External Medical Summary | Summary of Care ---
Author Name Unknown Organization [facility] Address [address] [place] [address] Phone [phone] Care Team Providers Care Respiratory Medicine Physician Name Role Phone Walter Cabrera MD Primary Care Provider [phone] Encounter Details Date Type Department Care Team (Late st Contact Info) Description 07/28/2023 Orders Only Laboratory, [facility] 132 [facility] [place] [phone] Kamron Mayberry MD [address] [place], [place] [phone] DM type 2, not at goal (HCC)*; Chronic heart failure (HCC) Allergies Active Allergy Reactions Criticality Noted Date Comments Penicillins Nausea/vomiting 06/29/2016 documented as of this encounter (statuses as of 07/28/2023) Medications Medication Sig Dispensed Refills Start Date [...] A DAY 36 g 1 09/26/2021 Active Omeprazole 20 MG Oral Capsule Delayed Release (PriLOSEC) TAKE 1 CAPSULE BY MOUTH EVERY DAY 1 HOUR BEFORE FIRST MEAL OF THE DAY 90 Capsule 3 07/20/2022 Active Metoprolol Succinate ER 50 MG Oral [...] 2 days 20 Tablet 0 06/16/2023 Active Hospital, Clinic, or Other Facility Administered Medication Ordered Dose Route Frequency Start Date End Date Status medroxyPROGESTERone (contracep) (DEPO-PROVERA) inj 150 mgIndications:Surveillanc e for Depo-Provera contraception 150 mg IM [id number] 07/06/2018 Active albuterol sulfate (PROVENTIL) (2.5 MG/3ML) 0.083% inhalation solution 2.5 mgIndications:COPD, severity to be determined (HCC) 2.5 mg NEBULIZER Q4H PRN 05/03/2019 Active albuterol sulfate (PROVENTIL) (2.5 MG/3ML) 0.083% inhalation solution 2.5 mgIndications:COPD, severity to be determined (HCC) 2.5 mg NEBULIZER Q4H PRN 05/09/2019 Active medroxyPROGESTERone (contracep) (DEPO-PROVERA) inj 150 mgIndications:Surveillanc e for Depo-Provera contraception 150 mg IM [id number] 07/13/2019 Active medroxyPROGESTERone acetate (DEPO-PROVERA) inj TANMAY 150 mgIndications:Surveillanc e for Depo-Provera contraception 150 mg IM [id number] 07/23/2020 Active documented as of this encounter (statuses as of 07/28/2023) Active Problems Problem Noted Date Diagnosed Date Right foot pain 02/03/2023 Food insecurity 06/01/2022 Overview: Per [facility] Protocol Chronic right-sided heart failure 08/27/2021 Pulmonary hypertension 07/15/2021 Morbid obesity due to excess calories 07/15/2021 COPD, moderate 06/16/2021 Restrictive lung disease 06/16/2021 Overview: Seen on PFTs from 2019 Heart failure, diastolic, due to HTN 05/03/2019 Gastroesophageal reflux disease with esophagitis 08/06/2016 HTN, goal below 130/80 03/13/2011 documented as of this encounter (statuses as of 07/28/2023) Resolved Problems Problem Noted Date Diagnosed Date [...] as of this encounter (statuses as of 07/28/2023) Immunizations Name Administration Dates Next Due Pneumococcal [...] 09/03/2023 2:00 PM EST Office Visit Cardiology, [facility] 132 [facility] [place] [address] Miranda Booth CRNP [address] [place] [address] [place] [phone] 11/16/2023 9:45 AM EST Imaging Radiology [address] 132 [facility] [place] [address] Scheduled Orders Name Type Priority Associated Diagnoses Orde r Schedule HEMOGLOBIN A1C Lab Routine DM type 2, not at goal (HCC) Chronic heart failure (HCC) Expected: 07/28/2023, Expires: 07/28/2024 BNP, NT-PRO Lab Routine DM type 2, not at goal (HCC) Chronic heart failure (HCC) Expected: 07/28/2023, Expires: 07/28/2024 CBC WITH WBC DIFFERENTIAL Lab Routine DM type 2, not at goal (HCC) Chronic heart failure (HCC) Expected: 07/28/2023, Expires: 07/28/2024 COMPREHENSIVE METABOLIC PANEL Lab Routine DM type 2, not at goal (HCC) Chronic heart failure (HCC) Expected: 07/28/2023, Expires: 07/28/2024 LIPID PANEL WITH DIRECT LDL IF TG IS HIGH Lab Routine DM type 2, not at goal (HCC) Chronic heart failure (HCC) Expected: 07/28/2023, Expires: 07/28/2024 TSH WITH FREE T4 IF INDICATED Lab Routine DM type 2, not at goal (HCC) Chronic heart failure (HCC) Expected: 07/28/2023, Expires: 07/28/2024 Health Maintenance Due Date Last Done Comments Hepatitis B (1 of 3 - 3-dose series) 1971 COVID-19 Vaccine (#1) 05/22/1972 Albumin/Creatinine Ratio 11/19/1989 HPV/Co-Test 11/19/2001 Cologuard 11/19/2016 Colonoscopy 11/19/2016 Colorectal Cancer Screening 11/19/2016 Fecal Occult Blood Test 11/19/2016 Sigmoidoscopy 11/19/2016 Depression Screening 07/10/2021 07/10/2020 Zoster Vaccines (1 of 2) 11/19/2021 DISCUSS TOBACCO CESSATION (REFER TO SMARTSET #4123) 08/06/2022 08/06/2021 Influenza Vaccine (FLU shot) (#1) 2023 06/03/2020, 07/15/2019 GFR 10/14/2023 10/14/2022, 07/21, 05/15/2021, Additional history exists Mammogram 11/10/2023 11/10/2022, 10/21, 07/23/2020, Additional history exists O2 ASSESSMENT COMPLETED IN PAST YEAR FOR COPD 04/26/2024 04/26/2023 Cervical Cancer Screening 01/12/2025 Pap Smear 01/12/2025 01/12/2022, 06/20, 06/18/2015, Additional history exists Diabetes Screening 10/14/2025 10/14/2022, 1 10/06/2020, 05/15/2021, Additional history exists Lipid Panel 10/14/2027 10/14/2022, 04/21, 11/02/2019, Additional history exists DTaP,Tdap,and Td Vaccines (3 - Td or Tdap) 05/03/2029 05/03/2019, 02/21/2009 Pneumococcal Vaccine: Pediatrics (0 to 5 Years) and At-Risk Patients (6 to 64 Years) (3 - PPSV23 or PCV20) 11/19/2036 12/28/2019, 08/03/2019 LUNG CANCER SCREENING - USE SMARTSET [id number] Completed 07/03/2021 Alpha-1 Antitrypsin Completed 08/06/2021 GARDASIL-HPV IMMUNIZATION SERIES Aged Out No longer eligible based on patient's age to complete this topic MENINGOCOCCAL (MENACTRA/MENVEO) Aged Out No longer eligible based on patient's age to complete this topic documented as of this encounter Medical Devices Not on filedocumented as of this encounter Visit Diagnoses Diagnosis DM type 2, not at goal (HCC)- Primary Type II or unspecified type diabetes mellitus without mention of complication, not stated as uncontrolled Chronic heart failure (HCC) Heart failure, unspecified documented in this encounter Care Teams Respiratory Medicine Physician Relationship Specialty Start Date End Date Walter Cabrera MD [address] [place] [address] PCP - General Family Medicine 04/25/21 documented as of this encounter
--- OUTSIDE RECORDS SUMMARY | 2023-12-06 22:08 | External Medical Summary | Summary of Care ---
Author Name Unknown Organization [facility] Address [address] [place] [address] Phone [phone] Care Team Providers Care Tyre Builder Name Role Phone Walter Cabrera MD Primary Care Provider [phone] Reason for Visit * Reason Comments Outpatient Testing Encounter Details Date Type Department Care Team (Late st Contact Info) Description 08/02/2023 10:00 AM EST Laboratory Laboratory, [facility] [address] [place] [address] [facility] [address] [place] [address] Dyslipidemia, goal to be determined; DM type 2, not at goal ([facility] Chronic heart failure (HCC) Allergies Active Allergy Reactions Criticality Noted Date Comments Penicillins Nausea/vomiting 06/29/2016 documented as of this encounter (statuses as of 08/02/2023) Medications Medication Sig Dispensed Refills Start Date [...] nce for Depo-Provera contraception 150 mg IM [id number] 07/06/2018 Active albuterol sulfate (PROVENTIL) (2.5 MG/3ML) 0.083% inhalation solution 2.5 mgIndications:COPD, severity to be determined (HCC) 2.5 mg NEBULIZER Q4H PRN 05/03/2019 Active albuterol sulfate (PROVENTIL) (2.5 MG/3ML) 0.083% inhalation solution 2.5 mgIndications:COPD, severity to be determined (HCC) 2.5 mg NEBULIZER Q4H PRN 05/09/2019 Active medroxyPROGESTERone (contracep) (DEPO-PROVERA) inj 150 mgIndications:Surveilla nce for Depo-Provera contraception 150 mg IM [id number] 07/13/2019 Active medroxyPROGESTERone acetate (DEPO-PROVERA) inj TANMAY 150 mgIndications:Surveilla nce for Depo-Provera contraception 150 mg IM [id number] 07/23/2020 Active Albuterol Sulfate (Proventil) (2.5 MG/3ML) 0.083% inhalation solution 2.5 mgIndications:Chronic obstructive pulmonary disease (COPD) (HCC) 2.5 mg NEBULIZER PRN 07/30/2023 07/29/2024 Acti ve Albuterol Sulfate (Proventil) (5 MG/ML) 0.5% *conc* inhalation solution 2.5 mgIndications:Chronic obstructive pulmonary disease (COPD) (HCC) 2.5 mg NEBULIZER PRN 07/30/2023 07/29/2024 Acti ve documented as of this encounter (statuses as of 08/02/2023) Active Problems Problem Noted Date Diagnosed Date Right foot pain 02/03/2023 Food insecurity 06/01/2022 Overview: Per [facility] Protocol Chronic right-sided heart failure 08/27/2021 Pulmonary hypertension 07/15/2021 Morbid obesity due to excess calories 07/15/2021 COPD, moderate 06/16/2021 Restrictive lung disease 06/16/2021 Overview: Seen on PFTs from 2018 Heart failure, diastolic, due to HTN 05/03/2019 Gastroesophageal reflux disease with esophagitis 08/06/2016 HTN, goal below 130/80 03/13/2011 documented as of this encounter (statuses as of 08/02/2023) Resolved Problems Problem Noted Date Diagnosed Date [...] as of this encounter (statuses as of 08/02/2023) Immunizations Name Administration Dates Next Due Pneumococcal [...] 10:00 AM EST PulmDiagnostic Pulmonary Function Lab, [facility] 132 [facility] [place] [address] [place], [address] 132 [facility] [place] [address] 09/03/2023 2:00 PM EST Office Visit Cardiology, [facility] 132 [facility] [place] [address] Miranda Booth CRNP [address] [place] [address] [place] [address] 11/16/2023 9:45 AM EST Imaging Radiology [address] [place] [address] Pending Results Name Type Priority Associated Diagnoses Date /Time LIPID PANEL WITH DIRECT LDL IF TG IS HIGH Lab Routine Dyslipidemia, goal to be determined 08/02/2023 9:40 AM EST HEMOGLOBIN A1C Lab Routine DM type 2, not at goal (HCC) Chronic heart failure (HCC) 08/02/2023 9:40 AM EST BNP, NT-PRO Lab Routine DM type 2, not at goal (HCC) Chronic heart failure (HCC) 08/02/2023 9:40 AM EST COMPREHENSIVE METABOLIC PANEL Lab Routine DM type 2, not at goal (HCC) Chronic heart failure (HCC) 08/02/2023 9:40 AM EST TSH WITH FREE T4 IF INDICATED Lab Routine DM type 2, not at goal (HCC) Chronic heart failure (HCC) 08/02/2023 9:40 AM EST Health Maintenance Due Date Last [...] 08/03/2019 LUNG CANCER SCREENING - USE SMARTSET [id number] Completed 07/03/2021 Alpha-1 Antitrypsin Completed 08/06/2021 GARDASIL-HPV IMMUNIZATION SERIES Aged Out No longer eligible based on patient's age to complete this topic MENINGOCOCCAL (MENACTRA/MENVEO) Aged Out No longer eligible based on patient's age to complete this topic documented as of this encounter Medical Devices Not on filedocumented as of this encounter Procedures Procedure Name Priority Date/Time Associated Diagnosis Comments DIFFERENTIAL, AUTOMATED Routine 08/02/2023 9:40 AM EST DM type 2, not at goal (HCC) Chronic heart failure (HCC) CBC Routine 08/02/2023 9:40 AM EST DM type 2, not at goal (HCC) Chronic heart failure (HCC) CBC Routine 08/02/2023 9:40 AM EST DM type 2, not at goal (HCC) Chronic heart failure (HCC) documented in this encounter Results * (ABNORMAL) DIFFERENTIAL, AUTOMATED (08/02/2023 9:40 AM EST) WBC 11.76(H) 4.00 - 10.80 K/uL 08/02/2023 9:48 AM EST [facility] Neutrophils % 79.1(H) 40.0 - 75.0 % 08/02/2023 9:48 AM EST [facility] Lymphocytes % 14.3(L) 18.0 - 42.0 % 08/02/2023 9:48 AM EST [facility] Monocytes % 6.0 1.0 - 11.0 % 08/02/2023 9:48 AM EST [facility] Eosinophils % 0.3 0.0 - 6.0 % 08/02/2023 9:48 AM EST [facility] Basophils % 0.3 0.0 - 2.0 % 08/02/2023 9:48 AM EST [facility] Absolute Neutrophils 9.32(H) 1.80 - 7.70 K/uL 08/02/2023 9:48 AM EST [facility] Absolute Lymphocytes 1.68 1.00 - 4.80 K/ul 08/02/2023 9:48 AM EST [facility] Absolute Monocytes 0.70 0.00 - 1.10 K/uL 08/02/2023 9:48 AM EST [facility] Absolute Eosinophils 0.03 0.00 - 0.70 K/uL 08/02/2023 9:48 AM EST [facility] Absolute Basophils 0.03 0.00 - 0.20 K/uL 08/02/2023 9:48 AM EST [facility] Blood Venous blood specimen / Unknown Venipuncture / Unknown 08/02/2023 9:40 AM EST 08/02/2023 9:40 AM EST Kamron Mayberry MD LAB BLOOD ORDERABLES [facility] [address] [place] [address] * (ABNORMAL) CBC (08/02/2023 9:40 AM EST) WBC 11.76(H) 4.00 - 10.80 K/uL 08/02/2023 9:48 AM EST [facility] RBC 5.04 3.85 - 5.15 M/uL 08/02/2023 9:48 AM EST [facility] HGB 13.7 12.0 - 15.3 g/dL 08/02/2023 9:48 AM EST [facility] HCT 45.6(H) 36.0 - 45.2 % 08/02/2023 9:48 AM EST [facility] MCV 90.5 81.5 - 97.5 fL 08/02/2023 9:48 AM EST [facility] MCH 27.2 27.0 - 34.0 pg 08/02/2023 9:48 AM EST [facility] MCHC 30.0 32.0 - 36.0 g/dL 08/02/2023 9:48 AM EST [facility] RDW 17.1 11.5 - 15.5 % 08/02/2023 9:48 AM EST [facility] PLT 247 140 - 400 K/uL 08/02/2023 9:48 AM EST [facility] MPV 10.3 6.6 - 11.1 fL 08/02/2023 9:48 AM EST [facility] Blood Venous blood specimen / Unknown Venipuncture / Unknown 08/02/2023 9:40 AM EST 08/02/2023 9:40 AM EST Kamron Mayberry MD LAB BLOOD ORDERABLES [facility] [address] [place] [address] documented in this encounter Visit Diagnoses Diagnosis Dyslipidemia, goal to be determined Other and unspecified hyperlipidemia DM type 2, not at goal (HCC) Type II or unspecified type diabetes mellitus without mention of complication, not stated as uncontrolled Chronic heart failure (HCC) Heart failure, unspecified documented in this encounter Care Teams Tyre Builder Relationship Specialty Start Date End Date Walter Cabrera MD [address] [place] [address] PCP - General Family Medicine 04/25/21 documented as of this encounter
--- OUTSIDE RECORDS SUMMARY | 2023-12-06 22:08 | External Medical Summary | Summary of Care ---
Author Name Unknown Organization [facility] Address [address] [place] [address] Phone [phone] Care Team Providers Care Hair Machine Operator Name Role Phone Walter Cabrera MD Primary Care Provider [phone] Reason for Visit * Reason Onset Date Comments Appointment 07/29/2023 PFT Encounter Details Date Type Department Care Team (Late st Contact Info) Description 07/29/2023 Telephone Access Center, [address] *DO NOT REMOVE THIS DEPARTMENT* [place] [id number] Requisition, External Radiology [address] [place] [address] Appointment (PFT) Allergies Active Allergy Reactions Criticality Noted Date Comments Penicillins Nausea/vomiting 06/29/2016 documented as of this encounter (statuses as of 07/29/2023) Medications Medication Sig Dispensed Refills Start Date [...] e for Depo-Provera contraception 150 mg IM [id number] 07/06/2018 Active albuterol sulfate (PROVENTIL) (2.5 MG/3ML) 0.083% inhalation solution 2.5 mgIndications:COPD, severity to be determined (HCC) 2.5 mg NEBULIZER Q4H PRN 05/03/2019 Active albuterol sulfate (PROVENTIL) (2.5 MG/3ML) 0.083% inhalation solution 2.5 mgIndications:COPD, severity to be determined (HCC) 2.5 mg NEBULIZER Q4H PRN 05/09/2019 Active medroxyPROGESTERone (contracep) (DEPO-PROVERA) inj 150 mgIndications:Surveillanc e for Depo-Provera contraception 150 mg IM [id number] 07/13/2019 Active medroxyPROGESTERone acetate (DEPO-PROVERA) inj TANMAY 150 mgIndications:Surveillanc e for Depo-Provera contraception 150 mg IM [id number] 07/23/2020 Active documented as of this encounter (statuses as of 07/29/2023) Active Problems Problem Noted Date Diagnosed Date Right foot pain 02/03/2023 Food insecurity 06/01/2022 Overview: Per [facility] Protocol Chronic right-sided heart failure 08/27/2021 Pulmonary hypertension 07/15/2021 Morbid obesity due to excess calories 07/15/2021 COPD, moderate 06/16/2021 Restrictive lung disease 06/16/2021 Overview: Seen on PFTs from 2019 Heart failure, diastolic, due to HTN 05/03/2019 Gastroesophageal reflux disease with esophagitis 08/06/2016 HTN, goal below 130/80 03/13/2011 documented as of this encounter (statuses as of 07/29/2023) Resolved Problems Problem Noted Date Diagnosed Date [...] as of this encounter (statuses as of 07/29/2023) Immunizations Name Administration Dates Next Due Pneumococcal [...] encounter Miscellaneous Notes * Telephone Encounter - Noelle Carter OSA - 07/29/2023 8:05 AM EST Left message for Dee Dee to call to schedule a PFT Complete. Order scanned in. documented in this encounter Plan of Treatment Upcoming Encounters Date Type Department Care Team (Late st Contact Info) Description 09/03/2023 2:00 PM EST Office Visit Cardiology, [facility] 132 [facility] [place] [address] Miranda Booth CRNP [address] [facility] [place] [phone] 11/16/2023 9:45 AM EST Imaging Radiology [facility] 1st [facility] 132 [facility] [place] [address] Health Maintenance Due Date Last Done Comments [...] 08/03/2019 LUNG CANCER SCREENING - USE SMARTSET [id number] Completed 07/03/2021 Alpha-1 Antitrypsin Completed 08/06/2021 GARDASIL-HPV IMMUNIZATION SERIES Aged Out No longer eligible based on patient's age to complete this topic MENINGOCOCCAL (MENACTRA/MENVEO) Aged Out No longer eligible based on patient's age to complete this topic documented as of this encounter Medical Devices Not on filedocumented as of this encounter Care Teams Hair Machine Operator Relationship Specialty Start Date End Date Walter Cabrera MD [address] [place] [address] PCP - General Family Medicine 04/25/21 documented as of this encounter
--- OUTSIDE RECORDS SUMMARY | 2023-12-06 22:08 | External Medical Summary | Summary of Care ---
Author Name Unknown Organization [facility] Address [address] [place] [address] Phone [phone] Care Team Providers Care Rn Child Name Role Phone Mel Ramos MD Primary Care Provider [phone] Reason for Visit * Reason Comments eRx-Medication Refill Encounter Details Date Type Department Care Team (Late st Contact Info) Description 08/05/2023 Refill Family Practice [facility] [address] [facility] [place] [address] Mel Ramos MD [address] [facility] [place] [id number] Allergies Active Allergy Reactions Criticality Noted Date Comments Penicillins Nausea/vomiting 06/29/2016 documented as of this encounter (statuses as of 08/05/2023) Medications Medication Sig Dispensed Refills Start Date [...] THE DAY 90 Capsule 3 08/05/2023 Active Omeprazole 20 MG Oral Capsule Delayed Release (PriLOSEC) TAKE 1 CAPSULE BY MOUTH EVERY DAY 1 HOUR BEFORE FIRST MEAL OF THE DAY 90 Capsule 3 07/20/2022 3 Discontinued Hospital, Clinic, or Other Facility Administered Medication Ordered Dose Route Frequency Start Date End Date Status medroxyPROGESTERone (contracep) (DEPO-PROVERA) inj 150 mgIndications:Surveilla nce for Depo-Provera contraception 150 mg IM [id number] 07/06/2018 Active albuterol sulfate (PROVENTIL) (2.5 MG/3ML) 0.083% inhalation solution 2.5 mgIndications:COPD, severity to be determined (HCC) 2.5 mg NEBULIZER Q4H PRN 05/03/2019 Active albuterol sulfate (PROVENTIL) (2.5 MG/3ML) 0.083% inhalation solution 2.5 mgIndications:COPD, severity to be determined (HCC) 2.5 mg NEBULIZER Q4H PRN 05/09/2019 Active medroxyPROGESTERone (contracep) (DEPO-PROVERA) inj 150 mgIndications:Surveilla nce for Depo-Provera contraception 150 mg IM [id number] 07/13/2019 Active medroxyPROGESTERone acetate (DEPO-PROVERA) inj TANMAY 150 mgIndications:Surveilla nce for Depo-Provera contraception 150 mg IM [id number] 07/23/2020 Active Albuterol Sulfate (Proventil) (2.5 MG/3ML) 0.083% inhalation solution 2.5 mgIndications:Chronic obstructive pulmonary disease (COPD) (HCC) 2.5 mg NEBULIZER PRN 07/30/2023 07/29/2024 Acti ve Albuterol Sulfate (Proventil) (5 MG/ML) 0.5% *conc* inhalation solution 2.5 mgIndications:Chronic obstructive pulmonary disease (COPD) (HCC) 2.5 mg NEBULIZER PRN 07/30/2023 07/29/2024 Acti ve documented as of this encounter (statuses as of 08/05/2023) Active Problems Problem Noted Date Diagnosed Date Right foot pain 02/03/2023 Food insecurity 06/01/2022 Overview: Per [facility] Protocol Chronic right-sided heart failure 08/27/2021 Pulmonary hypertension 07/15/2021 Morbid obesity due to excess calories 07/15/2021 COPD, moderate 06/16/2021 Restrictive lung disease 06/16/2021 Overview: Seen on PFTs from 2018 Heart failure, diastolic, due to HTN 05/03/2019 Gastroesophageal reflux disease with esophagitis 08/06/2016 HTN, goal below 130/80 03/13/2011 documented as of this encounter (statuses as of 08/05/2023) Resolved Problems Problem Noted Date Diagnosed Date [...] as of this encounter (statuses as of 08/05/2023) Immunizations Name Administration Dates Next Due Pneumococcal [...] encounter Miscellaneous Notes * Telephone Encounter - Leonides Lambert RPh - 08/05/2023 3:05 PM ESTSigned Prescriptions: Disp Refills Omeprazole 20 MG Oral Capsule Delayed Rele*90 Cap*3 Sig: TAKE 1 CAPSULE BY MOUTH EVERY DAY 1 HOUR BEFORE FIRST MEAL OF THE DAYAuthorizing Provider: MEL RAMOS User: LEONIDES LAMBERT documented in this encounter Plan of Treatment Upcoming Encounters Date Type Department Care Team (Late st Contact Info) Description 08/18/2023 10:00 AM EST PulmDiagnostic Pulmonary Function Lab, [facility] [address] [place] [address] [address], [address] [place] [address] 09/03/2023 2:00 PM EST Office Visit Cardiology, [facility] 132 [facility] [place] [address] Miranda Booth CRNP [address] [place] [phone] 11/16/2023 9:45 AM EST Imaging Radiology [facility]st [facility] [address] [place] [address] Health Maintenance Due Date Last Done Comments [...] 08/03/2019 LUNG CANCER SCREENING - USE SMARTSET 78976 Completed 07/03/2021 Alpha-1 Antitrypsin Completed 08/06/2021 GARDASIL-HPV IMMUNIZATION SERIES Aged Out No longer eligible based on patient's age to complete this topic MENINGOCOCCAL (MENACTRA/MENVEO) Aged Out No longer eligible based on patient's age to complete this topic documented as of this encounter Medical Devices Not on filedocumented as of this encounter Care Teams Rn Child Relationship Specialty Start Date End Date Mel Ramos MD [address] [place] [address] PCP - General Family Medicine 04/25/21 documented as of this encounter
--- OUTSIDE RECORDS SUMMARY | 2023-12-06 22:08 | External Medical Summary ---
Author Name Unknown Address Unknown Organization [id number]:[facility] [place] [address] [facility] [address] Laboratory Report Ordering Provider Test Date Status TERELL AQUINO 08/02/2023 09:40:19 Final Observation Date Value Abnormality Reference (Units ) Status Triglyceride 08/02/2023 09:40:19 152 <=174 ( mg/dL) Final Triglyceride Reference Range s (mg/dL):
<150 Acceptable
150-174 Borderline high
175-499 High
>=500 Very high Cholesterol 08/02/2023 09:40:19 210 Above high normal <200 (mg/dL) Final Total Cholesterol Reference Ranges (mg/dL):
<200 Desirable
200-239 Borderline high
>=240 High HDL 08/02/2023 09:40:19 61 >49 (mg/dL ) Final HDL Cholesterol Reference Ra nges (mg/dL):
>=60 High (Desirable)
<50 Low (Undesirable) For Females
<40 Low (Undesirable) For Males NON-HDL CHOLESTEROL 08/02/2023 09:40:19 149 <=159 (mg/dL) Final Non-HDL Cholesterol Referenc e Range (mg/dL):
<100 Target level for high risk ASCVD patient
<130 Optimal for general population
130-159 Near optimal for general population
160-189 Borderline High
190-219 High
>=220 Very High LDL, (calculated) 08/02/2023 09:40:19 119 <= 129 (mg/dL) Final LDL Cholesterol Reference Ra nges (mg/dL):
<70 Target level for high risk ASCVD patient
<100 Optimal for general population
100-129 Near optimal for general population
130-159 Borderline high
160-189 High
>=190 Very high Performing Location [facility] [place] [address] [facility] [address]
--- OUTSIDE RECORDS SUMMARY | 2023-12-06 22:08 | External Medical Summary | Summary of Care ---
Author Name Unknown Organization [facility] Address [address] [place] [address] Phone [phone] Care Team Providers Care Resident Care Director Name Role Phone Walter Cabrera MD Primary Care Provider [phone] Encounter Details Date Type Department Care Team (Late st Contact Info) Description 07/29/2023 Orders Only Family Practice [facility] [address] [place] [address] Walter Cabrera MD [address] [place] [address] Chronic obstructive pulmonary disease (COPD) ([facility])* Allergies Active Allergy Reactions Criticality Noted Date Comments Penicillins Nausea/vomiting 06/29/2016 documented as of this encounter (statuses as of 07/30/2023) Medications Medication Sig Dispensed Refills Start Date [...] nce for Depo-Provera contraception 150 mg IM [id number] 07/06/2018 Active albuterol sulfate (PROVENTIL) (2.5 MG/3ML) 0.083% inhalation solution 2.5 mgIndications:COPD, severity to be determined (HCC) 2.5 mg NEBULIZER Q4H PRN 05/03/2019 Active albuterol sulfate (PROVENTIL) (2.5 MG/3ML) 0.083% inhalation solution 2.5 mgIndications:COPD, severity to be determined (HCC) 2.5 mg NEBULIZER Q4H PRN 05/09/2019 Active medroxyPROGESTERone (contracep) (DEPO-PROVERA) inj 150 mgIndications:Surveilla nce for Depo-Provera contraception 150 mg IM [id number] 07/13/2019 Active medroxyPROGESTERone acetate (DEPO-PROVERA) inj TANMAY 150 mgIndications:Surveilla nce for Depo-Provera contraception 150 mg IM [id number] 07/23/2020 Active Albuterol Sulfate (Proventil) (2.5 MG/3ML) 0.083% inhalation solution 2.5 mgIndications:Chronic obstructive pulmonary disease (COPD) (HCC) 2.5 mg NEBULIZER PRN 07/30/2023 07/29/2024 Acti ve Albuterol Sulfate (Proventil) (5 MG/ML) 0.5% *conc* inhalation solution 2.5 mgIndications:Chronic obstructive pulmonary disease (COPD) (HCC) 2.5 mg NEBULIZER PRN 07/30/2023 07/29/2024 Acti ve documented as of this encounter (statuses as of 07/30/2023) Active Problems Problem Noted Date Diagnosed Date Right foot pain 02/03/2023 Food insecurity 06/01/2022 Overview: Per [facility] Protocol Chronic right-sided heart failure 08/27/2021 Pulmonary hypertension 07/15/2021 Morbid obesity due to excess calories 07/15/2021 COPD, moderate 06/16/2021 Restrictive lung disease 06/16/2021 Overview: Seen on PFTs from 2018 Heart failure, diastolic, due to HTN 05/03/2019 Gastroesophageal reflux disease with esophagitis 08/06/2016 HTN, goal below 130/80 03/13/2011 documented as of this encounter (statuses as of 07/30/2023) Resolved Problems Problem Noted Date Diagnosed Date [...] as of this encounter (statuses as of 07/30/2023) Immunizations Name Administration Dates Next Due Pneumococcal [...] 10:00 AM EST PulmDiagnostic Pulmonary Function Lab, [facility] 132 [facility] [place] [address] [address], [address] [facility] [place] [address] 09/03/2023 2:00 PM EST Office Visit Cardiology, [facility] 132 [facility] [place] [address] Miranda Booth, FLOUR INSPECTOR [address] [facility] [place] [phone] 11/16/2023 9:45 AM EST Imaging Radiology [facility]st [facility] [address] [facility] [place] [address] Scheduled Orders Name Type Priority Associated Diagnoses Orde r Schedule SPIROMETRY B/A BRONCHODILATOR Procedures Routine Chronic obstructive pulmonary disease (COPD) ([facility]) Expected: 08/05/2023, Expires: 08/28/2024 LUNG VOLUMES (PLETHYSMOGRAPHY) Procedures Routine Chronic obstructive pulmonary disease (COPD) ([facility]) Expected: 08/05/2023, Expires: 08/28/2024 DIFFUSION CAPACITY (DLCO) Procedures Routine Chronic obstructive pulmonary disease (COPD) ([facility]) Expected: 08/05/2023, Expires: 08/28/2024 Health Maintenance Due Date Last Done Comments Hepatitis B (1 of 3 - 3-dose series) 1971 COVID-19 Vaccine (#1) 05/22/1972 Albumin/Creatinine Ratio 11/19/1989 HPV/Co-Test 11/19/2001 Cologuard 11/19/2016 Colonoscopy 11/19/2016 Colorectal Cancer Screening 11/19/2016 Fecal Occult Blood Test 11/19/2016 Sigmoidoscopy 11/19/2016 Depression Screening 07/10/2021 07/10/2020 Zoster Vaccines (1 of 2) 11/19/2021 DISCUSS TOBACCO CESSATION (REFER TO SMARTSET #9407) 08/06/2022 08/06/2021 Influenza Vaccine (FLU shot) (#1) 2023 06/03/2020, 07/15/2019 GFR 10/14/2023 10/14/2022, 07/21, 05/15/2021, Additional history exists Mammogram 11/10/2023 11/10/2022, 10/21, 07/23/2020, Additional history exists O2 ASSESSMENT COMPLETED IN PAST YEAR FOR COPD 04/26/2024 04/26/2023 Cervical Cancer Screening 01/12/2025 Pap Smear 01/12/2025 01/12/2022, 06/20, 06/18/2015, Additional history exists Diabetes Screening 10/14/2025 10/14/2022, 1 10/06/2020, 05/15/2021, Additional history exists Lipid Panel 10/14/2027 10/14/2022, 08/02/2021, 11/02/2019, Additional history exists DTaP,Tdap,and Td Vaccines (3 - Td or Tdap) 05/03/2029 05/03/2019, 02/21/2009 Pneumococcal Vaccine: Pediatrics (0 to 5 Years) and At-Risk Patients (6 to 64 Years) (3 - PPSV23 or PCV20) 11/19/2036 12/28/2019, 08/03/2019 LUNG CANCER SCREENING - USE SMARTSET [id number] Completed 07/03/2021 Alpha-1 Antitrypsin Completed 08/06/2021 GARDASIL-HPV IMMUNIZATION SERIES Aged Out No longer eligible based on patient's age to complete this topic MENINGOCOCCAL (MENACTRA/MENVEO) Aged Out No longer eligible based on patient's age to complete this topic documented as of this encounter Medical Devices Not on filedocumented as of this encounter Visit Diagnoses Diagnosis Chronic obstructive pulmonary disease (COPD) (HCC)- Primary Chronic airway obstruction, not elsewhere classified documented in this encounter Care Teams Resident Care Director Relationship Specialty Start Date End Date Walter Cabrera MD [address] [facility] [place] [address] PCP - General Family Medicine 04/25/21 documented as of this encounter
--- OUTSIDE RECORDS SUMMARY | 2023-12-06 22:08 | External Medical Summary ---
Author Name Unknown Address Unknown Organization [id number]:LABORATORY [facility] [place] [address] - [address] [place] [address] Laboratory Report Ordering Provider Test Date Status BYRON PRIEST 08/02/2023 09:40:19 Final Observation Date Value Abnormality Reference (Units ) Status WBC, Total 08/02/2023 09:40:19 11.76 Above high normal 4 .00-10.80 (K/uL) Final RBC 08/02/2023 09:40:19 5.04 3.85-5.15 (M/uL) Final Hemoglobin 08/02/2023 09:40:19 13.7 12.0-15.3 (g/dL) Final HCT 08/02/2023 09:40:19 45.6 Above high normal 36 .0-45.2 (%) Final MCV 08/02/2023 09:40:19 90.5 81.5-97.5 (fL) Final MCH 08/02/2023 09:40:19 27.2 27.0-34.0 (pg) Final MCHC 08/02/2023 09:40:19 30.0 32.0-36.0 (g/dL) Final RDW 08/02/2023 09:40:19 17.1 11.5-15.5 (%) Final Platelets 08/02/2023 09:40:19 247 140-400 (K /uL) Final MPV 08/02/2023 09:40:19 10.3 6.6-11.1 ( fL) Final Performing Location LABORATORY [facility] [place] [address] - [address] [place] [address]
--- OUTSIDE RECORDS SUMMARY | 2023-12-06 22:08 | External Medical Summary | Summary of Care ---
Author Name Unknown Organization [facility] Address [address] [place] [address] Phone [phone] Care Team Providers Care Vacuum Cleaner Assembler Name Role Phone Walter Cabrera MD Primary Care Provider [phone] Reason for Referral * Evaluate & Treat - Unlimited Visits (Within 10 days (routine)) - Pending Review Specialty Diagnoses / Procedures Referred By Contact Referred To Contact Cardiovascular Medicine / Cardiology Diagnoses History of CHF (congestive heart failure) Kamron Mayberry MD [address] [place] [address] Referral ID Status Reason Start Date Expiration Date Visits Requested Visits Authorized [id number] Pending Review Specialty Services Required 07/29/[phone] Question Answer Referral Priority Within 10 days (routine) Where should this appointment be scheduled? [facility] To which of the following clinics are you referring your patient? General Cardiology Clinic Comments History of CHF Encounter Details Date Type Department Care Team (Late st Contact Info) Description 07/29/2023 Orders Only Access Center, [address] *DO NOT REMOVE THIS DEPARTMENT* [place] [id number] Requisition, External Cardiology [address] [place] [address] History of CHF (congestive heart failure)* Allergies Active Allergy Reactions Criticality Noted Date [...] e for Depo-Provera contraception 150 mg IM [id number] 07/06/2018 Active albuterol sulfate (PROVENTIL) (2.5 MG/3ML) 0.083% inhalation solution 2.5 mgIndications:COPD, severity to be determined (HCC) 2.5 mg NEBULIZER Q4H PRN 05/03/2019 Active albuterol sulfate (PROVENTIL) (2.5 MG/3ML) 0.083% inhalation solution 2.5 mgIndications:COPD, severity to be determined (HCC) 2.5 mg NEBULIZER Q4H PRN 05/09/2019 Active medroxyPROGESTERone (contracep) (DEPO-PROVERA) inj 150 mgIndications:Surveillanc e for Depo-Provera contraception 150 mg IM [id number] 07/13/2019 Active medroxyPROGESTERone acetate (DEPO-PROVERA) inj TANMAY 150 mgIndications:Surveillanc e for Depo-Provera contraception 150 mg IM [id number] 07/23/2020 Active documented as of this encounter (statuses as of 07/29/2023) Active Problems Problem Noted Date Diagnosed Date Right foot pain 02/03/2023 Food insecurity 06/01/2022 Overview: Per [facility] Protocol Chronic right-sided heart failure 08/27/2021 [...] 09/03/2023 2:00 PM EST Office Visit Cardiology, [address] [place] [address] Miranda Booth CRNP [address] [place] [address] [place] [phone] 11/16/2023 9:45 AM EST Imaging Radiology [address] [place] [address] Scheduled Referrals Name Type Priority Associated Diagnoses Orde r Schedule CARDIOLOGY REFERRAL OP Referral Within 10 days (routine) History of CHF (congestive heart failure) Ordered: 07/29/2023 Health Maintenance Due Date Last Done Comments [...] 08/03/2019 LUNG CANCER SCREENING - USE SMARTSET [id number] Completed 07/03/2021 Alpha-1 Antitrypsin Completed 08/06/2021 GARDASIL-HPV IMMUNIZATION SERIES Aged Out No longer eligible based on patient's age to complete this topic MENINGOCOCCAL (MENACTRA/MENVEO) Aged Out No longer eligible based on patient's age to complete this topic documented as of this encounter Medical Devices Not on filedocumented as of this encounter Visit Diagnoses Diagnosis History of CHF (congestive heart failure)- Primary Personal history of other diseases of circulatory system documented in this encounter Care Teams Vacuum Cleaner Assembler Relationship Specialty Start Date End Date Walter Cabrera MD [address] [place] [address] PCP - General Family Medicine 04/25/21 documented as of this encounter
--- OUTSIDE RECORDS SUMMARY | 2023-12-06 22:08 | External Medical Summary ---
Author Name Unknown Address Unknown Organization [id number]:[facility] [place] [address] [facility] [address] [facility] [address] Laboratory Report Ordering Provider Test Date Status BYRON PRIEST 08/02/2023 09:40:19 Final Observation Date Value Abnormality Reference (Units ) Status HbA1C 08/02/2023 09:40:19 6.5 Above high normal 4. 0-5.6 (%) Final The use of HbA1c to monitor glycemic status is based on normal hemoglobin and HbA composition. This test should not be used in patients with abnormal hemoglobin that affects the half life of the red blood cell or the in vivo glycation rates. Glucose, estimated average 08/02/2023 09:40:19 140 Above high normal <126 (mg/dL) Yazan miramontes Performing Location [facility] [place] [address] [facility] [address]
--- OUTSIDE RECORDS SUMMARY | 2023-12-06 22:08 | External Medical Summary | Summary of Care ---
Author Name Unknown Organization [facility] Address [address] [place] [address] Phone [phone] Care Team Providers Care Carrier Operator Name Role Phone Walter Cabrera MD Primary Care Provider [phone] Encounter Details Date Type Department Care Team (Late st Contact Info) Description 07/28/2023 Orders Only Radiology, [facility] [address] [place], [place] [id number] Requisition, External Radiology [address] [place] [address] Heart failure, etiology unknown (HCC)* Allergies Active Allergy Reactions Criticality Noted Date [...] e for Depo-Provera contraception 150 mg IM [id number] 07/06/2018 Active albuterol sulfate (PROVENTIL) (2.5 MG/3ML) 0.083% inhalation solution 2.5 mgIndications:COPD, severity to be determined (HCC) 2.5 mg NEBULIZER Q4H PRN 05/03/2019 Active albuterol sulfate (PROVENTIL) (2.5 MG/3ML) 0.083% inhalation solution 2.5 mgIndications:COPD, severity to be determined (HCC) 2.5 mg NEBULIZER Q4H PRN 05/09/2019 Active medroxyPROGESTERone (contracep) (DEPO-PROVERA) inj 150 mgIndications:Surveillanc e for Depo-Provera contraception 150 mg IM [id number] 07/13/2019 Active medroxyPROGESTERone acetate (DEPO-PROVERA) inj TANMAY 150 mgIndications:Surveillanc e for Depo-Provera contraception 150 mg IM [id number] 07/23/2020 Active documented as of this encounter (statuses as of 07/28/2023) Active Problems Problem Noted Date Diagnosed Date Right foot pain 02/03/2023 Food insecurity 06/01/2022 Overview: Per [facility] Protocol Chronic right-sided heart failure 08/27/2021 [...] 09/03/2023 2:00 PM EST Office Visit Cardiology, [facility] [address] [facility] [place] [address] Miranda Booth CRNP [address] [place] [phone] 11/16/2023 9:45 AM EST Imaging Radiology [facility] [address] [facility] [place] [address] Scheduled Orders Name Type Priority Associated Diagnoses Orde r Schedule XR CHEST 2 VIEWS Medical Imaging Routine Heart failure, etiology unknown (HCC) Ordered: 07/28/2023 Health Maintenance Due Date Last Done Comments [...] 08/03/2019 LUNG CANCER SCREENING - USE SMARTSET [id number] Completed 07/03/2021 Alpha-1 Antitrypsin Completed 08/06/2021 GARDASIL-HPV IMMUNIZATION SERIES Aged Out No longer eligible based on patient's age to complete this topic MENINGOCOCCAL (MENACTRA/MENVEO) Aged Out No longer eligible based on patient's age to complete this topic documented as of this encounter Medical Devices Not on filedocumented as of this encounter Visit Diagnoses Diagnosis Heart failure, etiology unknown (HCC)- Primary Heart failure, unspecified documented in this encounter Care Teams Carrier Operator Relationship Specialty Start Date End Date Walter Cabrera MD [address] [place] [address] PCP - General Family Medicine 04/25/21 documented as of this encounter
--- OUTSIDE RECORDS SUMMARY | 2023-12-06 22:08 | External Medical Summary ---
Author Name Unknown Address Unknown Organization K01:[facility]ORY [facility] [place] - [address] [place] [address] Laboratory Report Ordering Provider Test Date Status BYRON PRIEST 08/02/2023 09:40:19 Final Exclude Heart Failure: <300 pg/mL
Diagnose Heart Failure:
Age <50 yr: >450 pg/mL
50-75 yr: >900 pg/mL
>75 yr: >1800 pg/mL
GFR is 30-59 mL/min: >1200 pg/mL or Age- adjusted values
GFR <30 mL/min: do not use, not reliable

Prognostic threshold: 1000 pg/mL Observation Date Value Abnormality Reference (Units ) Status BNP, Pro-hormone 08/02/2023 09:40:19 231 <30 0 (pg/mL) Final Performing Location LABORATORY [facility] [place] - [address] [place] [address]
--- OUTSIDE RECORDS SUMMARY | 2023-12-06 22:08 | External Medical Summary ---
Author Name Unknown Address Unknown Organization K0G:LABORATORY [facility] [place] [address] - [address] [place] [address] Laboratory Report Ordering Provider Test Date Status BYRON PRIEST 08/02/2023 09:40:19 Final Observation Date Value Abnormality Reference (Units ) Status SYNC LEUKOCYTES IN BLOOD BY AUTOMATED COUNT 08/02/2023 09:40:19 11.76 Above high normal 4.00-10.80 (K/uL) Final Segs 08/02/2023 09:40:19 79.1 Above high normal 40.0-75.0 (%) Final Lymphs % 08/02/2023 09:40:19 14.3 Below low normal 18.0-42.0 (%) Final Monos 08/02/2023 09:40:19 6.0 1.0-11.0 (%) Final Eosinophils 08/02/2023 09:40:19 0.3 0.0-6.0 (%) Final Basos 08/02/2023 09:40:19 0.3 0.0-2.0 (%) Final Absolute Segs 08/02/2023 09:40:19 9.32 Above high normal 1.80-7.70 (K/uL) Final Lymphs, absolute 08/02/2023 09:40:19 1.68 1.00-4.80 (K/ul) Final Monos, Abs 08/02/2023 09:40:19 0.70 0.00-1.10 (K/uL) Final Eos, Abs 08/02/2023 09:40:19 0.03 0.00-0.70 (K/uL) Final Basos, Abs 08/02/2023 09:40:19 0.03 0.00-0.20 (K/uL) Final Performing Location LABORATORY [facility] [place] [address] - [address] [place] [address]
--- OUTSIDE RECORDS SUMMARY | 2023-12-06 22:08 | External Medical Summary ---
Author Name Unknown Address Unknown Organization K01:[facility]ATORY [facility] [place] - [address] [facility] [address] [facility] [address] Laboratory Report Ordering Provider Test Date Status BYRON PRIEST 08/02/2023 09:40:19 Final Observation Date Value Abnormality Reference (Units ) Status TSH 08/02/2023 09:40:19 1.14 0.27-4.20 (uIU/mL) Final Performing Location [facility]ORY [facility] [place] - [address] [facility] [address]
[2023-12-06] MEDS: LEVALBUTEROL HCL 0.63 MG/3 ML NEB NEB SCH (22:14)
[2023-12-06] MEDS: IPRATROPIUM BROMIDE NEB SOLN 0.02% 0.5MG/2.5ML VIAL INH SCH (22:14)
[2023-12-07] MEDS: FLUTICASONE FUROATE 200MCG 14 PUFFS/INHALER INH SCH (00:45)
[2023-12-07] MEDS ORDERED: XOPENEX/ATROVENT 0.63mg/0.5MG NEB COMBO NEB SCH (01:00)
[2023-12-07 03:01] LABS: Anisocytosis Present; Basophils # (auto) 0.02 K/uL (0.00-0.20); Basophils % (auto) 0.1 %; Eosinophils # (auto) 0.01 K/uL (0.00-0.50); Eosinophils % (auto) 0.1 %; Hematocrit (blood only) 46.5 % (37.0-47.0); Hemoglobin 12.5 g/dl (12.0-16.0); Hypochromasia Present; Immature Granulocytes # (auto) 0.09 K/uL (0.01-0.20); Immature Granulocytes % (auto) 0.6 %; Lymphocytes # (auto) 0.56 K/uL (1.20-3.40); Lymphocytes % (auto) 3.9 %; Mean Corpuscular Hemoglobin 21.2 pg (25.0-34.0); Mean Corpuscular Hgb Conc 26.9 g/dL (32.0-36.0); Mean Corpuscular Volume 78.9 fL (80.0-100.0); Mean Platelet Volume 10.6 fL (9.4-12.4); Monocytes # (auto) 0.24 K/uL (0.11-0.59); Monocytes % (auto) 1.7 %; Neutrophils # (auto) 13.58 K/uL (1.40-6.50); Neutrophils % (auto) 93.6 %; Platelet Count 275 K/uL (130-400); Polychromasia 1+; RDW Standard Deviation 56.8 fL (36.4-46.3); Red Blood Count 5.89 M/uL (4.20-5.40)
[2023-12-07 03:04] LABS: Albumin Level 3.9 gm/dl (3.4-5.0); BUN Creatinine Ratio 20.6 (10-20); Bilirubin,Total 0.3 mg/dl (0.2-1.0); Creatinine Clr Calc Pharmacy 59.6 ml/min; Est GFR (African American) 56.7 ml/min; Est GFR (Non-African American) 48.9 ml/min; Globulin 3.8 gm/dl (2.5-4.0); Magnesium 1.6 mg/dl (1.7-2.4); Phosphorus 5.7 mg/dl (2.5-4.9); Potassium 5.3 mmol/L (3.5-5.1); Total Protein 7.7 gm/dl (6.0-8.3)
[2023-12-07] MEDS ORDERED: ALBUT/IPRATROP 3MG/0.5MG NEB 3 ML VIAL NEB SCH (07:00)
[2023-12-07 07:03] LABS: Estimated Average Glucose 143 mg/dl; Hemoglobin A1C 6.6 % (4.5-5.6)
--- NOTE | 2023-12-07 07:50 | Cardiology Consultation ---
Date of Consultation December 07, 2023 Assessment & Plan (1) Chronic hypercapnic respiratory failure: (2) Hypoxia: Plan IMPRESSION: 53 year old female who presented to [facility] ED with acute on chronic hypoxic respiratory failure. Findings more consistent with COPD exacerbation. Patient appears euvolemic on exam. Echo without evidence of heart failure. BNP and HS troponins normal. PLAN: -Euvolemic on exam-- stop IV Lasix and restart home dose of Oral Lasix 40 mg daily tomorrow. -Hyperkalemia noted on BMP this am-- Aldactone on hold, repeat BMP in the AM. -Continue metoprolol succinate and lisinopril as ordered. -Will defer to primary service/pulmonary regarding the management of COPD exacerbation-- patient currently being treated with IV Abx, DuoNebs, and steroids Case discussed with Dr. Richardson. Further recommendations pending his assessment. I spent a total of 40 minutes on the date of service in preparation, delivery, and documentation of the care provided to the patient excluding any time spent in the performance of separately billed services. COBY Leary Department of Cardiology, [facility] This chart was completed in part utilizing Speech Voice Recognition Software. Grammatical errors, random word insertions, pronoun errors, and incomplete sentences are an occasional consequence of this system due to software limitations, ambient noise, and hardware issues. Any formal questions or concerns about the content, text, or information contained within the body of this dictation should be directly addressed to the provider for clarification. Supervising Physician Co-Signing Physician Notes I have reviewed the advance practitioner's documentation, and I agree with, and take responsibility for the plan of care. 53-year-old female sent to ER from [facility] due to hypoxia. Treated with 2 doses of IV Lasix, 20 mg 12/06/2023, and 40mg this morning due to concerns regarding volume overload, acute diastolic heart failure. Patient reports feeling tired although not acutely ill. VBG on admission demonstrates hypercapnic respiratory failure. She has been hypoxic since admission requiring 6 L. Denies chest pain or palpitations. Telemetry reveals sinus rhythm. Creatinine trending upward with mild hyponatremia and hyperkalemia today after receiving IV diuretic therapy. Reports history of chronic diastolic heart failure, however, denies any recent weight gain or edema. Chronically treated with 40 mg Lasix daily as an outpatient. Chronic orthopnea unchanged. No PND reported. PE: VSS. GEN: NAD, AAOx3. Obese. Heart: Regular rhythm, normal S1-S2. No murmur. Lungs: Diminished breath sounds bilateral, no rales, rhonchi, wheeze per extremities: No edema. A/P: 53-year-old female with acute hypoxic and hypercapnic respiratory failure. Compensated per VBG. Continue oxygen supplement (goal 85% - 98% as per pulmonology). Patient volume status difficult to assess due to body habitus, however, no overt signs of volume overload at this time. (No recent weight gain or edema per history). Hold additional diuretic therapy at this time in setting of acute renal insufficiency, hyponatremia, and hyperkalemia. Repeat basic metabolic panel in AM. Resume oral Lasix when renal function stabilized. Hold Aldactone and lisinopril. Outpatient polysomnography to determine need for CPAP, versus BiPAP. Thank you for allowimng me to participate in the care of your patient. History of Present Illness Reason for Consultation: Hypoxia Requesting Physician: [facility] Attending Physician: Jen Rebolledo MD History of Present Illness 53-year-old female who presented to [facility] emergency department yesterday by the recommendations of her PCP at [facility] due to shortness of breath. Patient was found to be hypoxic with oxygen saturations in the 70s. Venous blood gas noting hypercarbia. Due to concerns for COPD exacerbation patient received IV Solu-Medrol, antibiotics plus DuoNebs. Pulmonary was consulted. Volume status appeared hypervolemic and was started on IV Lasix 40 mg daily in the ED. Echo with preserved LVEF of 55-60%, no WMA. No diastolic dysfunction. No valvular issues. Labs: Lipid a WBC of 14.5, mild renal dysfunction with a serum creatinine of 1.26, hyperkalemia 5.3, mag low at 1.6, high-sensitivity troponin negative x 3 (11.1>>7.8>>7.1), BNP normal at 40 Chest x-ray: Cardiomegaly with mild pulmonary edema CTA of the chest: No acute abnormality, no M pulmonary embolus, + pulmonary hypertension with atelectasis versus scarring dependent portions of the lungs. Tele: SR/ST 80-100 bpm I&O: -- Weight: 109 kg Upon entrance into the room patient resting in bed. No acute concerns. Denies chest pain. SOB at baseline. No palpitations, dizziness, syncope or near syncope. No orthopnea, PND, or increased lower extremity edema. No fever, chills, cough, hematochezia, melena, or hemoptysis. Requiring supplemental o2 with Oxy mask at 6L. SPO2 95%. 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: Follows with Ana Hilton PA-C Past medical history: Hypertension Hypertensive heart disease with chronic diastolic CHF RV dilation, thought to be related to pulmonary diagnosis, improved 2020 Sinus tachycardia COPD with ongoing tobacco use Type 2 diabetes History of alcohol abuse Allergies Allergy/AdvReac Type Severity Reaction Status Date / Time Penicillins Allergy Hives Unverified 12/06/23 16:33 Home Medications Medication Instructions Recorded Confirmed Type albuterol sulfate 90 mcg/actuation 2 puff inhalation Q4 PRN Shortness 12/06/23 12/06/23 History aerosol inhaler (ProAir HFA) Of Breath Or Wheezing allopurinol 100 mg tablet 300 mg PO DAILY 12/06/23 12/06/23 History fluticasone propionate 220 2 puff inhalation BID 12/06/23 12/06/23 History mcg/actuation HFA aerosol inhaler folic acid 1 mg tablet 1 mg PO QAM 12/06/23 12/06/23 History furosemide 40 mg tablet 40 mg PO DAILY 12/06/23 12/06/23 History lisinopril 5 mg tablet 5 mg PO DAILY 12/06/23 12/06/23 History metoprolol succinate 25 mg 25 mg PO QPM 12/06/23 12/06/23 History tablet,extended release 24 hr metoprolol succinate 50 mg 50 mg PO QAM 12/06/23 12/06/23 History tablet,extended release 24 hr omeprazole 20 mg capsule,delayed 20 mg PO QAM 12/06/23 12/06/23 History release rosuvastatin 5 mg tablet 5 mg PO DAILY 12/06/23 12/06/23 History sertraline 50 mg tablet 50 mg PO DAILY 12/06/23 12/06/23 History spironolactone 25 mg tablet 12.5 mg PO DAILY 12/06/23 12/06/23 History Patient History Medical History (Updated 12/07/23 @ 08:22 by Cuauhtemoc Ly MD) Pulmonary hypertension Obstructive sleep apnea Acute on chronic right heart failure Depression DVT prophylaxis CHF (congestive heart failure) COPD (chronic obstructive pulmonary disease) Alcohol use Acute on chronic heart failure with preserved ejection fraction Chronic diastolic heart failure Sinus tachycardia GERD (gastroesophageal reflux disease) Prediabetes Bilateral leg edema Tobacco use Hypertension SOB (shortness of breath) Hypoxia Surgical History Hx of colonoscopy Family History Other COPD (chronic obstructive pulmonary disease) Diabetes Kidney disease Social History Smoking Status: Current every day smoker Tobacco Type: Cigarettes Cigarettes Per Day: 10; Second Hand Exposure: Yes; Do You Dip or Chew Tobacco: No; Tobacco Cessation Education Requested by Patient: No Hx Alcohol Use: Yes Alcohol type: beer and hard liquor Alcohol Intake Frequency Comment: cutting back to 2-3 beers, 2 times a week Hx Substance Use: No Preferred Language: Maltese Communication Ability: Effective Tombstone Polisher Required: No Beliefs That Will Affect Care: None Current Living Situation: Other Current Living Situation Comment: House mate Other Information That Helps Us Care for You: No Feels Safe at Home: Yes Safety Concerns: Feels Safe At This Time Assistive Devices: None Review of Systems Review of Systems: All systems reviewed & are unremarkable except as noted in HPI & below Physical Exam Constitutional: WD/WN, vitals as above + ill appearing; no acute distress Eyes: PERRL, conjunctivae normal, anicteric sclerae Neck: normal visual inspection and trachea midline Respiratory: normal respiratory effort; no respiratory distress and no cough Auscultation: + wheezes; no crackles, no rales and no rhonchi Cardiovascular: Rate/Rhythm: regular rate and regular rhythm Heart Sounds: normal S1 and normal S2; no murmur Vessels: no JVD Extremities: no edema Gastrointestinal (Abdomen): normal bowel sounds, soft, nontender, no hepatosplenomegaly Skin: no rashes, warm and dry Neurologic: PERRL, EOMI, accommodation nl, no face palsy, no dysarthria Psychiatric: A+Ox3, euthymic affect Results & Data Vital Signs (Past 12 Hours) Vital Signs Temp Pulse Pulse Resp BP BP Pulse Ox 12/07/23 07:34 83 12/07/23 07:34 88 14 95 12/07/23 05:34 60 18 132/76 94 12/07/23 02:09 67 21 99 12/07/23 02:00 36.5 C 80 16 132/76 99 12/06/23 23:35 87 12/06/23 21:53 12/06/23 21:53 12/06/23 21:53 36.9 C 88 19 98/62 L 95 12/06/23 20:00 115/67 12/06/23 20:00 91 H 25 H 94 O2 Del Method O2 Flow Rate 12/07/23 07:34 12/07/23 07:34 Oxymask 13 12/07/23 05:34 CPAP 12/07/23 02:09 6 12/07/23 02:00 Room Air 12/06/23 23:35 12/06/23 21:53 Oxymask 7 12/06/23 21:53 Oxymask 7 12/06/23 21:53 Oxymask 7 12/06/23 20:00 12/06/23 20:00 Room Air Laboratory Results Cardiac Enzymes 12/06/23 12/06/23 12/07/23 Range/Units 14:28 20:40 02:21 AST 14 13 (13-39) U/L Troponin I High Sens 11.1 7.8 7.1 (0-14) pg/ml B-Natriuretic Peptide 40 (0-100) pg/ml Coagulation 12/06/23 Range/Units 14:28 B-Natriuretic Peptide 40 (0-100) pg/ml CBC 12/06/23 12/07/23 Range/Units 14:28 02:21 WBC 13.03 H 14.50 H (4.8-10.8) K/ul RBC 6.03 H 5.89 H (4.20-5.40) M/uL Hgb 13.0 12.5 (12.0-16.0) g/dl Hct 46.9 46.5 (37.0-47.0) % Plt Count 267 275 (130-400) K/uL Neut # (Auto) 10.58 H 13.58 H (1.40-6.50) K/uL Lymph # (Auto) 1.57 0.56 L (1.20-3.40) K/uL Crawford # (Auto) 0.71 H 0.24 (0.11-0.59) K/uL Eos # (Auto) 0.06 0.01 (0.00-0.50) K/uL Baso # (Auto) 0.06 0.02 (0.00-0.20) K/uL Comprehensive Metabolic Panel 12/06/23 12/07/23 Range/Units 14:28 02:21 Sodium 137 135 L (136-145) mmol/L Potassium 4.0 5.3 H D (3.5-5.1) mmol/L Chloride 96 L 94 L (98-107) mmol/L Carbon Dioxide 33 H 32 (21-32) mmol/L BUN 21 26 H (6-23) mg/dl Creatinine 0.92 1.26 H D (0.6-1.2) mg/dl Glucose 145 H 164 H (70-99(Fasting)) mg/dl Calcium 9.4 9.0 (8.6-10.3) mg/dl AST 14 13 (13-39) U/L ALT 10 10 (7-52) U/L Alkaline Phosphatase 126 H 113 H (34-104) U/L Total Protein 7.5 7.7 (6.0-8.3) gm/dl Albumin 3.9 3.9 (3.4-5.0) gm/dl Intake and Output 12/06/23 12/07/23 12/07/23 22:59 06:59 14:59 Intake Total 50 / 50 Balance 50 / 50 Intake: IV 50 / 50 cefTRIAXone SODIUM 2,000 mg In 50 / 50 Dextrose 5 % Mini-B 50 ml @ 100 mls/hr IV Q24H [facility] Rx#: [id number] Diagnostic Findings Echo 12/07/2023: As above Echo 08/27/2021 LV ejection fraction 62% RV cavity size is normal with normal systolic function Normal-sized atria No significant valvular disease No wall motion abnormalities
--- NOTE | 2023-12-07 08:03 | Hospitalist Progress Note ---
Date of Service December 07, 2023 Assessment & Plan (1) Acute respiratory failure with hypoxia and hypercapnia: (2) Acute on chronic diastolic (congestive) heart failure: (3) Pulmonary hypertension: Plan Ms. Squires is a 53-year-old female with PMHx significant for chronic diastolic heart failure, HTN, DMII, GERD, tobacco use, obesity, alcohol abuse who was admitted 12/07/2023 for acute hypoxic respiratory failure, thought to be heart failure and COPD. #Acute hypoxic and hypercapnic respiratory failure, multifactorial #Pulm HTN, likely iso OHS/LARS #Morbid Obesity ECHO with 55-60%, right ventricular mildly dilated Reportedly pt was at [facility] with noted oxygen saturations in the 70s, as well as in the ED VBG noting hypercarbia, CO2 68 Respiratory panel negative BNP 40, however, CXR with cardiomegaly and edema IV Lasix 40mg daily--transition to PO in am cpap/bipap qhs Oxygen supplementation, wean as tolerated Pulmonary following -Overnight pulse ox study and 2 step tomorrow -Target oxygen saturations around 85 to 90% given concomitant hypercarbia. -Weight loss counseled, #DILLON #Hyperkalemia Holding Lisinopril and spironolactone Repeat BMP at 1500 Resume home regimen as tolerated #Acute on chronic heart failure with preserved ejection fraction BNP wnl Chest XRAY noting cardiomegaly, mild pulmonary edema Echo from 2020 noting EF 60-65%, mod LVH, dilation of RV and decreased RV systolic function, elevated R ventricular pressure Repeat echo pending Discontinue IV lasix, transition to PO lasix Hold home spironolactone 12.5mg daily, lisinopril given hyperkalemia Milligan for accurate ins and outs Daily weights Cardiology consulted, appreciate recs #COPD Exacerbation r/o, no wheezing/sputum or signs/symptoms c/w exacerbation Pt with chronic tobacco use Received IV Solumedrol 125mg in the ED, continue with IV Solumedrol 60mg daily Discontinue steroids and antibiotics, as well as scheduled nebs Incruse + Arnuity for LABA/LAMA/ICS treatment Pt no longer has insurance, follows with Dr Mayberry at [facility] Consider PFTs if able to obtain Pulmonology consulted, appreciate further recs -No indication for steroids or antibiotics. Outpatient PFTs recommended. Place her on Anoro at this time instead of ICS. #Enlarged Axillary lymph nodes Noted on chest CTA: right axillary 14mm, 15mm left; potentially reactive PCP follow up #DMII Pt with noted hyperglycemia Hgba1c 6.6% 12/06 Not on medications at home #Gout Continue home allopurinol #Hx of alcohol abuse AWSS Continue home folic acid #HTN Hold home lisinopril Continue home metoprolol #GERD Continue ppi #HLD Continue home statin #Mood Continue home zoloft #Chronic Tobacco use Currently smoking, down to 10 cigs Declines nicotine patch at this time Ordered prn for future use or need Encourage cessation CODE STATUS: Full code Diet: HH/DMII, low sodium DVT prophylaxis: Lovenox SQ Dispo: PCU/tele Admission and Anticipated Discharge Date Admission Date: December 06, 2023 Subjective NO acute events overnight Still on oxymask of 6NC Denies any knowledge of hypoxemia or other concerns in recent history Physical Exam Constitutional: WD/WN, vitals as above Respiratory: normal respiratory effort, lungs clear to auscultation Cardiovascular: RRR, no murmur, no edema Gastrointestinal (Abdomen): normal bowel sounds, soft, nontender, no hepatosplenomegaly Results & Data Results & Data Vital Signs (Past 12 Hours) Vital Signs Temp Pulse Pulse Resp BP BP Pulse Ox 12/07/23 07:34 83 12/07/23 07:34 88 14 95 12/07/23 05:34 60 18 132/76 94 12/07/23 02:09 67 21 99 12/07/23 02:00 36.5 C 80 16 132/76 99 12/06/23 23:35 87 12/06/23 21:53 12/06/23 21:53 12/06/23 21:53 36.9 C 88 19 98/62 L 95 12/06/23 20:00 115/67 12/06/23 20:00 91 H 25 H 94 O2 Del Method O2 Flow Rate 12/07/23 07:34 12/07/23 07:34 Oxymask 13 12/07/23 05:34 CPAP 12/07/23 02:09 6 12/07/23 02:00 Room Air 12/06/23 23:35 12/06/23 21:53 Oxymask 7 12/06/23 21:53 Oxymask 7 12/06/23 21:53 Oxymask 7 12/06/23 20:00 12/06/23 20:00 Room Air Laboratory Results Short CBC 12/06/23 12/07/23 Range/Units 14:28 02:21 WBC 13.03 H 14.50 H (4.8-10.8) K/ul Hgb 13.0 12.5 (12.0-16.0) g/dl Hct 46.9 46.5 (37.0-47.0) % Plt Count 267 275 (130-400) K/uL BMP 12/06/23 12/07/23 14:28 02:21 Sodium 137 135 L Potassium 4.0 5.3 H D Chloride 96 L 94 L Carbon Dioxide 33 H 32 BUN 21 26 H Creatinine 0.92 1.26 H D Glucose 145 H 164 H Calcium 9.4 9.0 Liver Function 12/06/23 12/07/23 Range/Units 14:28 02:21 Total Bilirubin 0.5 0.3 (0.2-1.0) mg/dl AST 14 13 (13-39) U/L ALT 10 10 (7-52) U/L Alkaline Phosphatase 126 H 113 H (34-104) U/L Albumin 3.9 3.9 (3.4-5.0) gm/dl Urine 12/06/23 Range/Units 17:12 Urine Color Yellow Urine Appearance Clear (Clear) Urine pH 5.0 (4.5-7.5) Ur Specific [place] 1.007 (1.000-1.030) Urine Protein Negative (Negative) Urine Glucose (UA) Negative (Negative) Medications Administered Home Medications Medication Instructions Recorded Confirmed Last Taken albuterol sulfate 90 mcg/actuation 2 puff inhalation Q4 PRN Shortness 12/06/23 12/06/23 Unknown aerosol inhaler (ProAir HFA) Of Breath Or Wheezing allopurinol 100 mg tablet 300 mg PO DAILY 12/06/23 12/06/23 Unknown fluticasone propionate 220 2 puff inhalation BID 12/06/23 12/06/23 Unknown mcg/actuation HFA aerosol inhaler folic acid 1 mg tablet 1 mg PO QAM 12/06/23 12/06/23 Unknown furosemide 40 mg tablet 40 mg PO DAILY 12/06/23 12/06/23 Unknown lisinopril 5 mg tablet 5 mg PO DAILY 12/06/23 12/06/23 Unknown metoprolol succinate 25 mg 25 mg PO QPM 12/06/23 12/06/23 Unknown tablet,extended release 24 hr metoprolol succinate 50 mg 50 mg PO QAM 12/06/23 12/06/23 Unknown tablet,extended release 24 hr omeprazole 20 mg capsule,delayed 20 mg PO QAM 12/06/23 12/06/23 Unknown release rosuvastatin 5 mg tablet 5 mg PO DAILY 12/06/23 12/06/23 Unknown sertraline 50 mg tablet 50 mg PO DAILY 12/06/23 12/06/23 Unknown spironolactone 25 mg tablet 12.5 mg PO DAILY 12/06/23 12/06/23 Unknown Active Medications Generic Name Dose Route Start Last Admin Trade Name Anuj PRN Reason Stop Dose Admin Azithromycin 500 mg 12/06/23 21:00 12/06/23 21:43 Azithromycin 250 Mg Tab PO 12/08/23 09:01 500 mg QAM FELICIA Administration Enoxaparin Sodium 40 mg 12/06/23 21:00 12/06/23 21:43 Enoxaparin Inj 40 Mg/0.4 Ml Syr SQ 01/05/24 20:59 40 mg Q12H FELICIA Administration Fluticasone Furoate 1 puffs 12/06/23 21:00 12/07/23 00:45 Fluticasone Furoate 200mcg 14 Puffs/Inhaler INH 01/05/24 20:59 1 puffs DAILY FELICIA Administration Ceftriaxone Sodium 2,000 mg/ 50 mls @ 100 mls/hr 12/06/23 21:00 12/06/23 22:13 Dextrose IV 12/13/23 20:59 Infused Q24H FELICIA Infusion Ipratropium [place] 0.5 mg 12/06/23 20:30 12/07/23 07:34 Ipratropium [place] Neb Soln 0.02% 0.5mg/2.5ml Vial INH 01/05/24 20:29 0.5 mg DAILY FELICIA Administration Levalbuterol HCl 0.63 mg 12/06/23 20:30 12/07/23 07:34 Levalbuterol Hcl 0.63 Mg/3 Ml Neb NEB 01/05/24 20:29 0.63 mg DAILY FELICIA Administration Metoprolol Succinate 25 mg 12/06/23 21:00 12/06/23 22:01 Metoprolol Succ 25mg Ext Rel Tab PO 01/05/24 20:59 Not Given QPM FELICIA
--- NOTE | 2023-12-07 08:29 | Pulmonary Consultation ---
Date of Consultation December 07, 2023 Assessment & Plan (1) Acute on chronic diastolic (congestive) heart failure: (2) Pulmonary hypertension: (3) COPD (chronic obstructive pulmonary disease): (4) Chronic hypercapnic respiratory failure: Plan Impression: 53-year-old female with extensive tobacco history and probable COPD admitted with chronic hypercapnic respiratory failure which likely accounts for her hypoxemia. She is asymptomatic at this point time with no signs or symptoms of COPD exacerbation. This is the acute recognition of a chronic problem. Recommendations: 1. Hypercapnic respiratory failure: Suspect a component of obesity hypoventilation syndrome. Outpatient polysomnography is warranted. That would determine whether or not the patient needs CPAP, BiPAP, oxygen, or combination of therapies. This should be arranged prior to discharge. She is well compensa bella currently with a normal pH so acute intervention is not required at this time. Outpatient pulmonary function testing may also be warranted. Ultimately, weight loss is the recommended therapy for obesity hypoventilation syndrome 2. Hypoxemia: Likely secondary to #1. She did not have an arterial blood gas performed so 1 cannot calculate an AA gradient however with her venous CO2 being 70 with a normal pH, this may fully account for her degree of hypoxemia. At this point in time supplemental oxygen may be required but would target oxygen saturations around 85 to 90% given her concomitant hypercarbia. Patient should be assessed for supplemental oxygen prior to discharge and its likely she will require oxygen at home. Recommend the patient be out of bed to chair is much as possible and have formal two-step oxygen evaluation conducted prior to discharge 3. COPD: The patient does not demonstrate bronchospasm currently. No indication for steroids or antibiotics. Outpatient PFTs recommended. Place her on Anoro at this time instead of ICS. 4. Pulmonary hypertension: Last echo showed mild elevations in pulmonary arterial pressures with diastolic dysfunction and mitral regurgitation. Suspect she has multifactorial pulmonary hypertension due to combinations of group 2, and group 3. No indication for right heart catheterization or vasodilators at this time. Agree with diuretics. No indication for anticoagulation. Once her sleep disordered breathing, hypercarbia, and hypoxemia are all effectively treated, repeating the echocardiogram with attention to right ventricular systolic pressures may be appropriate and could consider right heart catheterization at that time. Continue diuretics under the direction of cardiology Patient appears clinically stable at this point in time. If she is able to walk and supplemental oxygen can be arranged to keep her oxygen saturations above 88% with activity, she can likely be dismissed from the hospital with outpatient follow-up with [facility]. Feel free to contact us with questions or concerns. History of Present Illness Attending Physician: Antoinette Christianson MD History of Present Illness Asked by hospitalist to evaluate this patient with hypoxemic/hypercarbic respiratory failure and a history of elevated right-sided filling pressures. History is obtained from discussion with the patient as well as review the electronic medical record. The patient is a 53-year-old female with a history of COPD. She cannot recall if she has had prior PFTs performed previously but does have an inhaler in the form of albuterol which she uses about twice a day as well as Flovent which she uses on a regular basis. She has an extensive history of tobacco exposure with an over [id number] history and continues to smoke at the rate of about 10 cigarettes a day. She went to her regularly scheduled follow-up appointment at [facility] yesterday. She was found to be hypoxemic but was without complaints and was referred urgently to the emergency room. She specifically denies any shortness of breath, coughing, sputum production, wheezing, chest pain, palpitations, or lower extremity edema. She has not used CPAP in the past. She did use it last night but developed a headache associated with the mask. She is unclear if she would want to use that going forward. She was prescribed supplemental oxygen previously but then states that she did not need it except at night and then even at night it was discontinued. It is unclear what evaluation was conducted at that point in time. In the emergency room the patient was treated with Solu-Medrol despite the lack of wheezing. She was placed on oxygen and had improvement in her oxygen saturations. Chest x-ray and BioFire were unrevealing. BNP and troponin were negative. CT angiogram was performed showing no evidence of pulmonary embolism. She was admitted to the hospitalist service. Patient seen in the emergency room bay. She is awake alert conversant and in no obvious distress. She is using oxygen with a facemask. There have been minimal attempts to wean her. She is not coughing. She is able to speak in full sentences. She does not appear in any distress whatsoever. Patient had an echocardiogram performed in June 2021 showing an EF of 60 to 65% with elevated right ventricular systolic pressure at 30-40. E to E prime ratio of 12.3 consistent with diastolic dysfunction. Trace MR was noted. Allergies Allergy/AdvReac Type Severity Reaction Status Date / Time Penicillins Allergy Hives Unverified 12/06/23 16:33 Home Medications Medication Instructions Recorded Confirmed Type albuterol sulfate 90 mcg/actuation 2 puff inhalation Q4 PRN Shortness 12/06/23 12/06/23 History aerosol inhaler (ProAir HFA) Of Breath Or Wheezing allopurinol 100 mg tablet 300 mg PO DAILY 12/06/23 12/06/23 History fluticasone propionate 220 2 puff inhalation BID 12/06/23 12/06/23 History mcg/actuation HFA aerosol inhaler folic acid 1 mg tablet 1 mg PO QAM 12/06/23 12/06/23 History furosemide 40 mg tablet 40 mg PO DAILY 12/06/23 12/06/23 History lisinopril 5 mg tablet 5 mg PO DAILY 12/06/23 12/06/23 History metoprolol succinate 25 mg 25 mg PO QPM 12/06/23 12/06/23 History tablet,extended release 24 hr metoprolol succinate 50 mg 50 mg PO QAM 12/06/23 12/06/23 History tablet,extended release 24 hr omeprazole 20 mg capsule,delayed 20 mg PO QAM 12/06/23 12/06/23 History release rosuvastatin 5 mg tablet 5 mg PO DAILY 12/06/23 12/06/23 History sertraline 50 mg tablet 50 mg PO DAILY 12/06/23 12/06/23 History spironolactone 25 mg tablet 12.5 mg PO DAILY 12/06/23 12/06/23 History Patient History Medical History (Updated 12/07/23 @ 08:22 by Cuauhtemoc Ly MD) Pulmonary hypertension Obstructive sleep apnea Acute on chronic right heart failure Depression DVT prophylaxis CHF (congestive heart failure) COPD (chronic obstructive pulmonary disease) Alcohol use Acute on chronic heart failure with preserved ejection fraction Chronic diastolic heart failure Sinus tachycardia GERD (gastroesophageal reflux disease) Prediabetes Bilateral leg edema Tobacco use Hypertension SOB (shortness of breath) Hypoxia Surgical History Hx of colonoscopy Family History Other COPD (chronic obstructive pulmonary disease) Diabetes Kidney disease Social History Smoking Status: Current every day smoker Tobacco Type: Cigarettes Cigarettes Per Day: 10; Second Hand Exposure: Yes; Do You Dip or Chew Tobacco: No; Tobacco Cessation Education Requested by Patient: No Hx Alcohol Use: Yes Alcohol type: beer and hard liquor Alcohol Intake Frequency Comment: cutting back to 2-3 beers, 2 times a week Hx Substance Use: No Preferred Language: Moroccan Communication Ability: Effective [employer]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 No additions or deletions Physical Exam Constitutional: WD/WN, vitals as above Neck: trachea midline, no thyromegaly Respiratory: normal respiratory effort, lungs clear to auscultation Cardiovascular: RRR, no murmur, no edema Gastrointestinal (Abdomen): normal bowel sounds, soft, nontender, no hepatosplenomegaly Musculoskeletal: Extremities: extremities normal to inspection Skin: no rashes, warm and dry Neurologic: Nonfocal exam Lymphatic: no cervical lymphadenopathy Results & Data Results & Data Vital Signs (Past 12 Hours) Vital Signs Temp Pulse Pulse Resp BP Pulse Ox O2 Del Method 12/07/23 07:34 83 12/07/23 07:34 88 14 95 Oxymask 12/07/23 05:34 60 18 132/76 94 CPAP 12/07/23 02:09 67 21 99 12/07/23 02:00 36.5 C 80 16 132/76 99 Room Air 12/06/23 23:35 87 12/06/23 21:53 Oxymask 12/06/23 21:53 Oxymask 12/06/23 21:53 36.9 C 88 19 98/62 L 95 Oxymask O2 Flow Rate 12/07/23 07:34 12/07/23 07:34 13 12/07/23 05:34 12/07/23 02:09 6 12/07/23 02:00 12/06/23 23:35 12/06/23 21:53 7 12/06/23 21:53 7 12/06/23 21:53 7 Critical Care Results & Data Vital Signs (Past 12 Hours) Vital Signs Temp Pulse Pulse Resp BP Pulse Ox O2 Del Method 12/07/23 07:34 83 12/07/23 07:34 88 14 95 Oxymask 12/07/23 05:34 60 18 132/76 94 CPAP 12/07/23 02:09 67 21 99 12/07/23 02:00 36.5 C 80 16 132/76 99 Room Air 12/06/23 23:35 87 12/06/23 21:53 Oxymask 12/06/23 21:53 Oxymask 12/06/23 21:53 36.9 C 88 19 98/62 L 95 Oxymask O2 Flow Rate 12/07/23 07:34 12/07/23 07:34 13 12/07/23 05:34 12/07/23 02:09 6 12/07/23 02:00 12/06/23 23:35 12/06/23 21:53 7 12/06/23 21:53 7 12/06/23 21:53 7 Lab & Micro Results (Past 24 Hours) RBC 5.89 M/uL (4.20-5.40) H 12/07/23 WBC 14.50 K/ul (4.8-10.8) H 12/07/23 Hgb 12.5 g/dl (12.0-16.0) 12/07/23 Hct 46.5 % (37.0-47.0) 12/07/23 MCV 78.9 fL (80.0-100.0) L 12/07/23 MCH 21.2 pg (25.0-34.0) L 12/07/23 MCHC 26.9 g/dL (32.0-36.0) L 12/07/23 RDW Standard Deviation 56.8 fL (36.4-46.3) H 12/07/23 RDW Coefficient of Variation 21.0 % (11.5-14.5) H 12/07/23 Plt Count 275 K/uL (130-400) 12/07/23 MPV 10.6 fL (9.4-12.4) 12/07/23 Neutrophils (%) (Auto) 93.6 % 12/07/23 Lymphocytes (%) (Auto) 3.9 % 12/07/23 Monocytes # (Auto) 0.24 K/uL (0.11-0.59) 12/07/23 Eosinophils # (Auto) 0.01 K/uL (0.00-0.50) 12/07/23 Immature Granulocyte % (Auto) 0.6 % 12/07/23 Neutrophils # (Auto) 13.58 K/uL (1.40-6.50) H 12/07/23 Lymphocytes # (Auto) 0.56 K/uL (1.20-3.40) L 12/07/23 Monocytes # (Auto) 0.24 K/uL (0.11-0.59) 12/07/23 Eosinophils # (Auto) 0.01 K/uL (0.00-0.50) 12/07/23 Basophils # (Auto) 0.02 K/uL (0.00-0.20) 12/07/23 Immature Granulocyte # (Auto) 0.09 K/uL (0.01-0.20) 4 Polychromasia 1+ 12/07/23 Hypochromasia Present 12/07/23 Anisocytosis Present 12/07/23 Stomatocytes 2+ 12/06/23 Na 135 mmol/L (136-145) L 12/07/23 K 5.3 mmol/L (3.5-5.1) H 12/07/23 Cl 94 mmol/L (98-107) L 12/07/23 CO2 32 mmol/L (21-32) 12/07/23 Anion Gap 9 (3-11) 12/07/23 BUN 26 mg/dl (6-23) H 12/07/23 Creatinine 1.26 mg/dl (0.6-1.2) H 12/07/23 Estimated GFR ( Amer) 56.7 ml/min 12/07/23 Estimated GFR (Non-Af Amer) 48.9 ml/min 12/07/23 BUN/Creatinine Ratio 20.6 (10-20) H 12/07/23 Glu 164 mg/dl (70-99(Fasting)) H 12/07/23 Ca 9.0 mg/dl (8.6-10.3) 12/07/23 Phosphorus Level 5.7 mg/dl (2.5-4.9) H 12/07/23 Total Bilirubin 0.3 mg/dl (0.2-1.0) 12/07/23 AST 13 U/L (13-39) 12/07/23 ALT 10 U/L (7-52) 12/07/23 Alkaline Phosphatase 113 U/L (34-104) H 12/07/23 TP 7.7 gm/dl (6.0-8.3) 12/07/23 Albumin 3.9 gm/dl (3.4-5.0) 12/07/23 Globulin 3.8 gm/dl (2.5-4.0) 12/07/23 Albumin/Globulin Ratio 1.0 (0.9-2) 12/07/23 Mg 1.6 mg/dl (1.7-2.4) L 12/07/23 02:21 Calcium Level 9.0 mg/dl (8.6-10.3) 12/07/23 02:21 Venous Blood pH 7.38 (7.36-7.41) 12/06/23 18:39 Venous Blood Partial Pressure CO2 68 mmHg (38-50) H 12/06/23 18 :39 Venous Blood Partial Pressure O2 55 mmHg 12/06/23 18:39 Venous Blood HCO3 40 mmol/L 12/06/23 18:39 Venous Blood Base Excess 12.0 mEq/L 12/06/23 18:39 Venous Blood Oxygen Saturation 88.2 % 12/06/23 18:39 Diagnostic Findings (Past 24 Hours) Chest X-Ray 12/06/23 14:19 XR chest 1V portable CLINICAL HISTORY: Dyspnea TECHNIQUE: Single frontal radiograph of the chest was obtained. Comparison: Comparison is made to chest radiograph 07/02/2021 FINDINGS: No lines and tubes are seen. Cardiomegaly is noted. Prominence and cephalization of the vasculature is seen. No evidence of pleural effusion or pneumothorax. IMPRESSION: Cardiomegaly and mild pulmonary edema. ACT 112: Negative or not required by law. Electronically signed by: Jose Alberto Garcia M.D. 12/06/2023 2:56 PM Chest CTA 12/06/23 16:34 CT angio chest PE protocol CLINICAL HISTORY: ?PE. hypoxia TECHNIQUE: Multidetector row helical CT of the chest was performed with angiographic protocol. Coronal and sagittal reformations were obtained. Coronal and sagittal MIPS were obtained from the axial data set and were submitted for review. Automated dose lowering techniques and/or adjustment according to patient size were utilized for this exam. CT DOSE: 911.67 mGy.cm Comparison: Comparison is made to CTA chest 07/03/2021 FINDINGS: Lungs and pleura: Atelectasis versus scarring is seen in the dependent portions of the lungs. Heart and pericardium: Heart size is normal. No pericardial effusion. Vessels: No evidence of pulmonary embolism. Pulmonary trunk measures 36 mm. Mediastinum and gelacio: Unremarkable. Chest wall and lower neck: Enlarged right axillary node measures 14 mm in short axis. 15 mm left axillary node is seen. Abdomen: Unremarkable. Bones: Degenerative changes in the thoracic spine. IMPRESSION: 1. No acute abnormality and in particular no evidence of pulmonary embolus. 2. Pulmonary hypertension. 3. Bilateral atelectatic changes. ACT 112: Negative or not required by law. Electronically signed by: Jose Alberto Garcia M.D. 12/06/2023 5:53 PM I & O Totals 24 Hours 12/06/23 12/07/23 12/08/23 06:59 06:59 06:59 Intake Total 50 / 50 Balance 50 / 50 Cumulative 12/06/23 14:05 thru 12/06/23 22:13 Intake Total 50 Balance 50 RT Ventilator Mngmt (Last Documented) Ventilator Ordered Settings Respiratory Rate 14 12/07/23 07:34 Ventilator - PT Measurements Respiratory Rate 14 PG Care Time/CCT Total # of Minutes Spent Total Time Spent with Patient: Total time spent is greater than 50% in coordination of care (as documented) at patient's floor/unit and/or counseling patient: Coding Level of Care Code 88081 OFFICE CONSULT LVL M Diagnoses Acute on chronic diastolic (congestive) heart failure I50.33 Pulmonary hypertension I27.20 COPD (chronic obstructive pulmonary disease) J44.9 Chronic hypercapnic respiratory failure J96.12
[2023-12-07 08:35] LABS: Base Excess VBG 6.8 mEq/L; HCO3 VBG 36 mmol/L; Oxygen Saturation VBG 89.4 %; PCO2 VBG 71 mmHg (38-50); PO2 VBG 58 mmHg; pH VBG 7.31 (7.36-7.41)
[2023-12-07] MEDS: allopurinoL 300 MG TAB PO SCH (08:37)
[2023-12-07] MEDS: ROSUVASTATIN CALCIUM 5 MG TAB PO SCH (08:38)
[2023-12-07] MEDS: METOPROLOL SUCC 50MG EXT REL TAB PO SCH (08:38)
[2023-12-07] MEDS: SERTRALINE HCL 50 MG TABLET PO SCH (08:38)
[2023-12-07] MEDS: PANTOprazole 40 MG TAB PO SCH (08:38)
[2023-12-07] MEDS: FUROSEMIDE 40 MG/4 ML VIAL IV SCH (08:38)
[2023-12-07] MEDS: FOLIC ACID 1 MG TAB PO SCH (08:39)
[2023-12-07] MEDS: MAGNESIUM SULFATE / D5W 1 GM/100 ML BAG IV SCH (08:50)
[2023-12-07] MEDS ORDERED: lisinopril 5 MG TAB PO SCH (09:00)
[2023-12-07] MEDS ORDERED: UMECLIDINIUM BROMIDE 62.5MCG/BLISTER 7 PUFFS/INHALER INH SCH (09:00)
[2023-12-07] MEDS ORDERED: SPIRONOLACTONE 12.5 MG TAB PO SCH (09:00)
[2023-12-07] MEDS ORDERED: methylPREDNISolone 60 MG in SYRINGE 0 ML IV SCH (09:00)
[2023-12-07] MEDS: UMECLIDINIUM/VILANTEROL 62.5/25MCG 7 PUFFS/INHALER INH SCH (09:38)
[2023-12-07] MEDS: PNEUMOCOCCAL VACCINE (PCV20) 20-VAL CONJ-DIP CRM/PF 0.5 ML SYR IM ONE (09:39)
[2023-12-07] MEDS: INFLUENZA VIRUS QUADRIVALENT VACCINE (IIV4) 0.5 ML SYR IM ONE (09:43)
[2023-12-07 16:24] LABS: BUN Creatinine Ratio 24.1 (10-20); Creatinine Clr Calc Pharmacy 53.3 ml/min; Est GFR (African American) 49.5 ml/min; Est GFR (Non-African American) 42.7 ml/min; Potassium 4.6 mmol/L (3.5-5.1)
[2023-12-08 06:55] LABS: Hemoglobin 12.4 g/dl (12.0-16.0); Mean Corpuscular Hemoglobin 21.6 pg (25.0-34.0); Mean Corpuscular Hgb Conc 26.4 g/dL (32.0-36.0); Mean Corpuscular Volume 81.7 fL (80.0-100.0); Mean Platelet Volume 10.6 fL (9.4-12.4); Platelet Count 268 K/uL (130-400); RDW Coefficient of Variation 20.6 % (11.5-14.5); RDW Standard Deviation 58.3 fL (36.4-46.3); Red Blood Count 5.75 M/uL (4.20-5.40); White Blood Count 15.86 K/ul (4.8-10.8)
[2023-12-08 07:01] LABS: BUN Creatinine Ratio 27.8 (10-20); Calcium 9.2 mg/dl (8.6-10.3); Creatinine Clr Calc Pharmacy 52.1 ml/min; Est GFR (African American) 48.3 ml/min; Est GFR (Non-African American) 41.6 ml/min; Magnesium 2.3 mg/dl (1.7-2.4); Phosphorus 5.3 mg/dl (2.5-4.9)
--- NOTE | 2023-12-08 08:31 | Hospitalist Progress Note ---
Date of Service December 08, 2023 Assessment & Plan (1) Acute respiratory failure with hypoxia and hypercapnia: (2) Acute on chronic diastolic (congestive) heart failure: (3) Pulmonary hypertension: Plan Ms. Squires is a 53-year-old female with PMHx significant for chronic diastolic heart failure, HTN, DMII, GERD, tobacco use, obesity, alcohol abuse presenting with hypoxia after a visit to her PCP's office. Acute hypoxic and hypercapnic respiratory failure Reportedly pt was at [facility] (pcp's office) with noted oxygen saturations in the 70s Also noted in the ED VBG noting hypercarbia Respiratory panel negative Also in setting of CHF exacerbation, BNP 40, however, CXR with cardiomegaly and edema Was initially treated with IV Lasix 40mg daily, was transitioned back to po lasix 40mg on 12/07 cpap/bipap qhs Oxygen supplementation, wean as tolerated Pulmonology consulted, appreciate recs -nocturnal pulse ox study completed- pt with desaturations as low as 68 -per nursing respiratory wants to do 2 step the day of discharge, anticipated 12/08 -Target oxygen saturations around 85 to 90% given concomitant hypercarbia. -Weight loss imperative -encourage ambulation to help with V/Q mismatch Acute on Chronic Diastolic Heart Failure BNP wnl Chest XRAY noting cardiomegaly, mild pulmonary edema Echo from 2020 noting EF 60-65%, mod LVH, dilation of RV and decreased RV systolic function, elevated R ventricular pressure Repeat echo with EF 55-60%, dilated right ventricle Was initially treated with IV Lasix 40mg daily, was transitioned back to po lasix 40mg on 12/07 Hold home spironolactone 12.5mg daily, lisinopril given hyperkalemia Milligan for accurate ins and outs Daily weights Cardiology consulted, appreciate recs Pulmonary HTN Noted on echo in 2020 Chest CTA also noting pulmonary HTN Pulmonology consulted-appreciate further recs for this -notes likely multifactorial pulmonary hypertension due to combinations of hypoxemia and COPD -No indication for right heart catheterization or vasodilators at this time. -Continue with diuretics. -No indication for anticoagulation. -Repeat echo with right ventricular systolic pressure once "her sleep disordered breathing, hypercarbia, and hypoxemia are all effectively treated" -consider right heart catheterization at that time COPD Exacerbation Pt currently with increased sputum production Pt with chronic tobacco use Received IV Solumedrol 125mg in the ED, continued with IV Solumedrol 60mg daily Also on antibiotics with azithromycin and rocephin Incruse + Arnuity for LABA/LAMA/ICS treatment Pt no longer has insurance, follows with Dr Mayberry at [facility] Consider PFTs if able to obtain Pulmonology consulted, appreciate further recs -No indication for steroids or antibiotics. Outpatient PFTs recommended. Place her on Anoro at this time instead of ICS. DILLON Cr currently elevated 1.2 to 1.4 On diuresis as above Consider nephrology consult Hyperkalemia K+ of 5.3 Holding home Lisinopril and spironolactone Continue to monitor with AM labs Resume home regimen as tolerated Consider nephrology consult Enlarged Axillary lymph nodes Noted on chest CTA: right axillary 14mm, 15mm left; potentially reactive PCP follow up DMII Pt with noted hyperglycemia Hgba1c 6.6% 12/06 Not on medications at home Gout Continue home allopurinol Hx of alcohol abuse AWSS Continue home folic acid HTN Hold home lisinopril, spironolactone Continue home metoprolol GERD Continue ppi HLD Continue home statin Mood Continue home zoloft Chronic Tobacco use Currently smoking, down to 10 cigs Declines nicotine patch at this time Ordered prn for future use or need Encourage cessation CODE STATUS: Full code Diet: HH/DMII, low sodium DVT prophylaxis: Lovenox SQ Dispo: PCU/tele Admission and Anticipated Discharge Date Admission Date: December 06, 2023 Subjective Pt seen in the AM. Asking about going home. Had nocturnal pulse ox overnight and noted desaturations. Two step not completed yet, per nursing respiratory wants to do 2 step the day of discharge. States that she feels the same. Review of Systems Review of Systems: All systems reviewed & are unremarkable except as noted in Subjective Physical Exam Physical Exam: General: Alert, oriented. No acute distress but oxymask on face Skin: No noted rashes or bruises Psych: Appropriate mood and affect Neuro: No gross deficits HEENT: NC/AT Chest: Nontender to palpation. CV: RRR Resp: Breath sounds decreased bilaterally Abdomen: Soft, nontender, nondistended. Extremities: No edema in lower extremities bilaterally. Results & Data Results & Data Vital Signs (Past 12 Hours) Vital Signs Temp Pulse Pulse Pulse Pulse Pulse Resp 12/08/23 07:43 36.7 C 113 H 20 12/08/23 06:53 12/08/23 03:26 96 H 12/08/23 02:31 36.4 C L 102 H 18 12/08/23 00:49 12/08/23 00:22 94 H 93 H 12/08/23 00:20 91 H 94 H 96 H 12/07/23 23:07 36.8 C 86 20 12/07/23 22:16 85 82 12/07/23 22:14 77 12/07/23 21:55 86 BP Pulse Ox Pulse Ox Pulse Ox Pulse Ox O2 Del Method O2 Del Method 12/08/23 07:43 137/82 93 Oxymask 12/08/23 06:53 90 Oxymask 12/08/23 03:26 95 12/08/23 02:31 121/83 95 Oxymask 12/08/23 00:49 Oxymask 12/08/23 00:22 83 L 86 L Oxymask 12/08/23 00:20 68 L 83 L 91 Oxymask 12/07/23 23:07 100/64 94 Oxymask 12/07/23 22:16 90 86 L Oxymask 12/07/23 22:14 89 L 12/07/23 21:55 O2 Del Method O2 Del Method O2 Flow Rate O2 Flow Rate O2 Flow Rate O2 Flow Rate 12/08/23 07:43 12/08/23 06:53 8 12/08/23 03:26 Oxymask 15 12/08/23 02:31 12 12/08/23 00:49 4 12/08/23 00:22 Oxymask 15 12 12/08/23 00:20 Oxymask Oxymask 4 8 10 12/07/23 23:07 4 12/07/23 22:16 Room Air 2 12/07/23 22:14 Room Air 12/07/23 21:55
[2023-12-08] MEDS: FUROSEMIDE 40 MG TAB PO SCH (08:40)
[2023-12-08] MEDS: LEVALBUTEROL HCL 0.63 MG/3 ML NEB NEB STA (09:41)
--- NOTE | 2023-12-08 09:42 | Pulmonology Progress Note ---
Date of Service December 08, 2023 Assessment & Plan (1) Acute on chronic diastolic (congestive) heart failure: (2) Pulmonary hypertension: (3) COPD (chronic obstructive pulmonary disease): (4) Chronic hypercapnic respiratory failure: Plan Impression: 53-year-old female with extensive tobacco history and probable COPD admitted with chronic hypercapnic respiratory failure which likely accounts for her hypoxemia. She is experiencing some mild wheezing now. Recommendations: 1. Hypercapnic respiratory failure: Suspect a component of obesity hypoventilation syndrome. Outpatient polysomnography is warranted. That would determine whether or not the patient needs CPAP, BiPAP, oxygen, or combination of therapies. This should be arranged prior to discharge. She is well compensated currently with a normal pH so acute intervention is not required at this time. Outpatient pulmonary function testing may also be warranted. Ultimately, weight loss is the recommended therapy for obesity hypoventilation syndrome 2. Hypoxemia: Likely secondary to #1. Continue to wean oxygen as tolerated. Initiate incentive spirometry and flutter valve. Recommend the patient to be out of bed is much as possible and ambulate in the hallways. This may improve shunting physiology and VQ mismatch 3. COPD: Continue Anoro and as needed DuoNebs 4. Pulmonary hypertension: Echo reviewed. No worrisome findings. Recommend treating #1 2 and 3 and follow-up clinically Admission and Anticipated Discharge Date Admission Date: December 06, 2023 Subjective Patient seen and examined. EMR reviewed. Patient reports that she is coughing and expectorating small amount of whitish to clear phlegm. She has noted some wheezing. Her oxygen requirement continues to decrease. She overall feels like she is doing reasonably well. She does inquire about potentially going home Review of Systems 2 Review of Systems: All systems reviewed & are unremarkable except as noted in Subjective Physical Exam 2 Constitutional: WD/WN, vitals as above Neck: trachea midline, no thyromegaly Respiratory: normal respiratory effort, lungs clear to auscultation Cardiovascular: RRR, no murmur, no edema Gastrointestinal (Abdomen): normal bowel sounds, soft, nontender, no hepatosplenomegaly Musculoskeletal: Extremities: extremities normal to inspection Skin: no rashes, warm and dry Lymphatic: no cervical lymphadenopathy Results & Data Results & Data Vital Signs (Past 12 Hours) Vital Signs Temp Pulse Pulse Pulse Pulse Pulse Resp 12/08/23 08:00 12/08/23 07:43 36.7 C 113 H 20 12/08/23 06:53 12/08/23 03:26 96 H 12/08/23 02:31 36.4 C L 102 H 18 12/08/23 00:49 12/08/23 00:22 94 H 93 H 12/08/23 00:20 91 H 94 H 96 H 12/07/23 23:07 36.8 C 86 20 12/07/23 22:16 85 82 12/07/23 22:14 77 12/07/23 21:55 86 BP Pulse Ox Pulse Ox Pulse Ox Pulse Ox O2 Del Method O2 Del Method 12/08/23 08:00 Oxymask 12/08/23 07:43 137/82 93 Oxymask 12/08/23 06:53 90 Oxymask 12/08/23 03:26 95 12/08/23 02:31 121/83 95 Oxymask 12/08/23 00:49 Oxymask 12/08/23 00:22 83 L 86 L Oxymask 12/08/23 00:20 68 L 83 L 91 Oxymask 12/07/23 23:07 100/64 94 Oxymask 12/07/23 22:16 90 86 L Oxymask 12/07/23 22:14 89 L 12/07/23 21:55 O2 Del Method O2 Del Method O2 Flow Rate O2 Flow Rate O2 Flow Rate O2 Flow Rate 12/08/23 08:00 12 12/08/23 07:43 12/08/23 06:53 8 12/08/23 03:26 Oxymask 15 12/08/23 02:31 12 12/08/23 00:49 4 12/08/23 00:22 Oxymask 15 12 12/08/23 00:20 Oxymask Oxymask 4 8 10 12/07/23 23:07 4 12/07/23 22:16 Room Air 2 12/07/23 22:14 Room Air 12/07/23 21:55 Laboratory Results 12/08/23 05:56 12/08/23 05:56 Diagnostic Findings Echocardiogram from yesterday showed an EF of 50 to 60% with normal diastolic filling parameters. Right ventricle mildly dilated. No significant valvular pathology. Right ventricular systolic function was normal. Central venous pressure based on IVC assessment PG Care Time/CCT Total # of Minutes Spent Total Time Spent with Patient: Total time spent is greater than 50% in coordination of care (as documented) at patient's floor/unit and/or counseling patient: Coding Level of Care Code 69243 SUB INP/OBS CARE 2MIN Diagnoses Acute on chronic diastolic (congestive) heart failure I50.33 Pulmonary hypertension I27.20 COPD (chronic obstructive pulmonary disease) J44.9 Chronic hypercapnic respiratory failure J96.12
[2023-12-09 06:24] LABS: Albumin Globulin Ratio 1.1 (0.9-2); Albumin Level 3.7 gm/dl (3.4-5.0); Bilirubin,Total 0.5 mg/dl (0.2-1.0); Calcium 9.3 mg/dl (8.6-10.3); Creatinine Clr Calc Pharmacy 72.3 ml/min; Est GFR (African American) 72.4 ml/min; Est GFR (Non-African American) 62.5 ml/min; Globulin 3.5 gm/dl (2.5-4.0); Magnesium 2.1 mg/dl (1.7-2.4); Phosphorus 4.4 mg/dl (2.5-4.9); Potassium 4.5 mmol/L (3.5-5.1); Total Protein 7.2 gm/dl (6.0-8.3)
[2023-12-09 06:32] LABS: Anisocytosis Present; Basophils # (auto) 0.05 K/uL (0.00-0.20); Basophils % (auto) 0.5 %; Eosinophils # (auto) 0.07 K/uL (0.00-0.50); Eosinophils % (auto) 0.7 %; Hematocrit (blood only) 44.1 % (37.0-47.0); Hemoglobin 11.7 g/dl (12.0-16.0); Hypochromasia Present; Immature Granulocytes # (auto) 0.03 K/uL (0.01-0.20); Immature Granulocytes % (auto) 0.3 %; Lymphocytes # (auto) 1.36 K/uL (1.20-3.40); Lymphocytes % (auto) 13.5 %; Mean Corpuscular Hemoglobin 21.4 pg (25.0-34.0); Mean Corpuscular Hgb Conc 26.5 g/dL (32.0-36.0); Mean Corpuscular Volume 80.5 fL (80.0-100.0); Mean Platelet Volume 10.6 fL (9.4-12.4); Monocytes # (auto) 0.59 K/uL (0.11-0.59); Monocytes % (auto) 5.9 %; Neutrophils # (auto) 7.98 K/uL (1.40-6.50); Neutrophils % (auto) 79.1 %; Platelet Count 249 K/uL (130-400); Polychromasia 1+; RDW Coefficient of Variation 20.5 % (11.5-14.5); RDW Standard Deviation 57.5 fL (36.4-46.3); Red Blood Count 5.48 M/uL (4.20-5.40); Stomatocytes 1+; White Blood Count 10.08 K/ul (4.8-10.8)
--- NOTE | 2023-12-09 09:23 | Pulmonology Progress Note ---
Date of Service December 09, 2023 Assessment & Plan (1) Acute on chronic diastolic (congestive) heart failure: (2) Pulmonary hypertension: (3) COPD (chronic obstructive pulmonary disease): (4) Chronic hypercapnic respiratory failure: Plan Impression: 53-year-old female with extensive tobacco history and probable COPD admitted with chronic hypercapnic respiratory failure which likely accounts for her hypoxemia. She is experiencing some mild wheezing now. Recommendations: 1. Hypercapnic respiratory failure: Suspect a component of obesity hypoventilation syndrome. Patient can continue with NIV while in the hospital. She is likely going to require outpatient oxygen therapy at least in the immediate future. I question if she may have needed this for an extended period of time prior to admission. Patient would warrant outpatient sleep study and pulmonary function testing. She can continue with her current inhaler regime as it appears to be doing well for otherwise. 2. Hypoxemia: Likely secondary to #1. Continue to wean oxygen as tolerated. Initiate incentive spirometry and flutter valve. Recommend the patient to be out of bed is much as possible and ambulate in the hallways. This may improve shunting physiology and VQ mismatch 3. COPD: Continue Anoro and as needed DuoNebs 4. Pulmonary hypertension: Echo reviewed. No worrisome findings. Recommend treating #1 2 and 3 and follow-up clinically Admission and Anticipated Discharge Date Admission Date: December 06, 2023 Supervising Physician Co-Signing Physician Notes Patient seen and examined. EMR reviewed. Discussed with hospitalist as well as with JACQUI. Patient is doing well but continues to require supplemental oxygen sometimes at high flows. I think this is the acute recognition of a chronic problem. Would recommend discharging her on oxygen at 4 L/min at rest and 6 L/min at night and with activity. Unfortunately the patient has no resources to afford oxygen. Case management is working to see whether or not the patient is eligible for compassionate use. She will need an outpatient sleep study which will complicate issues given her financial constraints. Unclear if she could qualify for or get compassionate noninvasive positive pressure ventilation. This will need to be coordinated carefully with CV IM moving forward. At this point time I think the patient is at her chronic stable condition. I doubt that additional hospitalization will result in a significant change in her clinical status. If the patient is discharged, she should follow-up with CV IM and go from there. Feel free to contact us with questions or concerns. No new pulmonary recommendations. Will sign off. Feel free to contact us with questions or concerns Subjective Patient was seen and evaluated at bedside. She just finished a walk qualifier. She states that she has felt well and has not noticed a difference in her symptoms despite being hypoxic. She has followed most recently with [facility]. She previously had been on oxygen several years ago, but had been discontinued. Overall, she reports that she is feeling well and actually no different since the time that she had arrived. Review of Systems Review of Systems: Please refer to admission H&P. No additions or deletions Physical Exam Physical Exam: VITAL SIGNS - Vital signs and nursing notes were reviewed. GENERAL - 53-year-old female appearing her stated age who is in no acute distress. Communicates well with provider and answers questions appropriately. LUNGS - Auscultation reveals decreased respiratory effort. No wheezes noted. CARDIAC - RRR with S1/S2. No murmur, rubs, or gallops appreciated. PSYCH - A&Ox3 and cooperates fully with examiner. Pt is very pleasant and interacts well with examiner. Results & Data Results & Data Vital Signs (Past 12 Hours) Vital Signs Temp Pulse Pulse Pulse Pulse Pulse Pulse 12/09/23 09:11 101 H 100 H 95 H 100 H 80 12/09/23 07:58 36.8 C 12/09/23 07:54 36.8 C 12/09/23 03:00 36.6 C 12/09/23 02:56 12/09/23 00:15 92 H 12/09/23 00:13 87 12/08/23 23:08 36.8 C 12/08/23 22:26 80 Pulse Pulse Pulse Resp Resp Resp Resp 12/09/23 09:11 87 94 H 20 20 20 12/09/23 07:58 81 18 12/09/23 07:54 81 18 12/09/23 03:00 70 19 12/09/23 02:56 20 12/09/23 00:15 12/09/23 00:13 17 12/08/23 23:08 79 19 12/08/23 22:26 12 Resp Resp Resp Resp BP Pulse Ox Pulse Ox 12/09/23 09:11 20 16 18 16 84 L 12/09/23 07:58 96/63 L 90 12/09/23 07:54 96/63 L 90 12/09/23 03:00 98/63 L 96 12/09/23 02:56 100 12/09/23 00:15 12/09/23 00:13 97 12/08/23 23:08 141/54 H 93 12/08/23 22:26 98 Pulse Ox Pulse Ox Pulse Ox Pulse Ox Pulse Ox Pulse Ox O2 Del Method 12/09/23 09:11 87 L 86 L 87 L 93 90 86 L 12/09/23 07:58 Nasal Cannula 12/09/23 07:54 Nasal Cannula 12/09/23 03:00 CPAP 12/09/23 02:56 12/09/23 00:15 12/09/23 00:13 12/08/23 23:08 BiPAP 12/08/23 22:26 O2 Flow Rate O2 Flow Rate O2 Flow Rate O2 Flow Rate O2 Flow Rate O2 Flow Rate O2 Flow Rate 12/09/23 09:11 2 4 6 8 2 2 12/09/23 07:58 6 12/09/23 07:54 6 12/09/23 03:00 12/09/23 02:56 4 12/09/23 00:15 12/09/23 00:13 6 12/08/23 23:08 12/08/23 22:26 6 PG Care Time/CCT Total # of Minutes Spent Total Time Spent with Patient: Total time spent is greater than 50% in coordination of care (as documented) at patient's floor/unit and/or counseling patient: Coding Level of Care Code 81311 SUB INP/OBS CARE 2/35MIN Diagnoses Acute on chronic diastolic (congestive) heart failure I50.33 Pulmonary hypertension I27.20 COPD (chronic obstructive pulmonary disease) J44.9 Chronic hypercapnic respiratory failure J96.12
--- NOTE | 2023-12-09 15:01 | Discharge Summary ---
Discharge Summary Date of Service December 09, 2023 Notes For Next Care Provider Per Pulmonology: Oxygen use at home while resting: per pulmonology 4L when at rest and 6L at night while sleeping, and 6L with ambulation Goal oxygen saturation per pulmonology should be between 85 to 90% SMOKING CESSATION WEIGHT LOSS IMPERATIVE Continue with home inhalers, Anoro added. CVIM followup for assistance or alternative. Needs an outpatient SLEEP STUDY, CVIM follow up Needs outpatient pulmonary function testing, CVIM follow up Ambulation as tolerated as this might help with V/Q mismatch Pt without insurance. She was agreeable to covering the cost of oxygen out of pocket and was discharged home with oxygen which was delivered to her here in the hospital with the assistance of Case management. CV assistance appreciated for further evaluation and monitoring after discharge, as well as for needed testing noted above. Medication Changes From Visit Anoro inhaler Consider starting metformin for DMII Admission HPI Per Admitting Provider Patient is a 53-year-old female with PMHx significant for chronic diastolic heart failure, HTN, DMII, GERD, tobacco use, obesity, alcohol abuse presenting to the ED with hypoxia. States that she was at her doctor's office and was noted to be hypoxic to the 70s and was sent to the ED. States that she recently lost her job and does not have insurance anymore. Has been following with Dr Mayberry at [facility]. States that she was there to discuss her lung cancer screening chest CT when her hypoxia was noted. 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 Does not feel SOB. Denies a Hx of LARS. Does not use CPAP at home. States that after her last discharge about 3 years ago, she used oxygen at home for about a year. has been taking her medications at home. Denies recent acute cough, fevers, chills. Does state that roommate had pneumonia about a week ago. Still smokes, states that she has stopped in the past but never for more than 6 months. Currently down to 10 cigs at this time. Declining nicotine patch at this time stating that she is fine. Hx of alcohol use. Admission Exam Per Admitting Provider General: Alert, oriented. No acute distress but oxymask on face Skin: No noted rashes or bruises Psych: Appropriate mood and affect Neuro: No gross deficits HEENT: NC/AT Chest: Nontender to palpation. CV: RRR Resp: Breath sounds decreased bilaterally Abdomen: Soft, nontender, nondistended. Extremities: No edema in lower extremities bilaterally. Principal Dx & Hospital Course #1 = Principal Diagnosis (1) Acute on chronic diastolic (congestive) heart failure: (2) Pulmonary hypertension: (3) Chronic hypercapnic respiratory failure: (4) Tobacco dependence: (5) Hypoxia: (6) Alcohol abuse: Plan Ms. Squires is a 53-year-old female with PMHx significant for chronic diastolic heart failure, HTN, DMII, GERD, tobacco use, obesity, alcohol abuse presenting with hypoxia after a visit to her PCP's office. Acute hypoxic and hypercapnic respiratory failure Reportedly pt was at [facility] (pcp's office) with noted oxygen saturations in the 70s on admission Also noted in the ED VBG noting hypercarbia Respiratory panel negative Also in setting of CHF exacerbation, BNP 40, however, CXR with cardiomegaly and edema Was initially treated with IV Lasix 40mg daily, was transitioned back to po lasix 40mg on 12/07 cpap/bipap qhs Oxygen supplementation, wean as tolerated Pulmonology consulted, appreciate recs -nocturnal pulse ox study completed- pt with desaturations as low as 68 -Target oxygen saturations around 85 to 90% given concomitant hypercarbia. -Pt had 2step testing. Oxygen use at home while resting: per pulmonology 4L when at rest and 6L at night while sleeping, and 6L with ambulation - oxygen saturation per pulmonology should be between 85 to 90% -SMOKING CESSATION -WEIGHT LOSS IMPERATIVE -Continue with home inhalers, Anoro added. CVIM followup for assistance or alternative. -Needs an outpatient SLEEP STUDY, CVIM follow up -Needs outpatient pulmonary function testing, CVIM follow up -Ambulation as tolerated as this might help with V/Q mismatch Pt without insurance. She was agreeable to covering the cost of oxygen out of pocket and was discharged home with oxygen which was delivered to her here in the hospital with the assistance of Case management. CVIM assistance appreciated for further evaluation and monitoring after discharge, as well as for needed testing noted above. Acute on Chronic Diastolic Heart Failure BNP wnl Chest XRAY noting cardiomegaly, mild pulmonary edema Echo from 2020 noting EF 60-65%, mod LVH, dilation of RV and decreased RV systolic function, elevated R ventricular pressure Repeat echo with EF 55-60%, dilated right ventricle Was initially treated with IV Lasix 40mg daily, was transitioned back to po lasix 40mg on 12/07 Hold home spironolactone 12.5mg daily, lisinopril given hyperkalemia Cardiology consulted- recommended resuming home diuretics. PCP follow up Pulmonary HTN Noted on echo in 2020 Chest CTA also noting pulmonary HTN Pulmonology consulted-appreciate further recs for this -notes likely multifactorial pulmonary hypertension due to combinations of hypoxemia and COPD -No indication for right heart catheterization or vasodilators at this time. -Continue with diuretics. -No indication for anticoagulation. -Repeat echo with right ventricular systolic pressure once "her sleep disordered breathing, hypercarbia, and hypoxemia are all effectively treated" -consider right heart catheterization at that time PCP follow up COPD Exacerbation Pt currently with increased sputum production Chronic tobacco use Received IV Solumedrol 125mg in the ED, continued with IV Solumedrol 60mg daily Was also on antibiotics with azithromycin and rocephin Incruse + Arnuity for LABA/LAMA/ICS treatment Pt no longer has insurance, follows with Dr Mayberry at [facility] Consider PFTs if able to obtain Pulmonology consulted, appreciate further recs -No indication for steroids or antibiotics. Outpatient PFTs recommended. Place her on Anoro at this time instead of ICS. Pt had 2step testing. Oxygen use at home while resting: per pulmonology 4L when at rest and 6L at night while sleeping, and 6L with ambulation - oxygen saturation per pulmonology should be between 85 to 90% Pt without insurance. She was agreeable to covering the cost of oxygen out of pocket and was discharged home with oxygen which was delivered to her here in the hospital with the assistance of Case management. [facility] assistance appreciated for further evaluation and monitoring after discharge, as well as for needed testing noted above. DILLON Cr was elevated 1.2 to 1.4 On diuresis as above Cr wnl on discharge at 1.03 Hyperkalemia K+ of 5.3 Held home Lisinopril and spironolactone Resume home regimen as tolerated K of 4.5 on discharge Enlarged Axillary lymph nodes Noted on chest CTA: right axillary 14mm, 15mm left; potentially reactive PCP follow up DMII Pt with noted hyperglycemia Hgba1c 6.6% 12/06 Not on medications at home Consider starting metformin for DMII Gout Continue home allopurinol Hx of alcohol abuse AWSS Continue home folic acid HTN Held home lisinopril, spironolactone Continued home metoprolol Home regimen resumed on discharge GERD Continue ppi HLD Continue home statin Mood Continue home zoloft Chronic Tobacco use Currently smoking, down to 10 cigs Declines nicotine patch at this time Strongly encourage cessation Discharge Exam General: Alert, oriented. No acute distress but NC on face Skin: No noted rashes or bruises Psych: Appropriate mood and affect Neuro: No gross deficits HEENT: NC/AT Chest: Nontender to palpation. CV: RRR Resp: Breath sounds decreased bilaterally Abdomen: Soft, nontender, nondistended. Extremities: No edema in lower extremities bilaterally. Updated Medication List Medication Instructions Recorded Confirmed Type albuterol sulfate 90 mcg/actuation 2 puff inhalation Q4 PRN Shortness 12/06/23 12/06/23 History aerosol inhaler (ProAir HFA) Of Breath Or Wheezing allopurinol 100 mg tablet 300 mg PO DAILY 12/06/23 12/06/23 History fluticasone propionate 220 2 puff inhalation BID 12/06/23 12/06/23 History mcg/actuation HFA aerosol inhaler folic acid 1 mg tablet 1 mg PO QAM 12/06/23 12/06/23 History furosemide 40 mg tablet 40 mg PO DAILY 12/06/23 12/06/23 History lisinopril 5 mg tablet 5 mg PO DAILY 12/06/23 12/06/23 History metoprolol succinate 25 mg 25 mg PO QPM 12/06/23 12/06/23 History tablet,extended release 24 hr metoprolol succinate 50 mg 50 mg PO QAM 12/06/23 12/06/23 History tablet,extended release 24 hr omeprazole 20 mg capsule,delayed 20 mg PO QAM 12/06/23 12/06/23 History release rosuvastatin 5 mg tablet 5 mg PO DAILY 12/06/23 12/06/23 History sertraline 50 mg tablet 50 mg PO DAILY 12/06/23 12/06/23 History spironolactone 25 mg tablet 12.5 mg PO DAILY 12/06/23 12/06/23 History umeclidinium 62.5 mcg-vilanterol 1 inh inhalation DAILY #60 ea 12/09/23 Rx 25 mcg/actuation powdr for inhalation (Anoro Ellipta) Hospital Stay Data Consultations 12/06/23 18:33 ED Decision to Admit Stat 12/06/23 20:22 Consult Cardiology Routine Consult Pulmonology Routine Diagnostic Imagining Performed 12/06/23 16:34 CT angio chest PE protocol Stat Chest X-Ray 12/06/23 14:19 XR chest 1V portable CLINICAL HISTORY: Dyspnea TECHNIQUE: Single frontal radiograph of the chest was obtained. Comparison: Comparison is made to chest radiograph 07/02/2021 FINDINGS: No lines and tubes are seen. Cardiomegaly is noted. Prominence and cephalization of the vasculature is seen. No evidence of pleural effusion or pneumothorax. IMPRESSION: Cardiomegaly and mild pulmonary edema. ACT 112: Negative or not required by law. Electronically signed by: Jose Alberto Garcia M.D. 12/06/2023 2:56 PM Chest CTA 12/06/23 16:34 CT angio chest PE protocol CLINICAL HISTORY: ?PE. hypoxia TECHNIQUE: Multidetector row helical CT of the chest was performed with angiographic protocol. Coronal and sagittal reformations were obtained. Coronal and sagittal MIPS were obtained from the axial data set and were submitted for review. Automated dose lowering techniques and/or adjustment according to patient size were utilized for this exam. CT DOSE: 911.67 mGy.cm Comparison: Comparison is made to CTA chest 07/03/2021 FINDINGS: Lungs and pleura: Atelectasis versus scarring is seen in the dependent portions of the lungs. Heart and pericardium: Heart size is normal. No pericardial effusion. Vessels: No evidence of pulmonary embolism. Pulmonary trunk measures 36 mm. Mediastinum and gelacio: Unremarkable. Chest wall and lower neck: Enlarged right axillary node measures 14 mm in short axis. 15 mm left axillary node is seen. Abdomen: Unremarkable. Bones: Degenerative changes in the thoracic spine. IMPRESSION: 1. No acute abnormality and in particular no evidence of pulmonary embolus. 2. Pulmonary hypertension. 3. Bilateral atelectatic changes. ACT 112: Negative or not required by law. Electronically signed by: Jose Alberto Garcia M.D. 12/06/2023 5:53 PM Discharge Instructions Given to Patient (Per Discharging Provider) Dee Dee, You were seen and evaluated by pulmonology for your difficulty with breathing and the low oxygen saturation levels that were noted. They recommended the following: -oxygen use at home while resting: per pulmonology please use 4L when at rest and 6L at night while sleeping, and 6L when you're up and walking around. -Your goal oxygen saturation per pulmonology should be between 85 to 90% -please STOP SMOKING -Please do your best to try to lose weight -continue with your home inhalers, we added one more and sent that to your pharmacy. CV can help you with getting that medication or a similar one for use at home -You will need an outpatient SLEEP STUDY, follow up with [facility] about this -You will need outpatient pulmonary function tests, follow up with [facility] about this -Please try to ambulate (walk) as tolerated as this might help with your breathing as well You were also evaluated by Cardiology. They recommended treatment as above and resuming your home diuretics, lasix and spironolactone. You are also diabetic with a [id number] of 6.6. Consider starting medications at home to help with this after discussing with your provider at [facility]. Changing your diet and exercising will also help with keeping your levels low. Again, please keep close follow up with your primary care provider ([facility]) after discharge. Please do not hesitate to come back to the emergency room if your symptoms worsen or return. It was a pleasure taking care of you while you were here. Total Time Total Time Spent Total Time Spent (In Minutes): > 30 minutes
--- NOTE | 2023-12-15 13:37 | Coding Query ---
CODING QUERY To promote full compliance with coding requirements relating to patient care, provider participation is requested in all cases of policy change clerk uncertainty. Please assist us with the question(s) below: Please clarify the meaning of DILLON. DILLON is not a valid abbreviation. Thank you. ( x ) Acute Kidney Injury ( ) Acute Kidney Insufficiency ( ) Other (Specify): Principal Diagnosis: "that condition established after study, to be chiefly responsible for occasioning the admission of the patient to the hospital for care." Co-Existing Principal Diagnosis: "when two or more diagnoses equally meet the criteria for principal diagnosis as determined by the circumstances of admission, diagnostic work up, and/or therapy provided, and the Alphabetic Index, Tabular List, or another coding guideline does not provide sequencing direction, any one of the diagnoses may be sequenced first." "When the physician has documented what appears to be a current diagnosis in the body of the record, but has not included the diagnosis in the final diagnostic statement, the physician should be asked whether the diagnosis should be added." (Source [facility] 2 QTR90. p3-4) TREVOR
== END 2023-12-09 17:45 | disposition home or self-care (01) | DRG 189 ==
LOC: ED 14:05 → EDINP 18:31 → SUATTDRO 18:31 → 2S 19:45

== ENCOUNTER 2024-12-01 17:30 | Inpatient (IN) ==
[2024-12-01 18:20] LABS: Basophils # (auto) 0.03 K/uL (0.00-0.20); Basophils % (auto) 0.3 %; Eosinophils # (auto) 0.15 K/uL (0.00-0.50); Eosinophils % (auto) 1.5 %; Hematocrit (blood only) 39.5 % (37.0-47.0); Hemoglobin 12.9 g/dl (12.0-16.0); Immature Granulocytes # (auto) 0.05 K/uL (0.01-0.20); Immature Granulocytes % (auto) 0.5 %; Lymphocytes # (auto) 2.22 K/uL (1.20-3.40); Lymphocytes % (auto) 21.9 %; Mean Corpuscular Hemoglobin 30.5 pg (25.0-34.0); Mean Corpuscular Hgb Conc 32.7 g/dL (32.0-36.0); Mean Corpuscular Volume 93.4 fL (80.0-100.0); Mean Platelet Volume 10.4 fL (9.4-12.4); Monocytes # (auto) 0.74 K/uL (0.11-0.59); Monocytes % (auto) 7.3 %; Neutrophils # (auto) 6.95 K/uL (1.40-6.50); Neutrophils % (auto) 68.5 %; Platelet Count 198 K/uL (130-400); RDW Coefficient of Variation 14.2 % (11.5-14.5); RDW Standard Deviation 48.3 fL (36.4-46.3); Red Blood Count 4.23 M/uL (4.20-5.40); White Blood Count 10.14 K/ul (4.8-10.8)
--- NOTE | 2024-12-01 18:33 | Emergency Department Note ---
Impression & Plan Acute kidney injury superimposed on chronic kidney disease, Acute hyperkalemia, Hypomagnesemia ED Provider Note HISTORY OF PRESENT ILLNESS: Patient is a 54-year-old female presenting due to abnormal lab results. Patient reports that she had routine blood work done by her primary care provider today and she was called at 445 this evening to present to the emergency department due to "renal failure." Patient reports she is on Lasix 40 mg daily. Reports has been making a good amount of urine daily on the Lasix for her CHF. She denies any abdominal pain, nausea or vomiting. Denies any chest pain or shortness of breath. Denies any lightheadedness or dizziness. She has no complaints on arrival to the emergency department. Reports has been feeling well. Denies any recent changes to her medications or initiation of new supplements. ROS: as above PHYSICAL EXAM: Constitutional: Patient appears in no acute distress. HENT: Head: Normocephalic and atraumatic. Eyes: EOMI, PERRL Mouth/Throat: Mucous membranes moist. Neck: Trachea midline. Neck supple. Cardiovascular: RRR, No murmurs, rubs or gallops. Intact distal pulses. Pulmonary/Chest: No respiratory distress. Breath sounds clear and equal bilaterally. No wheezes or rales. Abdominal: Abdomen soft, no tenderness, rebound or guarding. Musculoskeletal: No edema, tenderness or deformity noted. Skin: Warm and dry. No rash, erythema, pallor or cyanosis Psychiatric: Appropriate mood and affect for situation. Neurological: Alert and keenly responsive. CN II-XII grossly intact, moving all extremities equally and fully. MDM: - Vitals signs stable. - History obtained via patient. History as above. - Chronic conditions affecting care: CHF; pulmonary HTN; COPD; GERD; prediabetes - Differential diagnoses include, but are not limited to: electrolyte abnormality; dehydration; CHF exacerbation; ACS; pyelonephritis; obstructive uropathy - Order placed for continuous cardiac monitoring. At this time, monitor showed rate of 68 bpm with normal sinus rhythm, per my interpretation. - External medical records reviewed. [facility] laboratory workup from 12/01/2024 was reviewed. Patient had a creatinine of 2.3, potassium of 5.7 and BUN of 57. Cardiology visit note from 12/01/2024 was reviewed. Patient was seen for routine cardiology follow-up. Patient had laboratory workup ordered for that visit. It was recommended that she continue her medications as prescribed. - EKG image interpreted by myself showed normal sinus rhythm. Rate 80 bpm. QT 372. No acute ischemic changes. - Laboratory workup interpreted by myself showed normal WBC; normal PT/INR; hyponatremia (Na 132); hyperkalemia (K 5.5); DILLON on CKD (Cr 2.01 - baseline around 1.4); hypomagnesemia (Mg 1.6); normal troponin; normal BNP; normal AST/ALT; normal lipase - Patient reports no changes to her medications, but she is on 40 mg of Lasix daily. Her DILLON may be secondary to diuretic use. She is given 500 cc of normal saline and 1 g IV calcium for her hyperkalemia. Patient is still producing urine, so no need for emergent dialysis or CRRT at this time. Given her CHF history, will admit to hospitalist service for further management and gentle hydration. Patient given 1 g IV magnesium for electrolyte replacement. - Discussion was had with case supervisor about patient's case and need for admission - Hospitalist, Dr. Gutierrez, consulted for admission - Patient admitted to [facility] hospitalist service for further evaluation and management. ASSESSMENT AND PLAN: Diagnosis: DILLON on CKD; acute hyperkalemia; hypomagnesemia Plan: Admit Past Med/Surg History Problem List (Updated 12/01/24 @ 19:50 by Caren Reina MD) Hypomagnesemia (Acute) Acute hyperkalemia (Acute) Acute kidney injury superimposed on chronic kidney disease (Acute) Chronic hypercapnic respiratory failure Pulmonary hypertension Acute on chronic diastolic (congestive) heart failure Tobacco dependence (Acute) Hypoxia (Acute) Shortness of breath (Acute) Chronic diastolic heart failure (Chronic) Alcohol abuse Knee pain, right (Acute) Medical History (Updated 12/01/24 @ 19:50 by Caren Reina MD) Obstructive sleep apnea Acute on chronic right heart failure Depression DVT prophylaxis CHF (congestive heart failure) COPD (chronic obstructive pulmonary disease) Alcohol use Acute on chronic heart failure with preserved ejection fraction Sinus tachycardia GERD (gastroesophageal reflux disease) Prediabetes Bilateral leg edema Tobacco use Hypertension SOB (shortness of breath) Hypoxia Surgical History Hx of colonoscopy Family History Other COPD (chronic obstructive pulmonary disease) Diabetes Kidney disease Social History Smoking Status: Current every day smoker Tobacco Type: Cigarettes Cigarettes Per Day: 10; Second Hand Exposure: Yes; Do You Dip or Chew Tobacco: No; Hx Alcohol Use: Yes Alcohol type: beer and hard liquor Alcohol Intake Frequency Comment: cutting back to 2-3 beers, 2 times a week Hx Substance Use: No Preferred Language: Greenlandic Communication Ability: Effective [place] Required: No Beliefs That Will Affect Care: None Current Living Situation: Other Current Living Situation Comment: House mate Feels Safe at Home: Yes Assistive Devices: None Allergies Allergies Allergy/AdvReac Type Severity Reaction Status Date / Time Penicillins Allergy Hives Unverified 12/06/23 16:33 Home Meds Home Medications Medication Instructions Recorded Confirmed albuterol sulfate 90 mcg/actuation 2 puff inhalation Q4 PRN Shortness 12/06/23 12/06/23 aerosol inhaler (ProAir HFA) Of Breath Or Wheezing allopurinol 100 mg tablet 300 mg PO DAILY 12/06/23 12/06/23 fluticasone propionate 220 2 puff inhalation BID 12/06/23 12/06/23 mcg/actuation HFA aerosol inhaler folic acid 1 mg tablet 1 mg PO QAM 12/06/23 12/06/23 furosemide 40 mg tablet 40 mg PO DAILY 12/06/23 12/06/23 lisinopril 5 mg tablet 5 mg PO DAILY 12/06/23 12/06/23 metoprolol succinate 25 mg 25 mg PO QPM 12/06/23 12/06/23 tablet,extended release 24 hr metoprolol succinate 50 mg 50 mg PO QAM 12/06/23 12/06/23 tablet,extended release 24 hr omeprazole 20 mg capsule,delayed 20 mg PO QAM 12/06/23 12/06/23 release rosuvastatin 5 mg tablet 5 mg PO DAILY 12/06/23 12/06/23 sertraline 50 mg tablet 50 mg PO DAILY 12/06/23 12/06/23 spironolactone 25 mg tablet 12.5 mg PO DAILY 12/06/23 12/06/23 Previous Rx's Medication Instructions Recorded umeclidinium 62.5 mcg-vilanterol 1 inh inhalation DAILY #60 ea 12/09/23 25 mcg/actuation powdr for inhalation (Anoro Ellipta) Results & Data (ED) Vital Signs Vital Signs - 24 hr 12/01/24 17:40 12/01/24 17:45 12/01/24 17:55 Temperature 36.3 C L Temperature Source Temporal Artery Scan Pulse Rate 74 77 Pulse Rate [Right Brachial] Pulse Rhythm [Right Brachial] Pulse Strength [Right Brachial] Respiratory Rate 22 Respiratory Effort / Characteristics Respiratory Depth Respiratory Pattern Blood Pressure 105/73 Blood Pressure [Right Arm] Blood Pressure Mean 83 Blood Pressure Mean [Right Arm] Blood Pressure Position [Right Arm] Pulse Oximetry 94 94 Oxygen Delivery Method Room Air Sepsis Recent Fever Within 48 Hours No Sepsis New/Unexplained Change in Mental Status N/A Sepsis Action Taken by Nursing No Action Required 12/01/24 19:31 Temperature Temperature Source Pulse Rate Pulse Rate [Right Brachial] 67 Pulse Rhythm [Right Brachial] Regular Pulse Strength [Right Brachial] Normal Respiratory Rate 18 Respiratory Effort / Characteristics Non-Labored Respiratory Depth Normal Respiratory Pattern Regular Blood Pressure Blood Pressure [Right Arm] 108/64 Blood Pressure Mean Blood Pressure Mean [Right Arm] 78 Blood Pressure Position [Right Arm] Lying Pulse Oximetry 93 Oxygen Delivery Method Room Air Sepsis Recent Fever Within 48 Hours Sepsis New/Unexplained Change in Mental Status Sepsis Action Taken by Nursing Laboratory Data 12/01/24 18:00 12/01/24 18:00 Lab Results 12/01/24 Range/Units 18:00 WBC 10.14 (4.8-10.8) K/ul RBC 4.23 (4.20-5.40) M/uL Hgb 12.9 (12.0-16.0) g/dl Hct 39.5 (37.0-47.0) % MCV 93.4 (80.0-100.0) fL MCH 30.5 (25.0-34.0) pg MCHC 32.7 (32.0-36.0) g/dL RDW Std Deviation 48.3 H (36.4-46.3) fL RDW Coeff of Homer 14.2 (11.5-14.5) % Plt Count 198 (130-400) K/uL MPV 10.4 (9.4-12.4) fL Immature Gran % (Auto) 0.5 % Neut % (Auto) 68.5 % Lymph % (Auto) 21.9 % Good[place] % (Auto) 7.3 % Eos % (Auto) 1.5 % Baso % (Auto) 0.3 % Neut # (Auto) 6.95 H (1.40-6.50) K/uL Lymph # (Auto) 2.22 (1.20-3.40) K/uL Gooding # (Auto) 0.74 H (0.11-0.59) K/uL Eos # (Auto) 0.15 (0.00-0.50) K/uL Baso # (Auto) 0.03 (0.00-0.20) K/uL Immature Gran # (Auto) 0.05 (0.01-0.20) K/uL PT 10.3 (9.0-12.0) Seconds INR 0.9 (0.9-1.1) Sodium 132 L (136-145) mmol/L Potassium 5.5 H (3.5-5.1) mmol/L Chloride 98 (98-107) mmol/L Carbon Dioxide 27 (21-32) mmol/L Anion Gap 7 (3-11) BUN 58 H (6-23) mg/dl Creatinine 2.01 H (0.6-1.2) mg/dl Est Cr Clr Drug Dosing 37.1 ml/min eGFR 29.15 BUN/Creatinine Ratio 28.9 H (10-20) Glucose 76 (70-99(Fasting)) mg/dl Calcium 9.3 (8.6-10.3) mg/dl Phosphorus 3.7 (2.5-4.9) mg/dl Magnesium 1.6 L (1.7-2.4) mg/dl Total Bilirubin 0.3 (0.2-1.0) mg/dl AST 23 (13-39) U/L ALT 18 (7-52) U/L Alkaline Phosphatase 107 H (34-104) U/L Troponin I High Sens 5.5 (0-14) pg/ml B-Natriuretic Peptide 17 (0-100) pg/ml Total Protein 7.6 (6.0-8.3) gm/dl Albumin 4.3 (3.4-5.0) gm/dl Globulin 3.3 (2.5-4.0) gm/dl Albumin/Globulin Ratio 1.3 (0.9-2) Lipase 48 (11-82) U/L Administered Medications Discontinued Medications Calcium Gluconate () 1,000 mg in 60 mls @ 240 mls/hr IV NOW STA Stop: 12/01/24 18:59 Last Infusion: 12/01/24 19:38 Dose: Infused Documented By: Admin: 12/01/24 19:16 Dose: 240 mls/hr Documented By: SHYLA Magnesium Sulfate/Dextrose (Magnesium Sulfate / D5w) 1 gm in 100 mls @ 100 mls/hr IV NOW STA Stop: 12/01/24 19:44 Last Infusion: 12/01/24 20:20 Dose: Infused Documented By: Admin: 12/01/24 19:16 Dose: 100 mls/hr Documented By: HSYLA Discharge Plan Visit Data Chief Complaint: Abnormal Labs/Diagnostic Testing Stated Complaint: RENAL FAILURE-DOC REFFERAL ED Provider: Caren Reina Discharge Problem: Acute kidney injury superimposed on chronic kidney disease, Acute hyperkalemia, Hypomagnesemia Forms Stand Alone Forms: My [facility] walkby Prescriptions Prescriptions: No Action furosemide 40 mg tablet 40 mg PO DAILY metoprolol succinate 50 mg tablet extended release 24 hr 50 mg PO QAM allopurinol 100 mg Tablet 300 mg PO DAILY spironolactone 25 mg Tablet 12.5 mg PO DAILY omeprazole 20 mg capsule,delayed release(DR/EC) 20 mg PO QAM folic acid 1 mg tablet 1 mg PO QAM fluticasone propionate 220 mcg/actuation Hfa Aerosol Inhaler 2 puff INHALATION BID lisinopril 5 mg tablet 5 mg PO DAILY metoprolol succinate 25 mg Tablet Extended Release 24 Hr 25 mg PO QPM albuterol sulfate [ProAir HFA] 90 mcg/actuation Hfa Aerosol Inhaler 2 puff INHALATION Q4 PRN (Reason: Shortness Of Breath Or Wheezing) sertraline 50 mg tablet 50 mg PO DAILY rosuvastatin 5 mg Tablet 5 mg PO DAILY Anoro Ellipta 62.5-25 mcg/actuation Blister With Device 1 inh inhalation DAILY Qty: 60 0RF Referrals Referrals: Walter Cabrera MD [Primary Care Provider] -
[2024-12-01 18:37] LABS: Albumin Globulin Ratio 1.3 (0.9-2); Albumin Level 4.3 gm/dl (3.4-5.0); BUN Creatinine Ratio 28.9 (10-20); Bilirubin,Total 0.3 mg/dl (0.2-1.0); Calcium 9.3 mg/dl (8.6-10.3); Creatinine Clr Calc Pharmacy 37.1 ml/min; Globulin 3.3 gm/dl (2.5-4.0); Magnesium 1.6 mg/dl (1.7-2.4); Phosphorus 3.7 mg/dl (2.5-4.9); Potassium 5.5 mmol/L (3.5-5.1); Total Protein 7.6 gm/dl (6.0-8.3)
[2024-12-01 18:43] LABS: Troponin I High Sensitivity 5.5 pg/ml (0-14)
[2024-12-01 18:50] LABS: INR 0.9 (0.9-1.1); Prothrombin Time 10.3 Seconds (9.0-12.0)
[2024-12-01] MEDS: MAGNESIUM SULFATE / D5W 1 GM/100 ML BAG IV STA (19:16)
[2024-12-01] MEDS: CALCIUM GLUCONATE 1,000 MG/60 ML BAG IV STA (19:16)
[2024-12-01] MEDS: SODIUM CHLORIDE 0.9% 500 ML IV ONE (20:35)
--- NOTE | 2024-12-01 21:23 | History & Physical Report ---
Date of Service December 01, 2024 Assessment & Plan (1) Acute kidney injury superimposed on chronic kidney disease: Plan: 54-year-old female with past medical history significant for type 2 diabetes, mixed restrictive and obstructive lung disease, obstructive sleep apnea, diastolic CHF, chronic right-sided heart failure, pulmonary hypertension, hypertension, morbid obesity, gout, GERD, stage III CKD, tobacco use disorder presents with hyperkalemia and DILLON. Patient had a cardiology visit and had routine labs done which showed creatinine of 2.3 and potassium of 5.7 sodium 132 and advised to come to the hospital. In the ER her sodium was 132 potassium 5.5 creatinine 2.01 and magnesium 1.6. Resting comfortably. Has chronic cough and shortness of breath from her COPD. Denies any chest pain. No nausea. No abdominal pain. Has chronic back pain. Micturating okay. Has chronic diarrhea. Patient says once a week she noted small amount of blood in the stools and thinks from hemorrhoids. Denies headache. Vision is okay. Has some runny nose from allergies. No sore throat. Appetite is okay. No difficulty swallowing. Resting comfortably and hemodynamically stable. DILLON on CKD Presented creatinine 2.01 Baseline creatinine around 1 Holding Lasix and spironolactone and lisinopril Getting gentle fluids Follow repeat labs in a.m. Nephro and cardio consult for any adjustments of medications Hyperkalemia Potassium 5.5 Got a dose of calcium gluconate in ER Holding lisinopril and spironolactone Follow repeat labs in a.m. Nephrology consulted History of chronic diastolic CHF Chronic right-sided heart failure Holding diuretics as above Monitor for volume overload History of COPD History of combined restrictive and obstructive lung disease Pulmonary hypertension Chronic respiratory failure Continue home inhalers Continue home oxygen History of sleep apnea Currently using oxygen while sleeping Type 2 diabetes Not on meds diabetic diet Will follow blood sugars and HbA1c levels in a.m. Blood in stool once a week small amount per patient hb ok will monitor stool for hemeoccult Morbid obesity Counseling Tobacco abuse States trying to quit Gout On allopurinol Hypertension Currently metoprolol succinate Holding diuretics and lisinopril We will monitor GERD On omeprazole Hyperlipidemia On rosuvastatin Depression On Zoloft DVT prophylaxis Heparin subcu monitor for any Gi bleed Disposition Telemetry Full code. History of Present Illness Chief Complaint: DILLON and hyperkalemia Primary Care Provider: Walter Cabrera MD 54-year-old female with past medical history significant for type 2 diabetes, mixed restrictive and obstructive lung disease, obstructive sleep apnea, diastolic CHF, chronic right-sided heart failure, pulmonary hypertension, hypertension, morbid obesity, gout, GERD, stage III ckd, tobacco use disorder presents with hyperkalemia and DILLON. Patient had a cardiology visit and had routine labs done which showed creatinine of 2.3 and potassium of 5.7 sodium 132 and advised to come to the hospital. In the ER her sodium was 132 potassium 5.5 creatinine 2.01 and magnesium 1.6. Resting comfortably. Has chronic cough and shortness of breath from her COPD. Denies any chest pain. No nausea. No abdominal pain. Has chronic back pain. Micturating okay. Has chronic diarrhea. Patient says once a week she noted small amount of blood in the stools and thinks from hemorrhoids. Denies headache. Vision is okay. Has some runny nose from allergies. No sore throat. Appetite is okay. No difficulty swallowing. Resting comfortably and hemodynamically stable. Past medical history. As mentioned above. Past surgical history. Colonoscopy. Cryocautery of cervix. Dilatation curettage. Social history. Smokes 1 pack a day for 35 years. Trying to quit smoking. Alcohol once a week. No drug use. Family history. Father had alcoholism. Cirrhosis. Mother had cancer. Sister has COPD. Sister had lung cancer. Allergies Allergy/AdvReac Type Severity Reaction Status Date / Time Penicillins Allergy Hives Unverified 12/01/24 20:49 Home Medications Medication Instructions Recorded Confirmed Type albuterol sulfate 90 mcg/actuation 2 puff inhalation Q4 PRN Shortness 12/06/23 12/01/24 History aerosol inhaler (ProAir HFA) Of Breath Or Wheezing allopurinol 100 mg tablet 300 mg PO DAILY 12/06/23 12/01/24 History folic acid 1 mg tablet 1 mg PO QAM 12/06/23 12/01/24 History furosemide 40 mg tablet 40 mg PO DAILY 12/06/23 12/01/24 History lisinopril 5 mg tablet 5 mg PO DAILY 12/06/23 12/01/24 History metoprolol succinate 50 mg 50 mg PO QAM 12/06/23 12/01/24 History tablet,extended release 24 hr omeprazole 20 mg capsule,delayed 20 mg PO QAM 12/06/23 12/01/24 History release rosuvastatin 5 mg tablet 5 mg PO DAILY 12/06/23 12/01/24 History sertraline 50 mg tablet 50 mg PO DAILY 12/06/23 12/01/24 History spironolactone 25 mg tablet 25 mg PO DAILY 12/06/23 12/01/24 History fluticasone fur. 100 mcg-umeclid 1 inh inhalation DAILY 12/01/24 12/01/24 History 62.5 mcg-vilant 25 mcg inhalat.powder (Trelegy Ellipta) multivitamin 1 cap PO DAILY 12/01/24 12/01/24 History Past Med/Surg History Problem List (Updated 12/01/24 @ 19:50 by Caren Reina MD) Hypomagnesemia (Acute) Acute hyperkalemia (Acute) Acute kidney injury superimposed on chronic kidney disease (Acute) Chronic hypercapnic respiratory failure Pulmonary hypertension Acute on chronic diastolic (congestive) heart failure Tobacco dependence (Acute) Hypoxia (Acute) Shortness of breath (Acute) Chronic diastolic heart failure (Chronic) Alcohol abuse Knee pain, right (Acute) Medical History (Updated 12/01/24 @ 19:50 by Caren Reina MD) Obstructive sleep apnea Acute on chronic right heart failure Depression DVT prophylaxis CHF (congestive heart failure) COPD (chronic obstructive pulmonary disease) Alcohol use Acute on chronic heart failure with preserved ejection fraction Sinus tachycardia GERD (gastroesophageal reflux disease) Prediabetes Bilateral leg edema Tobacco use Hypertension SOB (shortness of breath) Hypoxia Surgical History Hx of colonoscopy Family History Other COPD (chronic obstructive pulmonary disease) Diabetes Kidney disease Social History Smoking Status: Current every day smoker Tobacco Type: Cigarettes Cigarettes Per Day: 10; Smoking End Date: 11/29/2024; Second Hand Exposure: Yes; Do You Dip or Chew Tobacco: No; Hx Alcohol Use: Yes Alcohol type: beer and hard liquor Alcohol Intake Frequency Comment: cutting back to 2-3 beers, 2 times a week Hx Substance Use: No Preferred Language: Burmese Communication Ability: Effective [place] Required: No Beliefs That Will Affect Care: None Current Living Situation: Family Current Living Situation Comment: lives with sister greta Feels Safe at Home: Yes Assistive Devices: None Review of Systems Review of Systems: All systems reviewed & are unremarkable except as noted in HPI & below Physical Exam Physical Exam: General- Not in distress Head- atraumatic Eyes- PERRL. ENT- oropharynx clear Neck- supple, no JVD. Lungs- clear to auscultation no wheezing or crackles Heart- regular rhythm; no murmur, no gallop. Abdomen- normal bowel sounds, soft, nontender, no distension Extremities- no pretibial edema, no erythema seen Neuro- alert, oriented PERRL, EOMI; no facial palsy; no dysarthria; moves extremities Results & Data Results & Data Vital Signs (Past 12 Hours) Vital Signs Temp Pulse Pulse Resp BP BP Pulse Ox 12/01/24 19:31 67 18 108/64 93 12/01/24 17:55 77 12/01/24 17:45 94 12/01/24 17:40 36.3 C L 74 22 105/73 94 O2 Del Method 12/01/24 19:31 Room Air 12/01/24 17:55 12/01/24 17:45 Room Air 12/01/24 17:40 Diagnostic Findings Laboratory Results WBC 10.14 K/ul (4.8-10.8) 12/01/24 18:00 RBC 4.23 M/uL (4.20-5.40) 12/01/24 18:00 Hgb 12.9 g/dl (12.0-16.0) 12/01/24 18:00 Hct 39.5 % (37.0-47.0) 12/01/24 18:00 MCV 93.4 fL (80.0-100.0) 12/01/24 18:00 MCH 30.5 pg (25.0-34.0) 12/01/24 18:00 MCHC 32.7 g/dL (32.0-36.0) 12/01/24 18:00 RDW Std Deviation 48.3 fL (36.4-46.3) H 12/01/24 18:00 RDW Coeff of Homer 14.2 % (11.5-14.5) 12/01/24 18:00 Plt Count 198 K/uL (130-400) 12/01/24 18:00 MPV 10.4 fL (9.4-12.4) 12/01/24 18:00 Immature Gran % (Auto) 0.5 % 12/01/24 18:00 Neut % (Auto) 68.5 % 12/01/24 18:00 Lymph % (Auto) 21.9 % 12/01/24 18:00 Stanton % (Auto) 7.3 % 12/01/24 18:00 Eos % (Auto) 1.5 % 12/01/24 18:00 Baso % (Auto) 0.3 % 12/01/24 18:00 Neut # (Auto) 6.95 K/uL (1.40-6.50) H 12/01/24 18:00 Lymph # (Auto) 2.22 K/uL (1.20-3.40) 12/01/24 18:00 Stanton # (Auto) 0.74 K/uL (0.11-0.59) H 12/01/24 18:00 Eos # (Auto) 0.15 K/uL (0.00-0.50) 12/01/24 18:00 Baso # (Auto) 0.03 K/uL (0.00-0.20) 12/01/24 18:00 Immature Gran # (Auto) 0.05 K/uL (0.01-0.20) 12/01/24 18:00 PT 10.3 Seconds (9.0-12.0) 12/01/24 18:00 INR 0.9 (0.9-1.1) 12/01/24 18:00 Sodium 132 mmol/L (136-145) L 12/01/24 18:00 Potassium 5.5 mmol/L (3.5-5.1) H 12/01/24 18:00 Chloride 98 mmol/L (98-107) 12/01/24 18:00 Carbon Dioxide 27 mmol/L (21-32) 12/01/24 18:00 Anion Gap 7 (3-11) 12/01/24 18:00 BUN 58 mg/dl (6-23) H 12/01/24 18:00 Creatinine 2.01 mg/dl (0.6-1.2) H 12/01/24 18:00 Est Cr Clr Drug Dosing 37.1 ml/min 12/01/24 18:00 eGFR 29.15 12/01/24 18:00 BUN/Creatinine Ratio 28.9 (10-20) H 12/01/24 18:00 Glucose 76 mg/dl (70-99(Fasting)) 12/01/24 18:00 Calcium 9.3 mg/dl (8.6-10.3) 12/01/24 18:00 Phosphorus 3.7 mg/dl (2.5-4.9) 12/01/24 18:00 Magnesium 1.6 mg/dl (1.7-2.4) L 12/01/24 18:00 Total Bilirubin 0.3 mg/dl (0.2-1.0) 12/01/24 18:00 AST 23 U/L (13-39) 12/01/24 18:00 ALT 18 U/L (7-52) 12/01/24 18:00 Alkaline Phosphatase 107 U/L (34-104) H 12/01/24 18:00 Troponin I High Sens 5.5 pg/ml (0-14) 12/01/24 18:00 B-Natriuretic Peptide 17 pg/ml (0-100) 12/01/24 18:00 Total Protein 7.6 gm/dl (6.0-8.3) 12/01/24 18:00 Albumin 4.3 gm/dl (3.4-5.0) 12/01/24 18:00 Globulin 3.3 gm/dl (2.5-4.0) 12/01/24 18:00 Albumin/Globulin Ratio 1.3 (0.9-2) 12/01/24 18:00 Lipase 48 U/L (11-82) 12/01/24 18:00 ECG Additional Comments: ECG normal sinus rhythm rate of 80. QTc 429 Code Status & VTE Plan VTE Prophylaxis Plan VTE Prophylaxis will be ordered: Yes
[2024-12-01] MEDS: MAGNESIUM SULFATE / D5W 1 GM/100 ML BAG IV ONE (21:41)
[2024-12-01] MEDS ORDERED: NITROGLYCERIN SL 0.4 MG/TAB TAB SL PRN (22:55)
[2024-12-01] MEDS ORDERED: POLYETHYLENE (MIRALAX) 17 GM PACK PO PRN (22:55)
[2024-12-01] MEDS ORDERED: ALBUTEROL HFA 8 GM INHALER INH PRN (22:55)
[2024-12-01] MEDS ORDERED: ACETAMINOPHEN 325 MG TAB PO PRN (22:55)
--- OUTSIDE RECORDS SUMMARY | 2024-12-01 23:11 | External Medical Summary | Summary of Care ---
Author Name Unknown Organization [facility] Address [address] [place] [address] Phone [phone] Care Team Providers Care Bed And Breakfast Cook Name Role Phone Walter Cabrera MD Primary Care Provider [phone] Reason for Visit * Reason Comments Follow Up Encounter Details Date Type Department Care Team (Late st Contact Info) Description 10/12/2024 8:40 AM EST Office Visit Pulmonary Medicine, [facility] [address] [facility] [place] [address] Jono Cooper MD [address] [place] [address] Chronic respiratory failure with hypoxia (HCC)* Allergies Active Allergy Reactions Criticality Noted Date Comments Penicillins Nausea/vomiting 06/29/2016 documented as of this encounter (statuses as of 10/12/2024) Medications Multiple Vitamins-[place] als (WOMENS MULTIVITAMIN) TABS Take by mouth. Active Loratadine 10 MG Oral Tablet Take 1 Tablet by mouth in the morning. Active Albuterol Sulfate HFA 108 (90 Base) MCG/ACT Inhalation Aerosol Solution TAKE 2 PUFFS BY MOUTH EVERY 4 HOURS NEEDED FOR WHEEZE 18 g 3 1 Active Metoprolol Succinate ER 25 MG Oral Tablet Extended Release 24 Hour (toPROL XL) Take 1 Tablet by mouth every evening. This is in addition to the 50 mg tablet in the morning 90 Tablet 5 1 Active oxygen IN GAS Use 4-6 %(Oxygen) as directed at bedtime. 4 Liters per minute with exertion, 6 Liters per minute at night 4 Active Rosuvastatin Calcium 10 MG Oral Tablet (Crestor) Take 1 Tablet by mouth in the morning. 90 Tablet 3 4 Active Allopurinol 300 MG Oral Tablet (Zyloprim) Take 1 Tablet by mouth in the morning. 90 Tablet 3 4 Active Furosemide 40 MG Oral Tablet (Lasix) TAKE 1 TABLET BY MOUTH EVERY DAY 90 Tablet 2 4 Active Lisinopril 5 MG Oral Tablet (Prinivil)Leslie cations:Heart failure, diastolic, due to HTN (HCC),HTN, goal below 130/80 TAKE 1 TABLET BY MOUTH EVERY DAY 90 Tablet 2 4 Active Spironolactone 25 MG Oral Tablet (Aldactone) TAKE 1 TABLET BY MOUTH EVERY DAY 90 Tablet 2 4 Active Sertraline HCl 50 MG Oral Tablet (Zoloft) TAKE 1 TABLET BY MOUTH EVERY DAY 90 Tablet 3 4 Active Omeprazole 20 MG Oral Capsule Delayed Release (PriLOSEC) TAKE 1 CAPSULE BY MOUTH EVERY DAY 1 HOUR BEFORE FIRST MEAL OF THE DAY 90 Capsule 3 4 Active Folic Acid 1 MG Oral TabletIndicati ons:Heart failure, diastolic, due to HTN (HCC) TAKE 1 TABLET BY MOUTH EVERY DAY IN THE MORNING 90 Tablet 5 Active Metoprolol Succinate ER 50 MG Oral Tablet Extended Release 24 Hour (toPROL XL)Indications :Heart failure, diastolic, due to HTN (HCC) TAKE 1 TABLET BY MOUTH EVERY MORNING. THIS IS IN ADDITION TO THE 25 MG TABLET IN THE EVENING. 90 Tablet 5 Active Fluticasone-Um eclidin-Vilant 100-62.5-25 MCG/ACT Aerosol Powder Breath Activated (Trelegy Ellipta) Inhale 1 Puff by mouth in the morning. 60 Blister Dosing Unit 11 5 026 Active Fluticasone-Um eclidin-Vilant 100-62.5-25 MCG/ACT Aerosol Powder Breath Activated (Trelegy Ellipta) Inhale 1 Puff by mouth in the morning. 180 Each 4 025 Discontinued Hospital, Clinic, or Other Facility Administered Medication Ordered Dose Route Frequency Start Date End Date Status medroxyPROGESTERone (contracep) (DEPO-PROVERA) inj 150 mgIndications:Surveillanc e for Depo-Provera contraception 150 mg IM [id number] 07/06/2018 Active albuterol sulfate (PROVENTIL) (2.5 MG/3ML) 0.083% inhalation solution 2.5 mgIndications:COPD, severity to be determined (HCC) 2.5 mg NEBULIZER Q4H PRN 05/03/2019 Active albuterol sulfate (PROVENTIL) (2.5 MG/3ML) 0.083% inhalation solution 2.5 mgIndications:COPD, severity to be determined (HCC) 2.5 mg NEBULIZER Q4H PRN 05/09/2019 Active medroxyPROGESTERone (contracep) (DEPO-PROVERA) inj 150 mgIndications:Surveillanc e for Depo-Provera contraception 150 mg IM [id number] 07/13/2019 Active medroxyPROGESTERone acetate (DEPO-PROVERA) inj TANMAY 150 mgIndications:Surveillanc e for Depo-Provera contraception 150 mg IM [id number] 07/23/2020 Active documented as of this encounter (statuses as of 10/12/2024) Active Problems Problem Noted Date Diagnosed Date Mixed restrictive and obstructive lung disease 1 10/01/2023 Type 2 diabetes mellitus wit h hemoglobin A1c goal of less than 7.0% 02/18/2024 LARS (obstructive sleep apnea) 02/18/2024 Chronic right-sided heart failure 08/27/2021 Pulmonary hypertension 07/15/2021 Morbid obesity 07/15/2021 Heart failure, diastolic, due to HTN 05/03/2019 Gastroesophageal reflux disease with esophagitis 08/06/2016 Tobacco use disorder 08/06/2016 HTN, goal below 130/80 03/13/2011 documented as of this encounter (statuses as of 10/12/2024) Resolved Problems Problem Noted Date Diagnosed Date Resolved Date COPD, group B, by GOLD 2017 classification 01/31/2024 08/01/2024 Overview: Per COPD GOLD Classification Gastroesophageal reflux dise ase without esophagitis 09/03/2023 09/03/2023 Right foot pain 02/03/2023 09/03/2023 Food insecurity 06/01/2022 09/03/2023 Overview: Per [facility] Protocol Sinus tachycardia 08/27/2021 01/12/2022 Supplemental oxygen dependent 07/15/2021 01/12/2022 COPD, moderate 06/16/2021 02/02/2024 Overview: Per COPD GOLD Classification Restrictive lung disease 06/16/202108/2024 Overview (06/16/2021): Seen on PFTs from 2019 Severe obesity with body mas s index (BMI) of 35.0 to 39.9 with serious comorbidity 06/16/2021 Prediabetes 09/02/2020 09/04/2021 Overview: Per Prediabetes protocol Body mass index (BMI) of 40. 0 to 44.9 in adult 07/29/2020 06/16/2021 Overview: Per Obesity protocol Acute non-recurrent pansinusitis 08/21/2018 08/21/2018 Major depressive disorder 02/21/2009 Overview (07/13/2017): ICD-10 update of inactive term Hidradenitis 12/14/2005 08/06/2016 CERVICAL DISC DEGEN 11/15/2004 08/06/20 16 MILD CERVICAL SPINAL STENOSIS 11/15/2004 08/06/2016 documented as of this encounter (statuses as of 10/12/2024) Immunizations Name Administration Dates Next Due Pneumococcal Conjugate Vacc, 13 Valent (Prevnar) 08/03/2019 Pneumococcal Polysaccharide PPV23 (Pneumovax) Seasonal Influenza, PF, 6 M & above, IM , (FluLaval or Fluzone) 06/03/2020,07/15/2019 Seasonal Influenza, Trivalent, (IIV3), PF, (Fluz one) 08/01/2024 TDAP (age 10 and older)(Boostrix) 05/03/2019 TDAP, Age 7 and older, IM (Adacel) 02/21/2009 documented as of this encounter Social History Tobacco Use Types Packs/Day Years Used Date Smoking Tobacco: Every Day Cigarettes 1 35 Smokeless Tobacco: Never Comments:01/27/24 currently smoking 5 cig/day. Alcohol Use Standard Drinks/Week Comments Yes 0 (1 standard drink = 0.6 oz pur e alcohol) one a week PHQ-2 Answer Date Recorded PHQ-2 Score 1 07/10/2020 Hunger Vital Sign Answer Date Recorded Within the past 12 months, y ou worried that your food would run out before you got the money to buy more. Patient declined Within the past 12 months, t he food you bought just didn't last and you didn't have money to get more. Patient declined Childcare Answer Date Recorded Do you feel overwhelmed with taking care of a child, family member or friend? No 07/19/2024 Does your family need help f inding childcare? (Household - for ages 0-17 years) Not on file 07/19/2024 Clothing Answer Date Recorded Have you been unable to get clothing when it was really needed? No 07/19/2024 Is your family able to get c lothes or diapers when needed? (Household - for ages 0-17 years) Not on file 07/19/2024 Personal Safety Answer Date Recorded Do you feel unsafe or have concerns for your saf ety? No 07/19/2024 Do you have concerns for you r family's safety? (Household - for ages 0-17 years) Not on file 07/19/2024 Utilities Answer Date Recorded Do you have trouble paying y our heating, water, or electric bill? No 07/19/2024 Is your family able to pay t he heat, water, or electric bill? (Household - for ages 0-17 years) Not on file 07/19/2024 Does your family have access to good internet? (Household - for ages 0-17 years) Not on file 07/19/2024 Employment Status Answer Date Recorded Are you unemployed or without regular income? Ye s 07/19/2024 Does the household have a re gular source of income? (Household - for ages 0-17 years) Not on file 07/19/2024 Social Connections Answer Date Recorded How often do you feel lonely or isolated from those around you? Sometimes 07/19/2024 Financial Resource Strain Answer Date R ecorded Do you have any trouble payi ng for your medications, or do you think you might in the future? No 07/19/2024 Does your family have troubl e paying for medicine? (Household - for ages 0-17 years) Not on file 07/19/2024 Transportation Needs Answer Date Record ed Do you have trouble getting a ride to medical visits or work? (Adult - for ages 18 years and over) Not on file 07/19/2024 Does your family have a hard time getting a ride to doctors visits? (Household - for ages 0-17 years) Not on file 07/19/2024 Has lack of transportation k ept you from medical appointments, meetings, work, or from getting things needed for daily living? Check all that apply. No 07/19/2024 Do you (or your family) have trouble finding or paying for a ride (transportation)? (Household - for ages 0-17 years) Not on file 07/19/2024 Housing Stability Answer Date Recorded Do you currently live in a s helter or have no steady place to sleep at night? No 07/19/2024 Do you think you are at risk of becoming homeless? (Adult - for ages 18 years and over) Not on file 07/19/2024 Does your family worry about paying for your home or becoming homeless? (Household - for ages 0-17 years) Not on file 1 Are you homeless or worried that you might be in the future? No 07/19/2024 Are you (or your family) marah eless or worried that you might be in the future? (Household - for ages 0-17 years) Not on file Food Insecurity Answer Date Recorded Do you need food for this week? No 07/19/2024 Are you able to get enough f ood for your family? (Household - for ages 0-17 years) Not on file 07/19/2024 Does your family need food t his week? (Household - for ages 0-17 years) Not on file 07/19/2024 Do you always have enough fo od for your family? (Household - for ages 0-17 years) Not on file 07/19/2024 Comments No Sex and Gender Information Value Date Recorded Sex Assigned at Female 05/03/2019 9:58 AM EDT Legal Sex Female 7:20 AM EST Gender Identity Female 05/03/2019 9:58 AM EDT Sexual Orientation Straight 05/19/2022 1: 28 PM EDT Occupation Industry Job Start Date Job End Date [employer] Not on file Not on file Not on file documented as of this encounter Last Filed Vital Signs Vital Sign Reading Time Taken Comments Blood Pressure 120/70 10/12/2024 8:07 AM EST Pulse 84 10/12/2024 8:07 AM EST Temperature 36.9 C (98.4 F) 10/12/2024 8:07 AM ES T Respiratory Rate 18 10/12/2024 8:07 AM EST Oxygen Saturation 91% 10/12/2024 8:07 AM EST Inhaled Oxygen Concentration - - Weight 108.4 kg (239 lb) 10/12/2024 8:07 AM EST Height 154.9 cm (5' 1") 10/12/2024 8:07 AM EST Body Mass Index 45.16 10/12/2024 8:07 AM EST documented in this encounter Progress Notes * Jono Cooper MD - 10/12/2024 8:40 AM EST 10/12/2024 Pulmonary Medicine, [address] [id number] Dee Dee Squires 1970 female 53 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 Since last evaluation, patient describes steady respiratory symptoms status, compliant with Trelegyand rescue albuterol inhaler. Continuing efforts to cut down/stop smoking, currently down to less than 1/4 pack daily. Awaiting Sleep Medicine follow-up evaluation. Compliant with nocturnal home oxygen at 4 L at night. Sleep study was ordered January 2024, not done yet. Patient was advised to get t hercontact number corrected in EMR. 6 minute walk test showed desaturation on room air during activity, required 2 L with activity. Neworder for portable oxygen concentrator at 2 LPM was issued. POC testing was ordered but not done yet. POC testing was reordered. History of hospitalization in 2022 for CHF and COPD exacerbation, hypoxic respiratory failure noted, Patient had been started on 4 L nasal cannula oxygen at rest and 6 L with activity. Underwent Sleep Medicine evaluation, awaiting sleep study. Denies cough, purulent expectoration, high-grade fever.Compliant with current bronchodilator regimen including Trelegy and rescue albuterol inhaler. Requesting portable oxygen due to difficulty with carrying large tanks secondary to arthritis. Has 2 cats Physical examination significant for class 4 throat, adequate air entry in all lung childress, minimalwheezing, scattered rhonchi, regular cardiac rhythm, obese body habitus, no evidence of volume overload, non-lateralizing Neuro examination. Multifactorial dyspnea and hypoxia with likely triggers including active smoking status, COPD, restrictive lung disease, moderate likelihood for sleep-related breathing disorder. Normal D-dimer levelnoted. 2020 echocardiogram did not show any evidence of pulmonary hypertension. Follow-up echo is pending. Recent PFT showed mixed obstructive and restrictive pattern, FEV1 1.04 L, 40% of predicted along with evidence of air trapping and DLCO 66% of predicted. BMI 44 noted. We will continue with current bronchodilator therapy including Trelegy inhaler along with rescue albuterol therapy. Request for portable oxygen concentrator will also be placed at 2 LPM setting basedon 6 minute walk test. Normal D-dimer level noted. Smoking cessation counseling was provided again. Patient is motivated to continue efforts. Available management options were discussed. Patient will be followed up in 6 months to reassess respiratory symptoms status and discuss furthermanagement plan. DATA Review: PFT 08/2023: Pulmonary function testing revealed evidence of moderate restriction*: TLC and FVC were reduced, the obstructive index was normal. There was no significant change in spirometry measured following bronchodilator administration. The RV to TLC ratio was increased. The latter is a nonspecific finding, but may be attributable to this patient's obesity. Diffusion capacity that was not corrected for hemoglobin concentration was moderately reduced.* Degree of restriction was based on the Z-score of total lung capacity. In comparison to testing that was last performed on June 20, 2019, FVC has decreased significantly by 0.92 L, and FEV1 is decreased significantly by 0.71 L. there are no prior measurements lung volumes diffusion capacity for comparison. Note that these results do not necessarily support the stated clinical diagnosis of COPD, as restriction rather than airflow obstruction was demonstrated. This interpretation has been electronically signed: KATEY DOWD MD 09/03/2023 06:00:[address] CHEST LOW DOSE SCAN LUNG CANCER SCREEN INITIAL - 11/16/2023 FINDINGS: Lung Screening Specific (LungRADS): Few 2-3 [...] lower lobe, lingula, and right middle lobe. IMPRESSION: 1. LungRADS Category 2: Negative, benign [...] is deferred to the primary care provider. Chest x-ray from 05/2021 per my interpretation trachea is midline, there is cardiomegaly, there is cephalization, there is no pleural effusion. There is no pneumothorax. There is hyperexpansion with diaphragmatic flattening. Echocardiogram 2020 did not reveal any evidence of pulmonary hypertension. Stress echo from 06/2019 The stress echo is negative for inducible ischemia. Exercise capacity is below average . Resting echo with EF 55% RV size and function qualitatively normal There is no significant valvular disease. 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 Pulm HTN, next LDCT scheduled 10/2024 Hypoxic Resp Failure, on home oxygen therapy 4/6 L Current BD Rx: Trelegy, Rescue Albuterol Home O2 4-6 L POC testing ordered F/u 6 months Patient was advised to get her contact number corrected in EMR Follow-up: Return in about 6 months (around 04/11/2025). 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 Pulm HTN, next LDCT scheduled 10/2024 Hypoxic Resp Failure, on home oxygen therapy 4/6 L Current BD Rx: Trelegy, Rescue Albuterol Home O2 4-6 L POC testing ordered F/u 6 months Patient was advised to get her contact number corrected in EMR I spent a total of 30-39 minutes (exact time 35 mins) on the date of service in preparation, delivery, and documentation of the care provided to Dee Dee Squires excluding any time spent in the performance of separately billed services or time spent by another provider/QHP. Jono Cooper MD Data review: Following reports, and data as outlined below was personally reviewed and interpreted by myself. 6 minute walk test was positive on 03/07/2024. 2 L nasal cannula oxygen for use with activity has been ordered earlier. Subjective CC: Chief Complaint Patient presents with Follow Up HPI: Nursing Notes: Denae Duarte LPN 10/12/24 0847 Signed Chief Complaint Patient presents with Follow Up Interm History/Respiratory Symptoms Cough: dry Hemoptysis: no Sinus Symptoms: PND Hospitalizations: no ED Trips: no Triggers: exertion,weather chnges Nocturnal: no-sleeps elevated-adjustable bed CPAP/BiPAP/O2: O2 @ 3 lpm DME Supplier: [employer] Question 10/12/2024 8:02 AM EST - Filed by Patient Do you have any of the following new or worsening symptoms? None of these Have you recently been in contact with someone who was sick? No / Unsure Myc Visit Accident Related Question Question 10/12/2024 8:02 AM EST - Filed by Patient Is this visit related to an accident? (i.e work, motor vehicle) No Mmrc Cat Question 10/12/2024 8:11 AM EST - Filed by Patient When do you become breathless? (3) I stop for breath after walking about 100 yards or after a few minutes on level ground How frequently do you cough? (5) - I cough all the time Do you have phlegm in your chest? (2) Is your chest tight? (3) How breathless do you become when walking up a hill or steps? (5) - When I walk up a hill or one flight of stairs I am very breathless How limited are you doing activities at home? (3) How confident are you leaving home with your lung condition? (3) How soundly do you sleep? (2) How much energy do you have? (3) Total MMRC Score (range: 0 - 4) 3 Total CAT Score (range: 0 - 40) 26 Objective Filed Vitals: 10/12/24 0807 BP: 120/70 Pulse: 84 Resp: 18 Temp: 36.9 C (98.4 F) TempSrc: Tympanic SpO2: 91% Weight: 108.4 kg (239 lb) Height: 1.549 m (5' 1") Exam: Const: No signs of acute distress present. Head/Face: Normal on inspection. Eyes: Conjunctivae clear. Pupils equal round and reactive to light. ENMT: Oropharynx: No erythema, exudate or masses. Posterior pharynx is normal. Neck: Supple and symmetric. Resp: Respiratory examination as outlined above CV: Rate is regular. Rhythm is regular. No heart murmur appreciated. Extremities: No edema of the lower limbs bilaterally. Skin: Skin is warm and dry. Neuro: Coordination normal. No involuntary movement. Psych: Patient's attitude is cooperative. Mood is normal. Affect is normal. Tests reviewed with the patient: XR L SPINE AP AND LATERAL Result Date: 08/01/2024 IMPRESSION Mild degenerative changes. Available Radiologic data was reviewed by me in PACS. The images were shown to the patient and findings were discussed with the patient. HOME MEDICATIONS: [id number] 100-62.5-25 MCG/ACT Aerosol Powder Breath Activated (Trelegy Ellipta) Omeprazole 20 MG Oral Capsule Delayed Release (PriLOSEC) Sertraline HCl 50 MG Oral Tablet (Zoloft) Lisinopril 5 MG Oral Tablet (Prinivil) Spironolactone 25 MG Oral Tablet (Aldactone) Furosemide 40 MG Oral Tablet (Lasix) Allopurinol 300 MG Oral Tablet (Zyloprim) Rosuvastatin Calcium 10 MG Oral Tablet (Crestor) oxygen IN GAS Albuterol Sulfate HFA 108 (90 Base) MCG/ACT Inhalation Aerosol Solution Metoprolol Succinate ER 25 MG Oral Tablet Extended Release 24 Hour (toPROL XL) Loratadine 10 MG Oral Tablet Multiple Vitamins-Minerals (WOMENS MULTIVITAMIN) TABS Folic Acid 1 MG Oral Tablet Metoprolol Succinate ER 50 MG Oral Tablet Extended Release 24 Hour (toPROL XL) medroxyPROGESTERone acetate (DEPO-PROVERA) inj TANMAY 150 mg medroxyPROGESTERone (contracep) (DEPO-PROVERA) inj 150 mg albuterol sulfate (PROVENTIL) (2.5 MG/3ML) 0.083% inhalation solution 2.5 mg albuterol sulfate (PROVENTIL) (2.5 MG/3ML) 0.083% inhalation solution 2.5 mg medroxyPROGESTERone (contracep) (DEPO-PROVERA) inj 150 mg ROS: No reported history of Hemoptysis, Hematemesis, Melena No reported history of Dysuria, Hematuria, Flank Pain No reported history of chronic headache, seizures No reported history of Fall or trauma . No reported history of recent change in weight or appetite. Past Medical History: Diagnosis Date COPD (chronic obstructive pulmonary disease) ([facility]) COPD, moderate ([facility]) 06/16/2021 disc Disc protrusion at the L5-S1 level Gastroesophageal reflux disease without esophagitis 09/03/2023 HTN, goal below 130/80 03/13/2011 Mixed restrictive and obstructive lung disease ([facility]) 08/01/2024 Morbid obesity due to excess calories ([facility]) 07/15/2021 LARS (obstructive sleep apnea) 02/18/2024 Pulmonary hypertension ([facility]) 07/15/2021 Severe obesity with body mass index (BMI) of 35.0 to 39.9 with serious comorbidity ([facility]) 06/16/2021 Supplemental oxygen dependent 07/15/2021 Type 2 diabetes mellitus with hemoglobin A1c goal of less than 7.0% ([facility]) 02/18/2024 Past Surgical History: Procedure Laterality Date COLONOSCOPY, DIAGNOSTIC (RECTUM) 1998 Colonoscopy Diagnostic (Rectum) CRYOCAUTERY OF CERVIX DILATION AND CURETTAGE (D&C) D&C Social History Socioeconomic History Marital status: Single Occupational History Occupation: [employer] Tobacco Use Smoking status: Every Day Current packs/day: 1.00 Average packs/day: 1 pack/day for 35.0 years (35.0 ttl pk-yrs) Types: Cigarettes Smokeless tobacco: Never Tobacco comments: 01/27/24 currently smoking 5 cig/day. Vaping Use Vaping status: Never Used Substance and Sexual Activity Alcohol use: Yes Comment: one a week Drug use: No Sexual activity: Not Currently Partners: Male Other Topics Concern Exercise No Self-Exams Yes Comment: breast Social History Narrative No mold 2 cat Social Needs Financial Resource Strain: Low Risk (07/19/2024) Financial Resource Strain Do you have any trouble paying for your medications, or do you think you might in the future? (Adult - for ages 18 years and over): No Food Insecurity: No Food Insecurity (07/19/2024) Food Insecurity Do you need food for this week? (Adult - for ages 18 years and over): No Transportation Needs: No Transportation Needs (07/19/2024) Transportation Needs Has lack of transportation kept you from medical appointments, meetings, work, or from getting things needed for daily living? Check all that apply. (Adult - for ages 18 years and over): No Social Connections: Socially Integrated (07/19/2024) Social Connections How often do you feel lonely or isolated from those around you? (Adult - for ages 18 years and over): Sometimes Housing Stability: Low Risk (07/19/2024) Housing Stability Do you currently live in a fpc or have no steady place to sleep at night? (Adult - for ages 18 years and over): No Are you homeless or worried that you might be in the future? (Adult - for ages 18 years and over): No Family History Problem Relation Name Age of Onset Cancer Mother Unknown type Cirrhosis Father Alcohol and Other Disorders Associated Father Alcoholism Lung cancer Sister COPD Sister No Known Problems Brother Hypertension Grandmother (Maternal) Breast Cancer None Colon cancer None Cancer None no CUSTOMER RELATIONS ADVISOR cancer Review of patient's allergies indicates: Allergen Reactions Penicillins Nausea/vomiting documented in this encounter Nursing Notes * Denae Duarte LPN - 10/12/2024 8:09 AM EST Chief Complaint Patient presents with Follow Up Interm History/Respiratory Symptoms Cough: dry Hemoptysis: no Sinus Symptoms: PND Hospitalizations: no ED Trips: no Triggers: exertion,weather chnges Nocturnal: no-sleeps elevated-adjustable bed CPAP/BiPAP/O2: O2 @ 3 lpm DME Supplier: [employer] Question 10/12/2024 8:02 AM EST - Filed by Patient Do you have any of the following new or worsening symptoms? None of these Have you recently been in contact with someone who was sick? No / Unsure Myc Visit Accident Related Question Question 10/12/2024 8:02 AM EST - Filed by Patient Is this visit related to an accident? (i.e work, motor vehicle) No [facility] Cat Question 10/12/2024 8:11 AM EST - Filed by Patient When do you become breathless? (3) I stop for breath after walking about 100 yards or after a few minutes on level ground How frequently do you cough? (5) - I cough all the time Do you have phlegm in your chest? (2) Is your chest tight? (3) How breathless do you become when walking up a hill or steps? (5) - When I walk up a hill or one flight of stairs I am very breathless How limited are you doing activities at home? (3) How confident are you leaving home with your lung condition? (3) How soundly do you sleep? (2) How much energy do you have? (3) Total MMRC Score (range: 0 - 4) 3 Total CAT Score (range: 0 - 40) 26 documented in this encounter Plan of Treatment Upcoming Encounters Date Type Department Care Team (Late st Contact Info) Description 10/12/2024 10:00 AM EST Office Visit Interventional Pain Center [facility] [address] [place] [phone] Noelle Sen PA-C [address] [place] [id number] Arrived 11/14/2024 9:30 AM EST PulmDiagnostic Pulmonary Function Lab, [facility] [address] [facility] [place] [address] [place], [address] [facility] [place] [phone] 11/17/2024 10:00 AM EST Imaging Radiology [address] [place] [phone] 11/17/2024 10:45 AM EST Imaging Radiology [address], [place] [address] [place] [phone] 01/29/2025 8:20 AM EDT Office Visit Family Practice [facility] [address] [facility] [place] [phone] Walter Cabrera MD [address] [facility] [place] [address] 02/02/2025 3:30 PM EDT Office Visit Cardiology, [facility] [address] [facility] [place] [phone] Miranda Booth CRNP [address] [place] [address] [place] [address] Scheduled Orders Name Type Priority Associated Diagnoses Orde r Schedule PULMONARY STRESS TESTING Procedures Routine Chronic respiratory failure with hypoxia (HCC) Expected: 10/13/2024, Expires: 11/12/2025 Health Maintenance Due Date Last Done Comments Hepatitis B Vaccine (1 of 3 - 19+ 3-dose series) 11/19/1990 HPV/Co-Test 11/19/2001 Cologuard 11/19/2016 Colonoscopy 11/19/2016 Colorectal Cancer Screening 11/19/2016 Fecal Occult Blood Test 11/19/2016 Sigmoidoscopy 11/19/2016 Depression Screening 07/10/2021 07/10/2020 Zoster Vaccines (1 of 2) 11/19/2021 DISCUSS TOBACCO CESSATION (REFER TO SMARTSET #3291) 08/06/2022 08/06/2021 COVID-19 Vaccine ( - season) 2024 Mammogram 11/16/2024 11/16/2023, /2 09/2022, 11/05/2021, Additional history exists GFR 12/13/2024 12/14/2023, 03/0 01/2024, 09/10/2023, Additional history exists Pneumococcal Vaccine: 50+ Years (3 of 3 - PCV20 or PCV21) 12/27/2024 12/28/2019, 08/03/2019 Cervical Cancer Screening 01/12/2025 HbA1c 01/12/2025 07/14/2024, 0509/2023, 08/02/2023, Additional history exists Pap Smear 01/12/2025 01/12/2022, 06/20, 06/18/2015, Additional history exists Albumin/Creatinine Ratio 02/17/2025 02/18/2024 Diabetic Eye Exam 08/01/2025 08/01/2024 Diabetic Foot Exam 08/01/2025 08/01/2024 Lipid Panel 02/17/2029 02/18/2024, 03/0 01/2024, 08/02/2023, Additional history exists DTap/Tdap Vaccines (3 - Td or Tdap) 05/03/2029 05/03/2019, 02/21/2009 Alpha-1 Antitrypsin Completed 08/06/2021 Lung Cancer Screening Completed 11/16/2023, 021 Influenza Vaccine (FLU shot) Completed 08/2024, 06/03/2020, 07/15/2019 HPV (Gardasil) Vaccine Aged Out No lo nger eligible based on patient's age to complete this topic MENINGOCOCCAL (MENACTRA/MENVEO) Aged Out No longer eligible based on patient's age to complete this topic documented as of this encounter Medical Devices Not on filedocumented as of this encounter Visit Diagnoses Diagnosis Chronic respiratory failure with hypoxia (HCC)- Primary Chronic respiratory failure documented in this encounter Care Teams Bed And Breakfast Cook Relationship Specialty Start Date End Date Walter Cabrera MD [address] [place] [id number] PCP - General Family Medicine 03/28/24 documented as of this encounter
--- OUTSIDE RECORDS SUMMARY | 2024-12-01 23:11 | External Medical Summary | Summary of Care ---
Author Name Unknown Organization [facility] Address [address] [place] [address] Phone [phone] Care Team Providers Care Rivet Bucker Name Role Phone Walter Cabrera MD Primary Care Provider [phone] Reason for Visit * Reason Comments Follow Up Encounter Details Date Type Department Care Team (Late st Contact Info) Description 12/01/2024 8:30 AM EDT Office Visit Cardiology, [facility] [address] [facility] [place] [address] Miranda Booth CRNP [address] [place] [address] HTN, goal below 130/80*; Dyslipidemia, goal to be determined; Chronic obstructive pulmonary disease, unspecified COPD type (HCC); Tobacco use Allergies Active Allergy Reactions Criticality Noted Date Comments Penicillins Nausea/vomiting 06/29/2016 documented as of this encounter (statuses as of 12/01/2024) Medications Multiple Vitamins-Business Ethics Professor als (WOMENS MULTIVITAMIN) TABS Take by mouth. Active oxygen IN GAS Use 3 L/min(Oxygen ) as directed at bedtime. 01/19/20 24 Active Rosuvastatin Calcium 10 MG Oral Tablet (Crestor) Take 1 Tablet by mouth in the morning. 90 Tablet 3 02/18/20 24 Active Allopurinol 300 MG Oral Tablet (Zyloprim) Take 1 Tablet by mouth in the morning. 90 Tablet 3 03/28/20 24 Active Furosemide 40 MG Oral Tablet (Lasix) TAKE 1 TABLET BY MOUTH EVERY DAY 90 Tablet 2 04/10/20 24 Active Lisinopril 5 MG Oral Tablet (Prinivil)Leslie cations:Heart failure, diastolic, due to HTN (HCC),HTN, goal below 130/80 TAKE 1 TABLET BY MOUTH EVERY DAY 90 Tablet 2 04/16/20 24 Active Spironolactone 25 MG Oral Tablet (Aldactone) TAKE 1 TABLET BY MOUTH EVERY DAY 90 Tablet 2 04/16/20 24 Active Sertraline HCl 50 MG Oral Tablet (Zoloft) TAKE 1 TABLET BY MOUTH EVERY DAY 90 Tablet 3 05/04/20 24 Active Omeprazole 20 MG Oral Capsule Delayed Release (PriLOSEC) TAKE 1 CAPSULE BY MOUTH EVERY DAY 1 HOUR BEFORE FIRST MEAL OF THE DAY 90 Capsule 3 07/06/20 24 Active Folic Acid 1 MG Oral TabletIndicati ons:Heart failure, diastolic, due to HTN (HCC) TAKE 1 TABLET BY MOUTH EVERY DAY IN THE MORNING 90 Tablet 10/06/19 25 Active Metoprolol Succinate ER 50 MG Oral Tablet Extended Release 24 Hour (toPROL XL)Indications :Heart failure, diastolic, due to HTN (HCC) TAKE 1 TABLET BY MOUTH EVERY MORNING. THIS IS IN ADDITION TO THE 25 MG TABLET IN THE EVENING. 90 Tablet 10/06/19 25 Active Fluticasone-Um eclidin-Vilant 100-62.5-25 MCG/ACT Aerosol Powder Breath Activated (Trelegy Ellipta) Inhale 1 Puff by mouth in the morning. 60 Blister Dosing Unit 11 10/12/19 25 026 Active Albuterol Sulfate HFA 108 (90 Base) MCG/ACT Inhalation Aerosol Solution Inhale 2 Puffs by mouth every 4 hours as needed for Wheezing. 18 g 3 10/25/19 25 Active Loratadine 10 MG Oral Tablet Take 1 Tablet by mouth in the morning. 025 Discontinued(Tushar elkins preference/disc ontinuation) Metoprolol Succinate ER 25 MG Oral Tablet Extended Release 24 Hour (toPROL XL) Take 1 Tablet by mouth every evening. This is in addition to the 50 mg tablet in the morning 90 Tablet 5 08/20/20 21 025 Discontinued Hospital, Clinic, or Other Facility Administered Medication Ordered Dose Route Frequency Start Date End Date Status medroxyPROGESTERone (contracep) (DEPO-PROVERA) inj 150 mgIndications:Surveillanc e for Depo-Provera contraception 150 mg IM [id number] 07/06/2018 Active albuterol sulfate (PROVENTIL) (2.5 MG/3ML) 0.083% inhalation solution 2.5 mgIndications:COPD, severity to be determined (HCC) 2.5 mg NEBULIZER Q4H PRN 05/03/2019 Active albuterol sulfate (PROVENTIL) (2.5 MG/3ML) 0.083% inhalation solution 2.5 mgIndications:COPD, severity to be determined (HCC) 2.5 mg NEBULIZER Q4H PRN 05/09/2019 Active medroxyPROGESTERone (contracep) (DEPO-PROVERA) inj 150 mgIndications:Surveillanc e for Depo-Provera contraception 150 mg IM [id number] 07/13/2019 Active medroxyPROGESTERone acetate (DEPO-PROVERA) inj TANMAY 150 mgIndications:Surveillanc e for Depo-Provera contraception 150 mg IM [id number] 07/23/2020 Active documented as of this encounter (statuses as of 12/01/2024) Active Problems Problem Noted Date Diagnosed Date [...] as of this encounter (statuses as of 12/01/2024) Resolved Problems Problem Noted Date Diagnosed Date [...] as of this encounter (statuses as of 12/01/2024) Immunizations Name Administration Dates Next Due Pneumococcal [...] ages 0-17 years) Not on file 07/19/2024 Food Insecurity Answer Date Recorded Within the past 12 months, y ou worried that your food would run out before you got the money to buy more. Patient declined Within the past 12 months, t he food you bought just didn't last and you didn't have money to get more. Patient declined Do you need food for this week? No 07/19/2024 Comments No Sex and Gender Information [...] Sign Reading Time Taken Comments Blood Pressure 118/72 12/01/2024 8:31 AM EDT Pulse 80 12/01/2024 8:31 AM EDT Temperature - - Respiratory Rate 16 12/01/2024 8:31 AM EDT Oxygen Saturation - - Inhaled Oxygen Concentration - - Weight 110.9 kg (244 lb 9.6 oz) 12/01/2024 8:31 AM EDT Height - - Body Mass Index 44.74 11/14/2024 9:39 AM EST documented in this encounter Progress Notes * Miranda Booth CRNP - 12/01/2024 8:47 AM EDT Subjective Dee Dee Squires is a 54 year old female. Chief Complaint Patient presents with Follow Up Cardiac Problems: HTN Diastolic CHF Hx RV Dilation (pulm dx) improved 2020 COPD Tobacco Use HPI: 54 year old female presents for routine cardiology follow up. Last seen in the clinic approx 1 yearago. Feeling well since their last visit with no acute concerns today. Chronic shortness of breath and dyspnea on exertion. Following with Pulmonology is working on getting portable oxygen set up. Unable to do much with her current oxygen set up at home due to her chronic back pain and gait issues. Quit smoking 3 days ago Has been having some chest pain recently over the past 2 months. Thinks it may be some heart burn. Getting it in the afternoon when she has been awake for a while. Occurs when she is sitting. Feels like a pulled muscle and more tender when she pushes on it. Has not had any in the last week or so. Also feels a little fatigued. Denies palpitations, dizziness, syncope, edema, orthopnea and PND. No change in activity tolerance. Reports compliance with medications without any untoward side effects, or difficulty with affordability. PMH: Patient Active Problem List Diagnosis HTN, goal below 130/80 Gastroesophageal reflux disease with esophagitis Tobacco use disorder Heart failure, diastolic, due to HTN (HCC) Pulmonary hypertension (HCC) Morbid obesity (HCC) Chronic right-sided heart failure (HCC) Type 2 diabetes mellitus with hemoglobin A1c goal of less than 7.0% ([facility]) LARS (obstructive sleep apnea) Mixed restrictive and obstructive lung disease ([facility]) Current Outpatient Medications Medication Sig Dispense Refill Multiple Vitamins-Minerals (WOMENS MULTIVITAMIN) TABS Take by mouth. oxygen IN GAS Use 3 L/min(Oxygen) as directed at bedtime. Rosuvastatin Calcium 10 MG Oral Tablet (Crestor) Take 1 Tablet by mouth in the morning. 90 Tablet 3 Allopurinol 300 MG Oral Tablet (Zyloprim) Take 1 Tablet by mouth in the morning. 90 Tablet 3 Furosemide 40 MG Oral Tablet (Lasix) TAKE 1 TABLET BY MOUTH EVERY DAY 90 Tablet 2 Lisinopril 5 MG Oral Tablet (Prinivil) TAKE 1 TABLET BY MOUTH EVERY DAY 90 Tablet 2 Spironolactone 25 MG Oral Tablet (Aldactone) TAKE 1 TABLET BY MOUTH EVERY DAY 90 Tablet 2 Sertraline HCl 50 MG Oral Tablet (Zoloft) TAKE 1 TABLET BY MOUTH EVERY DAY 90 Tablet 3 Omeprazole 20 MG Oral Capsule Delayed Release (PriLOSEC) TAKE 1 CAPSULE BY MOUTH EVERY DAY 1 HOUR BEFORE FIRST MEAL OF THE DAY 90 Capsule 3 Folic Acid 1 MG Oral Tablet TAKE 1 TABLET BY MOUTH EVERY DAY IN THE MORNING 90 Tablet 0 Metoprolol Succinate ER 50 MG Oral Tablet Extended Release 24 Hour (toPROL XL) TAKE 1 TABLET BY MOUTH EVERY MORNING. THIS IS IN ADDITION TO THE 25 MG TABLET IN THE EVENING. 90 Tablet 0 Almnjbwbdkr-Bijepmlyi-Khwend 100-62.5-25 MCG/ACT Aerosol Powder Breath Activated (Trelegy Ellipta) Inhale 1 Puff by mouth in the morning. 60 Blister Dosing Unit 11 Albuterol Sulfate HFA 108 (90 Base) MCG/ACT Inhalation Aerosol Solution Inhale 2 Puffs by mouth every 4 hours as needed for Wheezing. 18 g 3 Loratadine 10 MG Oral Tablet Take 1 Tablet by mouth in the morning. Metoprolol Succinate ER 25 MG Oral Tablet Extended Release 24 Hour (toPROL XL) Take 1 Tablet by mouth every evening. This is in addition to the 50 mg tablet in the morning 90 Tablet 5 Current Facility-Administered Medications Medication Dose Route Frequency [...] 150 mg Intramuscular Q12 Weeks Parvin Edgar DIFFERENTIAL REPAIRER 150 mg at 05/15/21 0934 medroxyPROGESTERone acetate (DEPO-PROVERA) inj TANMAY 150 mg 150 mg Intramuscular Q90 Days Parvin Edgar CRNP 150 mg at 02/20/21 0944 Past Medical History: Diagnosis Date COPD (chronic obstructive pulmonary disease) ([facility]) COPD, moderate ([facility]) 06/16/2021 disc Disc protrusion at the L5-S1 level Gastroesophageal reflux disease without esophagitis 09/03/2023 HTN, goal below 130/80 03/13/2011 Mixed restrictive and obstructive lung disease ([facility]) 08/01/2024 Morbid obesity due to excess calories ([facility]) 07/15/2021 LARS (obstructive sleep apnea) 02/18/2024 Pulmonary hypertension ([facility]) 07/15/2021 Severe obesity with body mass index (BMI) of 35.0 to 39.9 with serious comorbidity ([facility]) 06/16/2021 Supplemental oxygen dependent 07/15/2021 Type 2 diabetes mellitus with hemoglobin A1c goal of less than 7.0% ([facility]) 02/18/2024 Past Surgical History: Procedure Laterality Date COLONOSCOPY, DIAGNOSTIC (RECTUM) 1998 Colonoscopy Diagnostic (Rectum) CRYOCAUTERY OF CERVIX DILATION AND CURETTAGE (D&C) D&C Review of patient's allergies indicates: Allergen Reactions Penicillins Nausea/vomiting Family History Problem Relation Name Age of Onset Cancer Mother Unknown type Cirrhosis Father Alcohol and Other Disorders Associated Father Alcoholism Lung cancer Sister COPD Sister No Known Problems Brother Hypertension Grandmother (Maternal) Breast Cancer None Colon cancer None Cancer None no EVENT MARKETING SPECIALIST cancer Family Status Relation Status Mo Fa Sis Alive Bro Alive MGMA (Not Specified) NONE (Not Specified) Social [...] for ages 18 years and over): No Does your family have trouble paying for medicine? (Household - for ages 0-17 years): Not on file Food Insecurity: Unknown (07/19/2024) Food Insecurity Worried About Running Out of Food in the Last Year: Patient declined Ran Out of Food in the Last Year: Patient declined Do you need food for this week? (Adult - for ages 18 years and over): No Transportation Needs: No Transportation Needs (07/19/2024) Transportation Needs Do you have trouble getting a ride to medical visits or work? (Adult - for ages 18 years and over):Not on file Does your family have a hard time getting a ride to doctors visits? (Household - for ages 0-17 years): Not on file Has lack of transportation kept you from medical appointments, meetings, work, or from getting things needed for daily living? Check all that apply. (Adult - for ages 18 years and over): No Do you (or your family) have trouble finding or paying for a ride (transportation)? (Household - for ages 0-17 years): Not on file Social Connections: Socially Integrated (07/19/2024) Social Connections How often do you feel lonely or isolated from those around you? (Adult - for ages 18 years and over): Sometimes Housing Stability: Low Risk (07/19/2024) Housing Stability Do you currently live in a assisted or have no steady place to sleep at night? (Adult - for ages 18 years and over): No Do you think you are at risk of becoming homeless? (Adult - for ages 18 years and over): Not on file Does your family worry about paying for your home or becoming homeless? (Household - for ages 0-17 years): Not on file Are you homeless or worried that you might be in the future? (Adult - for ages 18 years and over): No Are you (or your family) homeless or worried that you might be in the future? (Household - for ages0-17 years): Not on file Review of Systems Constitutional: Negative for activity change, fatigue and unexpected weight change. Eyes: Negative for visual disturbance. Respiratory: Positive for cough and shortness of breath. Negative for wheezing. Cardiovascular: Negative for chest pain, palpitations and leg swelling. Gastrointestinal: Negative for blood in stool, constipation, diarrhea, nausea and vomiting. Genitourinary: Negative for hematuria. Musculoskeletal: Positive for arthralgias, back pain and gait problem. Skin: Negative for wound. Neurological: Negative for dizziness and syncope. Objective BP 118/72 (BP Site: Left Arm, BP Position: Sitting) | Pulse 80 | Resp 16 | Wt 110.9 kg (244 lb 9.6 oz) | BMI 44.74 kg/m | BSA 2.2 m Wt Readings from Last 3 Encounters: 12/01/24 110.9 kg (244 lb 9.6 oz) 11/14/24 108.9 kg (240 lb) 10/12/24 108.4 kg (239 lb) Physical Exam Vitals and nursing note reviewed. [...] NSR/SA 86 bpm QTc 423 ms Echocardiograms 03/29/24 The qualitative LV ejection fraction is 55-59% (normal). The left ventricular wall motion is normal. The left ventricular diastolic function is normal. Mild mitral regurgitation is present. Trivial tricuspid regurgitation. There is no evidence of pulmonary hypertension. Compared to last available study changes are noted as follows: Mild mitral regurgitation now present. 08/27/21 LV ejection fraction 62% RV cavity size is normal with normal systolic function Normal-sized atria No significant valvular disease No wall motion abnormalities 07/02/21 at [facility] Left ventricle Is normal in size There is moderate concentric LVH The left ventricular wall motion is normal Ejection fraction 60-65% The right ventricle is esfx-ku-dqhhxkedea dilated with mildly reduced systolic function o [...] reported. Labs Latest Reference Range & Units 11/23/23 08:46 12/14/23 09:40 02/18/24 12:57 07/14/24 12:49 Triglycerides <=174 mg/dL 121 211 (H) Cholesterol <200 mg/dL 167 196 Non-HDL Cholesterol <=159 mg/dL 112 127 HDL Cholesterol >49 mg/dL 55 69 LDL Cholesterol <=129 mg/dL 88 LDL Cholesterol (Direct Measure) <=129 mg/dL 100 SODIUM 135 - 146 mmol/L 141 139 POTASSIUM 3.5 - 5.1 mmol/L 4.3 4.7 CHLORIDE 98 - 107 mmol/L 96 (L) 95 (L) CO2 22 - 32 mmol/L 34 (H) 36 (H) BUN 6 - 20 mg/dL 23 (H) 14 CREATININE 0.5 - 1.0 mg/dL 1.1 (H) 0.8 EGFR >=60 mL/min 60 85 ANION GAP 7 - 15 mmol/L 11 8 GLUCOSE 70 - 120 mg/dL 133 (H) 116 CALCIUM 8.4 - 10.2 mg/dL 9.5 9.4 Phosphorus 2.5 - 4.8 mg/dL 3.8 Estimated Average Glucose <126 mg/dL 114 120 Uric Acid 2.4 - 5.7 mg/dL 5.7 D-Dimer <0.50 ug/mL FEU 0.45 Hemoglobin A1C 4.0 - 5.6 % 5.6 5.8 (H) Albumin 3.8 - 5.0 g/dL 4.1 ALT 10 - 35 U/L 23 Impression HTN Diastolic CHF Hx RV Dilation (thought to be related to pulm dx) improved 2020 COPD Tobacco Use ongoing Plan: -HR and BP well controlled -she is euvolemic on exam -stable from a cardiac standpoint -reviewed her echocardiogram from last March indicated normal ejection fraction with mild MR -continue metoprolol, rosuvastatin, furosemide, lisinopril, spironolactone -Educated patient on caution with change in positions to minimize symptomatic orthostatic hypotension -Discussed importance of diet & exercise with the patient. -Discussed with patient subtle changes in how they are feeling or completing daily activities to contact us sooner; don't wait days or weeks. DISPOSITION: Follow up 1 year or if symptoms worsen/fail to improve. All questions were answered to the patients satisfaction. Patient advised to report to ED with any and all emergencies. The patient agrees to the above plan and will call with additional questions or concerns. [facility] [address] This chart was completed in part utilizing [employer] Speech Voice Recognition Software. Grammatical errors, random [...] documented in this encounter Nursing Notes * Sylvia Gore CMA - 12/01/2024 8:30 AM EDT Examination Room: 13 Name: Dee Dee Squires Date of : (1970). Reason for Visit: follow up Interim Hospitalization(s): denies Problems/Concerns: denies Chest Pain/SOB: SOB/BACH - has COPD, uses oxygen at bedtime and is waiting for portable oxygen supplies to arrive [facility] Discussed: Yes My [facility] is a way you can [...] Upcoming Encounters Date Type Department Care Team (Latest Contact Info) Description 12/07/2024 8:46 AM EDT Hospital Encounter OR [facility], Operating Room [facility] [address] [place] [id number] Juan Alberto Acosta, [address] [place] [phone] 12/07/2024 8:46 AM EDT - 12/07/2024 9:14 AM EDT Surgery OR [facility], Operating Room [facility] [address] [place] [phone] Juan Alberto Acosta, [address] [place] [address] INJECTION SPINE LUMBAR OR SACRAL 12/14/2024 7:40 AM EDT Office Visit [facility] [address] [place] [address] Raina Sims CRNP [address] [place] [address] 02/16/2025 11:40 AM EDT Office Visit [facility] [address] [place] [address] Walter Cabrera MD [address] [place] [address] 12/04/2025 10:00 AM EDT Office Visit Cardiology, [facility] [address] [place] [address] Ana Hilton PA-C [address] [place] [address] Scheduled Procedures Name Priority Associated Diagnoses Date/Ti me INJECTION SPINE LUMBAR OR SACRAL Lumbar radiculopathy 12/07/2024 8:46 AM EDT Health Maintenance Due Date Last Done Comments Hepatitis B Vaccine (1 of 3 - 19+ 3-dose series) 11/19/1990 HPV/Co-Test 11/19/2001 Cologuard 11/19/2016 Colonoscopy 11/19/2016 Colorectal Cancer Screening 11/19/2016 Fecal Occult Blood Test 11/19/2016 Sigmoidoscopy 11/19/2016 Depression Screening 07/10/2021 07/10/2020 Zoster Vaccines (1 of 2) 11/19/2021 DISCUSS TOBACCO CESSATION (REFER TO SMARTSET #[id number]) 08/06/2022 08/06/2021 COVID-19 Vaccine ( - season) 2024 Pneumococcal Vaccine: 50+ Years (3 of 3 - PCV20 or PCV21) 12/27/2024 12/28/2019, 08/03/2019 Cervical Cancer Screening 01/12/2025 Pap Smear 01/12/2025 01/12/2022, 06/20, 06/18/2015, Additional history exists Albumin/Creatinine Ratio 02/17/2025 02/18/2024 HbA1c 06/03/2025 12/01/2024, 06/21, 02/18/2024, Additional history exists Diabetic Eye Exam 08/01/2025 08/01/2024 Diabetic Foot Exam 08/01/2025 08/01/2024 Mammogram 11/17/2025 11/17/2024, 10/22, 11/16/2023, Additional history exists GFR 12/01/2025 12/01/2024, 11/19, 11/23/2023, Additional history exists Lipid Panel 02/17/2029 02/18/2024, 03/0 01/2024, 08/02/2023, Additional history exists DTap/Tdap Vaccines (3 - Td or Tdap) 05/03/2029 05/03/2019, 02/21/2009 Alpha-1 Antitrypsin Completed 08/06/2021 Influenza Vaccine (FLU shot) Completed 08/2024, 06/03/2020, 07/15/2019 Lung Cancer Screening Completed 11/17/2024 , 11/16/2023, 07/03/2021 HPV (Gardasil) Vaccine Aged Out No lo nger eligible based on patient's age to complete this topic MENINGOCOCCAL (MENACTRA/MENVEO) Aged Out No longer eligible based on patient's age to complete this topic Meningitis B Vaccine (Bexsero/Trumemba) Aged Out No longer eligible based on patient's age to complete this topic documented as of this encounter Medical Devices Not on filedocumented as of this encounter Visit Diagnoses Diagnosis HTN, goal below 130/80- Primary Unspecified essential hypertension Dyslipidemia, goal to be determined Other and unspecified hyperlipidemia Chronic obstructive pulmonary disease, unspecified COPD type (HCC) Tobacco use Tobacco use disorder Lumbar radiculopathy Thoracic or lumbosacral neuritis or radiculitis, unspecified documented in this encounter Care Teams Rivet Bucker Relationship Specialty Start Date End Date Walter Cabrera MD [address] [place] [address] PCP - General Family Medicine 03/28/24 documented as of this encounter"
--- OUTSIDE RECORDS SUMMARY | 2024-12-01 23:11 | External Medical Summary | Summary of Care ---
Author Name Unknown Organization [facility] Address [address] [place] [address] Phone [phone] Care Team Providers Care Application Development Director Name Role Phone Walter Cabrera MD Primary Care Provider [phone] Reason for Visit * Reason Onset Date Comments Appointment 10/30/2024 Encounter Details Date Type Department Care Team (Late st Contact Info) Description 10/30/2024 Telephone Rad[address], [place] [address] [place] [address] Albina Shore, RT (M) Appointment Allergies Active Allergy Reactions Criticality Noted Date Comments Penicillins Nausea/vomiting 06/29/2016 documented as of this encounter (statuses as of 10/31/2024) Medications Multiple Vitamins-Minera ls (WOMENS MULTIVITAMIN) TABS Take by mouth. Active Loratadine 10 MG Oral Tablet Take 1 Tablet by mouth in the morning. Active Metoprolol Succinate ER 25 MG Oral Tablet Extended Release 24 Hour (toPROL XL) Take 1 Tablet by mouth every evening. This is in addition to the 50 mg tablet in the morning 90 Tablet 5 08/20/2021 Active oxygen IN GAS Use 4-6 %(Oxygen) as directed at bedtime. 4 Liters per minute with exertion, 6 Liters per minute at night 01/19/2024 Active Rosuvastatin Calcium 10 MG Oral Tablet (Crestor) Take 1 Tablet by mouth in the morning. 90 Tablet 3 02/18/2024 Active Allopurinol 300 MG Oral Tablet (Zyloprim) Take 1 Tablet by mouth in the morning. 90 Tablet 3 03/28/2024 Active Furosemide 40 MG Oral Tablet (Lasix) TAKE 1 TABLET BY MOUTH EVERY DAY 90 Tablet 2 04/10/2024 Active Lisinopril 5 MG Oral Tablet (Prinivil)Indic ations:Heart failure, diastolic, due to HTN (HCC),HTN, goal below 130/80 TAKE 1 TABLET BY MOUTH EVERY DAY 90 Tablet 2 04/16/2024 Active Spironolactone 25 MG Oral Tablet (Aldactone) TAKE 1 TABLET BY MOUTH EVERY DAY 90 Tablet 2 04/16/2024 Active Sertraline HCl 50 MG Oral Tablet (Zoloft) TAKE 1 TABLET BY MOUTH EVERY DAY 90 Tablet 3 05/04/2024 Active Omeprazole 20 MG Oral Capsule Delayed Release (PriLOSEC) TAKE 1 CAPSULE BY MOUTH EVERY DAY 1 HOUR BEFORE FIRST MEAL OF THE DAY 90 Capsule 3 07/06/2024 Active Folic Acid 1 MG Oral TabletIndicatio ns:Heart failure, diastolic, due to HTN (HCC) TAKE 1 TABLET BY MOUTH EVERY DAY IN THE MORNING 90 Tablet 10/06/2024 Active Metoprolol Succinate ER 50 MG Oral Tablet Extended Release 24 Hour (toPROL XL)Indications: Heart failure, diastolic, due to HTN (HCC) TAKE 1 TABLET BY MOUTH EVERY MORNING. THIS IS IN ADDITION TO THE 25 MG TABLET IN THE EVENING. 90 Tablet 10/06/2024 Active Fluticasone-Ume clidin-Vilant 100-62.5-25 MCG/ACT Aerosol Powder Breath Activated (Trelegy Ellipta) Inhale 1 Puff by mouth in the morning. 60 Blister Dosing Unit 11 10/12/2024 10/07/19 26 Active Albuterol Sulfate HFA 108 (90 Base) MCG/ACT Inhalation Aerosol Solution Inhale 2 Puffs by mouth every 4 hours as needed for Wheezing. 18 g 3 10/25/2024 Active Hospital, Clinic, or Other Facility Administered Medication Ordered Dose Route Frequency Start Date End Date Status medroxyPROGESTERone (contracep) (DEPO-PROVERA) inj 150 mgIndications:Surveillanc e for Depo-Provera contraception 150 mg IM [id number] 07/06/2018 Active albuterol sulfate (PROVENTIL) (2.5 MG/3ML) 0.083% inhalation solution 2.5 mgIndications:COPD, severity to be determined (HCC) 2.5 mg NEBULIZER Q4H PRN 05/03/2019 Active albuterol sulfate (PROVENTIL) (2.5 MG/3ML) 0.083% inhalation solution 2.5 mgIndications:COPD, severity to be determined (HCC) 2.5 mg NEBULIZER Q4H PRN 05/09/2019 Active medroxyPROGESTERone (contracep) (DEPO-PROVERA) inj 150 mgIndications:Surveillanc e for Depo-Provera contraception 150 mg IM [id number] 07/13/2019 Active medroxyPROGESTERone acetate (DEPO-PROVERA) inj TANMAY 150 mgIndications:Surveillanc e for Depo-Provera contraception 150 mg IM [id number] 07/23/2020 Active documented as of this encounter (statuses as of 10/31/2024) Active Problems Problem Noted Date Diagnosed Date [...] as of this encounter (statuses as of 10/31/2024) Resolved Problems Problem Noted Date Diagnosed Date [...] as of this encounter (statuses as of 10/31/2024) Immunizations Name Administration Dates Next Due Pneumococcal [...] encounter Miscellaneous Notes * Telephone Encounter - Albina Shore RT (M) - 10/30/2024 4:53 PM EST If you answer "yes" to any of the following, please give us a call at [phone] before coming to your MRI appointment: Do you have a pacemaker/defibrillator? Do you have any electronic or mechanical implants? Have you had a recent colonoscopy in the last 30 days? Are you or ? Do you work around metal or ever gotten metal in your eyes? Any dermals or body piercing you cannot remove? Do you wear an insulin pump or diabetic monitor? Have you had any tattoos or permanent makeup in the last 4 weeks? LM to arrive at 10:30 AM on 11/03/24 documented in this encounter Plan of Treatment Upcoming Encounters Date Type Department Care Team (Latest Contact Info) Description 11/03/2024 11:00 AM EST Imaging Radiology [address] [place] [address] 11/14/2024 9:30 AM EST PulmDiagnostic Pulmonary Function Lab, [facility] 132 [facility] [place] [address] [place], [address] [address] [place] [address] 11/17/2024 10:00 AM EST Imaging Radiology [address] [place] [address] 11/17/2024 10:45 AM EST Imaging Radiology [address] [place] [address] 11/21/2024 9:30 AM EST Telemedicine Interventional Pain Center [facility] [address] [place] [phone] Noelle Sen PA-C [address] [place] [address] 12/07/2024 9:26 AM EDT Hospital Encounter OR [facility], Operating Room [facility] [address] [place] [address] Juan Alberto Acosta, DO [address] [place] [address] 12/07/2024 9:26 AM EDT - 12/07/2024 9:54 AM EDT Surgery OR [facility], Operating Room [facility] [address] [place] [address] Juan Alberto Acosta, DO [address] [place] [address] INJECTION SPINE LUMBAR OR SACRAL 01/29/2025 8:20 AM EDT Office Visit Family Practice [facility] [address] [place] [address] Walter Cabrera MD [address] [place] [address] 02/02/2025 3:30 PM EDT Office Visit Cardiology, [facility] [address] [place] [address] Miranda Booth CRNP [address] [place] [address] [place] [address] 04/11/2025 8:30 AM EDT Office Visit Pulmonary Medicine, [facility] [address] [place] [address] Jono Cooper MD [address] [place] [id number] Scheduled Procedures Name Priority Associated Diagnoses Date/Ti me INJECTION SPINE LUMBAR OR SACRAL Lumbar radiculopathy 12/07/2024 9:26 AM EDT Health Maintenance Due Date Last Done Comments Hepatitis B Vaccine (1 of 3 - 19+ 3-dose series) 11/19/1990 HPV/Co-Test 11/19/2001 Cologuard 11/19/2016 Colonoscopy 11/19/2016 Colorectal Cancer Screening 11/19/2016 Fecal Occult Blood Test 11/19/2016 Sigmoidoscopy 11/19/2016 Depression Screening 07/10/2021 07/10/2020 Zoster Vaccines (1 of 2) 11/19/2021 DISCUSS TOBACCO CESSATION (REFER TO SMARTSET #3291) 08/06/2022 08/06/2021 COVID-19 Vaccine ( season) 2024 Mammogram 11/16/2024 11/16/2023, 02/09/2022, 11/05/2021, Additional history exists GFR 12/13/2024 12/14/2023, 03/0 01/2024, 09/10/2023, Additional history exists Pneumococcal Vaccine: 50+ Years (3 of 3 - PCV20 or PCV21) 12/27/2024 12/28/2019, 08/03/2019 Cervical Cancer Screening 01/12/2025 HbA1c 01/12/2025 07/14/2024, 05/3 09/2023, 08/02/2023, Additional history exists Pap Smear 01/12/2025 [...] filedocumented as of this encounter Care Teams Application Development Director Relationship Specialty Start Date End Date Walter Cabrera MD [address] [place] [address] PCP - General Family Medicine 03/28/24 documented as of this encounter
--- OUTSIDE RECORDS SUMMARY | 2024-12-01 23:11 | External Medical Summary | Summary of Care ---
Author Name Unknown Organization [facility] Address [address] [place] [address] Phone [phone] Care Team Providers Care Component Lab Tech Name Role Phone Walter Cabrera MD Primary Care Provider [phone] Reason for Visit * Reason Comments Follow Up L spine MRI Encounter Details Date Type Department Care Team (Late st Contact Info) Description 11/21/2024 9:30 AM [facility] Telemedicine Interventional Pain Center [facility] [address] [place] [id number] Noelle Sen PA-C [address] [place] [address] Lumbar radicular pain* Allergies Active Allergy Reactions Criticality Noted Date Comments Penicillins Nausea/vomiting 06/29/2016 documented as of this encounter (statuses as of 11/21/2024) Medications Multiple Vitamins-Minera ls (WOMENS MULTIVITAMIN) TABS [...] 5 08/20/2021 Active oxygen IN GAS Use 3 L/min(Oxygen) as directed at bedtime. 01/19/2024 Active Rosuvastatin Calcium 10 MG Oral [...] e for Depo-Provera contraception 150 mg IM [id number] 07/06/2018 Active albuterol sulfate (PROVENTIL) (2.5 MG/3ML) 0.083% inhalation solution 2.5 mgIndications:COPD, severity to be determined (HCC) 2.5 mg NEBULIZER Q4H PRN 05/03/2019 Active albuterol sulfate (PROVENTIL) (2.5 MG/3ML) 0.083% inhalation solution 2.5 mgIndications:COPD, severity to be determined (HCC) 2.5 mg NEBULIZER Q4H PRN 05/09/2019 Active medroxyPROGESTERone (contracep) (DEPO-PROVERA) inj 150 mgIndications:Surveillanc e for Depo-Provera contraception 150 mg IM [id number] 07/13/2019 Active medroxyPROGESTERone acetate (DEPO-PROVERA) inj TANMAY 150 mgIndications:Surveillanc e for Depo-Provera contraception 150 mg IM [id number] 07/23/2020 Active documented as of this encounter (statuses as of 11/21/2024) Active Problems Problem Noted Date Diagnosed Date [...] as of this encounter (statuses as of 11/21/2024) Resolved Problems Problem Noted Date Diagnosed Date [...] as of this encounter (statuses as of 11/21/2024) Immunizations Name Administration Dates Next Due Pneumococcal [...] on file documented as of this encounter Progress Notes * Noelle Sen PA-C - 11/21/2024 9:28 AM EST Name: Dee Dee Squires Date: 11/21/2024 As per patient preference, connection with the patient via audio only occurred. The patient was informed this was a phone call only visit and was identified by name and date of . The patient agreed to participate. Total call duration nine minutes. HPI: Dee Dee Squires is a 54 year old female known to the Pain Management clinic presents for followup to review L spine MRI. Tentatively scheduled for LESI later this month. She is also requesting consideration of paperwork for continued food stamps. Advised to drop forms off, will read thru before committing to filling out. No meaningful relief with home stretching program. No change in pain pattern since last visit. Locates pain bilateral low back, buttock and lateral thighs. Persistent weakness B LE. Denies progressive LE paresthesia. Denies bowel/bladder dysfunction.Using advil for pain relief. Personally reviewed L spine MRI 11/03/24 - disc extrusion L4/5 with mild foraminal narrowing bilaterally, moderate B foraminal narrowing L5/S1, facet arthropathy most pronounced L4/5, no area of high grade central stenosis. Incidental finding R kidney cysts, report does not quantify size. 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/2024 Morbid obesity due to excess calories (HCC) 07/15/2021 LARS (obstructive sleep apnea) 02/18/2024 Pulmonary hypertension (HCC) 07/15/2021 Severe obesity with body mass index (BMI) of 35.0 to 39.9 with serious comorbidity ([facility]) 06/16/2021 Supplemental oxygen dependent 07/15/2021 Type 2 diabetes mellitus with hemoglobin A1c goal of less than 7.0% ([facility]) 02/18/2024 Past Surgical History: Procedure Laterality Date COLONOSCOPY, DIAGNOSTIC (RECTUM) 1998 Colonoscopy Diagnostic (Rectum) CRYOCAUTERY OF CERVIX DILATION AND CURETTAGE (D&C) D&C Current Outpatient Medications Medication Sig Dispense Refill Multiple Vitamins-Minerals (WOMENS MULTIVITAMIN) TABS Take by mouth. Loratadine 10 MG Oral Tablet Take 1 Tablet by mouth in the morning. Metoprolol Succinate ER 25 MG Oral Tablet Extended Release 24 Hour (toPROL XL) Take 1 Tablet by mouth every evening. This is in addition to the 50 mg tablet in the morning 90 Tablet 5 oxygen IN GAS Use 3 L/min(Oxygen) as [...] TABLET IN THE EVENING. 90 Tablet 0 [id number]-[id number] 100-62.5-25 MCG/ACT Aerosol Powder Breath Activated (Trelegy Ellipta) Inhale 1 Puff by mouth in the morning. 60 Blister Dosing Unit 11 Albuterol Sulfate HFA 108 (90 Base) MCG/ACT Inhalation Aerosol Solution Inhale 2 Puffs by mouth every 4 hours as needed for Wheezing. 18 g 3 Current Facility-Administered Medications Medication Dose Route Frequency Provider Last Rate Last Admin medroxyPROGESTERone (contracep) (DEPO-PROVERA) inj 150 mg 150 mg Intramuscular Q90 Days Parvin Edgar RECTIFYING OPERATOR 150 mg at 03/21/20 0945 albuterol sulfate (PROVENTIL) (2.5 MG/3ML) 0.083% inhalation solution 2.5 mg 2.5 mg Nebulizer Q4H PRN Femi Segura MD albuterol sulfate (PROVENTIL) (2.5 MG/3ML) 0.083% inhalation solution 2.5 mg 2.5 mg Nebulizer Q4H PRN Femi Segura MD 2.5 mg at 06/20/19 1011 medroxyPROGESTERone (contracep) (DEPO-PROVERA) inj 150 mg 150 mg Intramuscular Q12 Weeks Parvin Edgar RECTIFYING OPERATOR 150 mg at 05/15/21 0934 medroxyPROGESTERone acetate (DEPO-PROVERA) inj TANMAY 150 mg 150 mg Intramuscular Q90 Days Parvin Edgar RECTIFYING OPERATOR 150 mg at 02/20/21 0944 Review of patient's allergies indicates: Allergen Reactions Penicillins Nausea/vomiting IMAGING: MRI LUMBAR SPINE WITHOUT CONTRAST 11/03/24 The retroperitoneum is unremarkable aside from a few small simple cysts in the right kidney. The conus terminates at the L1-2 level. Signal in the distal spinal cord is normal. There is trace retrolisthesis of L5 on S1. Alignment is otherwise anatomic. Disc space heights are relatively well maintained. There is a small amount of STIR hyperintensity at the margins of the L4-5 facet joints. No additional focal marrow signal abnormalities are present. At L1-2 and L2-3 there is no herniation, thecal sac stenosis, or foraminal compromise. At L3-4 minor disc bulge is noted without thecal sac or subarticular compromise and there is no foraminal impingement. At L4-5 there is a tiny central disc extrusion extending cephalad. However, this does not cause significant thecal sac or subarticular compromise. Facet degeneration is noted contributing to mild bilateral foraminal narrowing. At L5-S1 a shallow central protrusion is noted with right greater than left subarticular narrowing but no significant thecal sac stenosis. There is however moderate foraminal narrowing bilaterally. IMPRESSION: Degenerative changes of the lower lumbar spine most notably at L5-S1 where there is moderate bilateral foraminal narrowing. There is no significant thecal sac stenosis. ASSESSMENT: Lumbar radicular pain RECOMMENDATION: Continue with scheduled TONY. 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 Consider facet work up if pain persists. Incidental finding small R kidney cysts - classified as simple cysts. Will message PCP regarding the finding. Requesting form for food stamps be completed. Advised to bring into office, will review prior to committing to filling out. I spent a total of 10-19 minutes (exact time 12 mins) on the date of service in preparation, delivery, and documentation of the care provided to Dee Dee Squires excluding any time spent in the performance of separately billed services or time spent by another provider/QHP. Noelle Sen PA-C 11/21/2024 documented in this encounter Plan of Treatment Upcoming Encounters Date Type Department Care Team (Latest Contact Info) Description 12/07/2024 8:46 AM EDT Hospital Encounter OR [facility], Operating Room [facility] [address] [place] [address] Juan Alberto Acosta, [address] [place] [address] 12/07/2024 8:46 AM EDT - 12/07/2024 9:14 AM EDT Surgery OR [facility], Operating Room [facility] [address] [place] [address] Juan Alberto Acosta DO [address] [place] [address] INJECTION SPINE LUMBAR OR SACRAL 01/29/2025 8:20 AM EDT Office Visit Family [facility] [address] [facility] [place] [address] Walter Cabrera MD 132 [facility] [place] [address] 02/02/2025 3:30 PM EDT Office Visit Cardiology, [facility] [address] [facility] [place] [address] Miranda Booth CRNP [address] [facility] [place] [id number] 04/11/2025 8:30 AM EDT Office Visit Pulmonary Medicine, [facility] [address] [facility] [place] [address] Jon[facility] Cooper [facility] [address] [facility] [id number] Scheduled Procedures Name Priority Associated Diagnoses Date/Ti [...] TO SMARTSET #3291) 08/06/2022 08/06/2021 COVID-19 Vaccine (1 - season) 2024 GFR 12/13/2024 12/14/2023, 01/2024, 09/10/2023, Additional history exists Pneumococcal Vaccine: 50+ Years (3 of 3 - PCV20 or PCV21) 12/27/2024 12/28/2019, 08/03/2019 Cervical Cancer Screening 01/12/2025 HbA1c 01/12/2025 07/14/2024, 01/20, 08/02/2023, Additional history exists Pap Smear 01/12/2025 01/12/2022, 06/20, 06/18/2015, Additional history exists Albumin/Creatinine Ratio 02/17/2025 02/18/2024 Diabetic Eye Exam 08/01/2025 08/01/2024 Diabetic Foot Exam 08/01/2025 08/01/2024 Mammogram 11/17/2025 11/17/2024, 10/22, 11/10/2022, Additional history exists Lipid Panel 02/17/2029 02/18/2024, [...] as of this encounter Visit Diagnoses Diagnosis Lumbar radicular pain- Primary Thoracic or lumbosacral neuritis or radiculitis, unspecified Lumbar radiculopathy Thoracic or lumbosacral neuritis or radiculitis, unspecified documented in this encounter Care Teams Component Lab Tech Relationship Specialty Start Date End Date Walter Cabrera MD [address] [place] [address] PCP - General Family Medicine 03/28/24 documented as of this encounter
--- OUTSIDE RECORDS SUMMARY | 2024-12-01 23:11 | External Medical Summary | Summary of Care ---
Author Name Unknown Organization [facility] Address [address] [place] [address] Phone [phone] Care Team Providers Care Lodge Sales Associate Name Role Phone Walter Cabrera MD Primary Care Provider [phone] Reason for Referral * Precert (Within 10 days (routine)) - Authorized Specialty Diagnoses / Procedures Referred By Contac t Referred To Contact Pain Medicine Diagnoses Lumbar radicular pain Spinal stenosis of lumbar region with neurogenic claudication Procedures INJECT DX/THER SUBSTANCE INTERLAMINAR LUMBAR/SACRAL W IMAGE GUIDE Noelle Sen PA-C [address] [place] [address] Phone: tel: fax: Referral ID Status Reason Start Date Expiration Date V isits Requested Visits Authorized [id number] Authorized 01/10/2025 999 999 * Precert (Within 10 days (routine)) - Authorized Specialty Diagnoses / Procedures Referred By Contac t Referred To Contact Radiology Diagnoses Lumbar radicular pain Spinal stenosis of lumbar region with neurogenic claudication Procedures MRI L SPINE WO CONTRAST Noelle Sen PA-C [address] [place] [address] Phone: tel: fax: Referral ID Status Reason Start Date Expiration Date V isits Requested Visits Authorized [id number] Authorized 10/19/2024 999 999 Reason for Visit * Reason Comments Back Pain * Evaluate & Treat - Unlimited Visits (Within 10 days (routine)) - Authorized Specialty Diagnoses / Procedures Referred By Contac t Referred To Contact Pain Management / Pain Medicine Diagnoses Lumbar back pain Walter Cabrera MD [address] [place] [address] Phone: tel: fax: Referral ID Status Reason Start Date Expiration Date Visits Requested Visits Authorized [id number] Authorized Specialty Services Required 4 [phone] Encounter Details Date Type Department Care Team (Late st Contact Info) Description 10/12/2024 10:00 AM EST Office Visit Interventional Pain Center [facility] [address] [place] [phone] Noelle Sen PA-C [address] [place] [address] Lumbar radicular pain*; Spinal stenosis of lumbar region with neurogenic claudication Allergies Active Allergy Reactions Criticality Noted Date Comments Penicillins Nausea/vomiting 06/29/2016 documented as of this encounter (statuses as of 10/12/2024) Medications Multiple Vitamins-Minera ls (WOMENS MULTIVITAMIN) TABS [...] Dosing Unit 11 10/12/2024 10/07/19 26 Active Hospital, Clinic, or Other Facility Administered Medication Ordered Dose Route Frequency Start Date End Date Status medroxyPROGESTERone (contracep) (DEPO-PROVERA) inj 150 mgIndications:Surveillanc e for Depo-Provera contraception 150 mg IM [id number] 07/06/2018 Active albuterol sulfate (PROVENTIL) (2.5 MG/3ML) 0.083% inhalation solution 2.5 mgIndications:COPD, severity to be determined (HCC) 2.5 mg NEBULIZER Q4H PRN 05/03/2019 Active albuterol sulfate (PROVENTIL) (2.5 MG/3ML) 0.083% inhalation solution 2.5 mgIndications:COPD, severity to be determined (HCC) 2.5 mg NEBULIZER Q4H PRN 05/09/2019 Active medroxyPROGESTERone (contracep) (DEPO-PROVERA) inj 150 mgIndications:Surveillanc e for Depo-Provera contraception 150 mg IM [id number] 07/13/2019 Active medroxyPROGESTERone acetate (DEPO-PROVERA) inj TANMAY 150 mgIndications:Surveillanc e for Depo-Provera contraception 150 mg IM [id number] 07/23/2020 Active documented as of this encounter [...] Progress Notes * Noelle Sen PA-C - 10/12/2024 10:02 AM EST GENERAL HISTORY & PHYSICAL EXAMINATION - Anesthesia and Pain Service Name: Dee Dee Squires Location: [facility] REFERRING PHYSICIAN: Walter Cabrera MD Thank you for referring Dee Dee Squires. CHIEF COMPLAINT: Low back pain HPI: Dee Dee Squires is a 53 year old female who complains of low back pain with LE weakness. This pain started more than two years ago without preceding injury. Increased pain in the past few months,also concerned weight gain is affecting the pain. Evaluated by PCP for this complaint, updated L spine xray and placed referral to our clinic. Mild relief with conservative care including medication management. Declines PT referral, concerned for financial burden. Symptoms occur daily. Describes pain as "burning." Pain is constant, rated 4/10 in clinic, increases to 9/10 at worst. Aggravating factors include: prolonged standing, walking. Difficulty doing dishes, laundry, cooking due to pain. Alleviating factors include: sitting. + weakness B LE with prolonged walking or standing, +++ shoppingcart sign. Admits associated numbness in low back, does not extend into LE. Denies LE radicular pain. Denies bowel or bladder incontinence. Denies hx spine surgery. Previously employed in [employer], hasnot worked since 2022. Personally reviewed L spine xray 08/01/24 - mild scoliotic curvature, no acute compression changes,facet arthropathy L4/5 and L5/S1, mild DDD L4/5 and L5/S1. Mentions family hx of spinal stenosis which she is concerned for. Hx cervical spine injections with Dr. Camara. Significant past medical hx includes: COPD, GERD, DM type II, HTN, morbid obesity. Current medications used for pain: advil. Anticoagulation therapy: no Most recent HbA1c 5.27 Jun 2024 PAST MEDICAL HISTORY: Past Medical History: Diagnosis Date COPD (chronic [...] of 35.0 to 39.9 with serious comorbidity ([facility]) 06/16/2021 Supplemental oxygen dependent 07/15/2021 Type 2 diabetes mellitus with hemoglobin A1c goal of less than 7.0% ([facility]) 02/18/2024 Past Medical History - Pertinent Findings: (-) clotting disorder, (-) anesthetic problem PAST SURGICAL HISTORY: Past Surgical History: Procedure Laterality Date COLONOSCOPY, DIAGNOSTIC (RECTUM) 1998 Colonoscopy Diagnostic (Rectum) CRYOCAUTERY OF CERVIX DILATION AND CURETTAGE (D&C) D&C FAMILY HISTORY: Family History Problem Relation Name Age of Onset Cancer Mother Unknown type Cirrhosis Father Alcohol and Other Disorders Associated Father Alcoholism Lung cancer Sister COPD Sister No Known Problems Brother Hypertension Grandmother (Maternal) Breast Cancer None Colon cancer None Cancer None no [employer] cancer Family History - Pertinent Findings: (-) clotting disorder and (-) anesthetic problem SOCIAL HISTORY: Social History Tobacco Use Smoking status: Every Day Current packs/day: 1.00 Average packs/day: 1 pack/day for 35.0 years (35.0 ttl pk-yrs) Types: Cigarettes Smokeless tobacco: Never Tobacco comments: 01/27/24 currently smoking 5 cig/day. Vaping Use Vaping status: Never Used Substance Use Topics Alcohol use: Yes Comment: one a week Drug use: No CURRENT MEDICATIONS: Note that discontinued and completed medications (per the MAR) continue to display for 24 hours. Ordered medications to be given in the future also display. Current Outpatient Medications Medication Sig Dispense Refill [...] tablet in the morning 90 Tablet 5 Rosuvastatin Calcium 10 MG Oral Tablet (Crestor) [...] TABLET IN THE EVENING. 90 Tablet 0 Mluaenmzqbf-Mjnytegpy-Pehnnb 100-62.5-25 MCG/ACT Aerosol Powder Breath Activated (Trelegy Ellipta) Inhale 1 Puff by mouth in the morning. 60 Blister Dosing Unit 11 oxygen IN GAS Use 4-6 %(Oxygen) as directed at bedtime. 4 Liters per minute with exertion, 6 Litersper minute at night Current Facility-Administered Medications Medication Dose Route Frequency [...] Edgar CRNP 150 mg at 02/20/21 0944 ALLERGIES: Penicillins ROS: Constitutional: Negative for fatigue, fever, appetite change, unexplained weight loss. ENT: Negative for hearing loss, sore throat. Respiratory: Negative for cough, shortness of breath, dyspnea. Musculoskeletal: Negative for neck, mid-back pain. + low back pain - see HPI Neurological: Negative for headaches, seizures. Genitourinary: Negative for dysuria, urinary frequency, hematuria. Hematologic/ Lymphatic: Negative for easy bleeding, bruising, lymphadenopathy. Gastrointestinal: Negative for abdominal pain, nausea, vomiting, constipation, diarrhea. Cardiovascular: Negative for chest pain, palpitations, ankle swelling, orthopnea. PHYSICAL EXAMINATION: Most Recent Vital Signs: There were no vitals filed for this visit. General Appearance: Patient appears to be about stated age, pleasant and cooperative with normal affect. HEENT: head normocephalic and pupils equal round and reactive to light and accommodation, EOMI Chest: no gross abnormality. Nonlabored breathing. Lumbar Spine: Normal lumbar lordatic curvature is present. Skin is intact without gross abnormalities. No masses palpable. Midline, B paravertebral musculature and B sacroiliac joint nontender. No evidence of myofascial trigger points. Limited active ROM with flexion and extension of the lumbar spine. Lower Extremity Strength: Hip Flexion 5/5 bilaterally. Hip Abductor 5/5 bilaterally. Hip Adductor 5/5 bilaterally. Extensor Hallicus Longus 5/5 bilaterally. Deep Tendon Reflex: Patellar: 2/4 bilaterally. Achilles: 2/4 bilaterally. Low Back Provocative Testing: JACINDA test: negative bilaterally. Straight Leg Raise Test: negative bilaterally. Lumbar Facet Loading: positive bilaterally. Sensation: Dermatomal sensation not formally tested. Grossly normal and symmetric unless otherwise specified. Gait: Intact, no sign of ataxia. Ambulates without assistance. IMAGING: XR L SPINE AP AND LATERAL-08/01/2024 9:30 am There are 5 atv-ezl-wkottqu lumbar type vertebrae. Vertebral body height is maintained. There is mild lumbar dextroscoliosis. No acute fracture or subluxation. Bone mineralization is appropriate for age. No lytic or blastic osseous lesion. Intervertebral disc spaces are preserved. Multilevel facet a rthropathy. The bilateral sacroiliac joints are preserved. Vascular calcifications. IMPRESSION Mild degenerative changes. ASSESSMENT: Lumbar spinal stenosis with neurogenic claudication Lumbar radicular pain PLAN: Update L spine MRI for further evaluation of LE weakness, concerned for spinal stenosis and neurogenic claudication. Follow up via telephone to review MRI. Discussed TONY, pending MRI results, using fluoroscopy. Risks including, but not limited to epidural hematoma, infection, worsening pain, failure to alleviate pain, nerve injury and possible steroid side effects were reviewed. 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 Due to severity and duration of symptoms, will tentatively schedule interlaminar TONY L5/S1. Discussed provider led home exercise and stretching program including: lumbar press up, bird dog, curl up, pelvic tilt, knee to chest stretch and wall sits. Encouraged to complete program at least three times per week for twenty minutes. Noelle Sen PA-C 10/12/2024 documented in this encounter Nursing Notes * Miranda Cruz LPN - 10/12/2024 9:57 AM EST Patient here for low back pain x1yr Worse with prolonged standing to do dishes/laundry/cooking Xray in chart, no MRI No PT Hx of cspine inj's with documented in this encounter Plan of Treatment Upcoming Encounters Date Type Department Care Team (Latest Contact Info) Description 11/03/2024 11:00 AM EST Imaging Radiology [address] [place] [address] 11/14/2024 9:30 AM EST PulmDiagnostic Pulmonary Function Lab, [facility] [place] [address] [place], [address]ft [address] [place] [address] 11/17/2024 10:00 AM EST Imaging Radiology [address] [place] [address] 11/17/2024 10:45 AM EST Imaging Radiology [facility]st [facility] [address] [place] [phone] 11/21/2024 9:30 AM EST Telemedicine Interventional Pain Center [facility] [address] [place] [phone] Noelle Sen PA-C [address] [place] [address] 12/07/2024 9:26 AM EDT Hospital Encounter OR [facility], Operating Room [facility] [address] [place] [phone] Juan Alberto Acosta, [address] [place] [phone] 12/07/2024 9:26 AM EDT - 12/07/2024 9:54 AM EDT Surgery OR [facility], Operating Room [facility] [address] [place] [phone] Juan Alberto Acosta, DO [address] [place] [phone] INJECTION SPINE LUMBAR OR SACRAL 01/29/2025 8:20 AM EDT Office Visit Family Practice [facility] [address] [place] [address] Walter Cabrera MD [address] [place] [address] 02/02/2025 3:30 PM EDT Office Visit Cardiology, [facility] [address] [place] [address] Miranda Booth CRNP [address] [place] [address] [place] [address] Scheduled Orders Name Type Priority Associated Diagnoses Orde r Schedule MRI L SPINE WO CONTRAST Medical Imaging Routine Lumbar radicular pain Spinal stenosis of lumbar region with neurogenic claudication Expected: 10/19/2024 (Approximate), Expires: 11/12/2025 INJECT DX/THER SUBSTANCE INTERLAMINAR LUMBAR/SACRAL W IMAGE GUIDE Procedures Routine Lumbar radicular pain Spinal stenosis of lumbar region with neurogenic claudication Expected: 01/10/2025 (Approximate), Expires: 11/12/2025 Scheduled Procedures Name Priority Associated Diagnoses Date/Ti [...] Vaccine ( season) 2024 Mammogram 11/16/2024 11/16/2023, 10/22, 11/05/2021, Additional history exists GFR 12/13/2024 12/14/2023, [...] Thoracic or lumbosacral neuritis or radiculitis, unspecified Spinal stenosis of lumbar region with neurogenic claudication Spinal stenosis, lumbar region, with neurogenic claudication Lumbar radiculopathy Thoracic or lumbosacral neuritis or radiculitis, unspecified documented in this encounter Care Teams Lodge Sales Associate Relationship Specialty Start Date End Date Walter Cabrera MD [address] [facility] [place] [address] PCP - General Family Medicine 03/28/24 documented as of this encounter
--- OUTSIDE RECORDS SUMMARY | 2024-12-01 23:11 | External Medical Summary ---
Author Name Unknown Address Unknown Organization [facility] - [address] [place] [address] Laboratory Report Ordering Provider Test Date Status RICHARD LEAL 12/01/2024 09:13:17 Final Observation Date Value Abnormality Reference (Units ) Status BUN 12/01/2024 09:13:17 57 Above high normal 6-20 (mg/dL) Final Creatinine 12/01/2024 09:13:17 2.3 Above high normal 0.5-1.0 (mg/dL) Final Glomerular filtration rate/1.73 sq M.predicted [Volume Rate/Area] in Serum, Plasma or Blood by Creatinine-based formula (CKD-EPI) 12/01/2024 09:13:17 25 Below low normal >=60 (mL/min) Final eGFR is calculated based on the CKD-EPI 2020 equation. Sodium 12/01/2024 09:13:17 132 Below low normal 135 -146 (mmol/L) Final Potassium 12/01/2024 09:13:17 5.7 Above high normal 3. 5-5.1 (mmol/L) Final Cl 12/01/2024 09:13:17 94 Below low normal 98- 107 (mmol/L) Final CO2 12/01/2024 09:13:17 27 22-32 (mmo l/L) Final Anion gap 12/01/2024 09:13:17 11 7-15 (mmol /L) Final Glucose 12/01/2024 09:13:17 103 70-120 (mg /dL) Final Calcium 12/01/2024 09:13:17 9.7 8.4-10.2 ( mg/dL) Final Performing Location [facility] 0 - [address] [place] [address]
--- OUTSIDE RECORDS SUMMARY | 2024-12-01 23:11 | External Medical Summary | Summary of Care ---
Author Name Unknown Organization [facility] Address [address] [place] [address] Phone [phone] Care Team Providers Care Supervisor Steno Pool Name Role Phone Walter Cabrera MD Primary Care Provider [phone] Reason for Visit * Reason Comments Oxygen Assessment 3 minute walk with t itration Encounter Details Date Type Department Care Team (Latest Contact Info) Description 11/14/2024 9:30 AM EST PulmDiagnostic Pulmonary Function Lab, [facility] [address] [facility] [place] [address] West, [address] [place] [address] Chronic respiratory failure with hypoxia (HCC)* Allergies Active Allergy Reactions Criticality Noted Date Comments Penicillins Nausea/vomiting 06/29/2016 documented as of this encounter (statuses as of 11/14/2024) Medications Multiple Vitamins-Minera ls (WOMENS MULTIVITAMIN) TABS [...] e for Depo-Provera contraception 150 mg IM [id number] 07/06/2018 Active albuterol sulfate (PROVENTIL) (2.5 MG/3ML) 0.083% inhalation solution 2.5 mgIndications:COPD, severity to be determined (HCC) 2.5 mg NEBULIZER Q4H PRN 05/03/2019 Active albuterol sulfate (PROVENTIL) (2.5 MG/3ML) 0.083% inhalation solution 2.5 mgIndications:COPD, severity to be determined (HCC) 2.5 mg NEBULIZER Q4H PRN 05/09/2019 Active medroxyPROGESTERone (contracep) (DEPO-PROVERA) inj 150 mgIndications:Surveillanc e for Depo-Provera contraception 150 mg IM [id number] 07/13/2019 Active medroxyPROGESTERone acetate (DEPO-PROVERA) inj TANMAY 150 mgIndications:Surveillanc e for Depo-Provera contraception 150 mg IM [id number] 07/23/2020 Active documented as of this encounter (statuses as of 11/14/2024) Active Problems Problem Noted Date Diagnosed Date [...] as of this encounter (statuses as of 11/14/2024) Resolved Problems Problem Noted Date Diagnosed Date [...] as of this encounter (statuses as of 11/14/2024) Immunizations Name Administration Dates Next Due Pneumococcal [...] Day Cigarettes 1 35 Smokeless Tobacco: Never Tobacco Cessation:Ready to Q uit: Not Asked; Counseling Given: Not Answered Comments:01/27/24 currently smoking 5 cig/day. Alcohol Use [...] Sign Reading Time Taken Comments Blood Pressure 122/78 11/14/2024 9:39 AM EST Pulse 83 11/14/2024 9:39 AM EST Temperature - - Respiratory Rate 18 11/14/2024 9:39 AM EST Oxygen Saturation 93% 11/14/2024 9:39 AM EST Inhaled Oxygen Concentration - - Weight 108.9 kg (240 lb) 11/14/2024 9:39 AM EST Height 157.5 cm (5' 2") 11/14/2024 9:39 AM EST Body Mass Index 43.9 11/14/2024 9:39 AM EST documented in this encounter Nursing Notes * Nya Santos RRT - 11/14/2024 9:44 AM EST Dee Dee Squires was identified by name, Date of : (1970), and . Vitals were obtained for testing. Body mass index is 43.9 kg/m. Exercise oximetry performed on room air x 3 minutes. Pt ambulated 450 feet/ 204 meters. No rest periods were required. Lowest SPO2 on room air was 87%. Pt placed on 2 liters. Exercise oximetry performed on 2 liters x 3 minutes. Pt ambulated 450 feet/ 204 meters. No rest periods were required. Lowest SPO2 on 2 liters was 92%. documented in this encounter Plan of Treatment Upcoming Encounters Date Type Department Care Team (Latest Contact Info) Description 11/17/2024 10:00 AM EST Imaging Radiology [facility] 1st [facility], [address] [place] [address] 11/17/2024 10:45 AM EST Imaging Radiology [facility] 1st [facility] [address] [place] [phone] 11/21/2024 9:30 AM EST Telemedicine Interventional Pain Center [facility] [address] [place] [phone] Noelle Sen PA-C [address] [place] [address] 12/07/2024 9:26 AM EDT Hospital Encounter OR [facility], Operating Room [facility] [address] [place] [phone] Juan Alberto Acosta DO [address] [place] [phone] 12/07/2024 9:26 AM EDT - 12/07/2024 9:54 AM EDT Surgery OR [facility], Operating Room [facility] [address] [place] [phone] Juan Alberto Acosta, [address] [place] [address] INJECTION SPINE LUMBAR OR SACRAL 01/29/2025 8:20 AM EDT Office Visit Family Practice [facility] [address] [place] [address] Walter Cabrera MD [address] [place] [address] 02/02/2025 3:30 PM EDT Office Visit Cardiology, [facility] [address] [place] [address] Miranda Booth CRNP [address] [place] [address] [place] [address] 04/11/2025 8:30 AM EDT Office Visit Pulmonary Medicine, [facility] [address] [place] [address] Jono Cooper MD [address] [place] [address] Scheduled Procedures Name Priority Associated Diagnoses Date/Ti [...] ( - season) 2024 Mammogram 11/16/2024 11/16/2023, 10/22, 11/05/2021, Additional history exists GFR 12/13/2024 12/14/2023, 0301/2024, 09/10/2023, Additional history exists Pneumococcal Vaccine: 50+ [...] with hypoxia (HCC)- Primary Chronic respiratory failure Lumbar radiculopathy Thoracic or lumbosacral neuritis or radiculitis, unspecified documented in this encounter Care Teams Supervisor Steno Pool Relationship Specialty Start Date End Date Walter aCbrera MD [address] [place] [address] PCP - General Family Medicine 03/28/24 documented as of this encounter
--- OUTSIDE RECORDS SUMMARY | 2024-12-01 23:11 | External Medical Summary | Summary of Care ---
Author Name Unknown Organization [facility] Address [address] [place] [address] Phone [phone] Care Team Providers Care Drafter Construction Name Role Phone Walter Cabrera MD Primary Care Provider [phone] [phone] Reason for Visit * Reason Comments Outpatient Testing Encounter Details Date Type Department Care Team (Late st Contact Info) Description 12/01/2024 9:00 AM EDT Laboratory Laboratory, [facility] [address] [place] [address] [facility] [address] [place] [address] Diabetes mellitus (HCC); Hypertension, unspecified type; Encounter for long-term (current) use of medications Allergies Active Allergy Reactions Criticality Noted Date Comments Penicillins Nausea/vomiting 06/29/2016 documented as of this encounter (statuses as of 12/01/2024) Medications Multiple Vitamins-Minera ls (WOMENS MULTIVITAMIN) TABS Take by mouth. Active Loratadine 10 MG Oral Tablet Take 1 Tablet by mouth in the morning. Active oxygen IN GAS Use 3 L/min(Oxygen) [...] e for Depo-Provera contraception 150 mg IM [id number] 07/06/2018 Active albuterol sulfate (PROVENTIL) (2.5 MG/3ML) 0.083% inhalation solution 2.5 mgIndications:COPD, severity to be determined ([facility]) 2.5 mg NEBULIZER Q4H PRN 05/03/2019 Active albuterol sulfate (PROVENTIL) (2.5 MG/3ML) 0.083% inhalation solution 2.5 mgIndications:COPD, severity to be determined (HCC) 2.5 mg NEBULIZER Q4H PRN 05/09/2019 Active medroxyPROGESTERone (contracep) (DEPO-PROVERA) inj 150 mgIndications:Surveillanc e for Depo-Provera contraception 150 mg IM [id number] 07/13/2019 Active medroxyPROGESTERone acetate (DEPO-PROVERA) inj TANMAY 150 mgIndications:Surveillanc e for Depo-Provera contraception 150 mg IM [id number] 07/23/2020 Active documented as of this encounter [...] OR [facility], Operating Room [facility] [address] [place] [address] Juan Alberto Acosta, [address] [place] [address] 12/07/2024 8:46 AM EDT - 12/07/2024 9:14 AM EDT Surgery OR [facility], Operating Room [facility] [address] [place] [address] Juan Alberto Acosta, [address] [place] [address] INJECTION SPINE LUMBAR OR SACRAL 12/14/2024 7:40 AM EDT Office Visit Family Practice [facility] [address] [place] [address] Raina Sims CRNP [address] [place] [address] 02/16/2025 11:40 AM EDT Office Visit Family Practice [facility] [address] [place] [address] Walter Cabrera MD [address] [place] [address] 12/04/2025 10:00 AM EDT Office Visit Cardiology, [facility] [address] [place] [address] Ana Hilton PA-C [address] [place] [address] Pending Results Name Type Priority Associated Diagnoses Date /Time HEMOGLOBIN A1C Lab Routine Diabetes mellitus (HCC) 12/01/2024 9:13 AM EDT Scheduled Procedures Name Priority Associated Diagnoses Date/Ti [...] 11/19/2021 DISCUSS TOBACCO CESSATION (REFER TO SMARTSET #4281) 08/06/2022 08/06/2021 COVID-19 Vaccine ( season) 2024 GFR 12/13/2024 12/01/2024, 11/19, 11/23/2023, Additional history exists Pneumococcal Vaccine: 50+ Years (3 of 3 - PCV20 or PCV21) 12/27/2024 12/28/2019, 08/03/2019 Cervical Cancer Screening 01/12/2025 HbA1c 01/12/2025 07/14/2024, 01/20, 08/02/2023, Additional history exists Pap Smear 01/12/2025 01/12/2022, 06/20, 06/18/2015, Additional history exists Albumin/Creatinine Ratio 02/17/2025 02/18/2024 Diabetic Eye Exam 08/01/2025 08/01/2024 Diabetic Foot Exam 08/01/2025 08/01/2024 Mammogram 11/17/2025 11/17/2024, 10/22, 11/16/2023, Additional history exists Lipid Panel 02/17/2029 02/18/2024, [...] Procedure Name Priority Date/Time Associated Diagnosis Comments BASIC METABOLIC PANEL Routine 12/01/2024 9:13 AM EDT Hypertension, unspecified type CBC Routine 12/01/2024 9:13 AM EDT Encounter for long-term (current) use of medications documented in this encounter Results * CBC (12/01/2024 9:13 AM EDT) WBC 8.55 4.00 - 10.80 K/uL 12/01/2024 9:27 AM EDT [facility] RBC 4.21 3.85 - 5.15 M/uL 12/01/2024 9:27 AM EDT [facility] HGB 13.2 12.0 - 15.3 g/dL 12/01/2024 9:27 AM EDT [facility] HCT 41.2 36.0 - 45.2 % 12/01/2024 9:27 AM EDT [facility] MCV 97.9 81.5 - 97.5 fL 12/01/2024 9:27 AM EDT [facility] MCH 31.4 27.0 - 34.0 pg 12/01/2024 9:27 AM EDT [facility] MCHC 32.0 32.0 - 36.0 g/dL 12/01/2024 9:27 AM EDT [facility] RDW 14.5 11.5 - 15.5 % 12/01/2024 9:27 AM EDT [facility]10 PLT 204 140 - 400 K/uL 12/01/2024 9:27 AM EDT [facility] MPV 10.6 6.6 - 11.1 fL 12/01/2024 9:27 AM EDT [facility]10 Blood Venous blood specimen / Unknown Venipuncture / Unknown 12/01/2024 9:13 AM EDT 12/01/2024 9:13 AM EDT us [facility] LAB BLOOD ORDERABLES Final R esult [facility] [facility] [address] [place] [address] * (ABNORMAL) BASIC METABOLIC PANEL (12/01/2024 9:13 AM EDT) BUN 57(H) 6 - 20 mg/dL 12/01/2024 10:04 AM EDT [facility]10 CREATININE 2.3(H) 0.5 - 1.0 mg/dL 12/01/2024 10:04 AM EDT [facility]10 EGFR 25(L) >=60 mL/min 12/01/2024 10:04 AM EDT [facility]10 Comment:eGFR is calculated b ased on the CKD-EPI 2020 equation. SODIUM 132(L) 135 - 146 mmol/L 12/01/2024 10:04 AM EDT [facility]10 POTASSIUM 5.7(H) 3.5 - 5.1 mmol/L 12/01/2024 10:04 AM EDT [facility]10 CHLORIDE 94(L) 98 - 107 mmol/L 12/01/2024 10:04 AM EDT [facility]10 CO2 27 22 - 32 mmol/L 12/01/2024 10:04 AM EDT [facility]10 ANION GAP 11 7 - 15 mmol/L 12/01/2024 10:04 AM EDT [facility] GLUCOSE 103 70 - 120 mg/dL 12/01/2024 10:04 AM EDT [facility] CALCIUM 9.7 8.4 - 10.2 mg/dL 12/01/2024 10:04 AM EDT [facility] Blood Venous blood specimen / Unknown Venipuncture / Unknown 12/01/2024 9:13 AM EDT 12/01/2024 9:13 AM EDT us Walter Cabrera MD LAB BLOOD ORDERABLES Maria D l Result [facility] [address] [place] [address] documented in this encounter Visit Diagnoses Diagnosis Diabetes mellitus (HCC) Type II or unspecified type diabetes mellitus without mention of complication, not stated as uncontrolled Hypertension, unspecified type Encounter for long-term (current) use of medications Encounter for long-term (current) use of other medications Lumbar radiculopathy Thoracic or lumbosacral neuritis or radiculitis, unspecified documented in this encounter Care Teams Drafter Construction Relationship Specialty Start Date End Date Walter Cabrera MD [address] [place] [address] PCP - General Family Medicine 03/28/24 documented as of this encounter
--- OUTSIDE RECORDS SUMMARY | 2024-12-01 23:11 | External Medical Summary ---
Author Name Unknown Address Unknown Organization [facility]0G:[facility] - [address] [place] [address] Laboratory Report Ordering Provider Test Date Status KING MONTENEGRO 12/01/2024 09:13:17 Final Observation Date Value Abnormality Reference (Units ) Status WBC, Total 12/01/2024 09:13:17 8.55 4.00-10.8 0 (K/uL) Final RBC 12/01/2024 09:13:17 4.21 3.85-5.15 (M/uL) Final Hemoglobin 12/01/2024 09:13:17 13.2 12.0-15.3 (g/dL) Final HCT 12/01/2024 09:13:17 41.2 36.0-45.2 (%) Final MCV 12/01/2024 09:13:17 97.9 81.5-97.5 (fL) Final MCH 12/01/2024 09:13:17 31.4 27.0-34.0 (pg) Final MCHC 12/01/2024 09:13:17 32.0 32.0-36.0 (g/dL) Final RDW 12/01/2024 09:13:17 14.5 11.5-15.5 (%) Final Platelets 12/01/2024 09:13:17 204 140-400 (K /uL) Final MPV 12/01/2024 09:13:17 10.6 6.6-11.1 ( fL) Final Performing Location [facility]ATORY [facility] 0 [address] [place] [address]
--- OUTSIDE RECORDS SUMMARY | 2024-12-01 23:11 | External Medical Summary ---
Author Name Unknown Address Unknown Organization K01:[facility] - [address] [place] [address] Laboratory Report Ordering Provider Test Date Status RICHARD LEAL 12/01/2024 09:13:17 Final Observation Date Value Abnormality Reference (Units ) Status HbA1C 12/01/2024 09:13:17 5.4 4.0-5.6 (% ) Final The use of HbA1c to monitor glycemic status is based on normal hemoglobin and HbA composition. This test should not be used in patients with abnormal hemoglobin that affects the half life of the red blood cell or the in vivo glycation rates. Glucose, estimated average 12/01/2024 09:13:17 108 <126 (mg/dL) Final Performing Location [facility] [address] [facility] [address]
--- OUTSIDE RECORDS SUMMARY | 2024-12-01 23:11 | External Medical Summary | Summary of Care ---
Author Name Unknown Organization [facility] Address [address] [place] [address] Phone [phone] Care Team Providers Care Hod Carrier Name Role Phone Mel Cabrera MD Primary Care Provider [phone] Reason for Visit * Reason Onset Date Comments Medication Refill 10/24/2024 Encounter Details Date Type Department Care Team (Late st Contact Info) Description 10/24/2024 Refill Family Practice [facility] [address] [place] [address] Mel Cabrera MD [address] [place] [address] Allergies Active Allergy Reactions Criticality Noted Date Comments Penicillins Nausea/vomiting 06/29/2016 documented as of this encounter (statuses as of 10/25/2024) Medications Multiple Vitamins-Minera ls (WOMENS MULTIVITAMIN) TABS [...] 4 Active Lisinopril 5 MG Oral Tablet (Prinivil)Indic [...] 4 Active Folic Acid 1 MG Oral TabletIndicatio [...] IN THE EVENING. 90 Tablet 5 Active Fluticasone-Ume clidin-Vilant 100-62.5-25 MCG/ACT Aerosol Powder Breath Activated (Trelegy Ellipta) Inhale 1 Puff by mouth in the morning. 60 Blister Dosing Unit 11 5 10/07/19 26 Active Albuterol Sulfate HFA 108 (90 Base) MCG/ACT Inhalation Aerosol Solution Inhale 2 Puffs by mouth every 4 hours as needed for Wheezing. 18 g 3 5 Active Albuterol Sulfate HFA 108 (90 Base) MCG/ACT Inhalation Aerosol Solution TAKE 2 PUFFS BY MOUTH EVERY 4 HOURS NEEDED FOR WHEEZE 18 g 3 1 10/24/19 25 Discontinu ed(Refill) Hospital, Clinic, or Other Facility Administered Medication Ordered Dose Route Frequency Start Date End Date Status medroxyPROGESTERone (contracep) (DEPO-PROVERA) inj 150 mgIndications:Surveillanc e for Depo-Provera contraception 150 mg IM [id number] 07/06/2018 Active albuterol sulfate (PROVENTIL) (2.5 MG/3ML) 0.083% inhalation solution 2.5 mgIndications:COPD, severity to be determined (HCC) 2.5 mg NEBULIZER Q4H PRN 05/03/2019 Active albuterol sulfate (PROVENTIL) (2.5 MG/3ML) 0.083% inhalation solution 2.5 mgIndications:COPD, severity to be determined (HCC) 2.5 mg NEBULIZER Q4H PRN 05/09/2019 Active medroxyPROGESTERone (contracep) (DEPO-PROVERA) inj 150 mgIndications:Surveillanc e for Depo-Provera contraception 150 mg IM [id number] 07/13/2019 Active medroxyPROGESTERone acetate (DEPO-PROVERA) inj TANMAY 150 mgIndications:Surveillanc e for Depo-Provera contraception 150 mg IM [id number] 07/23/2020 Active documented as of this encounter (statuses as of 10/25/2024) Active Problems Problem Noted Date Diagnosed Date [...] as of this encounter (statuses as of 10/25/2024) Resolved Problems Problem Noted Date Diagnosed Date [...] as of this encounter (statuses as of 10/25/2024) Immunizations Name Administration Dates Next Due Pneumococcal [...] encounter Miscellaneous Notes * Telephone Encounter - Mel Cabrera MD - 10/25/2024 11:02 AM ESTSigned Prescriptions: Disp Refills Albuterol Sulfate HFA 108 (90 Base) MCG/AC*18 g 3 Sig: Inhale 2 Puffs by mouth every 4 hours as needed for Wheezing. Authorizing Provider: MEL CABRERA * Telephone Encounter - Aysha Gambino [facility] - 10/25/2024 10:24 AM EST Pending Prescriptions: Disp Refills Albuterol Sulfate HFA 108 (90 Base) MCG/AC*18 g 3 Sig: Inhale 2 Puffs by mouth every 4 hours as needed for Wheezing. * Telephone Encounter - Aysha Gambino [facility] - 10/25/2024 10:23 AM EST Medication has not been prescribed since 08/20/2021 Pending Prescriptions: Disp Refills Albuterol Sulfate HFA 108 (90 Base) MCG/A*18 g 3 Thank you, Aysha Gambino [facility] Clinical Pharmacist [facility] 10/25/24 10:24 AM [phone] documented in this encounter Plan of Treatment Upcoming Encounters Date Type Department Care Team (Latest Contact Info) Description 11/03/2024 11:00 AM EST Imaging Radiology [address] [place] [address] 11/14/2024 9:30 AM EST PulmDiagnostic Pulmonary Function Lab, [facility] [address] [place] [address] [place], [address] [place] [address] 11/17/2024 10:00 AM EST Imaging Radiology [address] [place] [address] 11/17/2024 10:45 AM EST Imaging Radiology [address] [place] [address] 11/21/2024 9:30 AM EST Telemedicine Interventional Pain Center [facility] [address] [place] [address] Noelle Sen PA-C [address] [place] [address] 12/07/2024 9:26 AM EDT Hospital Encounter OR [facility], Operating Room [facility] [address] [place] [address] Juan Alberto Acosta, DO [address] [place] [phone] 12/07/2024 9:26 AM EDT - 12/07/2024 9:54 AM EDT Surgery OR [facility], Operating Room [facility] [address] [place] [address] Juan Alberto Acosta, DO [address] [place] [address] INJECTION SPINE LUMBAR OR SACRAL 01/29/2025 8:20 AM EDT Office Visit Family Practice [facility] [address] [place] [address] Mel Cabrera MD [address] [place] [address] 02/02/2025 3:30 PM EDT Office Visit Cardiology, [facility] 132 [facility] [place] [address] Miranda Booth CRNP [address] [facility] [place] [address] 04/11/2025 8:30 AM EDT Office Visit Pulmonary Medicine, [facility] 132 [facility] [place] [address] Jono Cooper MD [address] [place] [address] Scheduled Procedures Name Priority Associated Diagnoses Date/Ti [...] 11/19/2021 DISCUSS TOBACCO CESSATION (REFER TO SMARTSET #6202) 08/06/2022 08/06/2021 COVID-19 Vaccine ( - season) [...] filedocumented as of this encounter Care Teams Hod Carrier Relationship Specialty Start Date End Date Deborah, Mel Jarek, MD [address] [place] [address] PCP - General Family Medicine 03/28/24 documented as of this encounter
--- OUTSIDE RECORDS SUMMARY | 2024-12-01 23:11 | External Medical Summary | Summary of Care ---
Author Name Unknown Organization [facility] Address [address] [place] [address] Phone [phone] Care Team Providers Care Engraver Wood Name Role Phone Walter Cabrera MD Primary Care Provider [phone] Reason for Visit * Reason Comments Follow Up L spine MRI Encounter Details Date Type Department Care Team (Late st Contact Info) Description 11/21/2024 9:30 AM [facility] Telemedicine Interventional Pain Center [facility] [address] [place] [phone] Noelle Sen PA-C [address] [place] [address] Lumbar radicular pain* Allergies Active Allergy Reactions [...] e for Depo-Provera contraception 150 mg IM [id number] 07/06/2018 Active albuterol sulfate (PROVENTIL) (2.5 MG/3ML) 0.083% inhalation solution 2.5 mgIndications:COPD, severity to be determined (HCC) 2.5 mg NEBULIZER Q4H PRN 05/03/2019 Active albuterol sulfate (PROVENTIL) (2.5 MG/3ML) 0.083% inhalation solution 2.5 mgIndications:COPD, severity to be determined (HCC) 2.5 mg NEBULIZER Q4H PRN 05/09/2019 Active medroxyPROGESTERone (contracep) (DEPO-PROVERA) inj 150 mgIndications:Surveillanc e for Depo-Provera contraception 150 mg IM [id number] 07/13/2019 Active medroxyPROGESTERone acetate (DEPO-PROVERA) inj TANMAY 150 mgIndications:Surveillanc e for Depo-Provera contraception 150 mg IM [id number] 07/23/2020 Active documented as of this encounter [...] of 35.0 to 39.9 with serious comorbidity ([facility]) 06/16/2021 Supplemental oxygen dependent 07/15/2021 Type 2 diabetes mellitus with hemoglobin A1c goal of less than 7.0% ([facility]) 02/18/2024 Past Surgical History: Procedure Laterality Date [...] TABLET IN THE EVENING. 90 Tablet 0 Cyjlxjfoojy-Xaoblyxsp-Fkmxia 100-62.5-25 MCG/ACT Aerosol Powder Breath Activated (Trelegy [...] 150 mg Intramuscular Q90 Days Parvin Edgar [employer] 150 mg at 03/21/20 0945 albuterol sulfate (PROVENTIL) (2.5 MG/3ML) 0.083% inhalation solution 2.5 mg 2.5 mg Nebulizer Q4H PRN Femi Segura MD albuterol sulfate (PROVENTIL) (2.5 MG/3ML) 0.083% inhalation solution 2.5 mg 2.5 mg Nebulizer Q4H PRN Femi Segura MD 2.5 mg at 06/20/19 1011 medroxyPROGESTERone (contracep) (DEPO-PROVERA) inj 150 mg 150 mg Intramuscular Q12 Weeks Parvin Edgar [employer] 150 mg at 05/15/21 0934 medroxyPROGESTERone acetate (DEPO-PROVERA) inj TANMAY 150 mg 150 mg Intramuscular Q90 Days Parvin Edgar [employer] 150 mg at 02/20/21 0944 Review of [...] pain RECOMMENDATION: Continue with scheduled TONY. 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 [...] EDT Hospital Encounter OR [facility], Operating Room [facility] [address] [place] [address] Juan Alberto Acosta, [address] [place] [address] 12/07/2024 8:46 AM EDT - 12/07/2024 9:14 AM EDT Surgery OR [facility], Operating Room [facility] [address] [place] [address] Juan Alberto Acosta DO [address] [place] [address] INJECTION SPINE LUMBAR OR SACRAL 01/29/2025 8:20 AM EDT Office Visit Family [facility] 132 [facility] [place] [address] Walter Cabrera MD 132 [facility] [place] [address] 02/02/2025 3:30 PM EDT Office Visit Cardiology, [facility] 132 [facility] [place] [address] Miranda Booth CRNP [address] [facility] [place] [phone] 04/11/2025 8:30 AM EDT Office Visit Pulmonary Medicine, [facility] 132 [facility] [place] [address] [facility] [address] [facility] [id number] Scheduled Procedures Name Priority Associated Diagnoses Date/Ti [...] unspecified documented in this encounter Care Teams Engraver Wood Relationship Specialty Start Date End Date Walter Cabrera MD [address] [place] [address] PCP - General Family Medicine 03/28/24 documented as of this encounter
--- OUTSIDE RECORDS SUMMARY | 2024-12-01 23:12 | External Medical Summary | Summary of Care ---
Author Name Unknown Organization [facility] Address [address] [place] [address] Phone [phone] Care Team Providers Care Cruise Staff Member Name Role Phone Walter Cabrera MD Primary Care Provider [phone] Encounter Details Date Type Department Care Team (Late st Contact Info) Description 10/09/2024 Population Health External Data Unspecified Department Allergies Active Allergy Reactions Criticality Noted Date Comments Penicillins Nausea/vomiting 06/29/2016 documented as of this encounter (statuses as of 10/09/2024) Medications Multiple Vitamins-Minera ls (WOMENS MULTIVITAMIN) TABS [...] EVERY DAY 90 Tablet 2 04/16/2024 Active Fluticasone-Ume clidin-Vilant 100-62.5-25 MCG/ACT Aerosol Powder Breath Activated (Trelegy Ellipta) Inhale 1 Puff by mouth in the morning. 180 Each 05/02/2024 Active Sertraline HCl 50 MG Oral Tablet [...] IN THE EVENING. 90 Tablet 10/06/2024 Active Hospital, Clinic, or Other Facility Administered Medication Ordered Dose Route Frequency Start Date End Date Status medroxyPROGESTERone (contracep) (DEPO-PROVERA) inj 150 mgIndications:Surveillanc e for Depo-Provera contraception 150 mg IM [id number] 07/06/2018 Active albuterol sulfate (PROVENTIL) (2.5 MG/3ML) 0.083% inhalation solution 2.5 mgIndications:COPD, severity to be determined (HCC) 2.5 mg NEBULIZER Q4H PRN 05/03/2019 Active albuterol sulfate (PROVENTIL) (2.5 MG/3ML) 0.083% inhalation solution 2.5 mgIndications:COPD, severity to be determined (HCC) 2.5 mg NEBULIZER Q4H PRN 05/09/2019 Active medroxyPROGESTERone (contracep) (DEPO-PROVERA) inj 150 mgIndications:Surveillanc e for Depo-Provera contraception 150 mg IM [id number] 07/13/2019 Active medroxyPROGESTERone acetate (DEPO-PROVERA) inj TANMAY 150 mgIndications:Surveillanc e for Depo-Provera contraception 150 mg IM [id number] 07/23/2020 Active documented as of this encounter (statuses as of 10/09/2024) Active Problems Problem Noted Date Diagnosed Date [...] as of this encounter (statuses as of 10/09/2024) Resolved Problems Problem Noted Date Diagnosed Date [...] as of this encounter (statuses as of 10/09/2024) Immunizations Name Administration Dates Next Due Pneumococcal [...] 8:40 AM EST Office Visit Pulmonary Medicine, [facility] [address] [facility] [place] [address] Jono Cooper MD [address] [place] [address] 10/12/2024 10:00 AM EST Office Visit Interventional Pain Center [facility] [address] [place] [phone] Noelle Sen PA-C [address] [place] [address] 11/17/2024 10:00 AM EST Imaging Radiology [address], [place] [address] [place] [phone] 11/17/2024 10:45 AM EST Imaging Radiology [address], [place] [address] [place] [phone] 01/29/2025 8:20 AM EDT Office Visit Family Practice [facility] [address] [place] [address] Walter Cabrera MD [address] [place] [address] Health Maintenance Due Date Last Done Comments Hepatitis B Vaccine (1 of 3 - 19+ 3-dose series) 11/19/1990 HPV/Co-Test 11/19/2001 Cologuard 11/19/2016 Colonoscopy 11/19/2016 Colorectal Cancer Screening 11/19/2016 Fecal Occult Blood Test 11/19/2016 Sigmoidoscopy 11/19/2016 Depression Screening 07/10/2021 07/10/2020 Zoster Vaccines (1 of 2) 11/19/2021 DISCUSS TOBACCO CESSATION (REFER TO SMARTSET #7828) 08/06/2022 08/06/2021 COVID-19 Vaccine ( season) 2024 Mammogram 11/16/2024 11/16/2023, 02/2 09/2022, 11/05/2021, Additional history exists GFR 12/13/2024 12/14/2023, 01/2024, 09/10/2023, Additional history [...] filedocumented as of this encounter Care Teams Cruise Staff Member Relationship Specialty Start Date End Date Walter Cabrera MD [address] [place] [address] PCP - General Family Medicine 03/28/24 documented as of this encounter
--- OUTSIDE RECORDS SUMMARY | 2024-12-01 23:12 | External Medical Summary | Summary of Care ---
Author Name Unknown Organization [facility] Address [address] [place] [address] Phone [phone] Care Team Providers Care Director Process Name Role Phone Mel Ramos MD Primary Care Provider [phone] Reason for Visit * Reason Comments eRx-Medication Refill Encounter Details Date Type Department Care Team (Late st Contact Info) Description 10/05/2024 Refill Family Practice [facility] [address] [facility] [place] [address] Mel Ramos MD [address] [place] [address] Encounter for long-term (current) use of medications*; Heart failure, diastolic, due to HTN (HCC) Allergies Active Allergy Reactions Criticality Noted Date Comments Penicillins Nausea/vomiting 06/29/2016 documented as of this encounter (statuses as of 10/06/2024) Medications Multiple Vitamins-Wain[place] als (WOMENS MULTIVITAMIN) TABS Take by mouth. [...] the morning 90 Tablet 5 1 Active Metoprolol Succinate ER 50 MG Oral Tablet Extended Release 24 Hour (toPROL XL)Indications :Heart failure, diastolic, due to HTN (HCC) TAKE 1 TABLET BY MOUTH EVERY MORNING. THIS IS IN ADDITION TO THE 25 MG TABLET IN THE EVENING. 90 Tablet 3 3 Active oxygen IN GAS Use 4-6 %(Oxygen) [...] EVERY DAY 90 Tablet 2 4 Active Fluticasone-Um eclidin-Vilant 100-62.5-25 MCG/ACT Aerosol Powder Breath Activated (Trelegy Ellipta) Inhale 1 Puff by mouth in the morning. 180 Each 4 Active Sertraline HCl 50 MG Oral [...] IN THE MORNING 90 Tablet 5 Active Folic Acid 1 MG Oral TabletIndicati ons:Heart failure, diastolic, due to HTN (HCC) Take 1 Tablet by mouth in the morning. 90 Tablet 1 4 025 Discontinued Hospital, Clinic, or Other Facility Administered Medication Ordered Dose Route Frequency Start Date End Date Status medroxyPROGESTERone (contracep) (DEPO-PROVERA) inj 150 mgIndications:Surveillanc e for Depo-Provera contraception 150 mg IM [id number] 07/06/2018 Active albuterol sulfate (PROVENTIL) (2.5 MG/3ML) 0.083% inhalation solution 2.5 mgIndications:COPD, severity to be determined (HCC) 2.5 mg NEBULIZER Q4H PRN 05/03/2019 Active albuterol sulfate (PROVENTIL) (2.5 MG/3ML) 0.083% inhalation solution 2.5 mgIndications:COPD, severity to be determined (HCC) 2.5 mg NEBULIZER Q4H PRN 05/09/2019 Active medroxyPROGESTERone (contracep) (DEPO-PROVERA) inj 150 mgIndications:Surveillanc e for Depo-Provera contraception 150 mg IM [id number] 07/13/2019 Active medroxyPROGESTERone acetate (DEPO-PROVERA) inj TANMAY 150 mgIndications:Surveillanc e for Depo-Provera contraception 150 mg IM [id number] 07/23/2020 Active documented as of this encounter (statuses as of 10/06/2024) Active Problems Problem Noted Date Diagnosed Date [...] as of this encounter (statuses as of 10/06/2024) Resolved Problems Problem Noted Date Diagnosed Date [...] as of this encounter (statuses as of 10/06/2024) Immunizations Name Administration Dates Next Due Pneumococcal [...] encounter Miscellaneous Notes * Telephone Encounter - Caren Branch [facility] - 10/06/2024 8:49 AM ESTSigned Prescriptions: Disp Refills Folic Acid 1 MG Oral Tablet 90 Tab*0 Sig: TAKE 1 TABLET BY MOUTHEVERY DAY IN THE MORNINGAuthorizing Provider: MEL RAMOS User: CAREN BRANCH--- * Telephone Encounter - Caren Branch [facility] - 10/06/2024 8:48 AM EST Contacted yesterday regarding labs. Caren Penn Clinical Pharmacist [facility] [phone] 10/06/2024, 8:48 AM documented in this encounter Plan of Treatment Upcoming Encounters Date Type Department Care Team (Late st Contact Info) Description 10/12/2024 8:40 AM EST Office Visit Pulmonary Medicine, [facility] [address] [facility] [place] [address] Jono Cooper MD [address] [place] [address] 10/12/2024 10:00 AM EST Office Visit Interventional Pain Center [facility] [address] [facility] [place] [address] Noelle Sen PA-C [address] [place] [address] 11/17/2024 10:00 AM EST Imaging Radiology [address] [place] [phone] 11/17/2024 10:45 AM EST Imaging Radiology [address] [place] [phone] 01/29/2025 8:20 AM EDT Office Visit Family Practice [facility] [address] [place] [address] Mel Ramos MD [address] [place] [address] Scheduled Orders Name Type Priority Associated Diagnoses Orde r Schedule CBC Lab Routine Encounter for long-term (current) use of medications Expected: 10/13/2024 (Approximate), Expires: 10/06/2025 Health Maintenance Due Date Last Done Comments [...] as of this encounter Visit Diagnoses Diagnosis Encounter for long-term (current) use of medications- Primary Encounter for long-term (current) use of other medications Heart failure, diastolic, due to HTN (HCC) Unspecified hypertensive heart disease with heart failure documented in this encounter Care Teams Director Process Relationship Specialty Start Date End Date Mel Ramos MD [address] [place] [address] PCP - General Family Medicine 03/28/24 documented as of this encounter
--- OUTSIDE RECORDS SUMMARY | 2024-12-01 23:12 | External Medical Summary | Summary of Care ---
Author Name Unknown Organization [facility] Address [address] [place] [address] Phone [phone] Care Team Providers Care Refractory Furnace Designer Name Role Phone Walter Cabrera MD Primary Care Provider [phone] Reason for Visit * Reason Onset Date Comments Scan To Read 08/02/2024 Encounter Details Date Type Department Care Team (Late st Contact Info) Description 08/02/[address] [facility] [address] [facility] [place] [address] Walter Cabrera MD [address] [facility] [place] [address] Scan To Read Allergies Active Allergy Reactions Criticality Noted Date Comments Penicillins Nausea/vomiting 06/29/2016 documented as of this encounter (statuses as of 08/03/2024) Medications Multiple Vitamins-[place] ls (WOMENS MULTIVITAMIN) TABS [...] the morning 90 Tablet 5 08/20/2021 Active Metoprolol Succinate ER 50 MG Oral Tablet Extended Release 24 Hour (toPROL XL)Indications: Heart failure, diastolic, due to HTN (HCC) TAKE 1 TABLET BY MOUTH EVERY MORNING. THIS IS IN ADDITION TO THE 25 MG TABLET IN THE EVENING. 90 Tablet 3 08/23/2023 Active oxygen IN GAS Use 4-6 %(Oxygen) [...] in the morning. 180 Each 05/02/2024 Active Folic Acid 1 MG Oral TabletIndicatio ns:Heart failure, diastolic, due to HTN (HCC) Take 1 Tablet by mouth in the morning. 90 Tablet 1 05/03/2024 Active Sertraline HCl 50 MG Oral Tablet (Zoloft) TAKE 1 TABLET BY MOUTH EVERY DAY 90 Tablet 3 05/04/2024 Active Omeprazole 20 MG Oral Capsule Delayed Release (PriLOSEC) TAKE 1 CAPSULE BY MOUTH EVERY DAY 1 HOUR BEFORE FIRST MEAL OF THE DAY 90 Capsule 3 07/06/2024 Active Hospital, Clinic, or Other Facility Administered Medication Ordered Dose Route Frequency Start Date End Date Status medroxyPROGESTERone (contracep) (DEPO-PROVERA) inj 150 mgIndications:Surveillanc e for Depo-Provera contraception 150 mg IM [id number] 07/06/2018 Active albuterol sulfate (PROVENTIL) (2.5 MG/3ML) 0.083% inhalation solution 2.5 mgIndications:COPD, severity to be determined (HCC) 2.5 mg NEBULIZER Q4H PRN 05/03/2019 Active albuterol sulfate (PROVENTIL) (2.5 MG/3ML) 0.083% inhalation solution 2.5 mgIndications:COPD, severity to be determined (HCC) 2.5 mg NEBULIZER Q4H PRN 05/09/2019 Active medroxyPROGESTERone (contracep) (DEPO-PROVERA) inj 150 mgIndications:Surveillanc e for Depo-Provera contraception 150 mg IM [id number] 07/13/2019 Active medroxyPROGESTERone acetate (DEPO-PROVERA) inj TANMAY 150 mgIndications:Surveillanc e for Depo-Provera contraception 150 mg IM [id number] 07/23/2020 Active documented as of this encounter (statuses as of 08/03/2024) Active Problems Problem Noted Date Diagnosed Date [...] as of this encounter (statuses as of 08/03/2024) Resolved Problems Problem Noted Date Diagnosed Date [...] as of this encounter (statuses as of 08/03/2024) Immunizations Name Administration Dates Next Due Pneumococcal [...] encounter Miscellaneous Notes * Telephone Encounter - Sabas Mortensen MD - 08/03/2024 6:51 AM EST Retinal Scan Imaging [facility] [id number] Retinal Scan Interpretation: There is no retinopathy in both eyes Diabetes Retinal Imaging Care Plan: The retinal scan results are normal - I will forward this encounter to the Ophthalmology DM Letter Pool [[id number]], they will send a normal retinal scan letter to the patient, and the patient will be seen back for a yearly scan. Sabas Mortensen MD 08/03/2024 6:52 AM * Telephone Encounter - Jacinda Moreira LPN - 08/02/2024 4:34 PM EST A Diabetic Telemed Eye image was taken and requires your interpretation for Dr Cabrera. Please check your inbasket for image. Patient prefers to be seen at [facility] if a follow-up appointment is needed. documented in this encounter Plan of Treatment Upcoming Encounters Date Type Department Care Team (Late st Contact Info) Description 09/28/2024 9:40 AM EST Office Visit Pulmonary Medicine, [facility] [address] [facility] [place] [address] Jono Cooper MD [address] [facility] [place] [address] 10/12/2024 10:00 AM EST Office Visit Interventional Pain Center, [facility] [address] [place] [address] Noelle Sen PA-C [address] [place] [address] 01/29/2025 8:20 AM EDT Office Visit Family Practice [facility] [address] [place] [address] Walter Cabrera MD [address] [place] [address] Health Maintenance Due Date Last Done Comments Hepatitis B Vaccine (1 of 3 - 19+ 3-dose series) 11/19/1990 HPV/Co-Test 11/19/2001 Cologuard 11/19/2016 Colonoscopy 11/19/2016 Colorectal Cancer Screening 11/19/2016 Fecal Occult Blood Test 11/19/2016 Sigmoidoscopy 11/19/2016 Depression Screening 07/10/2021 07/10/2020 Zoster Vaccines (1 of 2) 11/19/2021 DISCUSS TOBACCO CESSATION (REFER TO SMARTSET #0657) 08/06/2022 08/06/2021 COVID-19 Vaccine ( season) 2024 Mammogram 11/16/2024 11/16/2023, 10/22, 11/05/2021, Additional history exists GFR 12/13/2024 12/14/2023, 03/0 01/2024, 09/10/2023, Additional history exists Cervical Cancer Screening 01/12/2025 HbA1c 01/12/2025 07/14/2024, [...] 11/19/2036 12/28/2019, 08/03/2019 Alpha-1 Antitrypsin Completed 08/06/2021 Lung Cancer Screening [...] filedocumented as of this encounter Care Teams Refractory Furnace Designer Relationship Specialty Start Date End Date Walter Cabrera MD [address] [place] [address] PCP - General Family Medicine 03/28/24 documented as of this encounter
--- OUTSIDE RECORDS SUMMARY | 2024-12-01 23:12 | External Medical Summary | Summary of Care ---
Author Name Unknown Organization [facility] Address [address] [place] [address] Phone [phone] Care Team Providers Care House Steward/Stewardess Name Role Phone Walter Cabrera MD Primary Care Provider [phone] Reason for Referral * Evaluate & Treat - Unlimited Visits (Within 10 days (routine)) - Authorized Specialty Diagnoses / Procedures Referred By Contac t Referred To Contact Pain Management / Pain Medicine Diagnoses Lumbar back pain Walter Cabrera MD [facility] [place] [address] Phone: tel: fax: Referral ID Status Reason Start Date Expiration Date Visits Requested Visits Authorized [id number] Authorized Specialty Services Required [phone] Question Answer Referral Priority Within 10 days (routine) Where should this appointment be scheduled? ising Reason for referral? Interventional Pain Management - (Injection) What condition is the patient being referred for? Back Axial What is the preferred location to have this test performed? [facility] Comments Patient Name: Dee Dee Squires Date of : 1970 Department Phone Number: MRI or CT (if unable to have a MRI) is recommended if any of the following apply: 1. Patient has neck or back pain with radiation to extremities. A previous MRI will be accepted if symptoms unchanged since prior MRI. 2. Spinal surgery since last MRI. If yes, order a MRI with and without contrast. 3. Hx or ongoing cancer treatment. Patient will need spine x-ray (Ap/Lat) for axial neck or back pain if not done previously. Fax No. [facility] [phone] or contact front desk clerk [phone] Fax No. [facility] [phone] or contact front desk clerk [phone] Fax No. [facility] [phone] or contact front desk clerk [phone] * Evaluate & Treat - Unlimited Visits (Within 10 days (routine)) - Authorized Specialty Diagnoses / Procedures Referred By Contemma t Referred To Contact Optometry Diagnoses Vision changes Walter Cabrera MD [address] [place] [address] Phone: tel: fax: Referral ID Status Reason Start Date Expiration Date Visits Requested Visits Authorized [id number] Authorized Specialty Services Required [phone] Question Answer Referral Priority Within 10 days (routine) Where should this appointment be scheduled? [facility] Referring for: Optometry Conditions Optometry Conditions Other Optometry (comment) Reason for Visit * Reason Onset Date Comments Follow Up Pt here for 6 mo nt follow up for DM. Pt states she has continued lower back pain that is worsening Medication Administration 08/01/2024 Flu an d/or Pneumo Inj Encounter Details Date Type Department Care Team (Late st Contact Info) Description 08/01/2024 9:00 AM EST Office Visit Family Practice [facility] [address] [place] [address] Walter Cabrera MD [address] [place] [address] Type 2 diabetes mellitus with hemoglobin A1c goal of less than 7.0% ([facility])*; Need for prophylactic vaccination and inoculation against influenza; Lumbar back pain; Morbid obesity (HCC); Heart failure, diastolic, due to HTN (HCC); 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 Active Loratadine 10 MG Oral Tablet Take 1 Tablet by mouth in the morning. Active Albuterol Sulfate HFA 108 (90 Base) MCG/ACT Inhalation Aerosol Solution TAKE 2 PUFFS BY MOUTH EVERY 4 HOURS NEEDED FOR WHEEZE 18 g 3 08/20/20 21 Active Metoprolol Succinate ER 25 MG Oral Tablet Extended Release 24 Hour (toPROL XL) Take 1 Tablet by mouth every evening. This is in addition to the 50 mg tablet in the morning 90 Tablet 5 08/20/20 21 Active Metoprolol Succinate ER 50 MG Oral Tablet Extended Release 24 Hour (toPROL XL)Indications :Heart failure, diastolic, due to HTN (HCC) TAKE 1 TABLET BY MOUTH EVERY MORNING. THIS IS IN ADDITION TO THE 25 MG TABLET IN THE EVENING. 90 Tablet 3 08/23/20 23 Active oxygen IN GAS Use 4-6 %(Oxygen) as directed at bedtime. 4 Liters per minute with exertion, 6 Liters per minute at night 01/19/20 24 Active Rosuvastatin Calcium 10 MG [...] DAY 90 Tablet 2 04/16/20 24 Active Fluticasone-Um eclidin-Vilant 100-62.5-25 MCG/ACT Aerosol Powder Breath Activated (Trelegy Ellipta) Inhale 1 Puff by mouth in the morning. 180 Each 05/02/20 24 Active Folic Acid 1 MG Oral TabletIndicati ons:Heart failure, diastolic, due to HTN (HCC) Take 1 Tablet by mouth in the morning. 90 Tablet 1 05/03/20 24 Active Sertraline HCl 50 MG Oral Tablet (Zoloft) TAKE 1 TABLET BY MOUTH EVERY DAY 90 Tablet 3 05/04/20 24 Active Omeprazole 20 MG Oral Capsule Delayed Release (PriLOSEC) TAKE 1 CAPSULE BY MOUTH EVERY DAY 1 HOUR BEFORE FIRST MEAL OF THE DAY 90 Capsule 3 07/06/20 24 Active Thiamine HCl (VITAMIN B1) 50 MG TABS Take by mouth. 024 Discontinued metFORMIN HCl 500 MG Oral Tablet (Glucophage) 02/16/20 24 024 Discontinued(Lyn guerrero) Hospital, Clinic, or Other Facility Administered Medication Ordered Dose Route Frequency Start Date End Date Status medroxyPROGESTERone (contracep) (DEPO-PROVERA) inj 150 mgIndications:Surveillanc e for Depo-Provera contraception 150 mg IM [id number] 07/06/2018 Active albuterol sulfate (PROVENTIL) (2.5 MG/3ML) 0.083% inhalation solution 2.5 mgIndications:COPD, severity to be determined (HCC) 2.5 mg NEBULIZER Q4H PRN 05/03/2019 Active albuterol sulfate (PROVENTIL) (2.5 MG/3ML) 0.083% inhalation solution 2.5 mgIndications:COPD, severity to be determined (HCC) 2.5 mg NEBULIZER Q4H PRN 05/09/2019 Active medroxyPROGESTERone (contracep) (DEPO-PROVERA) inj 150 mgIndications:Surveillanc e for Depo-Provera contraception 150 mg IM [id number] 07/13/2019 Active medroxyPROGESTERone acetate (DEPO-PROVERA) inj TANMAY 150 mgIndications:Surveillanc e for Depo-Provera contraception 150 mg IM [id number] 07/23/2020 Active documented as of this encounter (statuses as of 08/01/2024) Active Problems Problem Noted Date Diagnosed Date [...] as of this encounter (statuses as of 08/01/2024) Resolved Problems Problem Noted Date Diagnosed Date [...] as of this encounter (statuses as of 08/01/2024) Immunizations Name Administration Dates Next Due Pneumococcal [...] Sign Reading Time Taken Comments Blood Pressure 122/68 08/01/2024 8:56 AM EST Pulse 88 08/01/2024 8:56 AM EST Temperature 36.6 C (97.8 F) 08/01/2024 8:56 AM ES T Respiratory Rate 20 08/01/2024 8:56 AM EST Oxygen Saturation - - Inhaled Oxygen Concentration - - Weight 107.5 kg (237 lb) 08/01/2024 8:56 AM EST Height 154.9 cm (5' 1") 08/01/2024 8:56 AM EST Body Mass Index 44.78 08/01/2024 8:56 AM EST documented in this encounter Patient Instructions * Patient Instructions* Jacinda Moreira LPN - 08/01/2024 8:53 AM EST Diabetes: Keeping Feet Healthy Inspect your feet every day for signs of a problem. Diabetes can damage nerves in your feet and cause neuropathy. This condition makes it hard for you to feel injuries or sore spots. Diabetes can also change blood flow, making it harder for small problems, like a blister, to heal properly. In fact, minor injuries can quickly become serious infections that send you to the hospital. Practice self-care to protect your feet and keep them healthy. Take Special Care Inspect your feet daily for problems such as redness, blisters, cracks, dry skin, or numbness. Use a mirror to see the bottoms of your feet. Or, ask for help. Manage your diabetes. Monitor and control your blood sugar. Take all your medications as prescribed. Avoid walking barefoot, even indoors. Wash your feet with warm water and mild soap. Dry well, especially between toes. Dont treat corns or calluses yourself. Talk to your doctor or skin former (a doctor who specializes in foot care) if you need assistance trimming your toenails. Use moisturizing cream or lotion if you have dry skin, but dont use it between toes. Dont use heating pads on your feet. If you have neuropathy, you could get a burn and not feel it. Stop smoking. Smoking restricts blood flow and can make it harder for wounds to heal. Have Regular Checkups Foot problems can develop quickly. So be sure to follow your healthcare teams schedule for regular checkups. During office visits, take off your shoes and socks as soon as you get in the exam room. Ask your healthcare provider to examine your feet for problems. This will make it easier to find and treat small skin irritations before they get worse. Regular checkups can also help keep track of the blood flow and feeling in your feet. If you have neuropathy, you may need to have checkups more often. Wear Proper Footwear Wearing proper footwear is very important. If areas of your feet have been damaged by too much pressure, your healthcare provider may recommend changing your footwear. In some cases, avoiding high heels or tight work boots may be all thats needed. Or, your healthcare provider may recommend special shoes or custom inserts. These help protect your feet and keep existing irritations from getting worse. If you need special footwear, ask your healthcare provider if you qualify for [employer] diabetic shoe program. Make Sure Shoes and Socks Fit Any pair of shoes--new or old--should feel comfortable as soon as you put them on. There shouldnt be any rubbing when you walk. Wear the right shoe for any activity. For instance, a running shoe is designed to keep your feet injury-free while jogging. Buy shoes at the end of the day, when your feet are larger. Make sure they provide support without feeling too loose. Make sure your socks fit, t oo. Wear soft, seamless, well-padded socks for activity. Cotton or microfiber socks are best to help to absorb sweat. To protect your feet, avoid shoes that are open-toed or open-heeled. If you have questions about what kinds of shoes and socks are best, talk to your healthcare team. Get Regular Exercise Regular exercise improves blood flow in your feet. It also increases foot strength and flexibility.Gentle exercises, like walking or riding a stationary bicycle, are best. You can also do special foot exercises. Just be sure to talk with your healthcare provider before starting any exercise program. Also mention if any exercise causes pain, redness, or other signs of foot problems. Note: If you have any kind of break in the skin of your foot or ankle, keep the area clean. Then call your doctor--especially if the area doesnt appear to be healing. [id number] The [employer], [address] [place] [address], [place] [address]. All rights reserved. This information is not intended as a substitute for professional medical care. Always follow your healthcare professional's instructions. documented in this encounter Progress Notes * Walter Cabrera MD - 08/01/2024 9:17 AM EST SUBJECTIVE: Dee Dee Squires is a 53 year old female. Chief Complaint Patient presents with Follow Up Pt here for 6 month follow up for DM. Pt states she has continued lower back pain that is worsening Medication Administration Flu and/or Pneumo Inj HPI: Here for a routine follow up on multiple medical problems. Her A1c is down to 5.8% off of metformin. I congratulated her on this. She cut way back on alcohol and stopped drinking soda. For now she does not need to take metformin and we will monitor her labs. She has chronic lower back pain. Sister has spinal stenosis. She has no red flags for back pain. She has ongoing problems with her lefteye. Decrease in vision x 2 weeks. She does not have an eye doctor. Patient Active Problem List Diagnosis HTN, goal below 130/80 Gastroesophageal reflux disease with esophagitis Tobacco use disorder Heart failure, diastolic, due to HTN ([facility]) Pulmonary hypertension (HCC) Morbid obesity ([facility]) Chronic right-sided heart failure ([facility]) Type 2 diabetes mellitus with hemoglobin A1c goal of less than 7.0% ([facility]) LARS (obstructive sleep apnea) Mixed restrictive and obstructive lung disease ([facility]) Current Outpatient Medications Medication Sig [...] tablet in the morning 90 Tablet 5 Metoprolol Succinate ER 50 MG Oral Tablet Extended Release 24 Hour (toPROL XL) TAKE 1 TABLET BY MOUTH EVERY MORNING. THIS IS IN ADDITION TO THE 25 MG TABLET IN THE EVENING. 90 Tablet 3 oxygen IN GAS Use 4-6 %(Oxygen) as directed at bedtime. 4 Liters per minute with exertion, 6 Litersper minute at night Rosuvastatin Calcium 10 MG Oral Tablet (Crestor) [...] BY MOUTH EVERY DAY 90 Tablet 2 Oruqkgbewtp-Ezvgriffp-Tbyjlu 100-62.5-25 MCG/ACT Aerosol Powder Breath Activated (Trelegy Ellipta) Inhale 1 Puff by mouth in the morning. 180 Each 0 Folic Acid 1 MG Oral Tablet Take 1 Tablet by mouth in the morning. 90 Tablet 1 Sertraline HCl 50 MG Oral Tablet (Zoloft) TAKE 1 TABLET BY MOUTH EVERY DAY 90 Tablet 3 Omeprazole 20 MG Oral Capsule Delayed Release (PriLOSEC) TAKE 1 CAPSULE BY MOUTH EVERY DAY 1 HOUR BEFORE FIRST MEAL OF THE DAY 90 Capsule 3 Current Facility-Administered Medications Medication Dose Route [...] Edgar CRNP 150 mg at 02/20/21 0944 Allergy: Review of patient's allergies indicates: Allergen Reactions Penicillins Nausea/vomiting OBJECTIVE: BP 122/68 | Pulse 88 | Temp 36.6 C (97.8 F) | Resp 20 | Ht 1.549 m (5' 1") | Wt 107.5 kg (237 lb) | BMI 44.78 kg/m | BSA 2.15 m General: alert, healthy, and no distress Head: Normocephalic, No masses, lesions, tenderness or abnormalities Eye Exam: PERRLA, extraocular movements intact, conjunctiva are pink and non- injected, sclera clear Neck: supple, no adenopathy, no bruits, thyroid normal size, non-tender, without nodularity Lungs: chest symmetric with normal AP diameter, no chest deformities noted, no chest wall tenderness, lungs clear to auscultation Heart: regular rate & rhythm, no murmur, and no gallops Abdomen: abdomen soft, non-tender, normal bowel sounds, and no masses or organomegaly Extremities: less than 2 second capillary refill, no joint deformities, effusion, or inflammation Neuro Exam: alert & oriented x 3 with fluent speech, no focal motor/sensory deficits, gait normal, reflexes normal and symmetric Skin: skin color, texture, turgor are normal, no rashes or significant lesions ASSESSMENT AND PLAN: (E11.9) Type 2 diabetes mellitus with hemoglobin A1c goal of less than 7.0% (HCC) (primary encounter diagnosis) Plan: TELEMEDICINE DIABETIC EYE, DIABETES FOOT EXAM -@ goal off of medication (Z23) Need for prophylactic vaccination and inoculation against influenza Plan: INFLUENZA VAC, TRIVALENT, (IIV3), PF, 0.5 ML (FLUZONE) (M54.50) Lumbar back pain Plan: XR L SPINE AP AND LATERAL, PAIN MEDICINE REFERRAL OP (E66.01) Morbid obesity (HCC) Plan: diet/exercise (I11.0, I50.30) Heart failure, diastolic, due to HTN (HCC) Plan: continue medical mgmt (J43.9, J98.4) 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 No other complaints were offered at this time. Walter Cabrera MD * Jacinda Moreira LPN - 08/01/2024 8:53 AM EST Images from the original note were not included. The importance of having a yearly diabetic eye exam has been discussed with patient. Order and/or Referral placed along with patient instructions. Provider made aware. Jacinda Moreira LPN Diabetic Retinopathy: Evaluating Your Eyes Diabetic retinopathy is a condition that happens when diabetes damages blood vessels in the rear ofthe eye. It can lead to vision loss. To help catch it early, have a complete dilated eye exam at least once a year. During the exam, the eye healthcare provider will review your medical history, examine your eyes, and check your vision. Women who are and have pre-existing type 1 or type 2 diabetes have an increased risk of retinopathy. Women with diabetes should have an eye exam before or in the first trimester. They should continue to be monitored every trimester and for 1 year after delivery, depending on the severity of the retinopathy. The retina is the light-sensitive part of the eye that allows you to see. High blood sugar can damage blood vessels of the retina and cause them to leak or bleed. This damage can lead to abnormal blood vessel growth. This condition is called diabetic retinopathy. You may not have symptoms early in the disease. Later, there may be floaters, blurred vision, or poor night vision. There may also be partial or complete vision loss. Early cases of diabetic retinopathy can be treated by carefully controlling blood sugar, blood pressure, and cholesterol. Surgery or laser treatments may help restore lost vision. Laser surgery can shrink abnormal blood vessels or close ones that are leaking. Medicines injected in the eye can help decrease swelling of the retina. Home care Take all medicines, including insulin or oral diabetic medicine, exactly as prescribed. Follow the diet advised by your healthcare provider. If you have high cholesterol, follow a low-fat, low-cholesterol diet. Monitor blood sugars as advised. Try to achieve your ideal weight. If you smoke, quit smoking. Tobacco use worsens the effect of diabetes on your blood vessels. If you have high blood pressure, consider buying an automatic blood pressure machine. These are available at most pharmacies. Use this to monitor your blood pressure. Report your blood pressure readings to your healthcare provider. Exercise regularly. Follow-up care Follow up with your healthcare provider, or as advised. You must have a complete eye exam at least once a year, more often if needed. Untreated diabetic retinopathy can lead to complete loss of vision. Occupational therapists can help you adapt to any vision loss you have, including learning techniques to safely administer insulin. When to seek medical advice Call your healthcare provider right away if any of these occur. Increasing blurriness or any sudden changes in your vision Sudden flashes of light inside your eye New floaters (small dots or strings that seem to be moving across your field of vision) Eye pain, redness, or discharge from your eyelid New dark spots appearing in your field of vision Halos around lights Dimness of vision Partial or complete loss of vision Women with diabetes should have a complete eye exam before becoming , or as soon as possible when they find out they are . Retinopathy sometimes worsens during . Your eye exam Your eye healthcare provider uses an eye chart and other tools to check your vision. Then he or sheexamines your eyes for signs of disease. You are given eye drops to widen (dilate) your pupils. Youmay have one or more of the following tests: Tonometry to measure fluid pressure inside the eye. Slit lamp exam to allow the healthcare provider to view the structures of your eye. Ultrasound to create an image of the eye using sound waves. Ultrasound may be used if blood is found in the clear gel that fills the eye (vitreous). Ocular coherence tomography (OCT) to create an image of the retina using light waves. This shows ifthere is fluid leaking into certain parts of the eye. It can also measure the thickness of the retina. Fluorescein angiography This test may be done to check the health of the inside lining of the eye (retina). It also checks the tiny blood vessels (capillaries) that carry blood to the retina. During the test: Photographs are taken of the retina. A dye is then injected into the bloodstream through the arm or hand. The dye travels to the capillaries in the eye. More photographs are taken of the retina. The dye causes the capillaries to stand out on the photographs. You may feel brief nausea during the procedure. For a few hours after the test, your skin, eyes, and urine may appear yellow. Talk with your healthcare provider for more information about this test. Date Last Reviewed: 02/19/[id number] The [employer]. [address] [place] [address], [place] [address]. All rights reserved. This information is not intended as a substitute for professional medical care. Always follow your healthcare professional's instructions. Socks and Shoes Removed for Annual Diabetic Foot Screening RIGHT FOOT: No Reddened, Cracking, Or Open Areas Noted. RIGHT Dorsalis Pedis Pulse: Palpable RIGHT Posterior Tibial Pulse: Palpable RIGHT Monofilament:Patient reports feeling monofilament pressure on plantar surface of foot LEFT FOOT: No Reddened, Cracking or Open Areas Noted. LEFT Dorsalis Pedis Pulse: Palpable LEFT Posterior Tibial Pulse: Palpable LEFT Monofilament:Patient reports feeling monofilament pressure on plantar surface of foot Do you need diabetic shoes: No DM Foot Exam completed today. Provider aware. Jacinda Moreira LPN PRE - ADMINISTRATION DOCUMENTATION Are you experiencing any cold symptoms or fever? No Have you had Guillain-Wyocena Syndrome (an illness that causes paralysis) within the last 6 weeks? No Have you had the flu shot in the past? YES Have you ever had a reaction to the flu shot? No Jacinda Moreira LPN, 08/01/2024 8:59 AM Immunization Administration Documentation Time Out Procedure Performed: Yes Patient Identified (Ask Name/Date of ): Yes Does the patient have a fever greater than 101 degrees today? No Patient allergic to latex? No VFC Stock: No Immunization(s) verified: Yes, Immunization Name: Flu, VIS Sheet(s) given: Yes Verified Side and Site: Yes Verified Shot(s) with Parent(s)/Patient: Yes documented in this encounter Nursing Notes * Jacinda Moreira LPN - 08/01/2024 8:56 AM EST The patient has been properly identified by confirmation of name and date of . Chief Complaint Patient presents with Follow Up Pt here for 6 month follow up for DM. Pt states she has continued lower back pain that is worsening documented in this encounter Plan of Treatment Upcoming Encounters Date Type Department Care Team (Late st Contact Info) Description 09/28/2024 9:40 AM EST Office Visit Pulmonary Medicine, [facility] [address] [place] [address] Jono Cooper MD [address] [place] [address] 10/12/2024 10:00 AM EST Office Visit Interventional Pain Center, [facility] [place] [address] Noelle Sen PA-C [address] [place] [address] 01/29/2025 8:20 AM EDT Office Visit Family Practice [facility] [place] [address] Walter Cabrera MD [address] [place] [address] Pending Results Name Type Priority Associated Diagnoses Date /Time XR L SPINE AP AND LATERAL Medical Imaging Routine Lumbar back pain 08/01/2024 9:30 AM EST Scheduled Orders Name Type Priority Associated Diagnoses Orde r Schedule COLOGUARD Lab Unrestricted Lab Special screening for malignant neoplasms, colon Ordered: 08/01/2024 Scheduled Referrals Name Type Priority Associated Diagnoses Orde r Schedule ADULT/PEDS OPHTHALMOLOGY/OPTOM ETRY REFERRAL OP Referral Within 10 days (routine) Vision changes Ordered: 08/01/2024 PAIN MEDICINE REFERRAL OP Referral Within 10 days (routine) Lumbar back pain Ordered: 08/01/2024 Health Maintenance Due Date Last Done Comments Diabetic Eye Exam 11/19/1989 Hepatitis B Vaccine (1 of 3 - 19+ 3-dose series) 11/19/1990 HPV/Co-Test 11/19/2001 Cologuard 11/19/2016 Colonoscopy 11/19/2016 Colorectal Cancer Screening 11/19/2016 Fecal Occult Blood Test 11/19/2016 Sigmoidoscopy 11/19/2016 Depression Screening 07/10/2021 07/10/2020 Zoster Vaccines (1 of 2) 11/19/2021 DISCUSS TOBACCO CESSATION (REFER TO SMARTSET #3215) 08/06/2022 08/06/2021 COVID-19 Vaccine ( season) 2024 Mammogram 11/16/2024 11/16/2023, 10/22, 11/05/2021, Additional history exists GFR 12/13/2024 12/14/2023, 03/0 01/2024, 09/10/2023, Additional history exists Cervical Cancer Screening 01/12/2025 HbA1c 01/12/2025 07/14/2024, 05/3 09/2023, 08/02/2023, Additional history exists Pap Smear 01/12/2025 01/12/2022, 06/20, 06/18/2015, Additional history exists Albumin/Creatinine Ratio 02/17/2025 02/18/2024 Diabetic Foot Exam 08/01/2025 08/01/2024 Lipid Panel [...] as of this encounter Visit Diagnoses Diagnosis Type 2 diabetes mellitus with hemoglobin A1c goal of less than 7.0% (HCC)- Primary Need for prophylactic vaccination and inoculation against influenza Lumbar back pain Lumbago Morbid obesity (HCC) Morbid obesity Heart failure, diastolic, due to HTN (HCC) Unspecified hypertensive heart disease with heart failure 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
--- OUTSIDE RECORDS SUMMARY | 2024-12-01 23:12 | External Medical Summary ---
Author Name Unknown Address Unknown Organization K01:[facility] - [address] [facility] [address] Laboratory Report Ordering Provider Test Date Status RICHARD LEAL 07/14/2024 12:49:47 Final Observation Date Value Abnormality Reference (Units ) Status HbA1C 07/14/2024 12:49:47 5.8 Above high normal 4. 0-5.6 (%) Final The use of HbA1c to monitor glycemic status is based on normal hemoglobin and HbA composition. This test should not be used in patients with abnormal hemoglobin that affects the half life of the red blood cell or the in vivo glycation rates. Glucose, estimated average 07/14/2024 12:49:47 120 <126 (mg/dL) Final Performing Location [facility] - [address] [facility] [address]
--- OUTSIDE RECORDS SUMMARY | 2024-12-01 23:12 | External Medical Summary | Summary of Care ---
Author Name Unknown Organization [facility] Address [address] [place] [address] Phone [phone] Care Team Providers Care Senior Outside Sales Representative Name Role Phone Walter Cabrera MD Primary Care Provider [phone] Reason for Visit * Reason Comments eRx-Medication Refill Encounter Details Date Type Department Care Team (Late st Contact Info) Description 10/05/2024 Refill Cardiology, [facility] [address] [facility] [place] [address] Miranda Booth CRNP [address] [place] [address] Heart failure, diastolic, due to HTN (HCC) Allergies Active Allergy Reactions Criticality Noted Date Comments Penicillins Nausea/vomiting 06/29/2016 documented as of this encounter (statuses as of 10/06/2024) Medications Multiple Vitamins-Roll Icer Machine als (WOMENS MULTIVITAMIN) TABS Take by mouth. [...] THE DAY 90 Capsule 3 4 Active Metoprolol Succinate ER 50 MG Oral Tablet Extended Release 24 Hour (toPROL XL)Indications :Heart failure, diastolic, due to HTN (HCC) TAKE 1 TABLET BY MOUTH EVERY MORNING. THIS IS IN ADDITION TO THE 25 MG TABLET IN THE EVENING. 90 Tablet 5 Active Metoprolol Succinate ER 50 MG Oral Tablet Extended Release 24 Hour (toPROL XL)Indications :Heart failure, diastolic, due to HTN (HCC) TAKE 1 TABLET BY MOUTH EVERY MORNING. THIS IS IN ADDITION TO THE 25 MG TABLET IN THE EVENING. 90 Tablet 3 3 025 Discontinued Hospital, Clinic, or Other Facility Administered Medication Ordered Dose Route Frequency Start Date End Date Status medroxyPROGESTERone (contracep) (DEPO-PROVERA) inj 150 mgIndications:Surveillanc e for Depo-Provera contraception 150 mg IM [id number] 07/06/2018 Active albuterol sulfate (PROVENTIL) (2.5 MG/3ML) 0.083% inhalation solution 2.5 mgIndications:COPD, severity to be determined (HCC) 2.5 mg NEBULIZER Q4H PRN 05/03/2019 Active albuterol sulfate (PROVENTIL) (2.5 MG/3ML) 0.083% inhalation solution 2.5 mgIndications:COPD, severity to be determined (HCC) 2.5 mg NEBULIZER Q4H PRN 05/09/2019 Active medroxyPROGESTERone (contracep) (DEPO-PROVERA) inj 150 mgIndications:Surveillanc e for Depo-Provera contraception 150 mg IM [id number] 07/13/2019 Active medroxyPROGESTERone acetate (DEPO-PROVERA) inj TANMAY 150 mgIndications:Surveillanc e for Depo-Provera contraception 150 mg IM [id number] 07/23/2020 Active documented as of this encounter [...] encounter Miscellaneous Notes * Telephone Encounter - Shannon Patel [facility] - 10/06/2024 9:33 AM ESTSigned Prescriptions: Disp Refills Metoprolol Succinate ER 50 MG Oral Tablet *90 Tab*0 Sig: TAKE 1 TABLET BY MOUTH EVERY MORNING. THIS IS IN ADDITION TO THE 25 MG TABLET IN THE EVENING.Authorizing Provider: MIRANDA BOOTH User: SHANNON PATEL * Telephone Encounter - Shannon Patel [facility] - 10/06/2024 9:30 AM EST Please contact patient so that an appointment can be scheduled with her CARDIOLOGY provider. Refillauthorized to hold patient over in the mean time. Last Visit: 09/03/2023 (in office)*RTC 6 months Next Visit: Visit date not found Shannon Patel, Pharm.D. Clinical Pharmacist [facility] [phone] documented in this encounter Plan of Treatment Upcoming Encounters Date Type Department Care Team (Late st Contact Info) Description 10/12/2024 8:40 AM EST Office Visit Pulmonary Medicine, [facility] [address] [facility] [place] [address] Jono Cooper MD [address] [place] [phone] 10/12/2024 10:00 AM EST Office Visit Interventional Pain Center [facility] [address] [place] [phone] Noelle Sen PA-C [address] [place] [address] 11/17/2024 10:00 AM EST Imaging Radiology [facility] [place] [address] [place] [address] 11/17/2024 10:45 AM EST Imaging Radiology [facility] [place] [address] [place] [phone] 01/29/2025 8:20 AM EDT Office Visit Family Practice [facility] [address] [place] [address] Walter Cabrera MD [address] [place] [address] Health Maintenance Due Date Last Done Comments [...] failure documented in this encounter Care Teams Senior Outside Sales Representative Relationship Specialty Start Date End Date Walter Cabrera MD [address] [place] [address] PCP - General Family Medicine 03/28/24 documented as of this encounter
--- OUTSIDE RECORDS SUMMARY | 2024-12-01 23:12 | External Medical Summary | Summary of Care ---
Author Name Unknown Organization [facility] Address [address] [place] [address] Phone [phone] Care Team Providers Care Web Art Director Name Role Phone Walter Cabrera MD Primary Care Provider [phone] Reason for Visit * Reason Comments Outpatient Testing Encounter Details Date Type Department Care Team (Late st Contact Info) Description 07/14/2024 12:50 PM EDT Laboratory Laboratory, [facility] [address] [place] [address] [facility] [address] [place] [address] Diabetes mellitus (HCC) Allergies Active Allergy Reactions Criticality Noted Date Comments Penicillins Nausea/vomiting 06/29/2016 documented as of this encounter (statuses as of 07/14/2024) Medications Medication Sig Dispensed Refills Start Date End Date Status Multiple Vitamins-Minerals (WOMENS MULTIVITAMIN) TABS Take by mouth. Ac tive Thiamine HCl (VITAMIN B1) 50 MG TABS Take by mouth. Active Loratadine 10 [...] Liters per minute at night 01/19/2024 Active metFORMIN HCl 500 MG Oral Tablet (Glucophage) 02/16/2024 Active Rosuvastatin Calcium 10 MG Oral Tablet (Crestor) Take 1 Tablet by mouth in the morning. 90 Tablet 3 02/18/2024 Active Allopurinol 300 MG Oral Tablet (Zyloprim) Take 1 Tablet by mouth in the morning. 90 Tablet 3 03/28/2024 Active Furosemide 40 MG Oral Tablet (Lasix) TAKE 1 TABLET BY MOUTH EVERY DAY 90 Tablet 2 04/10/2024 Active Lisinopril 5 MG Oral Tablet (Prinivil)Indication s:Heart failure, diastolic, due to HTN (HCC),HTN, goal below 130/80 TAKE 1 TABLET BY MOUTH EVERY DAY 90 Tablet 2 04/16/2024 Active Spironolactone 25 MG Oral Tablet (Aldactone) TAKE 1 TABLET BY MOUTH EVERY DAY 90 Tablet 2 04/16/2024 Active Fluticasone-Umeclidi n-Vilant 100-62.5-25 MCG/ACT Aerosol Powder Breath Activated (Trelegy Ellipta) Inhale 1 Puff by mouth in the morning. 180 Each 05/02/2024 Active Folic Acid 1 MG Oral TabletIndications:He art failure, diastolic, due to HTN (HCC) Take [...] nce for Depo-Provera contraception 150 mg IM [id number] 07/06/2018 Active albuterol sulfate (PROVENTIL) (2.5 MG/3ML) 0.083% inhalation solution 2.5 mgIndications:COPD, severity to be determined (HCC) 2.5 mg NEBULIZER Q4H PRN 05/03/2019 Active albuterol sulfate (PROVENTIL) (2.5 MG/3ML) 0.083% inhalation solution 2.5 mgIndications:COPD, severity to be determined (HCC) 2.5 mg NEBULIZER Q4H PRN 05/09/2019 Active medroxyPROGESTERone (contracep) (DEPO-PROVERA) inj 150 mgIndications:Surveilla nce for Depo-Provera contraception 150 mg IM [id number] 07/13/2019 Active medroxyPROGESTERone acetate (DEPO-PROVERA) inj TANMAY 150 mgIndications:Surveilla nce for Depo-Provera contraception 150 mg IM [id number] 07/23/2020 Active Albuterol Sulfate (Proventil) (2.5 MG/3ML) 0.083% inhalation solution 2.5 mgIndications:Chronic obstructive pulmonary disease (COPD) (HCC) 2.5 mg NEBULIZER PRN 07/30/2023 07/29/2024 Acti ve Albuterol Sulfate (Proventil) (5 MG/ML) 0.5% *conc* inhalation solution 2.5 mgIndications:Chronic obstructive pulmonary disease (COPD) (HCC) 2.5 mg NEBULIZER PRN 07/30/2023 07/29/2024 Acti ve documented as of this encounter (statuses as of 07/14/2024) Active Problems Problem Noted Date Diagnosed Date Type 2 diabetes mellitus wit h hemoglobin A1c goal of less than 7.0% 02/18/2024 LARS (obstructive sleep apnea) 02/18/2024 COPD, group B, by GOLD 2017 classification 01/30 Overview: Per COPD GOLD Classification Chronic right-sided heart failure 08/27/2021 Pulmonary hypertension 07/15/2021 Morbid obesity 07/15/2021 Restrictive lung disease 06/16/2021 Overview: Seen on PFTs from 2018 Heart failure, diastolic, due to HTN 05/03/2019 Gastroesophageal reflux disease with esophagitis 08/06/2016 Tobacco use disorder 08/06/2016 HTN, goal below 130/80 03/13/2011 documented as of this encounter (statuses as of 07/14/2024) Resolved Problems Problem Noted Date Diagnosed Date Resolved Date Gastroesophageal reflux dise ase without esophagitis 09/03/2023 09/03/2023 Right foot pain 02/03/2023 09/03/2023 Food insecurity 06/01/2022 09/03/2023 Overview: Per [facility] Protocol Sinus tachycardia 08/27/2021 01/12/2022 Supplemental oxygen dependent 07/15/2021 01/12/2022 COPD, moderate 06/16/2021 02/02/2024 Overview: Per COPD GOLD Classification Severe obesity with body mas s index (BMI) of 35.0 to 39.9 with serious comorbidity 06/16/2021 Prediabetes 09/02/2020 09/04/2021 Overview: Per Prediabetes protocol Body mass index (BMI) of 40. 0 to 44.9 in adult 07/29/2020 06/16/2021 Overview: Per Obesity protocol Acute non-recurrent pansinusitis 08/21/2018 08/21/2018 Major depressive disorder 02/21/2009 Overview: ICD-10 update of inactive term Hidradenitis 12/14/2005 08/06/2016 CERVICAL DISC DEGEN 11/15/2004 08/06/20 16 MILD CERVICAL SPINAL STENOSIS 11/15/2004 08/06/2016 documented as of this encounter (statuses as of 07/14/2024) Immunizations Name Administration Dates Next Due Pneumococcal Conjugate Vacc, 13 Valent (Prevnar) 08/03/2019 Pneumococcal Polysaccharide PPV23 (Pneumovax) Seasonal Influenza, PF, 6 M & above, IM , (FluLaval or Fluzone) 06/03/2020,07/15/2019 TDAP (age 10 and older)(Boostrix) 05/03/2019 TDAP, [...] have money to get more. Sometimes true Utilities Answer Date Recorded Do you have trouble paying y our heating, water, or electric bill? (Adult - for ages 18 years and over) Not on file 03/07/2024 Is your family able to pay t he heat, water, or electric bill? (Household - for ages 0-17 years) Not on file 03/07/2024 Does your family have access to good internet? (Household - for ages 0-17 years) Not on file 03/07/2024 Social Connections Answer Date Recorded How often do you feel lonely or isolated from those around you? (Adult - for ages 18 years and over) Not on file 03/07/2024 Sex and Gender Information Value Date Recorded [...] 08/01/2024 9:00 AM EST Office Visit Family [facility] [address] [place] [address] Walter Cabrera MD [address] [place] [address] 09/28/2024 9:40 AM EST Office Visit Pulmonary Medicine, [facility] [address] [place] [address] Jono Cooper MD [address] [place] [address] Pending Results Name Type Priority Associated Diagnoses Date /Time HEMOGLOBIN A1C Lab Routine Diabetes mellitus (HCC) 07/14/2024 12:49 PM EDT Health Maintenance Due Date Last Done Comments Diabetic Eye Exam 11/19/1989 Diabetic Foot Exam 11/19/1989 Hepatitis B Vaccine (1 of 3 - 19+ 3-dose series) 11/19/1990 HPV/Co-Test 11/19/2001 Cologuard 11/19/2016 Colonoscopy 11/19/2016 Colorectal Cancer Screening 11/19/2016 Fecal Occult Blood Test 11/19/2016 Sigmoidoscopy 11/19/2016 Depression Screening 07/10/2021 07/10/2020 Zoster Vaccines (1 of 2) 11/19/2021 DISCUSS TOBACCO CESSATION (REFER TO SMARTSET #3291) 08/06/2022 08/06/2021 COVID-19 Vaccine ( season) 2024 Influenza Vaccine (FLU shot) (#1) 2024 06/03/2020, 07/15/2019 HbA1c 08/19/2024 02/18/2024, 07/21, 08/02/2020, Additional history exists Mammogram 11/16/2024 11/16/2023, 10/22, 11/05/2021, Additional history exists GFR 12/13/2024 12/14/2023, 03/0 01/2024, 09/10/2023, Additional history exists Cervical Cancer Screening 01/12/2025 Pap Smear 01/12/2025 01/12/2022, 06/20, 06/18/2015, Additional history exists Albumin/Creatinine Ratio 02/17/2025 02/18/2024 O2 ASSESSMENT COMPLETED IN PAST YEAR FOR COPD 03/28/2025 03/28/2024 Lipid Panel 02/17/2029 02/18/2024, 03/0 01/2024, 08/02/2023, Additional history exists DTap/Tdap Vaccines (3 - Td or Tdap) 05/03/2029 05/03/2019, 02/21/2009 Pneumococcal Vaccine: Pediatrics (0 to 5 Years) and At-Risk Patients (6 to 64 Years) (3 of 3 - PPSV23 or PCV20) 11/19/2036 12/28/2019, 08/03/2019 Alpha-1 Antitrypsin Completed 08/06/2021 Lung Cancer Screening Completed 11/16/2023, 021 HPV (Gardasil) Vaccine Aged Out No lo nger eligible based on patient's age to complete this topic MENINGOCOCCAL (MENACTRA/MENVEO) Aged Out No longer eligible based on patient's age to complete this topic documented as of this encounter Medical Devices Not on filedocumented as of this encounter Visit Diagnoses Diagnosis Diabetes mellitus (HCC) Type II or unspecified type diabetes mellitus without mention of complication, not stated as uncontrolled documented in this encounter Care Teams Web Art Director Relationship Specialty Start Date End Date Walter Cabrera MD [address] [place] [address] PCP - General Family Medicine 03/28/24 documented as of this encounter
--- OUTSIDE RECORDS SUMMARY | 2024-12-01 23:12 | External Medical Summary | Summary of Care ---
Author Name Unknown Organization [facility] Address [address] [place] [address] Phone [phone] Care Team Providers Care Packing House Supervisor Name Role Phone Walter Cabrera MD Primary Care Provider [phone] Reason for Visit * Reason Onset Date Comments Health Maintenance 10/05/2024 Encounter Details Date Type Department Care Team (Late st Contact Info) Description 10/05/2024 Telephone Family Practice [facility] [address] [place] [address] Walter Cabrera MD [address] [facility] [place] [phone] Health Maintenance Allergies Active Allergy Reactions Criticality Noted Date Comments Penicillins Nausea/vomiting 06/29/2016 documented as of this encounter (statuses as of 10/05/2024) Medications Multiple Vitamins-Minera ls (WOMENS MULTIVITAMIN) TABS [...] e for Depo-Provera contraception 150 mg IM [id number] 07/06/2018 Active albuterol sulfate (PROVENTIL) (2.5 MG/3ML) 0.083% inhalation solution 2.5 mgIndications:COPD, severity to be determined (HCC) 2.5 mg NEBULIZER Q4H PRN 05/03/2019 Active albuterol sulfate (PROVENTIL) (2.5 MG/3ML) 0.083% inhalation solution 2.5 mgIndications:COPD, severity to be determined (HCC) 2.5 mg NEBULIZER Q4H PRN 05/09/2019 Active medroxyPROGESTERone (contracep) (DEPO-PROVERA) inj 150 mgIndications:Surveillanc e for Depo-Provera contraception 150 mg IM [id number] 07/13/2019 Active medroxyPROGESTERone acetate (DEPO-PROVERA) inj TANMAY 150 mgIndications:Surveillanc e for Depo-Provera contraception 150 mg IM [id number] 07/23/2020 Active documented as of this encounter (statuses as of 10/05/2024) Active Problems Problem Noted Date Diagnosed Date [...] as of this encounter (statuses as of 10/05/2024) Resolved Problems Problem Noted Date Diagnosed Date [...] as of this encounter (statuses as of 10/05/2024) Immunizations Name Administration Dates Next Due Pneumococcal [...] encounter Miscellaneous Notes * Telephone Encounter - Judy Amos LPN - 10/05/2024 9:10 AM EST Care Gaps Comprehensive Care Outreach Last Office/Telemedicine Visit: 08/01/2024 (in office), Visit date not found (telemedicine) Next Office Visit: 01/29/2025 Hemoglobin AIC Results: Lab Results Component Value Date/Time HEMOGLOBIN A1C - [facility] 5.8 (H) 07/14/2024 12:49 PM HEMOGLOBIN A1C - [facility] 5.6 02/18/2024 12:57 PM HEMOGLOBIN A1C - [facility] 6.5 (H) 08/02/2023 09:40 AM HEMOGLOBIN A1C - [facility] 6.1 (H) 08/02/2020 09:41 AM HEMOGLOBIN A1C - [facility] 6.9 (H) 05/09/2019 08:07 AM BP Readings from Last 1 Encounters: 08/01/24 122/68 Reviewed Health Maintenance below: Health Maintenance Topic Date Due Hepatitis B Vaccine (1 of 3 - 19+ 3-dose series) Never done Colorectal Cancer Screening Never done Depression Screening 07/10/2021 Zoster Vaccines (1 of 2) Never done DISCUSS TOBACCO CESSATION (REFER TO SMARTSET #3291) 08/06/2022 COVID-19 Vaccine ( - season) Never done Mammogram 11/16/2024 GFR 12/13/2024 Pneumococcal Vaccine: 50+ Years (3 of 3 - PCV20 or PCV21) 12/27/2024 HbA1c 01/12/2025 Cologuard follow will return Mamm nov 16 scheduled Labs spring ordered will walk in Care Gap Outreach Action Taken: Spoke to patient documented in this encounter Plan of Treatment Upcoming Encounters Date Type Department Care Team (Late st Contact Info) Description 10/12/2024 8:40 AM EST Office Visit Pulmonary Medicine, [address] [place] [address] Jono Cooper MD [address] [place] [address] 10/12/2024 10:00 AM EST Office Visit Interventional Pain Center [facility] [address] [place] [phone] Noelle Sen PA-C [address] [place] [address] 11/17/2024 10:00 AM EST Imaging Radiology [address], [place] [address] [place] [phone] 11/17/2024 10:45 AM EST Imaging Radiology [address], [place] [address] [place] [phone] 01/29/2025 8:20 AM EDT Office Visit Family Practice [facility] [address] [place] [address] Walter Cabrera MD [address] [place] [address] Scheduled Orders Name Type Priority Associated Diagnoses Orde r Schedule MAMMOGRAM SCREENING KAREEM BILATERAL Medical Imaging Routine Encounter for screening mammogram for malignant neoplasm of breast Expected: 10/05/2024, Expires: 11/05/2025 HEMOGLOBIN A1C Lab Routine Diabetes mellitus (HCC) Expected: 01/03/2025, Expires: 10/05/2025 BASIC METABOLIC PANEL Lab Routine Hypertension, unspecified type Expected: 01/03/2025, Expires: 10/05/2025 Health Maintenance Due Date Last Done Comments [...] this encounter Visit Diagnoses Diagnosis Encounter for screening mammogram for malignant neoplasm of breast- Primary Other screening mammogram Diabetes mellitus (HCC) Type II or unspecified type diabetes mellitus without mention of complication, not stated as uncontrolled Hypertension, unspecified type documented in this encounter Care Teams Packing House Supervisor Relationship Specialty Start Date End Date Walter Cabrera MD [address] [place] [address] PCP - General Family Medicine 03/28/24 documented as of this encounter
--- OUTSIDE RECORDS SUMMARY | 2024-12-01 23:12 | External Medical Summary | Summary of Care ---
Author Name Unknown Organization [facility] Address [address] [place] [address] Phone [phone] Care Team Providers Care Methods Analyst Name Role Phone Walter Cabrera MD Primary Care Provider [phone] Encounter Details Date Type Department Care Team (Late st Contact Info) Description 10/10/2024 Orders Only PATIENT PORTAL DO NOT DELETE THIS DEPT [facility] [address] Allergies Active Allergy Reactions Criticality Noted Date Comments Penicillins Nausea/vomiting 06/29/2016 documented as of this encounter (statuses as of 10/10/2024) Medications Multiple Vitamins-Minera ls (WOMENS MULTIVITAMIN) TABS [...] e for Depo-Provera contraception 150 mg IM [id number] 07/06/2018 Active albuterol sulfate (PROVENTIL) (2.5 MG/3ML) 0.083% inhalation solution 2.5 mgIndications:COPD, severity to be determined (HCC) 2.5 mg NEBULIZER Q4H PRN 05/03/2019 Active albuterol sulfate (PROVENTIL) (2.5 MG/3ML) 0.083% inhalation solution 2.5 mgIndications:COPD, severity to be determined (HCC) 2.5 mg NEBULIZER Q4H PRN 05/09/2019 Active medroxyPROGESTERone (contracep) (DEPO-PROVERA) inj 150 mgIndications:Surveillanc e for Depo-Provera contraception 150 mg IM [id number] 07/13/2019 Active medroxyPROGESTERone acetate (DEPO-PROVERA) inj TANMAY 150 mgIndications:Surveillanc e for Depo-Provera contraception 150 mg IM [id number] 07/23/2020 Active documented as of this encounter (statuses as of 10/10/2024) Active Problems Problem Noted Date Diagnosed Date [...] as of this encounter (statuses as of 10/10/2024) Resolved Problems Problem Noted Date Diagnosed Date [...] as of this encounter (statuses as of 10/10/2024) Immunizations Name Administration Dates Next Due Pneumococcal [...] 8:40 AM EST Office Visit Pulmonary Medicine, [facility] [address] [facility] [place] [address] Jono Cooper MD [address] [place] [address] 10/12/2024 10:00 AM EST Office Visit Interventional Pain Center [facility] [address] [place] [phone] Noelle Sen PA-C [address] [place] [address] 11/17/2024 10:00 AM EST Imaging Radiology [address] [place] [phone] 11/17/2024 10:45 AM EST Imaging Radiology [address] [place] [phone] 01/29/2025 8:20 AM EDT Office Visit Family Practice [facility] [address] [place] [address] Walter Cabrera MD [address] [place] [address] Health Maintenance Due Date Last Done Comments Hepatitis B Vaccine (1 of 3 - 19+ 3-dose series) 11/19/1990 HPV/Co-Test 11/19/2001 Cologuard 11/19/2016 Colonoscopy 11/19/2016 Colorectal Cancer Screening 11/19/2016 Fecal Occult Blood Test 11/19/2016 Sigmoidoscopy 11/19/2016 Depression Screening 07/10/2021 07/10/2020 Zoster Vaccines (1 of 2) 11/19/2021 DISCUSS TOBACCO CESSATION (REFER TO SMARTSET #1241) 08/06/2022 08/06/2021 COVID-19 Vaccine ( season) 2024 Mammogram 11/16/2024 11/16/2023, 02/2 09/2022, 11/05/2021, Additional history exists GFR 12/13/2024 12/14/2023, 03/0 01/2024, 09/10/2023, Additional history exists Pneumococcal Vaccine: 50+ Years (3 of 3 - PCV20 or PCV21) 12/27/2024 12/28/2019, 08/03/2019 Cervical Cancer Screening 01/12/2025 HbA1c 01/12/2025 07/14/2024, 05/09/2023, 08/02/2023, Additional history exists Pap Smear 01/12/2025 [...] filedocumented as of this encounter Care Teams Methods Analyst Relationship Specialty Start Date End Date Walter Cabrera MD [address] [place] [address] PCP - General Family Medicine 03/28/24 documented as of this encounter
--- OUTSIDE RECORDS SUMMARY | 2024-12-01 23:12 | External Medical Summary | Summary of Care ---
Author Name Unknown Organization [facility] Address [address] [place] [address] Phone [phone] Care Team Providers Care Accounting Machine Mechanic Name Role Phone Walter Cabrera MD Primary Care Provider [phone] [phone] Reason for Visit * Reason Comments eRx-Medication Refill Encounter Details Date Type Department Care Team (Late st Contact Info) Description 10/05/2024 Refill Cardiology, [facility] [place] [address] [facility] [place] [address] Michaela Booth CRNP [address] [place] [address] Heart failure, diastolic, due to HTN (HCC) Allergies Active Allergy Reactions Criticality Noted Date Comments Penicillins Nausea/vomiting 06/29/2016 documented as of this encounter (statuses as of 10/11/2024) Medications Multiple Vitamins-Linter Tender als (WOMENS MULTIVITAMIN) TABS Take by mouth. [...] e for Depo-Provera contraception 150 mg IM [id number] 07/06/2018 Active albuterol sulfate (PROVENTIL) (2.5 MG/3ML) 0.083% inhalation solution 2.5 mgIndications:COPD, severity to be determined (HCC) 2.5 mg NEBULIZER Q4H PRN 05/03/2019 Active albuterol sulfate (PROVENTIL) (2.5 MG/3ML) 0.083% inhalation solution 2.5 mgIndications:COPD, severity to be determined (HCC) 2.5 mg NEBULIZER Q4H PRN 05/09/2019 Active medroxyPROGESTERone (contracep) (DEPO-PROVERA) inj 150 mgIndications:Surveillanc e for Depo-Provera contraception 150 mg IM [id number] 07/13/2019 Active medroxyPROGESTERone acetate (DEPO-PROVERA) inj TANMAY 150 mgIndications:Surveillanc e for Depo-Provera contraception 150 mg IM [id number] 07/23/2020 Active documented as of this encounter (statuses as of 10/11/2024) Active Problems Problem Noted Date Diagnosed Date [...] as of this encounter (statuses as of 10/11/2024) Resolved Problems Problem Noted Date Diagnosed Date [...] as of this encounter (statuses as of 10/11/2024) Immunizations Name Administration Dates Next Due Pneumococcal [...] encounter Miscellaneous Notes * Telephone Encounter - Rod Flor - 10/11/2024 7:47 AM EST Received message from [facility] regarding patient needing an appointment. Patient was notified. Successfully contacted patient and provided [facility] message. * Telephone Encounter - Shannon Patel [facility] - 10/06/2024 9:33 AM ESTSigned Prescriptions: Disp Refills Metoprolol Succinate ER 50 MG Oral Tablet *90 Tab*0 Sig: TAKE 1 TABLET BY MOUTH EVERY MORNING. THIS IS IN ADDITION TO THE 25 MG TABLET IN THE EVENING.Authorizing Provider: MICHAELA BOOTH User: SHANNON PATEL * Telephone Encounter - Shannon Patel [facility] - 10/06/2024 9:30 AM EST Please contact patient so that an appointment can be scheduled with her CARDIOLOGY provider. Refillauthorized to hold patient over in the mean time. Last Visit: 09/03/2023 (in office)*RTC 6 months Next Visit: Visit date not found Shannon Patel, Pharm.D. Clinical Pharmacist [facility] ([facility]) [phone] documented in this encounter Plan of Treatment Upcoming Encounters Date Type Department Care Team (Late st Contact Info) Description 10/12/2024 8:40 AM EST Office Visit Pulmonary Medicine, [place] [address] [address] [place] [address] Jono Cooper MD [address] [place] [address] 10/12/2024 10:00 AM EST Office Visit Interventional Pain Center [facility] [place] [address] [place] [phone] Noelle Sen PA-C [address] [place] [address] 11/17/2024 10:00 AM EST Imaging Radiology [address], [place] [address] [place] [phone] 11/17/2024 10:45 AM EST Imaging Radiology [address], [place] [facility] [place] [address] 01/29/2025 8:20 AM EDT Office Visit Family Practice [facility] [place] [facility] [place] [address] Walter Cabrera MD [address] [place] [address] Health Maintenance Due Date Last Done Comments [...] failure documented in this encounter Care Teams Accounting Machine Mechanic Relationship Specialty Start Date End Date Walter Cabrera MD [address] [address] PCP - General Family Medicine 03/28/24 documented as of this encounter
--- OUTSIDE RECORDS SUMMARY | 2024-12-01 23:12 | External Medical Summary | Summary of Care ---
Author Name Unknown Organization [facility] Address [address] [place] [address] Phone [phone] Care Team Providers Care Wind Commissioning Technician Name Role Phone Walter Cabrera MD Primary Care Provider [phone] Reason for Visit * Reason Comments eRx-Medication Refill Encounter Details Date Type Department Care Team (Late st Contact Info) Description 10/05/2024 Refill Cardiology, [facility] 132 [facility] [place] [address] Miranda Booth CRNP [address] [place] [address] Heart failure, diastolic, due to HTN (HCC) Allergies Active Allergy Reactions Criticality Noted Date Comments Penicillins Nausea/vomiting 06/29/2016 documented as of this encounter (statuses as of 10/06/2024) Medications Multiple Vitamins-It Technician als (WOMENS MULTIVITAMIN) TABS Take by mouth. [...] e for Depo-Provera contraception 150 mg IM [id number] 07/06/2018 Active albuterol sulfate (PROVENTIL) (2.5 MG/3ML) 0.083% inhalation solution 2.5 mgIndications:COPD, severity to be determined (HCC) 2.5 mg NEBULIZER Q4H PRN 05/03/2019 Active albuterol sulfate (PROVENTIL) (2.5 MG/3ML) 0.083% inhalation solution 2.5 mgIndications:COPD, severity to be determined (HCC) 2.5 mg NEBULIZER Q4H PRN 05/09/2019 Active medroxyPROGESTERone (contracep) (DEPO-PROVERA) inj 150 mgIndications:Surveillanc e for Depo-Provera contraception 150 mg IM [id number] 07/13/2019 Active medroxyPROGESTERone acetate (DEPO-PROVERA) inj TANMAY 150 mgIndications:Surveillanc e for Depo-Provera contraception 150 mg IM [id number] 07/23/2020 Active documented as of this encounter [...] Notes * Telephone Encounter - Shannon Patel [facility] - 10/06/2024 9:33 AM ESTSigned Prescriptions: Disp Refills Metoprolol Succinate ER 50 MG Oral Tablet *90 Tab*0 Sig: TAKE 1 TABLET BY MOUTH EVERY MORNING. THIS IS IN ADDITION TO THE 25 MG TABLET IN THE EVENING.Authorizing Provider: MIRANDA BOOTH User: SHANNON PATEL * Telephone Encounter - Shannon Patel [facility] - 10/06/2024 9:30 AM EST Please contact patient so that an appointment can be scheduled with her CARDIOLOGY provider. Refillauthorized to hold patient over in the mean time. Last Visit: 09/03/2023 (in office)*RTC 6 months Next Visit: Visit date not found Shannon Patel, Pharm.D. Clinical Pharmacist [facility] ([facility]) [phone] documented in this encounter Plan of Treatment Upcoming Encounters Date Type Department Care Team (Late st Contact Info) Description 10/12/2024 8:40 AM EST Office Visit Pulmonary Medicine, [facility] 132 [facility] [place] [address] Jono Cooper MD [address] [place] [id number] 10/12/2024 10:00 AM EST Office Visit Interventional Pain Center [facility] [address] [place] [phone] Noelle Sen PA-C [address] [place] [address] 11/17/2024 10:00 AM EST Imaging Radiology [facility] [place] [address] [place] [address] 11/17/2024 10:45 AM EST Imaging Radiology [facility] [place] [address] [place] [address] 01/29/2025 8:20 AM EDT Office Visit Family Practice [facility] [address] [place] [address] Walter Cabrera MD [address] [place] [address] Health Maintenance Due Date Last Done Comments [...] failure documented in this encounter Care Teams Wind Commissioning Technician Relationship Specialty Start Date End Date Walter Cabrera MD [address] [place] [address] PCP - General Family Medicine 03/28/24 documented as of this encounter
--- OUTSIDE RECORDS SUMMARY | 2024-12-01 23:12 | External Medical Summary | Summary of Care ---
Author Name Unknown Organization [facility] Address [address] [place] [address] Phone [phone] Care Team Providers Care Patrol Driver Name Role Phone Walter Cabrera MD Primary Care Provider [phone] Encounter Details Date Type Department Care Team (Late st Contact Info) Description 10/02/2024 Orders Only Outcomes Research Department [address] [place] [address] Donna Mayers CHRA [employer] Research Other*[id number] Allergies Active Allergy Reactions Criticality Noted Date Comments Penicillins Nausea/vomiting 06/29/2016 documented as of this encounter (statuses as of 10/02/2024) Medications Multiple Vitamins-Minera ls (WOMENS MULTIVITAMIN) TABS [...] e for Depo-Provera contraception 150 mg IM [id number] 07/06/2018 Active albuterol sulfate (PROVENTIL) (2.5 MG/3ML) 0.083% inhalation solution 2.5 mgIndications:COPD, severity to be determined (HCC) 2.5 mg NEBULIZER Q4H PRN 05/03/2019 Active albuterol sulfate (PROVENTIL) (2.5 MG/3ML) 0.083% inhalation solution 2.5 mgIndications:COPD, severity to be determined (HCC) 2.5 mg NEBULIZER Q4H PRN 05/09/2019 Active medroxyPROGESTERone (contracep) (DEPO-PROVERA) inj 150 mgIndications:Surveillanc e for Depo-Provera contraception 150 mg IM [id number] 07/13/2019 Active medroxyPROGESTERone acetate (DEPO-PROVERA) inj TANMAY 150 mgIndications:Surveillanc e for Depo-Provera contraception 150 mg IM [id number] 07/23/2020 Active documented as of this encounter (statuses as of 10/02/2024) Active Problems Problem Noted Date Diagnosed Date [...] as of this encounter (statuses as of 10/02/2024) Resolved Problems Problem Noted Date Diagnosed Date [...] as of this encounter (statuses as of 10/02/2024) Immunizations Name Administration Dates Next Due Pneumococcal [...] 8:40 AM EST Office Visit [facility], [facility] [place] [address] Jono Cooper MD [address] [place] [address] 10/12/2024 10:00 AM EST Office Visit Interventional Pain Center [facility] 132 [facility] [place] [phone] Noelle Sen PA-C [address] [place] [address] 11/17/2024 10:00 AM EST [facility] [address] [place] [phone] 01/29/2025 8:20 AM EDT Office Visit Family Practice [facility] 132 [facility] [place] [address] Walter Cabrera MD 132 [facility] [place] [address] Scheduled Orders Name Type Priority Associated Diagnoses Orde r Schedule MYCODE SUBSEQUENT ADULT Lab Routine [employer] Other*[id number] Every 6 Months for 2 Occurrences starting 10/02/2024 until 10/22/2025 Health Maintenance Due Date Last Done Comments [...] this encounter Visit Diagnoses Diagnosis [employer] Other*[id number] documented in this encounter Care Teams Patrol Driver Relationship Specialty Start Date End Date Walter Cabrera MD [address] [place] [address] PCP - General Family Medicine 03/28/24 documented as of this encounter
--- OUTSIDE RECORDS SUMMARY | 2024-12-01 23:12 | External Medical Summary | Summary of Care ---
Author Name Unknown Organization [facility] Address [address] [place] [address] Phone [phone] Care Team Providers Care Pick Up Driver Name Role Phone Walter Cabrera MD Primary Care Provider [phone] [phone] Reason for Visit * Reason Onset Date Comments Scan To Read 08/02/2024 Encounter Details Date Type Department Care Team (Late st Contact Info) Description 08/02/2024 Telephone Family Practice [facility] [address] [facility] [place] [address] Walter Cabrera MD [address] [facility] [place] [address] Scan To Read Allergies Active Allergy Reactions Criticality Noted Date Comments Penicillins Nausea/vomiting 06/29/2016 documented as of this encounter (statuses as of 08/02/2024) Medications Multiple Vitamins-Minera ls (WOMENS MULTIVITAMIN) TABS [...] e for Depo-Provera contraception 150 mg IM [id number] 07/06/2018 Active albuterol sulfate (PROVENTIL) (2.5 MG/3ML) 0.083% inhalation solution 2.5 mgIndications:COPD, severity to be determined (HCC) 2.5 mg NEBULIZER Q4H PRN 05/03/2019 Active albuterol sulfate (PROVENTIL) (2.5 MG/3ML) 0.083% inhalation solution 2.5 mgIndications:COPD, severity to be determined (HCC) 2.5 mg NEBULIZER Q4H PRN 05/09/2019 Active medroxyPROGESTERone (contracep) (DEPO-PROVERA) inj 150 mgIndications:Surveillanc e for Depo-Provera contraception 150 mg IM [id number] 07/13/2019 Active medroxyPROGESTERone acetate (DEPO-PROVERA) inj TANMAY 150 mgIndications:Surveillanc e for Depo-Provera contraception 150 mg IM [id number] 07/23/2020 Active documented as of this encounter (statuses as of 08/02/2024) Active Problems Problem Noted Date Diagnosed Date [...] as of this encounter (statuses as of 08/02/2024) Resolved Problems Problem Noted Date Diagnosed Date [...] as of this encounter (statuses as of 08/02/2024) Immunizations Name Administration Dates Next Due Pneumococcal [...] encounter Miscellaneous Notes * Telephone Encounter - Jacinda Moreira LPN - 08/02/2024 4:34 PM EST A Diabetic Telemed Eye image was taken and requires your interpretation for Dr Cabrera. Please check your inbasket for image. Patient prefers to be seen at [facility] if a follow-up appointment is needed. documented in this encounter Plan of Treatment Upcoming Encounters Date Type Department Care Team (Late st Contact Info) Description 09/28/2024 9:40 AM EST Office Visit Pulmonary Medicine, [facility] [address] [place] [address] Jono Cooper MD [address] [place] [address] 10/12/2024 10:00 AM EST Office Visit Interventional Pain Center, [facility] [address] [place] [address] Noelle Sen PA-C [address] [place] [address] 01/29/2025 8:20 AM EDT Office Visit Family Practice [facility] [address] [place] [address] Walter Cabrera MD [address] [place] [address] Health Maintenance Due Date Last Done Comments Hepatitis B Vaccine (1 of 3 - 19+ 3-dose series) 11/19/1990 HPV/Co-Test 11/19/2001 Cologuard 11/19/2016 Colonoscopy 11/19/2016 Colorectal Cancer Screening 11/19/2016 Fecal Occult Blood Test 11/19/2016 Sigmoidoscopy 11/19/2016 Depression Screening 07/10/2021 07/10/2020 Zoster Vaccines (1 of 2) 11/19/2021 DISCUSS TOBACCO CESSATION (REFER TO SMARTSET #3291) 08/06/2022 08/06/2021 COVID-19 Vaccine ( season) 2024 Mammogram 11/16/2024 11/16/2023, /09/2022, 11/05/2021, Additional history exists GFR 12/13/2024 12/14/2023, [...] filedocumented as of this encounter Care Teams Pick Up Driver Relationship Specialty Start Date End Date Walter Cabrera MD [address] [place] [address] PCP - General Family Medicine 03/28/24 documented as of this encounter
--- OUTSIDE RECORDS SUMMARY | 2024-12-01 23:12 | External Medical Summary | Summary of Care ---
Author Name Unknown Organization [facility] Address [address] [place] [address] Phone [phone] Care Team Providers Care Roving Can Tender Name Role Phone Mel Ramos MD Primary Care Provider [phone] Reason for Visit * Reason Comments eRx-Medication Refill Encounter Details Date Type Department Care Team (Late st Contact Info) Description 07/06/2024 Refill Family Practice [facility] [address] [facility] [place] [address] Mel Ramos MD [address] [facility] [place] [id number] Allergies Active Allergy Reactions Criticality Noted Date Comments Penicillins Nausea/vomiting 06/29/2016 documented as of this encounter (statuses as of 07/06/2024) Medications Medication Sig Dispensed Refills Start Date End Date Status Multiple Vitamins-Mineral s (WOMENS MULTIVITAMIN) TABS Take by mouth. Active Thiamine HCl (VITAMIN B1) 50 MG [...] Oral Tablet Extended Release 24 Hour (toPROL XL)Indications:H eart failure, diastolic, due to HTN (HCC) TAKE [...] 04/10/2024 Active Lisinopril 5 MG Oral Tablet (Prinivil)Indica tions:Heart failure, diastolic, due to HTN (HCC),HTN, goal below 130/80 TAKE 1 TABLET BY MOUTH EVERY DAY 90 Tablet 2 04/16/2024 Active Spironolactone 25 MG Oral Tablet (Aldactone) TAKE 1 TABLET BY MOUTH EVERY DAY 90 Tablet 2 04/16/2024 Active Fluticasone-Umec lidin-Vilant 100-62.5-25 MCG/ACT Aerosol Powder Breath Activated (Trelegy Ellipta) Inhale 1 Puff by mouth in the morning. 180 Each 05/02/2024 Active Folic Acid 1 MG Oral TabletIndication s:Heart failure, diastolic, due to HTN (HCC) Take [...] THE DAY 90 Capsule 3 07/06/2024 Active Omeprazole 20 MG Oral Capsule Delayed Release (PriLOSEC) TAKE 1 CAPSULE BY MOUTH EVERY DAY 1 HOUR BEFORE FIRST MEAL OF THE DAY 90 Capsule 3 08/05/2023 07/06/2024 Discontinued Hospital, Clinic, or Other Facility Administered Medication Ordered Dose Route Frequency Start Date End Date Status medroxyPROGESTERone (contracep) (DEPO-PROVERA) inj 150 mgIndications:Surveilla nce for Depo-Provera contraception 150 mg IM [id number] 07/06/2018 Active albuterol sulfate (PROVENTIL) (2.5 MG/3ML) 0.083% inhalation solution 2.5 mgIndications:COPD, severity to be determined (HCC) 2.5 mg NEBULIZER Q4H PRN 05/03/2019 Active albuterol sulfate (PROVENTIL) (2.5 MG/3ML) 0.083% inhalation solution 2.5 mgIndications:COPD, severity to be determined (HCC) 2.5 mg NEBULIZER Q4H PRN 05/09/2019 Active medroxyPROGESTERone (contracep) (DEPO-PROVERA) inj 150 mgIndications:Surveilla nce for Depo-Provera contraception 150 mg IM [id number] 07/13/2019 Active medroxyPROGESTERone acetate (DEPO-PROVERA) inj TANMAY 150 mgIndications:Surveilla nce for Depo-Provera contraception 150 mg IM [id number] 07/23/2020 Active Albuterol Sulfate (Proventil) (2.5 MG/3ML) 0.083% inhalation solution 2.5 mgIndications:Chronic obstructive pulmonary disease (COPD) (HCC) 2.5 mg NEBULIZER PRN 07/30/2023 07/29/2024 Acti ve Albuterol Sulfate (Proventil) (5 MG/ML) 0.5% *conc* inhalation solution 2.5 mgIndications:Chronic obstructive pulmonary disease (COPD) (HCC) 2.5 mg NEBULIZER PRN 07/30/2023 07/29/2024 Acti ve documented as of this encounter (statuses as of 07/06/2024) Active Problems Problem Noted Date Diagnosed Date [...] as of this encounter (statuses as of 07/06/2024) Resolved Problems Problem Noted Date Diagnosed Date [...] as of this encounter (statuses as of 07/06/2024) Immunizations Name Administration Dates Next Due Pneumococcal [...] Miscellaneous Notes * Telephone Encounter - Shannon Carver, [facility] - 07/06/2024 8:45 PM EDT Signed Prescriptions: Disp Refills Omeprazole 20 MG Oral Capsule Delayed Rele*90 Cap*3 Sig: TAKE 1CAPSULE BY MOUTH EVERY DAY 1 HOUR BEFORE FIRST MEAL OF THE DAYAuthorizing Provider: MEL RAMOS User: SHANNON CARVER ------- documented in this encounter Plan of Treatment Upcoming Encounters Date Type Department Care Team (Late st Contact Info) Description 08/01/2024 9:00 AM EST Office Visit Family Practice [facility] [address] [place] [address] Mel Ramos MD [address] [place] [address] 09/28/2024 9:40 AM EST Office Visit Pulmonary Medicine, [facility] [address] [employer] [address] [place] [address] Jono Cooper MD [address] [facility] [place] [phone] Health Maintenance Due Date Last Done Comments [...] 08/06/2021 COVID-19 Vaccine ( - season) 2024 Influenza Vaccine (FLU shot) (#1) [...] COPD 03/28/2025 03/28/2024 Lipid Panel 02/17/2029 02/18/2024, 030 01/2024, 08/02/2023, Additional history exists DTap/Tdap Vaccines [...] filedocumented as of this encounter Care Teams Roving Can Tender Relationship Specialty Start Date End Date Mel Ramos MD [address] [place] [address] PCP - General Family Medicine 03/28/24 documented as of this encounter
[2024-12-02] MEDS: SODIUM CHLORIDE 0.9% 500 ML IV SCH (00:23)
[2024-12-02 06:51] LABS: Basophils # (auto) 0.03 K/uL (0.00-0.20); Basophils % (auto) 0.3 %; Eosinophils # (auto) 0.16 K/uL (0.00-0.50); Eosinophils % (auto) 1.8 %; Hematocrit (blood only) 40.9 % (37.0-47.0); Immature Granulocytes # (auto) 0.06 K/uL (0.01-0.20); Immature Granulocytes % (auto) 0.7 %; Lymphocytes # (auto) 1.98 K/uL (1.20-3.40); Lymphocytes % (auto) 21.8 %; Mean Corpuscular Hgb Conc 31.8 g/dL (32.0-36.0); Mean Corpuscular Volume 97.4 fL (80.0-100.0); Mean Platelet Volume 10.4 fL (9.4-12.4); Monocytes % (auto) 6.6 %; Neutrophils # (auto) 6.27 K/uL (1.40-6.50); Neutrophils % (auto) 68.8 %; Platelet Count 196 K/uL (130-400); RDW Coefficient of Variation 14.4 % (11.5-14.5); RDW Standard Deviation 51.5 fL (36.4-46.3)
[2024-12-02 07:09] LABS: BUN Creatinine Ratio 28.2 (10-20); Calcium 9.7 mg/dl (8.6-10.3); Creatinine Clr Calc Pharmacy 44.2 ml/min; Magnesium 2.3 mg/dl (1.7-2.4); Potassium 5.6 mmol/L (3.5-5.1)
[2024-12-02] MEDS: HEPARIN SOD 5,000 UNIT/0.5 ML VIAL SQ SCH (08:12)
[2024-12-02] MEDS: allopurinoL 300 MG TAB PO SCH (08:13)
[2024-12-02] MEDS: SERTRALINE HCL 50 MG TABLET PO SCH (08:13)
[2024-12-02] MEDS: FOLIC ACID 1 MG TAB PO SCH (08:13)
[2024-12-02] MEDS: MULTIVITAMIN TAB PO SCH (08:13)
[2024-12-02] MEDS: UMECLIDINIUM/VILANTEROL 62.5/25MCG 7 PUFFS/INHALER INH SCH (08:13)
[2024-12-02] MEDS: ROSUVASTATIN CALCIUM 5 MG TAB PO SCH (08:13)
[2024-12-02] MEDS: PANTOprazole 40 MG TAB PO SCH (08:13)
[2024-12-02] MEDS: METOPROLOL SUCC 50MG EXT REL TAB PO SCH (08:13)
[2024-12-02] MEDS: FLUTICASONE FUROATE 100MCG 14 PUFFS/INHALER INH SCH (08:14)
[2024-12-02] MEDS ORDERED: NON-FORMULARY MEDICATION (Fluticasone-Umeclidin-Vilanter [Trelegy Ellipta] 100-62.5-25 mcg INH SCH (09:00)
--- NOTE | 2024-12-02 09:18 | Hospitalist Progress Note ---
Date of Service December 02, 2024 Assessment & Plan (1) Acute kidney injury superimposed on chronic kidney disease: Plan: 54-year-old female with past medical history significant for type 2 diabetes, mixed restrictive and obstructive lung disease, obstructive sleep apnea, diastolic CHF, chronic right-sided heart failure, pulmonary hypertension, hypertension, morbid obesity, gout, GERD, stage III CKD, tobacco use disorder presents with hyperkalemia and DILLON. DILLON on CKD Hyperkalemia Presented with creatinine 2.01, K 5.5 Baseline creatinine around 1 Got a dose of calcium gluconate in ER Got IVF Cr is 1.7 and K is 5.6 today Discussed with [place] who recommends stopping IVF, continuing to hold lisinopril, lasix and spironolactone He also recommends lokelma 10mg x1 and 5mg daily for next 2 days and stop spironolactone going forward Continue to hold lisinopril for now History of chronic diastolic CHF Chronic right-sided heart failure Holding diuretics as above Reviewed TTE from 11/2023 History of COPD History of combined restrictive and obstructive lung disease Pulmonary hypertension Continue home inhalers History of sleep apnea Currently using oxygen while sleeping Type 2 diabetes Not on meds Continue diabetic diet HbA1c 6.6 Morbid obesity Provided lifestyle modification counseling Tobacco abuse Reports she quit 2 days prior to admission Gout On allopurinol Hypertension Currently metoprolol succinate Holding diuretics and lisinopril as above Monitor GERD On omeprazole Hyperlipidemia On rosuvastatin Depression On Zoloft DVT prophylaxis Heparin subcu Disposition Telemetry Full code. I spent a total of 50 minutes coordinating, documenting and providing care for this patient excluding time spent in performance of separately billed services Admission and Anticipated Discharge Date Admission Date: December 01, 2024 Subjective Patient seen and examined Reports chronic back pain Reports chronic intermittent diarrhea Denied any other complaints on ROS Physical Exam Constitutional: + well hydrated and + obese; no acute di stress Eyes: PERRL, conjunctivae normal, anicteric sclerae ENMT: external ear and nose normal, oropharynx normal Respiratory: normal respiratory effort, lungs clear to auscultation Cardiovascular: Rate/Rhythm: regular rate and regular rhythm Gastrointestinal (Abdomen): normal bowel sounds, soft, nontender, no hepatosplenomegaly Musculoskeletal: no cyanosis or clubbing, extremities motor strength 5/5 Neurologic: PERRL, EOMI, accommodation nl, no face palsy, no dysarthria Psychiatric: A+Ox3, euthymic affect Results & Data Results & Data Vital Signs (Past 12 Hours) Vital Signs Temp Pulse Pulse Pulse Resp BP Pulse Ox 12/02/24 08:18 36.7 C 76 18 112/66 91 12/02/24 02:45 36.7 C 81 19 115/68 96 12/01/24 23:08 12/01/24 22:55 36.8 C 97 H 24 141/84 H 92 12/01/24 22:55 12/01/24 21:52 80 Pulse Ox O2 Del Method O2 Del Method O2 Flow Rate 12/02/24 08:18 Room Air 12/02/24 02:45 Nasal Cannula 3 12/01/24 23:08 3 12/01/24 22:55 Room Air 12/01/24 22:55 92 Room Air 12/01/24 21:52 Laboratory Results Abnormal lab results 12/01/24 12/02/24 Range/Units 18:00 06:16 MCHC 31.8 L (32.0-36.0) g/dL RDW Std Deviation 48.3 H 51.5 H (36.4-46.3) fL Neut # (Auto) 6.95 H (1.40-6.50) K/uL [place] # (Auto) 0.74 H 0.60 H (0.11-0.59) K/uL Sodium 132 L 135 L (136-145) mmol/L Potassium 5.5 H 5.6 H (3.5-5.1) mmol/L BUN 58 H 48 H (6-23) mg/dl Creatinine 2.01 H 1.70 H D (0.6-1.2) mg/dl BUN/Creatinine Ratio 28.9 H 28.2 H (10-20) Glucose 101 H (70-99(Fasting)) mg/dl Magnesium 1.6 L (1.7-2.4) mg/dl Alkaline Phosphatase 107 H (34-104) U/L
[2024-12-02] MEDS: SODIUM ZIRCONIUM CYCLOSILICATE 10 GM PACKET PO ONE (12:33)
--- NOTE | 2024-12-02 12:38 | Nephrology Consultation ---
Date of Consultation December 02, 2024 Assessment & Plan (1) Acute kidney injury superimposed on chronic kidney disease: -Difficult to assess her baseline renal function as her serum creatinine has been fluctuating in early to mid 1s over the last 2 years. This was elevated at 2.01 on admission. Patient denies any change in medications recently( she has been on furosemide ( 40 daily,spironolactone 25 mg daily, on lisinopril 5mg daily), historically her weight has been around 107.5 lb, this was 109.8 on admission. Difficult to assess true volume status because of obesity. Present weight is 111 lb and she appears to be comfortable on room air with no pedal edema. likely the decline in renal function was secondary to over-diuresis as her functions have now improved with a creatinine of 1.7, with slow iv fluids. - I would stop her IV fluids now and encourage oral intake to around 1.5 L daily - continue to hold Lasix and spironolactone and lisinopril - She will likely need careful introduction of Lasix and lisinopril in due course Plan discussed and agreed w Dr Kumar (2) Acute hyperkalemia: 2/ lisinopril and spirolactone on the background of decling renal fucntions. A/w Potassium 5.5, 5.6 on today's labs Continue to hold lisinopril and spironolactone - renal non dialysis diet Stat 10 g Lokelma today followed w/ 5 g daily for 3 days. History of Present Illness Reason for Consultation: DILLON on ckd 3 Attending Physician: Stacy Justin MD History of Present Illness 54-year-old female with who p/w hyperkalemia and DILLON on CKD,He was asked to go to ER after routine labs in Cardiology clinic showed Cr 2.3 and K of 5.7 w/ sodium of 132. Beside chronic diarrhea she did not have any complains. PMH-type 2 diabetes, mixed restrictive and obstructive lung disease, obstructive sleep apnea, diastolic CHF, chronic right-sided heart failure, pulmonary hypertension, hypertension, morbid obesity, gout, GERD, stage III CKD, tobacco use disorder , Fluctuating Renal fucntions w/ Cr in early to late 1.0 in the last 2 years, She has been on Furosemide, spirolactone and Lisinopril, she denied any changes recently. Allergies Allergy/AdvReac Type Severity Reaction Status Date / Time Penicillins Allergy Hives Unverified 12/01/24 20:49 Home Medications Medication Instructions Recorded Confirmed Type albuterol sulfate 90 mcg/actuation 2 puff inhalation Q4 PRN Shortness 12/06/23 12/01/24 History aerosol inhaler (ProAir HFA) Of Breath Or Wheezing allopurinol 100 mg tablet 300 mg PO DAILY 12/06/23 12/01/24 History folic acid 1 mg tablet 1 mg PO QAM 12/06/23 12/01/24 History furosemide 40 mg tablet 40 mg PO DAILY 12/06/23 12/01/24 History lisinopril 5 mg tablet 5 mg PO DAILY 12/06/23 12/01/24 History metoprolol succinate 50 mg 50 mg PO QAM 12/06/23 12/01/24 History tablet,extended release 24 hr omeprazole 20 mg capsule,delayed 20 mg PO QAM 12/06/23 12/01/24 History release rosuvastatin 5 mg tablet 5 mg PO DAILY 12/06/23 12/01/24 History sertraline 50 mg tablet 50 mg PO DAILY 12/06/23 12/01/24 History spironolactone 25 mg tablet 25 mg PO DAILY 12/06/23 12/01/24 History fluticasone fur. 100 mcg-umeclid 1 inh inhalation DAILY 12/01/24 12/01/24 History 62.5 mcg-vilant 25 mcg inhalat.powder (Trelegy Ellipta) multivitamin 1 cap PO DAILY 12/01/24 12/01/24 History Patient History Medical History (Updated 12/01/24 @ 19:50 by Caren Reina MD) Obstructive sleep apnea Acute on chronic right heart failure Depression DVT prophylaxis CHF (congestive heart failure) COPD (chronic obstructive pulmonary disease) Alcohol use Acute on chronic heart failure with preserved ejection fraction Sinus tachycardia GERD (gastroesophageal reflux disease) Prediabetes Bilateral leg edema Tobacco use Hypertension SOB (shortness of breath) Hypoxia Surgical History Hx of colonoscopy Family History Other COPD (chronic obstructive pulmonary disease) Diabetes Kidney disease Social History Smoking Status: Current every day smoker Tobacco Type: Cigarettes Cigarettes Per Day: 10; Smoking End Date: 11/29/2024; Second Hand Exposure: Yes; Do You Dip or Chew Tobacco: No; Hx Alcohol Use: Yes Alcohol type: beer and hard liquor Alcohol Intake Frequency Comment: cutting back to 2-3 beers, 2 times a week Hx Substance Use: No Preferred Language: Scottish Communication Ability: Effective Regulatory And Compliance Technician Required: No Beliefs That Will Affect Care: None Current Living Situation: Family Current Living Situation Comment: lives with sister greta Feels Safe at Home: Yes Assistive Devices: None Physical Exam 2 Physical Exam: No pedal edema Results & Data Vital Signs (Past 12 Hours) Vital Signs Temp Pulse Pulse Resp BP Pulse Ox O2 Del Method 12/02/24 10:43 36.7 C 71 18 100/64 91 Room Air 12/02/24 08:18 36.7 C 76 18 112/66 91 Room Air 12/02/24 08:00 Room Air, Nasal Cannula 12/02/24 08:00 97 H 12/02/24 02:45 36.7 C 81 19 115/68 96 Nasal Cannula O2 Flow Rate 12/02/24 10:43 12/02/24 08:18 12/02/24 08:00 2 12/02/24 08:00 12/02/24 02:45 3 Laboratory Results 12/02/24 06:16 12/02/24 06:16
--- NOTE | 2024-12-02 13:10 | Electrocardiogram Report ---
Test Reason : Blood Pressure : */* mmHG Vent. Rate : 80 BPM Atrial Rate : 81 BPM P-R Int : 174 ms QRS Dur : 86 ms QT Int : 372 ms P-R-T Axes : 60 59 45 degrees QTcB Int : 429 ms Normal sinus rhythm Normal ECG When compared with ECG of 06-Dec-2023 14:39, Minimal criteria for Anterior infarct are no longer Present Confirmed by Kamron Davidson ([id number]) on 12/02/2024 1:09:56 PM Referred By: Walter Cabrera Confirmed By: Kamron Davidson
[2024-12-03 07:55] LABS: Hematocrit (blood only) 39.6 % (37.0-47.0); Hemoglobin 12.3 g/dl (12.0-16.0); Mean Corpuscular Hgb Conc 31.1 g/dL (32.0-36.0); Mean Corpuscular Volume 99.7 fL (80.0-100.0); Mean Platelet Volume 10.6 fL (9.4-12.4); Platelet Count 180 K/uL (130-400); RDW Coefficient of Variation 14.2 % (11.5-14.5); RDW Standard Deviation 52.5 fL (36.4-46.3); Red Blood Count 3.97 M/uL (4.20-5.40); White Blood Count 7.41 K/ul (4.8-10.8)
[2024-12-03 08:11] LABS: BUN Creatinine Ratio 28.1 (10-20); Calcium 9.5 mg/dl (8.6-10.3); Creatinine Clr Calc Pharmacy 55.6 ml/min; Magnesium 2.1 mg/dl (1.7-2.4); Phosphorus 4.3 mg/dl (2.5-4.9); Potassium 4.9 mmol/L (3.5-5.1)
--- NOTE | 2024-12-03 10:13 | Hospitalist Progress Note ---
Date of Service December 03, 2024 Assessment & Plan (1) Acute kidney injury superimposed on chronic kidney disease: Plan: 54-year-old female with past medical history significant for type 2 diabetes, mixed restrictive and obstructive lung disease, obstructive sleep apnea, diastolic CHF, chronic right-sided heart failure, pulmonary hypertension, hypertension, morbid obesity, gout, GERD, stage III CKD, tobacco use disorder presents with hyperkalemia and DILLON. DILLON on CKD Hyperkalemia Presented with creatinine 2.01, K 5.5 Baseline creatinine around 1 Got a dose of calcium gluconate in ER Got IVF Cr is 1.35 and K is 4.9 today [place] [employer] recs noted Continue lokelma till tomorrow Stop Aldactone going forward Will review again tomorrow to determine what doses/how to reintroduce lisinopril and lasix once DILLON resolves History of chronic diastolic CHF Chronic right-sided heart failure Holding diuretics as above Reviewed TTE from 11/2023 History of COPD History of combined restrictive and obstructive lung disease Pulmonary hypertension Continue home inhalers History of sleep apnea Currently using oxygen while sleeping Type 2 diabetes Not on meds Continue diabetic diet HbA1c 6.6 Morbid obesity Provided lifestyle modification counseling Tobacco abuse Reports she quit 2 days prior to admission Gout On allopurinol Hypertension Currently metoprolol succinate Holding diuretics and lisinopril as above Monitor GERD On omeprazole Hyperlipidemia On rosuvastatin Depression On Zoloft DVT prophylaxis Heparin subcu Disposition Telemetry Full code. I spent a total of 40 minutes coordinating, documenting and providing care for this patient excluding time spent in performance of separately billed services Admission and Anticipated Discharge Date Admission Date: December 01, 2024 Subjective Patient seen and examined Reports feeling better today No new complaints Physical Exam Constitutional: + well hydrated and + obese; no acute di stress Eyes: PERRL, conjunctivae normal, anicteric sclerae ENMT: external ear and nose normal, oropharynx normal Respiratory: normal respiratory effort, lungs clear to auscultation Cardiovascular: Rate/Rhythm: regular rate and regular rhythm Gastrointestinal (Abdomen): normal bowel sounds, soft, nontender, no hepatosplenomegaly Musculoskeletal: no cyanosis or clubbing, extremities motor strength 5/5 Neurologic: PERRL, EOMI, accommodation nl, no face palsy, no dysarthria Psychiatric: A+Ox3, euthymic affect Results & Data Results & Data Vital Signs (Past 12 Hours) Vital Signs Temp Pulse Resp BP Pulse Ox O2 Del Method O2 Del Method 12/03/24 08:10 36.7 C 64 18 106/68 92 Room Air 12/03/24 02:35 37.0 C 83 16 118/67 94 Nasal Cannula 12/02/24 22:59 37.0 C 73 19 106/67 90 Room Air 12/02/24 22:55 Room Air O2 Flow Rate 12/03/24 08:10 12/03/24 02:35 3 12/02/24 22:59 12/02/24 22:55 Laboratory Results Abnormal lab results 12/03/24 Range/Units 07:18 RBC 3.97 L (4.20-5.40) M/uL MCHC 31.1 L (32.0-36.0) g/dL RDW Std Deviation 52.5 H (36.4-46.3) fL BUN 38 H (6-23) mg/dl Creatinine 1.35 H D (0.6-1.2) mg/dl BUN/Creatinine Ratio 28.1 H (10-20) Glucose 105 H (70-99(Fasting)) mg/dl
[2024-12-03] MEDS: SODIUM ZIRCONIUM CYCLOSILICATE 10 GM PACKET PO SCH (11:30)
[2024-12-03 21:40] LABS: Appearance Urine Clear (Clear); Bilirubin Urine Negative (Negative); Blood Urine Negative (Negative); Color Urine Yellow; Glucose Urine UA Negative (Negative); Ketones Urine Negative (Negative); Leukocyte Esterase Urine Negative (Negative); Nitrite Urine Negative (Negative); Protein Urine Negative (Negative); Specific Gravity Urine 1.009 (1.000-1.030); Urobilinogen Urine Negative (Negative); pH Urine 5.5 (4.5-7.5)
[2024-12-04 07:57] LABS: BUN Creatinine Ratio 25.7 (10-20); Calcium 9.8 mg/dl (8.6-10.3); Creatinine Clr Calc Pharmacy 54.9 ml/min; Potassium 4.6 mmol/L (3.5-5.1)
[2024-12-04 08:09] VITALS: BP 111/70; RESP 20; TEMP 97.9; O2SAT 95
--- NOTE | 2024-12-04 08:30 | Nephrology Progress Note ---
Date of Service December 04, 2024 Assessment & Plan (1) Acute kidney injury superimposed on chronic kidney disease: Plan: Resolved stage 2 nonoliguric DILLON on CKD w/ labile baseline creatinine over past 24 mos in early to mid 1s. This was elevated at 2.01 on admission, 2.3 as OP. DILLON attributed to overdiuresis, which is tricky in R HF, as well as frequent use of advil prior to admission for back pain. Presented w/ significant hyperkalemia as well K 5.7 as OP (K 4.6 today). Patient denies any change in medications recently (she had been on furosemide 40 mg daily, spironolactone 25 mg daily, lisinopril 5 mg daily), historically her weight has been around 107.5 lb, this was 109.8 on admission ([facility] wt). Last OP labs about a year back. Difficult to assess true volume status because of obesity. Was on RA yesterday 12/02 but now 2-3 L. Tells me it's supposed to be HS and w/ exertion. ordered baseline cxr before d/c given pulm exam and pt off diuretics, HF hx and no IP/OP studies past 1 year NEPHRO D/C RECS -resume usual OP medications except for the following -LOWER metoprolol dose from 75 mg daily to 25 mg daily -LOWER spironolactone dose at 12.5 mg daily -LOWER lasix frequency at 40 mg MWFSa; if any e/o volume OL on CXR (which I doubt) increase to daily -HOLD lisinopril at d/c -no need for lokelma at d/c -BMP w/in one week to be ordered by PCP -hospital d/c appt w/ me in nephro clinic in about 3 wks with BMP, UACM, ACR to be ordered by neph nurse and done up to 3 days prior to appt; bring home BP cuff along to appt if she has one -pls give teaching & literature on low K diet prior to d/c -follow low K/low Na diet at d/c -avoid NSAIDS in excess of ASA 81 mg as indicated; this was reviewed w/ pt who has upcoming back injection 12/07 care coordinated w/ Dr Justin via TText multiple times regarding d/c medications, f/u labs and appts; 02 needs and d/c dispo; we are in agreement (2) Acute hyperkalemia: Plan: 2/2 lisinopril and spirolactone on the background of declining renal fucntion. P/w K 5.7; at 4.6 today w/ holding ACEI/MRA and on daily lokelma, low K diet -f/u labs as above Admission and Anticipated Discharge Date Admission Date: December 01, 2024 Subjective wears 02 hs only though supposed to wear w/ exertion as well. significant back pain and chronic gout; denies missed diuretics RIDING DOUBLE but endorses advil use. no sob worse than baseline or edema currently no new/worrisome voiding issues Review of Systems 2 Review of Systems: All systems reviewed & are unremarkable except as noted in Subjective Physical Exam 2 Constitutional: well developed, well nourished and + morbidly obese; no acute distress Eyes: EOM intact bilaterally ENMT: Ears: no external ear abnormality Nose: no external nose abnormality Mouth: + dry oral mucous membranes Neck: no nuchal rigidity Respiratory: normal respiratory effort Auscultation: + diminished lung sounds, + crackles (fine L base) and + wheezes (occasional insp) Gastrointestinal (Abdomen): Inspection/Auscultation: normal bowel sounds P ercussion/Palpation: abdomen soft; abdomen nontender Musculoskeletal: Extremities: strength 5/5 throughout Skin: no rashes, warm and dry Neurologic: pérez, fluent speech, no tremor Psychiatric: Orientation: alert and oriented x 3 Speech: normal rate/rhythm/volume of speech Results & Data Vital Signs (Past 12 Hours) Vital Signs Temp Pulse Resp BP Pulse Ox O2 Del Method O2 Del Method 12/04/24 08:08 36.6 C 78 20 111/70 95 Nasal Cannula 12/04/24 03:35 36.7 C 75 19 104/58 L 94 Room Air 12/03/24 22:52 36.8 C 67 18 104/55 L 94 Nasal Cannula 12/03/24 22:00 Nasal Cannula O2 Flow Rate O2 Flow Rate 12/04/24 08:08 2 12/04/24 03:35 12/03/24 22:52 2 12/03/24 22:00 3 Laboratory Results 12/03/24 07:18 12/04/24 06:50
--- NOTE | 2024-12-04 10:19 | XRay Report ---
XR chest 2V PA/lateral CLINICAL HISTORY: evaluate volume status, HF off diuretics COMPARISON STUDY: 12/06/2023 FINDINGS: There is mild cardiomegaly with mild pulmonary vascular congestion. No effusion or consolid ation. IMPRESSION: Mild CHF. ACT 112: Negative or not required by law. Electronically signed by: Naresh Waters M.D. 12/04/2024 10:17 AM
--- NOTE | 2024-12-04 10:43 | Discharge Summary ---
Date of Service December 04, 2024 Admission HPI Per Admitting Provider 54-year-old female with past medical history significant for type 2 diabetes, mixed restrictive and obstructive lung disease, obstructive sleep apnea, diastolic CHF, chronic right-sided heart failure, pulmonary hypertension, hypertension, morbid obesity, gout, GERD, stage III ckd, tobacco use disorder presents with hyperkalemia and DILLON. Patient had a cardiology visit and had routine labs done which showed creatinine of 2.3 and potassium of 5.7 sodium 132 and advised to come to the hospital. In the ER her sodium was 132 potassium 5.5 creatinine 2.01 and magnesium 1.6. Resting comfortably. Has chronic cough and shortness of breath from her COPD. Denies any chest pain. No nausea. No abdominal pain. Has chronic back pain. Micturating okay. Has chronic diarrhea. Patient says once a week she noted small amount of blood in the stools and thinks from hemorrhoids. Denies headache. Vision is okay. Has some runny nose from allergies. No sore throat. Appetite is okay. No difficulty swallowing. Resting comfortably and hemodynamically stable. Past medical history. As mentioned above. Past surgical history. Colonoscopy. Cryocautery of cervix. Dilatation curettage. Social history. Smokes 1 pack a day for 35 years. Trying to quit smoking. Alcohol once a week. No drug use. Family history. Father had alcoholism. Cirrhosis. Mother had cancer. Sister has COPD. Sister had lung cancer. Admission Exam Per Admitting Provider General- Not in distress Head- atraumatic Eyes- PERRL. ENT- oropharynx clear Neck- supple, no JVD. Lungs- clear to auscultation no wheezing or crackles Heart- regular rhythm; no murmur, no gallop. Abdomen- normal bowel sounds, soft, nontender, no distension Extremities- no pretibial edema, no erythema seen Neuro- alert, oriented PERRL, EOMI; no facial palsy; no dysarthria; moves extremities Principal Diagnosis Acute kidney injury Hyperkalemia (Elevated potassium level) Discharge Exam Constitutional + well hydrated and + obese; no acute distress Eyes PERRL, conjunctivae normal, anicteric sclerae ENMT external ear and nose normal, oropharynx normal Respiratory normal respiratory effort, lungs clear to auscultation Cardiovascular Rate/Rhythm: regular rate and regular rhythm Gastrointestinal (Abdomen) normal bowel sounds, soft, nontender, no hepatosplenomegaly Musculoskeletal no cyanosis or clubbing, extremities motor strength 5/5 Neurologic PERRL, EOMI, accommodation nl, no face palsy, no dysarthria Psychiatric A+Ox3, euthymic affect Discharge Data Allergies Allergy/AdvReac Type Severity Reaction Status Date / Time Penicillins Allergy Hives Unverified 12/01/24 20:49 Consultations 12/01/24 19:51 ED Decision to Admit Stat 12/02/24 08:00 Consult Nephrology Routine Hospital Course (1) Acute kidney injury superimposed on chronic kidney disease: 54-year-old female with past medical history significant for type 2 diabetes, mixed restrictive and obstructive lung disease, obstructive sleep apnea, diastolic CHF, chronic right-sided heart failure, pulmonary hypertension, hypertension, morbid obesity, gout, GERD, stage III CKD, tobacco use disorder presents with hyperkalemia and DILLON. DILLON on CKD Hyperkalemia Presented with creatinine 2.01, K 5.5 Baseline creatinine around 1 Got a dose of calcium gluconate in ER Got IVF Patient received some doses of lokelma Her SHANK CEMENTER HAND lisinopril, lasix and aldactone were held DILLON improved Cr improved to 1.36 today Hyperkalemia resolved Discussed with Internal Security Manager today who recommended reducing metoprolol to 25 mg daily, spironolactone to 12.5 mg daily and continuing lasix 40mg daily PCP to check BMP within a week Patient to follow up with Nephro in 3 weeks History of sleep apnea Currently using oxygen while sleeping PCP to arrange sleep study Type 2 diabetes Morbid obesity Tobacco abuse Not on meds Continue diabetic diet. Educated on lifestyle modification HbA1c 6.6 Total Time Total Time Spent Total Time Spent (In Minutes): 35 Total Time Includes: Examination of the Patient, Discharge Planning, Medication Reconciliation and Communication With Other Providers Discharge Plan Discharge Items Patient Disposition: Home - Self-Care Reason For Visit: DILLON,HYPERKALEMIA Discharge Diagnosis: Acute kidney injury Hyperkalemia (Elevated potassium level) Activity: Resume your previous activity Non-emergency contact: Primary Care Provider Call non-emergency contact if: you have any medication questions Follow-up/Referrals: Walter Cabrera MD [Primary Care Provider] - 12/11/24 11:00 am (Date & Time 12/11/2024 11:00 AM Provider: Walter Cabrera MD [facility] ) Diet: Heart Healthy, Low Potassium (2gm) and Low Sodium (2gm) Addtl Attending Provider Instructions: Mrs Shaw Leach were admitted to the hospital and managed for the above listed diagnoses. The following changes were made to your medications: -Your metoprolol dose was reduced to 25 mg daily -Your spironolactone was reduced to 12.5 mg daily -STOP taking your lisinopril for now Please continue taking your lasix 40mg daily for now Your Primary Doctor can arrange blood test called Basic Metabolic Panel in 1 week. Please ensure follow up with Nephrology clinic in 3 weeks who will also arrange blood tests. It was a pleasure taking care of you Pending Studies at Discharge: No Stand-Alone Forms: My [facility], Smoking Cessation Medications and DC Order Prescriptions: Continued furosemide 40 mg tablet 40 mg PO DAILY allopurinol 100 mg Tablet 300 mg PO DAILY omeprazole 20 mg capsule,delayed release(DR/EC) 20 mg PO QAM folic acid 1 mg tablet 1 mg PO QAM albuterol sulfate [ProAir HFA] 90 mcg/actuation Hfa Aerosol Inhaler 2 puff INHALATION Q4 PRN (Reason: Shortness Of Breath Or Wheezing) sertraline 50 mg tablet 50 mg PO DAILY rosuvastatin 5 mg Tablet 5 mg PO DAILY multivitamin Capsule 1 cap PO DAILY Trelegy Ellipta 100-62.5-25 mcg blister with device 1 inh INHALATION DAILY Changed metoprolol succinate 50 mg tablet extended release 24 hr 25 mg PO QAM 30 Days Qty: 15 0RF spironolactone 25 mg Tablet 12.5 mg PO DAILY 30 Days Qty: 15 0RF Discontinued lisinopril 5 mg tablet 5 mg PO DAILY Discharge Orders: Discharge Order (Routine); Ordered 12/04/24 Ordered By: Stacy Justin Admission Data Admit Date/Time: 12/01/24 21:07 Attending Provider: Stacy Justin I. Admit Provider: Calixto Gutierrez Primary Care Provider: Walter Cabrera Other Providers: Calixto Gutierrez; Sang Chaidez Other Interventions: Discharge Summary Assessment (RN) Last Done: 12/04/24 10:47
[2024-12-04 10:48] VITALS: PULSE 97
== END 2024-12-04 11:36 | disposition home or self-care (01) | DRG 683 ==
LOC: ED 17:30 → 2S 21:07